=== PATIENT | female | born 1955 | race African-American/Black ===

== ENCOUNTER 2016-08-28 06:04 | Inpatient (IN) | payer MEDICARE, OTHER ==
[2016-08-28] VITALS (9 sets, daily range): BP systolic 115–129; BP diastolic 57–71
[~2016-08-28] VITALS: Ht 165.1 cm; Wt 78.5 kg
[~2016-08-28 06:04] MED LIST: AMLODIPINE BESY10 MG ORAL; ASPIRIN-LOW81 MG ORAL; CYCLOBENZAPRINE10 MG ORAL; GABAPENTIN300 MG ORAL; GLIMEPIRIDE4 MG ORAL; HYDROCODON-ACE1 EA15 ORAL; TRAMADOL HCL50 MG ORAL; VASERETIC1 EA ORAL
--- NOTE | 2016-08-28 06:22 | Emergency Room Report ---
History of Present Illness General Chief Complaint: Altered Level of Consciousness Source: Patient, Medical Record, EMS Present Illness HPI This is a 61-year-old female with history of diabetes in the past. No lumbar medication. Also history renal failure on hemodialysis Friday, Friday, and Friday. Per family patient is 5 dialysis session. He checked up on her and found her unresponsive not speaking. EMS was called. Per EMS, she was just revealing and making sounds. EMS said her glucose was critically low. They gave her a dose of glucagon. She became more responsive. She said she said that she's been weak. Ms. dialysis because of it. Denies any nausea vomiting. Denies any chest pain. Nothing made it better. Nothing made it worse. Allergies: Coded Allergies: No Known Allergies (Unverified , 11/13/12) Patient History Past Medical History: see triage record, old chart reviewed, HTN, renal disease Past Surgical History: other Pertinent Family History: none Social History: Denies: smoking Last Menstrual Period: none Now: No Immunizations: other Reviewed Nursing Documentation: PMH: Agreed, PSxH: Agreed Nursing Documentation-PMH Hx Cardiac Problems: Yes Hx Hypertension: Yes - stroke Hx Diabetes: Yes Hx Cancer: Yes Hx Dialysis: Yes - MWF Hx Neurological Problems: Yes Hx Cerebrovascular Accident: Yes Hx Seizures: Yes Review of Systems Constitutional: Reports: weakness Eye: Denies: blurred vision, eye pain ENT: Denies: ear pain, nose congestion, throat swelling Respiratory: Denies: cough, shortness of breath Cardiovascular: Denies: chest pain, palpitations Gastrointestinal: Denies: abdominal pain, diarrhea, nausea, vomiting Musculoskeletal: Denies: back pain, joint pain Skin: Denies: rash Neurological: Denies: headache, numbness Endocrine: Denies: increased thirst, increased urine Hematologic/Lymphatic: Denies: easy bruising All Other Systems: negative except mentioned in HPI Physical Exam Vital Signs Date Time Temp Pulse Resp B/P Pulse Ox O2 Delivery O2 Flow Rate FiO2 08/28/16 06:04 78 18 92/42 99 Room Air vital showed hypotension Sp02 EP Interpretation: reviewed, normal General Appearance: Chronically Ill Head: normocephalic, atraumatic Eyes: bilateral eye EOMI, bilateral eye PERRL ENT: hearing grossly normal, normal pharynx Neck: full range of motion, supple, no meningismus Respiratory: chest non-tender, lungs clear, normal breath sounds Cardiovascular #1: regular rate, rhythm, no murmur Gastrointestinal: normal bowel sounds, non tender, no mass, no organomegaly, no bruit, non-distended Musculoskeletal: back normal, normal range of motion Neurologic: alert, oriented x3 Psychiatric: mood/affect normal Skin: warm/dry Procedures Critical Care Time Critical Care Time Critical care is mandated in this patient who presented with critically low blood glucose. Patient require my urgent intervention to attenuate the risks of metabolic collapse which may lead to cardiovascular collapse and . Critical care time is 35 minutes excluding any reportable procedure. Critical care time included evaluation, multiple reevaluation, looking at old charts, interpreting laboratory and diagnostic data, discussing case with patient and family and consultants, and charting. Medical Decision Making Diagnostic Impression: Primary Impression: Altered level of consciousness Additional Impressions: Hypoglycemia Uremia syndrome ER Course Patient present with generalize weakness and altered mental status. Her blood sugar was critically low. D50 given here. Patient was fed. Labs and x-ray pending. No evidence of peaked T waves on EKG. Patient has poor IV access so I place 18-gauge EJ. I will sign this patient out to Dr. Solis for final disposition. Pt will be admitted. EKG Diagnostic Results Rate: normal Rhythm: NSR ST Segments: no acute changes Rhythm Strip Diag. Results EP Interpretation: yes Rate: 81 Rhythm: NSR, no PVC's, no ectopy Chest X-Ray Diagnostic Results EP Interpretation: Yes Findings: no consolidation, no effusion, no pneumothorax, no acute cardiopulmonary disease Number of Views: 1 Last Vital Signs Date Time Temp Pulse Resp B/P Pulse Ox O2 Delivery O2 Flow Rate FiO2 08/28/16 06:04 78 18 92/42 99 Room Air Status: improved Disposition: ADMITTED INPATIENT Condition: Serious FIDENCIO MORSE M.D. Aug 28, 2016 06:22
--- NOTE | 2016-08-28 06:54 | Emergency Room Report ---
History of Present Illness General Chief Complaint: Altered Level of Consciousness Source: Patient, Medical Record, EMS Present Illness HPI Patient transferred by EMS with altered mental status, history of end-stage renal disease as well as diabetes, to include episodes of hyperglycemia as well as hypoglycemia. Post gastric bypass in the past. Transferred by EMS with an altered mental status complaint and history per the family that states she has missed dialysis 3 times. No other available review of systems or history available by the family at this time. Allergies: Coded Allergies: No Known Allergies (Unverified , 11/13/12) Patient History Limited by: medical condition - unable Past Medical History: see triage record Social History: Denies: alcohol use, drug use, smoking Last Menstrual Period: none Now: No Immunizations: UTD Reviewed Nursing Documentation: PMH: Agreed Nursing Documentation-PMH Hx Cardiac Problems: Yes Hx Hypertension: Yes - stroke Hx Diabetes: Yes Hx Cancer: Yes Hx Dialysis: Yes - MWF Hx Neurological Problems: Yes Hx Cerebrovascular Accident: Yes Hx Seizures: Yes Review of Systems All Other Systems: limited Physical Exam Vital Signs Date Time Temp Pulse Resp B/P Pulse Ox O2 Delivery O2 Flow Rate FiO2 08/28/16 06:04 97.9 78 18 92/42 99 Room Air Sp02 EP Interpretation: reviewed, abnormal - low blood sugar low, blood pressure General Appearance: moderate distress, lethargic ENT: dry mucus membranes Neck: supple, other - eJ in place Respiratory: lungs clear Cardiovascular #1: regular rate, rhythm, no edema Cardiovascular #2: 2+ carotid (R), 2+ carotid (L) Gastrointestinal: non tender, soft, no mass Genitourinary: no CVA tenderness Neurologic: responsive - after blood sugar Skin: no rash, warm/dry Procedures Critical Care Time Critical Care Time Today 75 minutes critical care, to include resuscitation efforts initially, discussions with primary admitting as well as family, as well as E. and physician and review of labs, and continued observation and care of the patient in the ER. Time excluding all procedures Medical Decision Making Diagnostic Impression: Primary Impression: Altered level of consciousness Additional Impressions: Hypoglycemia Hypoglycemia associated with type 2 diabetes mellitus Hypoglycemia following gastrointestinal surgery ER Course Patient signed out to Dr. Willoughby, who initially is this and resuscitation, who place and EJ,. Patient's blood sugars be critically low and she received dextrose and emerged department with significant permit mental status. She has been eating in the ER and is not in distress at this moment. Labs are still pending, x-ray pending, patient will likely need admission to the hospital for dialysis. Will contact primary as well as renal. Labs reviewed, as well as x-ray. Patient remains improved after glucose. Believe the patient should be admitted for dialysis treatment and further observation. We'll speak with Dr. Walker for admission Contacted , he agrees with admission, the patient has had some increased dip in her blood sugar at this time I agree bolus with sugar, and as well as started a D5 drip as the patient is likely suffering from severe hypoglycemia secondary to poor intake in renal disease. Patient will need dialysis as well as close monitoring with glucose riding until her condition improves. Critical care time noted Laboratory Tests Test 08/28/16 06:30 White Blood Count 2.7 K/UL (4.8-10.8) L Red Blood Count 3.67 M/UL (4.20-5.40) L Hemoglobin 11.2 G/DL (12.0-16.0) L Hematocrit 33.8 % (37.0-47.0) L Mean Corpuscular Volume 92 FL (80-99) Mean Corpuscular Hemoglobin 30.6 PG (27.0-31.0) Mean Corpuscular Hemoglobin Concent 33.2 G/DL (32.0-36.0) Red Cell Distribution Width 13.0 % (11.6-14.8) Platelet Count 268 K/UL (150-450) Mean Platelet Volume 6.2 FL (6.5-10.1) L Neutrophils (%) (Auto) % (45.0-75.0) Lymphocytes (%) (Auto) % (20.0-45.0) Monocytes (%) (Auto) % (1.0-10.0) Eosinophils (%) (Auto) % (0.0-3.0) Basophils (%) (Auto) % (0.0-2.0) Neutrophils % (Manual) Pending Lymphocytes % (Manual) Pending Platelet Estimate Pending Platelet Morphology Pending Prothrombin Time 10.8 SEC (9.30-11.50) Prothromb Time International Ratio 1.1 (0.9-1.1) Activated Partial Thromboplast Time 23 SEC (23-33) Sodium Level 141 mEQ/L (135-145) Potassium Level 4.2 mEQ/L (3.4-4.9) Chloride Level 96 mEQ/L (98-107) L Carbon Dioxide Level 22 mEQ/L (20-30) Anion Gap 23 (5-15) H Blood Urea Nitrogen 61 mg/dL (7-23) H Creatinine 10.6 mg/dL (0.5-0.9) H Estimat Glomerular Filtration Rate 4.5 mL/min (>60) Glucose Level 91 mg/dL (74-106) Calcium Level 8.7 mg/dL (8.6-10.2) Total Bilirubin 0.4 mg/dL (0.0-1.2) Aspartate Amino Transf (AST/SGOT) 18 U/L (5-40) Alanine Aminotransferase (ALT/SGPT) 5 U/L (3-33) Alkaline Phosphatase 95 U/L (35-104) Total Creatine Kinase 137 U/L (26-140) Creatine Kinase MB 3.0 ng/mL (< 3.8) Creatine Kinase MB Relative Index 2.1 Troponin I < 0.30 ng/mL (<=0.30) Pro-B-Type Natriuretic Peptide 5186 pg/mL (0-125) H Total Protein 6.0 g/dL (6.6-8.7) L Albumin 2.7 g/dL (3.5-5.2) L Globulin 3.3 g/dL Albumin/Globulin Ratio 0.8 (1.0-2.7) L EKG Diagnostic Results EKG Time: 06:53 Rate: normal, tachycardiac Rhythm: NSR ST Segments: other - artifactual, no ST changes Rhythm Strip Diag. Results Rhythm Strip Time: 06:53 EP Interpretation: yes Rate: 88 Rhythm: NSR, no PVC's, no ectopy Chest X-Ray Diagnostic Results Time: 08:11 EP Interpretation: No Findings: no effusion, no pneumothorax, no acute cardiopulmonary disease Number of Views: 1 Reevaluation Time: 06:54 Last Vital Signs Date Time Temp Pulse Resp B/P Pulse Ox O2 Delivery O2 Flow Rate FiO2 08/28/16 06:04 97.9 78 18 92/42 99 Room Air Status: improved Disposition: ADMITTED INPATIENT Admit Decision Time: 06:54 Condition: Serious Referrals: [facility],REFERRING (PCP) Isaak Solis MD Aug 28, 2016 06:54
[2016-08-28 07:06] LABS: MEAN CORPUSCULAR HEMOGLOBIN 30.6 PG (27.0-31.0); MEAN CORPUSCULAR HGB CONC 33.2 G/DL (32.0-36.0); MEAN CORPUSCULAR VOLUME 92 FL (80-99); MEAN PLATELET VOLUME 6.2 FL (6.5-10.1); PLATELET COUNT 268 K/UL (150-450); RED BLOOD COUNT 3.67 M/UL (4.20-5.40); WHITE BLOOD COUNT 2.7 K/UL (4.8-10.8)
[2016-08-28 07:16] LABS: ALBUMIN/GLOBULIN RATIO 0.8 (1.0-2.7); CALCIUM 8.7 mg/dL (8.6-10.2); CREATININE 10.6 mg/dL (0.5-0.9); GLOMERULAR FILTRATION RATE 4.5 mL/min (>60); POTASSIUM 4.2 mEQ/L (3.4-4.9)
[2016-08-28 07:25] LABS: TROPONIN I < 0.30 ng/mL (<=0.30)
[2016-08-28 07:26] LABS: INR 1.1 (0.9-1.1); PROTHROMBIN TIME 10.8 SEC (9.30-11.50)
[2016-08-28] MEDS ORDERED: LOMOTIL TABLET1 EACH ORAL (07:45)
[2016-08-28] MEDS ORDERED: VELPHORO500 MG PO (07:45)
[2016-08-28] MEDS ORDERED: FLUDROCORTISON0.1 MG PO (07:45)
[2016-08-28] MEDS ORDERED: CLOPIDOGREL75 MG ORAL (07:45)
[2016-08-28] MEDS ORDERED: RENVELA0.8 GM ORAL (07:45)
[2016-08-28] MEDS ORDERED: CREON DR 36,001 EACH PO (07:45)
[2016-08-28] MEDS ORDERED: PANTOPRAZOLE SO40 MG ORAL (07:45)
[2016-08-28] MEDS ORDERED: BACTRIM DS TAB1 EAC1 ORAL (07:45)
--- NOTE | 2016-08-28 08:34 | Diagnostic Imaging Report ---
Indications: Shortness of breath Technique: Portable AP chest Findings: Comparison: 01/15/2012 Cardiac silhouette remains normal in size. Pulmonary vasculature remains within normal limits. Lungs and pleura remain clear. 2 vascular stents in the mid and the medial aspect of the upper right arm, region of right subclavian and brachiocephalic veins.. IMPRESSION: No evidence of acute disease, unchanged Interval intravascular stent placement, likely relates to dialysis access
[2016-08-28 09:00] LABS: BAND NEUTROPHILS % (MANUAL) 0 % (0-8); BASOPHILS % (MANUAL) 0 % (0-2); EOSINOPHILS % (MANUAL) 1 % (0-3); LYMPHOCYTES % (MANUAL) 16 % (20-45); NEUTROPHILS % (MANUAL) 77 % (45-75); PLATELET ESTIMATE ADEQUATE; PLATELET MORPHOLOGY NORMAL; TOTAL CELLS COUNTED 100
[2016-08-28] MEDS ORDERED: D5 1/2NS 1,000 ML IV SCH ×2 (09:00)
[2016-08-28 09:01] LABS: HYPOCHROMASIA 1+
[2016-08-28] MEDS ORDERED: Renvela 800mg Pkt ORAL SCH (18:00)
[2016-08-28] MEDS: Aspirin EC 81mg tab ORAL SCH (18:22)
[2016-08-28] MEDS: Pancrease Cap ORAL SCH (21:25)
[2016-08-28] MEDS: NovoLOG Insulin Flexpen SUBQ SCH (21:33)
[2016-08-28] MEDS: Heparin 5000 units/ml inj SUBQ SCH (21:39)
--- NOTE | 2016-08-28 23:23 | Consultation ---
Consult Note Assessment/Plan Brief nephrology consult: Impression: 1) ESRD 2) Probable viral illness 3) DM 4) NO Fluid overload Plan: Will arrange for HD tomorrow EMILI HERNANDEZ Aug 28, 2016 23:23
[2016-08-29 00:36] VITALS: BP 102/65
--- NOTE | 2016-08-29 02:57 | Consultation ---
DATE OF CONSULTATION: 08/28/2016 CARDIOLOGY CONSULTATION REQUESTING PHYSICIAN: Silvano Hatfield M.D. REASON FOR CONSULTATION: Hypotension. HISTORY OF PRESENT ILLNESS: This is an female with end-stage renal disease. She was seen in my office about a week ago for routine cardiac followup. Subsequently, she apparently had developed nausea, vomiting and general malaise. She was weak and unable to eat or get out of bed and missed several sessions of her dialysis. She denied chest pain or shortness of breath. She was seen in the emergency room where her blood pressure was low and she was quite lethargic with persistent hypoglycemia. PAST MEDICAL HISTORY: End-stage renal disease, diabetes mellitus type 2, history of gastric bypass surgery, hypertension with hypertensive heart disease, cerebrovascular disease with prior cerebrovascular accident, atherosclerotic cardiovascular disease and seizure disorder. MEDICATIONS: Reviewed and reconciled. ALLERGIES: None. FAMILY HISTORY: Noncontributory. SOCIAL HISTORY: No active smoking, alcohol, or substance abuse. REVIEW OF SYSTEMS: No fevers. She has had nausea and vomiting. No history of thyroid disorder. No history of chest pain. No swelling. She had dialysis Friday, Friday, and Friday usually. She has had prior strokes. PHYSICAL EXAMINATION: VITAL SIGNS: Temperature afebrile. Blood pressure 92/42, pulse 78, and respirations 18. HEENT: Temporal wasting. Pale conjunctivae. Oropharynx is clear. Mucous membranes dry. NECK: Supple. Jugular venous pressure normal. LUNGS: Clear. CARDIAC: Regular rhythm and rate. Normal S1 and S2. A 1/6 systolic apical murmur. ABDOMEN: Soft and nontender. No guarding or rebound. No CVA tenderness. EXTREMITIES: No clubbing or cyanosis. No edema. NEUROLOGIC: Lethargic until glucose given and then alert and slow response. Nonfocal. There is an injury line in the right neck region placed in the emergency room and the entry site is clean and dry. LABORATORY DATA: White count 3.7 and hemoglobin 11.2. Sodium 141, potassium 4.2, bicarbonate 22, BUN 61 and creatinine 10.6. Albumin is 2.7. IMPRESSION: 1. Hypovolemia. 2. Dehydration. 3. Probable gastroenteritis due to viral pathogens. 4. End-stage renal disease. 5. Chronic diastolic congestive heart failure. No signs of volume overload. 6. Cerebrovascular disease. 7. Type 2 diabetes mellitus with hypoglycemia. PLAN: 1. Cautious hydration. 2. Cardiac monitoring. 3. Hemodialysis without ultrafiltration. 4. No antibiotics or antimicrobials at this time. 5. Surveillance of blood cultures. 6. D5 drip. 7. Hold all oral hypoglycemic agents. 8. Glucose monitoring. Martín Walker M.D. DR: FRANKLIN JOB#: [id number] CC:
[2016-08-29 04:00] VITALS: BP 107/62
[2016-08-29 04:33] LABS: BASOPHILS % (AUTO) 2.3 % (0.0-2.0); EOSINOPHILS % (AUTO) 5.6 % (0.0-3.0); MEAN CORPUSCULAR HEMOGLOBIN 29.9 PG (27.0-31.0); MEAN CORPUSCULAR HGB CONC 32.3 G/DL (32.0-36.0); MEAN CORPUSCULAR VOLUME 92 FL (80-99); MEAN PLATELET VOLUME 5.7 FL (6.5-10.1); MONOCYTES % (AUTO) 14.4 % (1.0-10.0); NEUTROPHILS % (AUTO) 56.6 % (45.0-75.0); PLATELET COUNT 260 K/UL (150-450); RED BLOOD COUNT 3.63 M/UL (4.20-5.40); RED CELL DISTRIBUTION WIDTH 13.1 % (11.6-14.8); WHITE BLOOD COUNT 5.4 K/UL (4.8-10.8)
[2016-08-29 04:47] LABS: ALBUMIN/GLOBULIN RATIO 0.7 (1.0-2.7); CALCIUM 8.4 mg/dL (8.6-10.2); CREATININE 11.3 mg/dL (0.5-0.9); GLOMERULAR FILTRATION RATE 4.2 mL/min (>60); POTASSIUM 4.2 mEQ/L (3.4-4.9); TOTAL PROTEIN 5.5 g/dL (6.6-8.7)
[2016-08-29 05:26] LABS: TROPONIN I < 0.30 ng/mL (<=0.30)
[2016-08-29] MEDS: NovoLOG Insulin Flexpen SUBQ SCH ×4 (06:29→21:00)
[2016-08-29] MEDS ORDERED: Glimepiride 4mg tab ORAL SCH (06:30)
[2016-08-29 08:00] VITALS: BP 121/67
[2016-08-29] MEDS: Aspirin EC 81mg tab ORAL SCH ×2 (08:13→08:50)
[2016-08-29] MEDS: Pancrease Cap ORAL SCH ×4 (08:14→17:59)
[2016-08-29] MEDS: Heparin 5000 units/ml inj SUBQ SCH ×3 (08:16→20:52)
--- NOTE | 2016-08-29 08:57 | General Progress Note ---
Assessment/Plan Problem List: (1) Hypoglycemia following gastrointestinal surgery ICD Codes: K91.2 - Postsurgical malabsorption, not elsewhere classified SNOMED: 900951794, 46400728 (2) Hypoglycemia ICD Codes: E16.2 - Hypoglycemia, unspecified SNOMED: 019014377 (3) Altered level of consciousness ICD Codes: R40.4 - Transient alteration of awareness SNOMED: 0489026 (4) End stage renal disease on dialysis ICD Codes: N18.6 - End stage renal disease; Z99.2 - Dependence on renal dialysis SNOMED: 008221339 Status: stable, progressing Assessment/Plan monitor bs check cdiff BP rx sz rx monitor for sxs HD Subjective ROS Limited/Unobtainable: No Constitutional: Reports: malaise, weakness HEENT: Reports: no symptoms Cardiovascular: Reports: no symptoms Respiratory: Reports: no symptoms Gastrointestinal/Abdominal: Reports: abdominal pain, diarrhea, vomiting Genitourinary: Reports: no symptoms Neurologic/Psychiatric: Reports: pre-existing deficit, seizure Endocrine: Reports: no symptoms Hematologic/Lymphatic: Reports: anemia Allergies: Coded Allergies: No Known Allergies (Unverified , 11/13/12) All Systems: reviewed and negative except above Subjective a little better today. no hypoglycemia. oral hypoglycemics on hold. no cp/sob. waiting for HD Objective Last 24 Hour Vital Signs Date Time Temp Pulse Resp B/P Pulse Ox O2 Delivery O2 Flow Rate FiO2 08/29/16 04:00 97.4 71 20 107/62 97 Room Air 08/29/16 03:47 76 08/29/16 00:36 97.0 94 18 102/65 97 Room Air 08/28/16 23:54 85 08/28/16 21:25 81 118/67 08/28/16 21:24 97.4 81 20 118/67 95 Room Air 08/28/16 19:12 76 08/28/16 16:25 97.4 82 20 123/71 98 Room Air 08/28/16 16:00 97.9 89 20 116/62 100 Room Air 08/28/16 14:00 97.9 89 20 116/62 100 Room Air 08/28/16 13:00 97.9 92 16 129/63 100 Room Air 08/28/16 10:30 97.9 75 16 120/70 100 Room Air 08/28/16 09:30 97.9 78 17 127/60 100 Room Air Intake and Output 08/28/16 08/29/16 19:00 07:00 Intake Total 360 ml Balance 360 ml Intake Oral 360 ml # Voids 1 1 # Bowel Movements 2 Laboratory Tests 08/29/16 03:40: White Blood Count 5.4#, Red Blood Count 3.63L, Hemoglobin 10.9L, Hematocrit 33.6L, Mean Corpuscular Volume 92, Mean Corpuscular Hemoglobin 29.9, Mean Corpuscular Hemoglobin Concent 32.3, Red Cell Distribution Width 13.1, Platelet Count 260, Mean Platelet Volume 5.7L, Neutrophils (%) (Auto) 56.6, Lymphocytes ( %) (Auto) 21.0, Monocytes (%) (Auto) 14.4H, Eosinophils (%) (Auto) 5.6H, Basophils (%) (Auto) 2.3H, Sodium Level 138, Potassium Level 4.2, Chloride Level 95L, Carbon Dioxide Level 20, Anion Gap 23H, Blood Urea Nitrogen 65H, Creatinine 11.3H, Estimat Glomerular Filtration Rate 4.2, Glucose Level 71L, Calcium Level 8.4L, Total Bilirubin 0.3, Aspartate Amino Transf (AST/SGOT) 17, Alanine Aminotransferase (ALT/SGPT) 5, Alkaline Phosphatase 91, Troponin I < 0.30, Total Protein 5.5L, Albumin 2.3L, Globulin 3.2, Albumin/Globulin Ratio 0.7L Height (Feet): 5 Height (Inches): 4.00 Weight (Pounds): 173 General Appearance: WD/WN, alert Neck: supple Cardiovascular: regular rhythm Respiratory/Chest: lungs clear, normal breath sounds, no respiratory distress, no accessory muscle use Abdomen: normal bowel sounds, non tender, soft, no organomegaly, no mass Edema: no edema noted Arm (L), no edema noted Arm (R), no edema noted Leg (L), no edema noted Leg (R), no edema noted Pedal (L), no edema noted Pedal (R), no edema noted 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
--- NOTE | 2016-08-29 08:58 | History and Physical Report ---
DATE OF ADMISSION: 08/28/2016 DATE OF EVALUATION: The patient was seen in the emergency room on 08/28/2016. HISTORY OF PRESENT ILLNESS: The patient is a very pleasant 61-year-old female, well known to me. She has a history of end-stage renal disease, hypertension, diabetes and hypertensive heart disease, history of stroke and seizure disorder. She has a prior history of a gastric bypass. She was admitted after family members found her confused and altered. She was noted to be hypoglycemic at that time. According the patient, she has been ill for the last two weeks with some type of gastrointestinal illness. She has noted diarrhea, nausea and vomiting. She has been unable to the eat because of continued nausea and diarrhea. On evaluation by paramedics, the patient apparently hypoglycemic. On evaluation in the emergency room, the patient the patient blood sugar was improved and her mental status is stable, but this concerned about recurrent hypoglycemia. She is now admitted for further evaluation and care. PAST MEDICAL HISTORY: As above. PAST SURGICAL HISTORY: As above. MEDICATIONS: Current Medications reconciled and reviewed. ALLERGIES: None. SOCIAL HISTORY: There is no known history of tobacco, ethanol, or drugs. FAMILY HISTORY: None. REVIEW OF SYSTEMS: General: No fever or chills. Positive malaise or weakness. Positive anorexia. HEENT: No headaches or visual changes. Cardiopulmonary: No chest pain or shortness of breath. Gastrointestinal: Positive nausea, vomiting, and diarrhea. Genitourinary: No urgency or frequency. Musculoskeletal: No joint pain or swelling Neurologic: No evidence of seizures. PHYSICAL EXAMINATION: VITAL SIGNS: Temperature 97.0 degrees, blood pressure 117/57, pulse 78, and respirations 18. GENERAL: The patient is well-developed female in no apparent distress. She is awake, alert, and oriented x4. HEENT: Her pupils are equal, round, and reactive to light. Sclerae are anicteric. Oropharynx is clear NECK: Supple. HEART: Regular rate and rhythm. LUNGS: Clear. ABDOMEN: Soft, nontender, and nondistended. EXTREMITIES: Without clubbing, cyanosis, or edema. NEUROLOGIC: Nonfocal. LABORATORY AND DIAGNOSTIC DATA: Labs shows sodium 141, glucose of 91, potassium 4, and creatinine of 10. White count was 3, hemoglobin 11, hematocrit 33, and platelets of 100,000. Coags are normal. Chest x-ray was clear. ASSESSMENT: This is a pleasant female admitted with complaints of hypoglycemia, encephalopathy, diabetes, hypertension, end-stage renal disease, mild volume overload secondary to missed dialysis, and rash. PLAN: Antiemetics. We will hold glipizide. Monitor Accu-Cheks. Renal and Cardiology consultations. Continue seizure medications. PT/OT evaluation. Silvano Hatfield M.D. DR: Kristine JOB#: [id number] CC:
[2016-08-29 12:00] VITALS: BP 125/69
[2016-08-29] MEDS: Norco 5mg/325mg tab ORAL PRN (12:23)
--- NOTE | 2016-08-29 13:16 | Wound Care Consultation ---
Wound Assessment Wound Assessment #1: Wound Present on Admission: Yes New Wound: No Status Change of Wound: No Wound Location Body Site Modif: left, anterior Wound Location Body Site: toe - 3rd and 4th Wound Type: scab Paula Test: Does not Paula Vascular Issues: diabetic foot ulcers Wound Thickness: Full Thickness Wound Drainage Amount: None Wound Drainage Odor: None/Absent Tissue Surrounding Wound: Intact Wound General Appearance: Asymptomatic Wound Assessment #2: Wound Number: #2 Wound Present on Admission: Yes New Wound: No Status Change of Wound: No Wound Location Body Site Modif: right Wound Location Body Site: toe - 3rd and 5th Wound Type: scab Paula Test: Does not Paula Vascular Issues: diabetic foot ulcers Wound Thickness: Full Thickness Wound Drainage Amount: None Wound Drainage Odor: None/Absent Tissue Surrounding Wound: Intact Wound General Appearance: Asymptomatic Wound Assessment #3: Wound Number: #3 Wound Present on Admission: Yes New Wound: No Status Change of Wound: No Wound Location Body Site Modif: right Wound Location Body Site: chest Wound Type: scar Paula Test: Does not Paula - and small partial thickness open wound Wound Thickness: Partial Thickness Wound Drainage Description: Serosanguineous Wound Drainage Amount: Scant Wound Drainage Odor: None/Absent Tissue Surrounding Wound: Intact Wound General Appearance: Reddened Wound Comment #1 Left 3rd and 4th anterior toes diabetic foot ulcer with dry scabs #2 Right 3rd and 5th anterior toes diabetic foot ulcer with a dry scabs #3 Right upper chest with scar and small open wound #4 Right dorsal foot with small dry scab Recommendation -Keep clean and dry -Turn and reposition -Local wound care as ordered -Offload both heels -Heel protector on both heels -Optimize nutrition -Assess and f/u accordingly for any changes VU MURO RN Aug 29, 2016 13:16
[2016-08-29] MEDS: Lomotil 2.5mg tab ORAL PRN (14:38)
--- NOTE | 2016-08-29 14:56 | Nephrology Progress Note ---
Assessment/Plan Assessment 1) ESRD 2) Diarrhea might be due to SB bacterial overgrowth 3) DM Plan: Check C. diff Will HD tomorrow again Start Rifaximin empirically Subjective Subjective She is having alot of diarrhea, could not tolerate HD well today, stopped due to hypotension, no n/v Objective Objective Last 24 Hour Vital Signs Date Time Temp Pulse Resp B/P Pulse Ox O2 Delivery O2 Flow Rate FiO2 08/29/16 13:20 97.7 08/29/16 12:00 92 08/29/16 12:00 97.3 93 19 125/69 97 Room Air 08/29/16 11:30 Room Air 08/29/16 09:45 Room Air 08/29/16 08:00 108 08/29/16 08:00 97.7 93 19 121/67 98 Room Air 08/29/16 04:00 97.4 71 20 107/62 97 Room Air 08/29/16 03:47 76 08/29/16 00:36 97.0 94 18 102/65 97 Room Air 08/28/16 23:54 85 08/28/16 21:25 81 118/67 08/28/16 21:24 97.4 81 20 118/67 95 Room Air 08/28/16 19:12 76 08/28/16 16:25 97.4 82 20 123/71 98 Room Air 08/28/16 16:00 97.9 89 20 116/62 100 Room Air Intake and Output 08/28/16 08/29/16 19:00 07:00 Intake Total 360 ml Balance 360 ml Intake Oral 360 ml # Voids 1 1 # Bowel Movements 2 Laboratory Tests 08/29/16 03:40: White Blood Count 5.4#, Red Blood Count 3.63L, Hemoglobin 10.9L, Hematocrit 33.6L, Mean Corpuscular Volume 92, Mean Corpuscular Hemoglobin 29.9, Mean Corpuscular Hemoglobin Concent 32.3, Red Cell Distribution Width 13.1, Platelet Count 260, Mean Platelet Volume 5.7L, Neutrophils (%) (Auto) 56.6, Lymphocytes ( %) (Auto) 21.0, Monocytes (%) (Auto) 14.4H, Eosinophils (%) (Auto) 5.6H, Basophils (%) (Auto) 2.3H, Sodium Level 138, Potassium Level 4.2, Chloride Level 95L, Carbon Dioxide Level 20, Anion Gap 23H, Blood Urea Nitrogen 65H, Creatinine 11.3H, Estimat Glomerular Filtration Rate 4.2, Glucose Level 71L, Calcium Level 8.4L, Total Bilirubin 0.3, Aspartate Amino Transf (AST/SGOT) 17, Alanine Aminotransferase (ALT/SGPT) 5, Alkaline Phosphatase 91, Troponin I < 0.30, Total Protein 5.5L, Albumin 2.3L, Globulin 3.2, Albumin/Globulin Ratio 0.7L Height (Feet): 5 Height (Inches): 4.00 Weight (Pounds): 173 General Appearance: WD/WN, no apparent distress EENT: PERRL/EOMI Neck: non-tender, normal alignment, supple Cardiovascular: normal rate, regular rhythm Respiratory/Chest: lungs clear Abdomen: normal bowel sounds, non tender 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
[2016-08-29 16:00] VITALS: BP 100/70
[2016-08-29] MEDS: RIFAXIMIN 200 MG ORAL SCH ×2 (17:59→22:47)
[2016-08-29 20:00] VITALS: BP 98/56
[2016-08-29] MEDS ORDERED: Heparin Sod 1000 units/ml 10ml IV ONE (23:30)
[2016-08-30] VITALS (9 sets, daily range): BP systolic 100–156; BP diastolic 49–73
--- NOTE | 2016-08-30 00:28 | Consultation ---
DATE OF CONSULTATION: 08/28/2016 NEPHROLOGY CONSULTATION CONSULTING PHYSICIAN: Marco Antonio Scruggs M.D. REFERRING PHYSICIAN: Silvano Hatfield M.D. REASON FOR CONSULTATION: The patient with end-stage renal disease, has missed a couple of dialysis treatments and has had some nausea, vomiting, and diarrhea. HISTORY OF PRESENT ILLNESS: This is a very pleasant 61-year-old female, patient of Dr. Carlos Enrique Gonzalez, who has end-stage renal disease, also history of diabetes mellitus, and hypertension, possibly autonomic neuropathy, has had previous history of stroke and seizure disorder, has been brought to the emergency room of [facility] because she was apparently altered and confused, turned out to be very hypoglycemic with a blood sugar in the range of 20s and after her blood sugar was corrected, her mental status returned to normal, nevertheless, she has missed dialysis on Friday. She is usually getting dialyzed on Friday, Friday, and Fridays. She has been sick for about two weeks having a lot of loose stools, also has had some nausea and vomiting recently. She is denying any chest pain or shortness of breath. I have been asked to see her and assess for her hemodialysis needs. PAST MEDICAL HISTORY: Significant for morbid obesity. She weighed more than 400 pounds, status post gastric bypass she is weighing 173 now. She has had end-stage renal disease, hypertension, type 2 diabetes mellitus, seizure disorder, and stroke. PAST SURGICAL HISTORY: Status post gastric bypass, status post AV access placement. MEDICATIONS: 1. Amlodipine 10 mg p.o. daily. 2. Aspirin 81 mg p.o. daily. 3. Plavix 75 mg p.o. daily. 4. Flexeril 10 mg p.o. t.i.d. p.r.n. 5. Lomotil on an as-needed basis. 6. Gabapentin 300 mg p.o. t.i.d. 7. Amaryl 4 mg p.o. before breakfast. 8. Enalapril one tablet p.o. daily. 9. Vowinckel on an as-needed basis. 10. Creon 1 p.o. daily. 11. Protonix 40 mg p.o. daily. 12. Renvela 800 mg p.o. t.i.d. with each meal. 13. Velphoro 500 mg p.o. t.i.d. with each meal. 14. Tramadol 50 mg p.o. every 6 hours as needed. SOCIAL HISTORY: Does not smoke. Does not drink alcohol. No drugs at this point. REVIEW OF SYSTEMS: General: She has not had any significant weight change. Denies any chills or fever. Cardiovascular: Denies any chest pain, dyspnea with exertion, or orthopnea. Skin: Denies any rash or photosensitivity. Musculoskeletal: Denies any arthralgia or myalgia. Urinary: She is anuric, on hemodialysis. Gastrointestinal: She has had some nausea, vomiting, and diarrhea, as I mentioned in history of present illness. Endocrine: Blood sugars in the range of 100 usually. The remainder of the review of the systems have been essentially negative. PHYSICAL EXAMINATION: GENERAL: The patient does not seem to be in much acute distress. VITAL SIGNS: Blood pressure is 117/57, pulse of 80, respirations 16, and temperature 97.9. HEENT: Head is atraumatic. Eyes, pupils reactive to light. No evidence of papilledema. Ears, canals are clear. Tympanic membranes are intact. Nose, nares are patent without any nasal discharge. Throat without inflammation or exudate. NECK: Supple. Jugular venous distention is within normal limits. No cervical adenopathy. No thyromegaly. HEART: Regular rate and rhythm. No gallop. LUNGS: Clear to auscultation. ABDOMEN: Supple. Bowel sounds are positive. No hepatosplenomegaly. EXTREMITIES: Lower extremities show no cyanosis or clubbing. No pedal edema. NEUROLOGICAL: Cranial nerves seems to be grossly intact. Deep tendon reflexes are symmetrically decreased in both lower extremities. LABORATORY DATA: Showing a sodium of 141, potassium 4.2, chloride 96, carbon dioxide 22, BUN 61, and creatinine 10.6. Albumin is 2.7. LFTs within normal range. WBC is 2.7, hemoglobin is 11.2, hematocrit 33.8, and platelets 268,000. IMPRESSION: 1. End-stage renal disease. 2. Gastroenteritis, possibly viral, however, it has lasted more than 2 weeks, also consider other etiologies. 3. Type 2 diabetes mellitus. 4. No fluid overload at this point. PLAN: We are going to arrange for hemodialysis tomorrow and we go from there. Marco Antonio Scruggs M.D. DR: Rajni JOB#: [id number] CC:
--- NOTE | 2016-08-30 00:58 | Progress Note ---
DATE: 08/29/2016 SUBJECTIVE: The patient is more alert. Appetite is better. Diarrhea has resolved. Glucose is stable, but she is off all medications and just recently came off IV fluids. OBJECTIVE: VITAL SIGNS: Blood pressure 100/70, pulse 98, respiration 18, and afebrile. HEENT: Temporal wasting. Pale conjunctivae. Mucous membranes are moist. NECK: Supple. LUNGS: Clear. CARDIAC: Regular. Normal S1 and S2 with a fourth heart sound. ABDOMEN: Soft. EXTREMITIES: No edema. NEUROLOGIC: No new neurologic deficits noted. IMPRESSION: 1. Hypoglycemia. 2. Nausea and vomiting likely due to acute gastroenteritis. 3. Hypovolemia and dehydration with hypotension. 4. Chronic elevation of natriuretic peptide assay due to renal disease and hypertensive cardiomyopathy. 5. Severe protein-calorie malnutrition. 6. Cerebrovascular disease with multi-infarct dementia. 7. End-stage renal disease, on hemodialysis. PLAN: 1. Hold oral hypoglycemics. 2. Monitor glucose levels, may need additional D5 hydration if further drop in glucose is noted. 3. Encourage oral intake with protein supplements. 4. Remain off cardiovascular medications in view of low range blood pressure. 5. Hemodialysis without ultrafiltration anticipated for now. Martín Walker M.D. : RONA JOB#: [id number] CC:
[2016-08-30] MEDS ORDERED: Heparin Sod 1000 units/ml 10ml IV PRN (06:00)
[2016-08-30] MEDS: NovoLOG Insulin Flexpen SUBQ SCH ×4 (06:15→21:00)
[2016-08-30] MEDS: RIFAXIMIN 200 MG ORAL SCH ×2 (06:15→14:00)
[2016-08-30] MEDS: Aspirin EC 81mg tab ORAL SCH (08:01)
[2016-08-30] MEDS: Pancrease Cap ORAL SCH ×3 (08:02→18:27)
[2016-08-30] MEDS: Heparin 5000 units/ml inj SUBQ SCH ×2 (08:03→21:25)
--- NOTE | 2016-08-30 09:31 | General Progress Note ---
Assessment/Plan Problem List: (1) Hypoglycemia following gastrointestinal surgery ICD Codes: K91.2 - Postsurgical malabsorption, not elsewhere classified SNOMED: 430023399, 75917782 (2) Hypoglycemia ICD Codes: E16.2 - Hypoglycemia, unspecified SNOMED: 903089280 (3) Altered level of consciousness ICD Codes: R40.4 - Transient alteration of awareness SNOMED: 7058391 (4) End stage renal disease on dialysis ICD Codes: N18.6 - End stage renal disease; Z99.2 - Dependence on renal dialysis SNOMED: 487040884 Status: stable, progressing Assessment/Plan monitor bs check cdiff BP rx sz rx monitor for sxs dc planning when bs better HD Subjective ROS Limited/Unobtainable: No Constitutional: Reports: malaise, weakness HEENT: Reports: no symptoms Cardiovascular: Reports: no symptoms Respiratory: Reports: no symptoms Gastrointestinal/Abdominal: Reports: diarrhea, vomiting Genitourinary: Reports: no symptoms Neurologic/Psychiatric: Reports: pre-existing deficit, seizure Endocrine: Reports: no symptoms Hematologic/Lymphatic: Reports: anemia Allergies: Coded Allergies: No Known Allergies (Unverified , 11/13/12) All Systems: reviewed and negative except above Subjective a little better today. had 1 episode of hypoglycemia yesterday. oral hypoglycemics on hold. no cp/sob. currently on hd Objective Last 24 Hour Vital Signs Date Time Temp Pulse Resp B/P Pulse Ox O2 Delivery O2 Flow Rate FiO2 08/30/16 09:08 97.7 94 20 130/68 97 Room Air 08/30/16 08:00 103 08/30/16 05:45 Room Air 08/30/16 05:30 97.6 85 20 156/69 96 Room Air 08/30/16 04:00 112 08/30/16 04:00 97.7 85 20 156/69 95 Room Air 08/30/16 00:00 97.4 95 20 106/54 95 Room Air 08/29/16 23:33 88 08/29/16 20:00 97.5 95 20 98/56 96 Room Air 08/29/16 19:24 92 08/29/16 16:22 90 08/29/16 16:00 98.1 98 18 100/70 97 Room Air 08/29/16 13:20 97.7 08/29/16 12:00 92 08/29/16 12:00 97.3 93 19 125/69 97 Room Air 08/29/16 11:30 Room Air 08/29/16 09:45 Room Air Intake and Output 08/29/16 08/30/16 19:00 07:00 Intake Total 340 ml 460 ml Output Total 0 ml Balance 340 ml 460 ml Intake Oral 240 ml 460 ml Hemodialysis 100 ml Output Hemodialysis UF 0 ml # Bowel Movements 3 Height (Feet): 5 Height (Inches): 4.00 Weight (Pounds): 173 Objective General Appearance: WD/WN, alert Neck: supple Cardiovascular: regular rhythm Respiratory/Chest: lungs clear, normal breath sounds, no respiratory distress, no accessory muscle use Abdomen: normal bowel sounds, non tender, soft, no organomegaly, no mass Edema: no edema noted Arm (L), no edema noted Arm (R), no edema noted Leg (L), no edema noted Leg (R), no edema noted Pedal (L), no edema noted Pedal (R), no edema noted Generalized Neurologic: health assessment and treatment teacher II-XII grossly normal, no motor/sensory deficits REYNALDO MURDOCK Aug 30, 2016 09:31
[2016-08-30] MEDS: Lomotil 2.5mg tab ORAL PRN (12:21)
[2016-08-30] MEDS: Norco 5mg/325mg tab ORAL PRN (12:25)
[2016-08-30] MEDS ORDERED: metroNIDAZOLE 500mg tab ORAL SCH (14:00)
--- NOTE | 2016-08-30 17:41 | Nephrology Progress Note ---
Assessment/Plan Assessment 1) ESRD 2) Diarrhea might be due to SB bacterial overgrowth 3) DM 4) C. Diff colitis Plan: Will d/c flagyl and rifaximin Start Vanco 250 mg po QID HD done today Subjective Subjective She continues to have diarrhea, stool + for C. Diff, started on flagyl po, not working well, had HD today Objective Objective Last 24 Hour Vital Signs Date Time Temp Pulse Resp B/P Pulse Ox O2 Delivery O2 Flow Rate FiO2 08/30/16 16:53 78 08/30/16 16:10 97.3 85 19 141/63 97 Room Air 08/30/16 13:30 97.7 08/30/16 12:00 97.5 93 20 103/63 97 Room Air 08/30/16 12:00 92 08/30/16 09:39 Room Air 08/30/16 09:38 97.7 92 18 117/63 97 Room Air 08/30/16 09:08 97.7 94 20 130/68 97 Room Air 08/30/16 08:00 103 08/30/16 05:45 Room Air 08/30/16 05:30 97.6 85 20 156/69 96 Room Air 08/30/16 04:00 112 08/30/16 04:00 97.7 85 20 156/69 95 Room Air 08/30/16 00:00 97.4 95 20 106/54 95 Room Air 08/29/16 23:33 88 08/29/16 20:00 97.5 95 20 98/56 96 Room Air 08/29/16 19:24 92 Intake and Output 08/29/16 08/30/16 19:00 07:00 Intake Total 340 ml 460 ml Output Total 0 ml Balance 340 ml 460 ml Intake Oral 240 ml 460 ml Hemodialysis 100 ml Output Hemodialysis UF 0 ml # Bowel Movements 3 Height (Feet): 5 Height (Inches): 4.00 Weight (Pounds): 173 General Appearance: WD/WN, no apparent distress EENT: PERRL/EOMI Neck: non-tender, normal alignment Cardiovascular: normal rate, regular rhythm Respiratory/Chest: lungs clear Abdomen: non tender, soft Neurologic: food preservation scientist II-XII grossly normal, no motor/sensory deficits EMILI HERNANDEZ Aug 30, 2016 17:41
[2016-08-30] MEDS: Vancomycin oral 125mg/2.5ml ORAL SCH (20:14)
[2016-08-31] VITALS: BP 102/62
--- NOTE | 2016-08-31 00:39 | Progress Note ---
DATE: 08/30/2016 CARDIOLOGY PROGRESS NOTE: SUBJECTIVE: The patient continues to have low range blood glucose levels. She is not having any diarrhea or vomiting. She is off all of her diabetic medications. OBJECTIVE: VITAL SIGNS: Blood pressure is 130/68, pulse rate 94, and respiratory rate 20. Monitored sinus rhythm with sinus arrhythmias. NECK: Jugular venous pressure is normal. LUNGS: Clear. CARDIAC: Regular rhythm and rate. Normal S1 and S2 with 1/6 systolic apical murmur. ABDOMEN: Soft and nontender. EXTREMITIES: No edema. Mild right greater than left weakness. ASSESSMENT: 1. Hypoglycemia. 2. History of gastric bypass surgery. 3. Type 2 diabetes mellitus. 4. Cerebrovascular disease with multi-infarct dementia. 5. End-stage renal disease. 6. Hypertensive heart disease. PLAN: 1. Continue to hold all oral hypoglycemics. 2. Monitor oral intake. 3. Glucose monitoring. 4. Titration of antihypertensive. 5. Hemodialysis with ultrafiltration. 6. Maintain anti-platelet and antiseizure drugs. Martín Walker M.D. DR: Nehal JOB#: [id number] CC:
[2016-08-31 04:00] VITALS: BP 100/54
[2016-08-31] MEDS: Vancomycin oral 125mg/2.5ml ORAL SCH ×4 (05:39→18:56)
[2016-08-31] MEDS: NovoLOG Insulin Flexpen SUBQ SCH ×4 (05:39→21:00)
[2016-08-31 08:00] VITALS: BP 92/63
--- NOTE | 2016-08-31 08:31 | General Progress Note ---
Assessment/Plan Problem List: (1) Hypoglycemia following gastrointestinal surgery ICD Codes: K91.2 - Postsurgical malabsorption, not elsewhere classified SNOMED: 879844873, 15057322 (2) Hypoglycemia ICD Codes: E16.2 - Hypoglycemia, unspecified SNOMED: 858718773 (3) Altered level of consciousness ICD Codes: R40.4 - Transient alteration of awareness SNOMED: 3921188 (4) End stage renal disease on dialysis ICD Codes: N18.6 - End stage renal disease; Z99.2 - Dependence on renal dialysis SNOMED: 573522785 Status: stable, progressing Assessment/Plan monitor bs cdiff rx add questran BP rx sz rx monitor for sxs HD Subjective ROS Limited/Unobtainable: No Constitutional: Reports: malaise, weakness HEENT: Reports: no symptoms Cardiovascular: Reports: no symptoms Respiratory: Reports: no symptoms Gastrointestinal/Abdominal: Reports: diarrhea Genitourinary: Reports: no symptoms Neurologic/Psychiatric: Reports: no symptoms Endocrine: Reports: no symptoms Hematologic/Lymphatic: Reports: anemia Allergies: Coded Allergies: No Known Allergies (Unverified , 11/13/12) All Systems: reviewed and negative except above Subjective diarrhea. cdiff positive. on po flagyl. no more hypoglycemia Objective Last 24 Hour Vital Signs Date Time Temp Pulse Resp B/P Pulse Ox O2 Delivery O2 Flow Rate FiO2 08/31/16 04:00 98.2 99 18 100/54 97 Room Air 08/31/16 03:36 85 08/31/16 00:00 83 08/31/16 00:00 97.5 83 20 102/62 96 Room Air 08/30/16 20:21 98.1 95 18 100/49 95 Room Air 08/30/16 19:19 105 08/30/16 16:53 78 08/30/16 16:10 97.3 85 19 141/63 97 Room Air 08/30/16 13:30 97.7 08/30/16 12:00 97.5 93 20 103/63 97 Room Air 08/30/16 12:00 92 08/30/16 09:39 Room Air 08/30/16 09:38 97.7 92 18 117/63 97 Room Air 08/30/16 09:08 97.7 94 20 130/68 97 Room Air Intake and Output 08/30/16 08/31/16 19:00 07:00 Intake Total 680 ml 430 ml Balance 680 ml 430 ml Intake Oral 680 ml 430 ml # Voids 1 # Bowel Movements 3 2 Height (Feet): 5 Height (Inches): 4.00 Weight (Pounds): 173 Objective General Appearance: WD/WN, alert Neck: supple Cardiovascular: regular rhythm Respiratory/Chest: lungs clear, normal breath sounds, no respiratory distress, no accessory muscle use Abdomen: normal bowel sounds, non tender, soft, no organomegaly, no mass Edema: no edema noted Arm (L), no edema noted Arm (R), no edema noted Leg (L), no edema noted Leg (R), no edema noted Pedal (L), no edema noted Pedal (R), no edema noted Generalized 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
[2016-08-31] MEDS: Pancrease Cap ORAL SCH ×3 (08:41→18:55)
[2016-08-31] MEDS: Aspirin EC 81mg tab ORAL SCH (08:42)
[2016-08-31] MEDS: Norco 5mg/325mg tab ORAL PRN ×2 (08:42→14:42)
[2016-08-31] MEDS: Heparin 5000 units/ml inj SUBQ SCH ×2 (08:43→22:01)
[2016-08-31] MEDS ORDERED: Cholestyramine 4gm Pkt ORAL PRN (08:45)
[2016-08-31 12:00] VITALS: BP 136/74
--- NOTE | 2016-08-31 14:16 | Nephrology Progress Note ---
Assessment/Plan Assessment 1) ESRD 2) Diarrhea better 3) DM 4) C. Diff colitis Plan: Next HD on Friday Subjective Subjective She continues to have diarrhea, but better , no c/p or sob Objective Objective Last 24 Hour Vital Signs Date Time Temp Pulse Resp B/P Pulse Ox O2 Delivery O2 Flow Rate FiO2 08/31/16 12:00 97.7 106 20 136/74 95 Room Air 08/31/16 12:00 106 08/31/16 09:40 97.7 08/31/16 08:43 92/63 08/31/16 08:43 98 92/63 08/31/16 08:00 97.7 98 21 92/63 97 Room Air 08/31/16 08:00 100 08/31/16 04:00 98.2 99 18 100/54 97 Room Air 08/31/16 03:36 85 08/31/16 00:00 83 08/31/16 00:00 97.5 83 20 102/62 96 Room Air 08/30/16 20:21 98.1 95 18 100/49 95 Room Air 08/30/16 19:19 105 08/30/16 16:53 78 08/30/16 16:10 97.3 85 19 141/63 97 Room Air Intake and Output 08/30/16 08/31/16 19:00 07:00 Intake Total 680 ml 430 ml Balance 680 ml 430 ml Intake Oral 680 ml 430 ml # Voids 1 # Bowel Movements 3 2 Height (Feet): 5 Height (Inches): 4.00 Weight (Pounds): 173 General Appearance: WD/WN, no apparent distress EENT: PERRL/EOMI Neck: non-tender Cardiovascular: normal rate, regular rhythm Respiratory/Chest: chest wall non-tender, lungs clear Abdomen: non tender, soft Extremities: normal range of motion 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
[2016-08-31 16:00] VITALS: BP_SYST 108; BP_SYST 134; BP_DIAS 58; BP_DIAS 70
[2016-08-31 20:00] VITALS: BP 114/60
[2016-09-01] VITALS: BP 124/65
[2016-09-01] MEDS: Vancomycin oral 125mg/2.5ml ORAL SCH ×5 (00:44→23:31)
[2016-09-01 04:00] VITALS: BP 115/65
[2016-09-01] MEDS: NovoLOG Insulin Flexpen SUBQ SCH ×4 (06:30→21:09)
[2016-09-01 08:00] VITALS: BP 140/75
--- NOTE | 2016-09-01 08:00 | General Progress Note ---
Assessment/Plan Problem List: (1) Hypoglycemia following gastrointestinal surgery ICD Codes: K91.2 - Postsurgical malabsorption, not elsewhere classified SNOMED: 269482860, 45591812 (2) Hypoglycemia ICD Codes: E16.2 - Hypoglycemia, unspecified SNOMED: 412303909 (3) Altered level of consciousness ICD Codes: R40.4 - Transient alteration of awareness SNOMED: 2682167 (4) End stage renal disease on dialysis ICD Codes: N18.6 - End stage renal disease; Z99.2 - Dependence on renal dialysis SNOMED: 480219695 Status: stable, progressing Assessment/Plan monitor bs cdiff rx on questran BP rx sz rx monitor for sxs HD topical benadryl Subjective ROS Limited/Unobtainable: No Constitutional: Reports: malaise, weakness HEENT: Reports: no symptoms Cardiovascular: Reports: no symptoms Respiratory: Reports: no symptoms Gastrointestinal/Abdominal: Reports: diarrhea Genitourinary: Reports: no symptoms Neurologic/Psychiatric: Reports: pre-existing deficit, seizure Endocrine: Reports: no symptoms Hematologic/Lymphatic: Reports: no symptoms Allergies: Coded Allergies: No Known Allergies (Unverified , 11/13/12) All Systems: reviewed and negative except above Subjective still with diarrhea. cdiff positive. on po flagyl. no more hypoglycemia. c/o itching and face rash Objective Last 24 Hour Vital Signs Date Time Temp Pulse Resp B/P Pulse Ox O2 Delivery O2 Flow Rate FiO2 09/01/16 04:00 97.9 82 16 115/65 94 Room Air 09/01/16 00:00 98.2 89 18 124/65 97 Room Air 08/31/16 20:00 97.9 87 19 114/60 97 Room Air 08/31/16 16:00 97.5 120 23 108/70 92 Room Air 08/31/16 15:49 97.7 08/31/16 12:00 97.7 106 20 136/74 95 Room Air 08/31/16 12:00 106 08/31/16 09:40 97.7 08/31/16 08:43 92/63 08/31/16 08:43 98 92/63 08/31/16 08:00 97.7 98 21 92/63 97 Room Air 08/31/16 08:00 100 Intake and Output 2/11/17 2/12/17 19:00 07:00 Intake Total 890 ml 920 ml Balance 890 ml 920 ml Intake Oral 890 ml 920 ml # Voids 2 2 # Bowel Movements 2 2 Height (Feet): 5 Height (Inches): 4.00 Weight (Pounds): 173 Objective General Appearance: WD/WN, alert Neck: supple Cardiovascular: regular rhythm Respiratory/Chest: lungs clear, normal breath sounds, no respiratory distress, no accessory muscle use Abdomen: normal bowel sounds, non tender, soft, no organomegaly, no mass Edema: no edema noted Arm (L), no edema noted Arm (R), no edema noted Leg (L), no edema noted Leg (R), no edema noted Pedal (L), no edema noted Pedal (R), no edema noted Generalized Neurologic: leasing consultant II-XII grossly normal, no motor/sensory deficits REYNALDO MURDOCK Sep 01, 2016 08:00
[2016-09-01] MEDS: Aspirin EC 81mg tab ORAL SCH (09:00)
[2016-09-01] MEDS: Pancrease Cap ORAL SCH ×3 (09:02→19:17)
[2016-09-01] MEDS: Heparin 5000 units/ml inj SUBQ SCH ×2 (09:51→21:09)
[2016-09-01] MEDS: DiphenhydrAMINE & Zinc 28g Cream TOPIC SCH ×3 (09:52→19:18)
[2016-09-01] MEDS: Norco 5mg/325mg tab ORAL PRN ×2 (09:54→13:57)
--- NOTE | 2016-09-01 12:38 | Nephrology Progress Note ---
Assessment/Plan Problem List: (1) Orthostatic hypotension (2) C. difficile colitis (3) End stage renal disease on dialysis Plan still diarrhea. history of low bp and amlodipine stopped as prior syncope. Gabapentin dose reduced in eskd. Dialysis 09/02 no uf as gi losses Subjective Constitutional: Reports: weakness HEENT: Reports: no symptoms Genitourinary: Reports: no symptoms Neurologic/Psychiatric: Reports: no symptoms Subjective still diarrhea Objective Objective Last 24 Hour Vital Signs Date Time Temp Pulse Resp B/P Pulse Ox O2 Delivery O2 Flow Rate FiO2 09/01/16 09:53 140/75 09/01/16 09:01 109 140/75 09/01/16 08:00 98.2 109 20 140/75 98 Room Air 09/01/16 04:00 97.9 82 16 115/65 94 Room Air 09/01/16 00:00 98.2 89 18 124/65 97 Room Air 08/31/16 20:00 97.9 87 19 114/60 97 Room Air 08/31/16 16:00 97.5 120 23 108/70 92 Room Air 08/31/16 15:49 97.7 Intake and Output 08/31/16 09/01/16 19:00 07:00 Intake Total 890 ml 920 ml Balance 890 ml 920 ml Intake Oral 890 ml 920 ml # Voids 2 2 # Bowel Movements 2 2 Height (Feet): 5 Height (Inches): 4.00 Weight (Pounds): 173 General Appearance: no apparent distress, alert EENT: PERRL/EOMI Neck: non-tender Cardiovascular: normal rate, regular rhythm Respiratory/Chest: lungs clear Abdomen: soft Extremities: other - no edema Neurologic: home health clinical supervisor II-XII grossly normal VERN ABBASI Sep 01, 2016 12:38
[2016-09-01 20:38] VITALS: BP 101/65
--- NOTE | 2016-09-01 23:29 | Progress Note ---
DATE: 08/31/2016 CARDIOLOGY PROGRESS NOTE SUBJECTIVE: The patient was seen and examined. She is more alert. She has diarrhea. Her C. difficile toxin was positive. OBJECTIVE: VITAL SIGNS: Blood pressure 100/54, pulse rate 99, and respiratory rate 18. NECK: Supple. LUNGS: Clear. CARDIAC: Regular rhythm rate. Normal S1 and S2 with a fourth heart sound. ABDOMEN: Soft. No focal tenderness. EXTREMITIES: No edema. NEUROLOGIC: Mild right greater than left weakness. IMPRESSION: 1. Hypoglycemia, resolved. 2. Dehydration hypovolemia, improved. 3. C. difficile diarrhea. 4. Toxic and metabolic encephalopathies, recovering. 5. End-stage renal disease, on hemodialysis. 6. Hypertensive heart disease with low range blood pressure due to metabolic process. PLAN: 1. Maintain adequate hydration. 2. Hemodialysis without ultrafiltration. 3. Hold parameters for antihypertensive. 4. Antidiarrheals added. 5. Antiseizure therapy with seizure precautions. 6. Glucose monitoring holding all oral hypoglycemic therapy at this time. Martín Walker M.D. DR: MARU JOB#: [id number] CC:
--- NOTE | 2016-09-01 23:39 | Progress Note ---
DATE: 09/01/2016 CARDIOLOGY PROGRESS NOTE SUBJECTIVE: The patient continues to have diarrhea although somewhat decreasing in quantity. She remains on therapy for C difficile colitis. She has had itching. Her blood glucose levels have stabilized although she is off all oral hypoglycemics. OBJECTIVE: VITAL SIGNS: Blood pressure slightly improved 115/65, pulse rate 82, and respiratory rate 16. She is afebrile although yesterday she had blood pressure readings as low as 92/63. HEENT: Conjunctivae pink. Oropharynx clear. No thrush. NECK: Supple. LUNGS: Clear. CARDIAC: Regular rhythm rate. Normal S1 and S2 with a fourth heart sound. ABDOMEN: Soft and nontender. EXTREMITIES: Without edema. NEUROLOGIC: No new neurologic deficits seen. IMPRESSION: 1. History of gastric bypass. 2. Hypoglycemia. 3. Type 2 diabetes mellitus. 4. Hypertensive heart disease. 5. End-stage renal disease. 6. C. difficile colitis. 7. Metabolic and toxic encephalopathy is recovering. PLAN: 1. Holding all diabetic medications. 2. Holding oral antihypertensive. 3. Maintaining adequate hydration. 4. Continue therapy for C. difficile with antidiarrheal agents. 5. Antiseizure therapy. 6. Neuro check and seizure precautions. Martín Walker M.D. DR: MARU JOB#: [id number] CC:
[2016-09-02] VITALS (7 sets, daily range): BP systolic 99–143; BP diastolic 54–79
[2016-09-02] MEDS ORDERED: Heparin Sod 1000 units/ml 10ml IV ONE (06:00)
[2016-09-02] MEDS: Vancomycin oral 125mg/2.5ml ORAL SCH ×3 (06:24→18:13)
[2016-09-02] MEDS: NovoLOG Insulin Flexpen SUBQ SCH ×4 (06:30→20:47)
--- NOTE | 2016-09-02 07:16 | General Progress Note ---
Assessment/Plan Problem List: (1) Hypoglycemia following gastrointestinal surgery ICD Codes: K91.2 - Postsurgical malabsorption, not elsewhere classified SNOMED: 489560367, 05250914 (2) Hypoglycemia ICD Codes: E16.2 - Hypoglycemia, unspecified SNOMED: 629940923 (3) Altered level of consciousness ICD Codes: R40.4 - Transient alteration of awareness SNOMED: 4667165 (4) End stage renal disease on dialysis ICD Codes: N18.6 - End stage renal disease; Z99.2 - Dependence on renal dialysis SNOMED: 874339385 Status: stable, not improved Assessment/Plan monitor bs cdiff rx on questran BP rx sz rx monitor for sxs HD topical benadryl still with too much diarrhea to dc Subjective ROS Limited/Unobtainable: No Constitutional: Reports: malaise, weakness HEENT: Reports: no symptoms Cardiovascular: Reports: no symptoms Respiratory: Reports: no symptoms Gastrointestinal/Abdominal: Reports: no symptoms Genitourinary: Reports: no symptoms Neurologic/Psychiatric: Reports: no symptoms Endocrine: Reports: no symptoms Hematologic/Lymphatic: Reports: no symptoms Allergies: Coded Allergies: No Known Allergies (Unverified , 11/13/12) All Systems: reviewed and negative except above Subjective still with watery diarrhea. cdiff positive. on po vanco. no more hypoglycemia. c /o itching and face rash. on questran. Objective Last 24 Hour Vital Signs Date Time Temp Pulse Resp B/P Pulse Ox O2 Delivery O2 Flow Rate FiO2 09/02/16 04:00 96.6 77 18 99/63 100 Room Air 09/02/16 00:00 97.7 94 18 101/57 95 Room Air 09/01/16 20:38 97.7 81 19 101/65 93 Room Air 09/01/16 13:57 98.2 09/01/16 09:53 140/75 09/01/16 09:01 109 140/75 09/01/16 08:00 98.2 109 20 140/75 98 Room Air Intake and Output 09/01/16 09/02/16 19:00 07:00 Intake Total 620 ml Balance 620 ml Intake Oral 620 ml # Voids 5 # Bowel Movements 7 Height (Feet): 5 Height (Inches): 4.00 Weight (Pounds): 173 Objective General Appearance: WD/WN, alert Neck: supple Cardiovascular: regular rhythm Respiratory/Chest: lungs clear, normal breath sounds, no respiratory distress, no accessory muscle use Abdomen: normal bowel sounds, non tender, soft, no organomegaly, no mass Edema: no edema noted Arm (L), no edema noted Arm (R), no edema noted Leg (L), no edema noted Leg (R), no edema noted Pedal (L), no edema noted Pedal (R), no edema noted 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
[2016-09-02 07:45] LABS: BASOPHILS % (AUTO) 1.6 % (0.0-2.0); CALCIUM 8.7 mg/dL (8.6-10.2); CREATININE 9.4 mg/dL (0.5-0.9); GLOMERULAR FILTRATION RATE 5.2 mL/min (>60); LYMPHOCYTES % (AUTO) 35.9 % (20.0-45.0); MEAN CORPUSCULAR HEMOGLOBIN 29.4 PG (27.0-31.0); MEAN CORPUSCULAR HGB CONC 31.2 G/DL (32.0-36.0); MEAN CORPUSCULAR VOLUME 94 FL (80-99); MEAN PLATELET VOLUME 6.1 FL (6.5-10.1); MONOCYTES % (AUTO) 11.2 % (1.0-10.0); NEUTROPHILS % (AUTO) 45.3 % (45.0-75.0); PHOSPHORUS 4.1 mg/dL (2.5-4.8); PLATELET COUNT 258 K/UL (150-450); POTASSIUM 4.1 mEQ/L (3.4-4.9); RED BLOOD COUNT 3.83 M/UL (4.20-5.40); RED CELL DISTRIBUTION WIDTH 13.6 % (11.6-14.8); WHITE BLOOD COUNT 6.6 K/UL (4.8-10.8)
[2016-09-02] MEDS: Aspirin EC 81mg tab ORAL SCH (08:23)
[2016-09-02] MEDS: Pancrease Cap ORAL SCH ×3 (08:24→18:13)
[2016-09-02] MEDS: DiphenhydrAMINE & Zinc 28g Cream TOPIC SCH ×3 (09:04→18:13)
[2016-09-02] MEDS: Heparin 5000 units/ml inj SUBQ SCH ×2 (09:09→20:07)
[2016-09-02] MEDS: Cholestyramine 4gm Pkt ORAL PRN (09:14)
--- NOTE | 2016-09-02 12:40 | Cardiology Report ---
APPROVED REPORT EKG Measurement Heart [id number] Sinus rhythm with fusion complexes Low voltage QRS Left anterior fascicular block Septal infarct, age undetermined Abnormal ECG
[2016-09-02] MEDS: Norco 5mg/325mg tab ORAL PRN (16:43)
--- NOTE | 2016-09-02 18:09 | Nephrology Progress Note ---
Assessment/Plan Problem List: (1) Orthostatic hypotension (2) C. difficile colitis (3) End stage renal disease on dialysis (4) Epilepsy Plan still diarrhea. history of low bp and amlodipine stopped as prior syncope. Stop lisinopril and florinef 09/02. Gabapentin dose reduced in eskd. Dialysis no uf as gi losses, stable on hd Subjective Constitutional: Reports: weakness HEENT: Reports: no symptoms Genitourinary: Reports: no symptoms Neurologic/Psychiatric: Reports: no symptoms Subjective still diarrhea mod-severe Objective Objective Last 24 Hour Vital Signs Date Time Temp Pulse Resp B/P Pulse Ox O2 Delivery O2 Flow Rate FiO2 09/02/16 16:09 99.1 93 22 122/54 99 Room Air 09/02/16 14:32 Room Air 09/02/16 12:00 97.7 79 16 124/66 99 Room Air 09/02/16 10:45 97.9 96 17 143/79 99 Room Air 09/02/16 10:45 Room Air 09/02/16 08:24 114/54 09/02/16 08:12 97.9 96 17 114/54 99 Room Air 09/02/16 04:00 96.6 77 18 99/63 100 Room Air 09/02/16 00:00 97.7 94 18 101/57 95 Room Air 09/01/16 20:38 97.7 81 19 101/65 93 Room Air Intake and Output 09/01/16 09/02/16 19:00 07:00 Intake Total 620 ml Balance 620 ml Intake Oral 620 ml # Voids 5 # Bowel Movements 7 Laboratory Tests 09/02/16 05:55: White Blood Count 6.6, Red Blood Count 3.83L, Hemoglobin 11.3L, Hematocrit 36.1L , Mean Corpuscular Volume 94, Mean Corpuscular Hemoglobin 29.4, Mean Corpuscular Hemoglobin Concent 31.2L, Red Cell Distribution Width 13.6, Platelet Count 258, Mean Platelet Volume 6.1L, Neutrophils (%) (Auto) 45.3, Lymphocytes (%) (Auto) 35.9, Monocytes (%) (Auto) 11.2H, Eosinophils (%) (Auto) 6.0H, Basophils (%) (Auto) 1.6, Sodium Level 149H, Potassium Level 4.1, Chloride Level 104, Carbon Dioxide Level 23, Anion Gap 22H, Blood Urea Nitrogen 62H, Creatinine 9.4H, Estimat Glomerular Filtration Rate 5.2, Glucose Level 68L , Calcium Level 8.7, Phosphorus Level 4.1 Height (Feet): 5 Height (Inches): 4.00 Weight (Pounds): 173 General Appearance: WD/WN, alert EENT: normal ENT inspection Neck: normal alignment Cardiovascular: normal rate, regular rhythm Respiratory/Chest: lungs clear, normal breath sounds Abdomen: non tender, soft, no organomegaly Extremities: other - no edema VERN ABBASI Sep 02, 2016 18:09
[2016-09-03] VITALS: BP 126/66
[2016-09-03] MEDS: Vancomycin oral 125mg/2.5ml ORAL SCH ×5 (00:19→23:56)
[2016-09-03 04:00] VITALS: BP 121/68
--- NOTE | 2016-09-03 05:36 | General Progress Note ---
Assessment/Plan Problem List: (1) Hypoglycemia following gastrointestinal surgery ICD Codes: K91.2 - Postsurgical malabsorption, not elsewhere classified SNOMED: 585929035, 42973320 (2) Hypoglycemia ICD Codes: E16.2 - Hypoglycemia, unspecified SNOMED: 315857937 (3) Altered level of consciousness ICD Codes: R40.4 - Transient alteration of awareness SNOMED: 4547963 (4) End stage renal disease on dialysis ICD Codes: N18.6 - End stage renal disease; Z99.2 - Dependence on renal dialysis SNOMED: 204007286 Assessment/Plan monitor bs cdiff rx on questran BP rx sz rx monitor for sxs HD topical benadryl still with too much diarrhea to dc will call id Subjective ROS Limited/Unobtainable: No Constitutional: Reports: malaise, weakness HEENT: Reports: no symptoms Cardiovascular: Reports: no symptoms Respiratory: Reports: no symptoms Gastrointestinal/Abdominal: Reports: diarrhea Genitourinary: Reports: no symptoms Neurologic/Psychiatric: Reports: no symptoms Endocrine: Reports: no symptoms Hematologic/Lymphatic: Reports: no symptoms Allergies: Coded Allergies: No Known Allergies (Unverified , 11/13/12) All Systems: reviewed and negative except above Subjective still with frequent watery diarrhea. cdiff positive. on po vanco. compliant with meds. no more hypoglycemia. c/o itching and face rash. on questran. Objective Last 24 Hour Vital Signs Date Time Temp Pulse Resp B/P Pulse Ox O2 Delivery O2 Flow Rate FiO2 09/03/16 04:00 97.8 77 18 121/68 97 Room Air 09/03/16 00:00 97.9 79 18 126/66 96 Room Air 09/02/16 20:10 99.1 94 22 121/61 96 Room Air 09/02/16 17:42 99.1 09/02/16 16:09 99.1 93 22 122/54 99 Room Air 09/02/16 14:32 Room Air 09/02/16 12:00 97.7 79 16 124/66 99 Room Air 09/02/16 10:45 97.9 96 17 143/79 99 Room Air 09/02/16 10:45 Room Air 09/02/16 08:24 114/54 09/02/16 08:12 97.9 96 17 114/54 99 Room Air Intake and Output 09/02/16 09/03/16 19:00 07:00 Intake Total 480 ml 240 ml Output Total 0 ml Balance 480 ml 240 ml Intake Oral 480 ml 240 ml Output Hemodialysis UF 0 ml # Voids 2 2 # Bowel Movements 3 Laboratory Tests 09/02/16 05:55: White Blood Count 6.6, Red Blood Count 3.83L, Hemoglobin 11.3L, Hematocrit 36.1L , Mean Corpuscular Volume 94, Mean Corpuscular Hemoglobin 29.4, Mean Corpuscular Hemoglobin Concent 31.2L, Red Cell Distribution Width 13.6, Platelet Count 258, Mean Platelet Volume 6.1L, Neutrophils (%) (Auto) 45.3, Lymphocytes (%) (Auto) 35.9, Monocytes (%) (Auto) 11.2H, Eosinophils (%) (Auto) 6.0H, Basophils (%) (Auto) 1.6, Sodium Level 149H, Potassium Level 4.1, Chloride Level 104, Carbon Dioxide Level 23, Anion Gap 22H, Blood Urea Nitrogen 62H, Creatinine 9.4H, Estimat Glomerular Filtration Rate 5.2, Glucose Level 68L , Calcium Level 8.7, Phosphorus Level 4.1 Height (Feet): 5 Height (Inches): 4.00 Weight (Pounds): 173 Objective General Appearance: WD/WN, alert Neck: supple Cardiovascular: regular rhythm Respiratory/Chest: lungs clear, normal breath sounds, no respiratory distress, no accessory muscle use Abdomen: normal bowel sounds, non tender, soft, no organomegaly, no mass Edema: no edema noted Arm (L), no edema noted Arm (R), no edema noted Leg (L), no edema noted Leg (R), no edema noted Pedal (L), no edema noted Pedal (R), no edema noted 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
[2016-09-03] MEDS: NovoLOG Insulin Flexpen SUBQ SCH ×4 (06:30→21:00)
[2016-09-03] MEDS: Norco 5mg/325mg tab ORAL PRN (07:01)
[2016-09-03] MEDS: Heparin 5000 units/ml inj SUBQ SCH ×2 (08:46→22:12)
[2016-09-03] MEDS: Aspirin EC 81mg tab ORAL SCH (08:47)
[2016-09-03] MEDS: Pancrease Cap ORAL SCH ×3 (08:48→18:18)
[2016-09-03] MEDS: DiphenhydrAMINE & Zinc 28g Cream TOPIC SCH ×3 (08:55→18:18)
[2016-09-03] MEDS: Cholestyramine 4gm Pkt ORAL PRN (11:46)
[2016-09-03 12:00] VITALS: BP 127/72
--- NOTE | 2016-09-03 12:04 | Infectious Diseases Prog Note ---
Assessment/Plan Assessment/Plan Full consult dictated: A) 1) c.diff. colitis 2) esrd, hd, anemia 3) sz, dm, htn, hhd, cva, ca, obesity 4) allergies - negative, fh-nc, sh-negative 5) mar noted, notes and records reviewed 6) d/w RN P) 1) vancomycin po, iv flagyl 2) check labs 3) continue treatment per primary and consultants 4) orders entered and noted 5) d/w Dr. Hatfield 6) thank you Subjective Allergies: Coded Allergies: No Known Allergies (Unverified , 11/13/12) Objective Vital Signs Last 24 Hour Vital Signs Date Time Temp Pulse Resp B/P Pulse Ox O2 Delivery O2 Flow Rate FiO2 09/03/16 04:00 97.8 77 18 121/68 97 Room Air 09/03/16 00:00 97.9 79 18 126/66 96 Room Air 09/02/16 20:10 99.1 94 22 121/61 96 Room Air 09/02/16 17:42 99.1 09/02/16 16:09 99.1 93 22 122/54 99 Room Air 09/02/16 14:32 Room Air 09/02/16 12:00 97.7 79 16 124/66 99 Room Air Height (Feet): 5 Height (Inches): 4.00 Weight (Pounds): 173 Current Medications Medications (Trade) Dose Ordered Sig/Nakul Route PRN Reason Start Time Stop Time Status Last Admin Dose Admin Acetaminophen (Tylenol) 650 mg Q4H PRN ORAL Mild Pain/Temp > 100.5 08/31/16 13:00 09/30/16 12:59 Acetaminophen/ Hydrocodone Bitart ([place] 5/325) 1 tab Q4H PRN ORAL Moderate Pain (Pain Scale 4-6) 08/31/16 13:00 09/07/16 12:59 09/03/16 07:01 Amylase/Lipase/ Protease (Pancrease) 2 ea THREE TIMES A DAY ORAL 08/31/16 13:30 09/30/16 13:29 09/03/16 08:48 Aspirin (Ecotrin) 81 mg DAILY ORAL 09/01/16 09:00 10/01/16 08:59 09/03/16 08:47 Cholestyramine Resin (Questran) 4 gm THREE TIMES A DAY PRN ORAL Diarrhea 08/31/16 13:00 09/30/16 12:59 09/03/16 11:46 Clopidogrel Bisulfate (Plavix) 75 mg DAILY ORAL 09/01/16 09:00 10/01/16 08:59 09/03/16 08:48 Dextrose (Dextrose 50%) STAT PRN IV Hypoglycemia 08/31/16 17:00 09/30/16 16:59 Diphenhydramine HCl (Benadryl Cream) 1 applic THREE TIMES A DAY TOPIC 09/01/16 09:00 10/01/16 08:59 09/03/16 08:55 Diphenhydramine HCl (Benadryl) 75 mg HSPRN PRN ORAL Insomnia 08/31/16 19:15 09/30/16 19:14 09/02/16 20:56 Gabapentin 300 mg 300 mg QHS ORAL 09/01/16 21:00 10/01/16 20:59 09/02/16 20:05 Heparin Sodium (Porcine) (Heparin 5000 units/ml) 5,000 units EVERY 12 HOURS SUBQ 08/31/16 21:00 09/30/16 20:59 09/03/16 08:46 Insulin Aspart (NovoLOG) BEFORE MEALS AND HS SUBQ 08/31/16 16:30 09/30/16 16:29 09/02/16 20:47 Ondansetron HCl (Zofran) 4 mg Q6H PRN IVP Nausea & Vomiting 08/31/16 18:00 09/30/16 17:59 Pantoprazole (Protonix) 40 mg DAILY ORAL 09/01/16 09:00 10/01/16 08:59 09/03/16 08:48 Sevelamer Carbonate (Renvela) 800 mg THREE TIMES A DAY ORAL 08/31/16 13:30 09/30/16 13:29 09/03/16 08:48 Sodium Chloride (Sodium Chloride 1000ml bag) 1,000 ml @ 500 mls/hr Q2H PRN IVLG sbp<90 during hd 09/02/16 12:31 10/02/16 12:30 Vancomycin HCl (Vancomycin) 125 mg Q6HR ORAL 08/31/16 18:00 09/07/16 17:59 09/03/16 06:56 MAGDALENO JIMÉNEZ Sep 03, 2016 12:04
[2016-09-03] MEDS: metroNIDAZOLE 500mg 100 ML IVPB SCH ×2 (14:30→22:12)
[2016-09-03] MEDS: Lactobacillus-GG tablet ORAL SCH ×2 (15:24→18:18)
[2016-09-03 16:00] VITALS: BP 127/61
--- NOTE | 2016-09-03 18:59 | Consultation ---
DATE OF CONSULTATION: 09/03/2016 ADDENDUM The patient has colonized with vancomycin-resistant enterococcus. Continue isolation for colonization of vancomycin-resistant enterococcus. Stewart Nolen M.D. DR: ADINA JOB#: [id number] CC:
--- NOTE | 2016-09-03 19:47 | Nephrology Progress Note ---
Assessment/Plan Problem List: (1) Orthostatic hypotension (2) C. difficile colitis (3) End stage renal disease on dialysis (4) Epilepsy Plan still diarrhea. history of low bp and amlodipine stopped as prior syncope. Stop lisinopril and florinef 09/02. Gabapentin dose reduced in eskd. Dialysis no uf as gi losses, stable on hd Subjective Constitutional: Reports: weakness HEENT: Reports: no symptoms Genitourinary: Reports: no symptoms Neurologic/Psychiatric: Reports: no symptoms Subjective still diarrhea mod-severe Objective Objective Last 24 Hour Vital Signs Date Time Temp Pulse Resp B/P Pulse Ox O2 Delivery O2 Flow Rate FiO2 09/03/16 16:00 98.2 88 22 127/61 98 Room Air 09/03/16 12:00 97.9 93 18 127/72 97 Room Air 09/03/16 04:00 97.8 77 18 121/68 97 Room Air 09/03/16 00:00 97.9 79 18 126/66 96 Room Air 09/02/16 20:10 99.1 94 22 121/61 96 Room Air Intake and Output 09/02/16 09/03/16 19:00 07:00 Intake Total 480 ml 240 ml Output Total 0 ml Balance 480 ml 240 ml Intake Oral 480 ml 240 ml Output Hemodialysis UF 0 ml # Voids 2 4 # Bowel Movements 3 1 Height (Feet): 5 Height (Inches): 4.00 Weight (Pounds): 173 General Appearance: no apparent distress, alert EENT: normal ENT inspection Neck: normal alignment Cardiovascular: regular rhythm Respiratory/Chest: lungs clear, normal breath sounds Abdomen: non tender Extremities: other - no edema 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
[2016-09-03 20:00] VITALS: BP 100/54
--- NOTE | 2016-09-03 22:29 | Consultation ---
DATE OF CONSULTATION: 09/03/2016 INFECTIOUS DISEASES CONSULTATION CONSULTING PHYSICIAN: Stewart Nolen M.D. ATTENDING PHYSICIAN: Silvano Hatfield M.D. REASON FOR CONSULTATION: Refractory C. difficile. CHIEF COMPLAINT FROM THE HOSPITAL: End-stage renal disease, hypoglycemia. HISTORY OF PRESENT ILLNESS: The patient is a very pleasant 61-year-old female with history of end-stage renal disease on hemodialysis. The patient presented to [facility] and was noted to be hypoglycemic. The patient has a history of end-stage renal disease on hemodialysis. The patient does have diarrhea, nausea, and vomiting. She does have a history of gastrointestinal illness what looks like. It looks like she has had diarrhea for quite sometime, she states up to a year but I am not sure how long she has had it documented in the medical records. The patient was on IV Flagyl and now is on p.o. vancomycin. Her C. difficile PCR test was positive. She states she has not been treated before. As per history by Dr. Hatfield, it looks like she has been on Flagyl and was switched to p.o. vancomycin. Infectious diseases consultation was requested for antibiotic management. This patient with refractory C. difficile. MAR was noted. Orders were noted. Notes were reviewed. Case was discussed with RN. PAST MEDICAL HISTORY: Includes the history of following, the patient has a past medical history of end-stage renal disease on hemodialysis. She has a history of anemia. She has what sounds like diarrhea. She has a history of diabetes and hypertension. She has history of CVA. History of cancer I am not sure what type. History of obesity. Hypertensive heart disease, seizures. Please put past medical history in medical order. MEDICATIONS: Upon reviewing the MAR, the patient is on the following medications: The patient is on sodium chloride, Neurontin, Ecotrin, Plavix, Protonix, Enalapril, Florinef, , Benadryl, heparin, Zofran, p.o. vancomycin, put on IV Flagyl, NovoLog insulin, . She is on Ranvela, Tylenol, Questran, Shiner. Please put medications in medical order. ALLERGIES: No known drug allergies. SOCIAL HISTORY: Negative for smoking, alcohol, or drug abuse. FAMILY HISTORY: Noncontributory. Negative for exposure to tuberculosis or cancer. REVIEW OF SYSTEMS: General: No fever, chills, night sweats, or weight loss. Head And Neck: No thrush, dysphagia, sinus tenderness. Pulmonary: No shortness of breath. Cardiac: No chest pain or palpitation. Gastrointestinal: She has history of nausea, vomiting, and diarrhea. No significant abdominal pain. Genitourinary: She is on hemodialysis. No Robbins. Skin: No rash or itching. Extremities: No extremity pain. Neurologic: No seizures. PHYSICAL EXAMINATION: GENERAL: The patient is alert, responsive, oriented x3 in no acute distress. VITAL SIGNS: Temperature 97.8 degrees, pulse rate 77, respiratory rate 18, blood pressure 121/68, and saturation 97%. T-max is 99.1. No significant temperature spike. HEAD AND NECK: Oral exam, no thrush. Eye exam, no icterus. Neck is supple. No JVD. No sinus tenderness. Normocephalic. No facial droop. No neck stiffness. HEART: Regular. No gallop. No murmur or friction rub. ABDOMEN: Soft. Positive bowel sounds. Nontender. No organomegaly. LUNGS: Clear bilaterally. No rhonchi or rales. SKIN: No rash or dermatitis. PERIPHERAL VASCULAR: No cyanosis or gangrene. MUSCULOSKELETAL: No evidence of septic arthritis. Legs are without cellulitis. GENITOURINARY: She has no Robbins. RECTAL: Deferred. LINES: Line sites without phlebitis. NEUROLOGIC: Generalized weakness. Intact. Nonfocal. Alert and oriented x3. LABORATORY DATA: Laboratory data is as follows. The patient's white count 6.6, hemoglobin 11.3, and platelet count is 258,000. Creatinine is 9.4. BNP was as high as 5186. Chest x-ray was negative for pneumonia noted and reviewed. Cultures, blood cultures are negative to date. VRE screen was positive. C. diff toxin by DNA amplification, PCR was positive for toxigenic C. difficile. MRSA screen is negative. Chest x-ray negative. ASSESSMENT AND PLAN: 1. The patient has clostridium difficile colitis. The patient was on Flagyl, now is on p.o. vancomycin. She still has diarrhea that is significant and severe diarrhea. Continue p.o. vancomycin. I will add IV Flagyl. She is on Questran and I added probiotic. Continue vancomycin p.o. and IV Flagyl and watch the patient clinically. The patient may need eventually if she does not improve to consider such things as , Flagyl, or fidaxomicin as possibilities, but however we will first try the p.o. vancomycin and IV Flagyl and may be also vancomycin taper. Continue Questran and probiotics. Case discussed with Dr. Hatfield. 2. End-stage renal disease on hemodialysis, treatment per Renal. 3. Anemia. 4. Seizures. 5. Diabetes. 6. Hypertension. 7. Hypertensive heart disease. 8. Cerebrovascular accident. 9. Cancer history question what type. 10. Obesity. 11. Continue treatment per Dr. Hatfield and consultants including blood pressure and blood sugar control. 12. Allergies are negative. 13. Family history is noncontributory. 14. Social history is negative. 15. MAR was noted. 16. Notes were reviewed 17. Case was discussed with Dr. Hatfield. 18. Case was discussed with RN. 19. Case was discussed with the patient. 20. Continue treatment per primary consultants. Thank you. I will follow. Stewart Nolen M.D. DR: Fox JOB#: [id number] CC:
--- NOTE | 2016-09-04 00:19 | Progress Note ---
DATE: 09/03/2016 CARDIOLOGY PROGRESS NOTE SUBJECTIVE: Blood pressure is improved. Glucose control is better. The patient is off antihypertensives and oral hypoglycemics. She continues to have diarrhea. PHYSICAL EXAMINATION: VITAL SIGNS: Blood pressure 100/54 to 127/61, heart rate 88 to 98, respiratory rate 22, and the patient's temperature is 99.0 degrees. HEENT: Temporal wasting. Oropharynx clear. NECK: Supple. LUNGS: Clear. CARDIAC: Regular rhythm and rate. Normal S1 and S2 with a fourth heart sound. ABDOMEN: Soft and nontender. No edema. IMPRESSION: 1. Clostridium difficile colitis. 2. Diarrhea. 3. Fluid losses. 4. Hypernatremia. 5. Hypovolemia. 6. Dehydration. 7. Hypotension. 8. Hypoglycemia. 9. Orthostatic hypotension. 10. Cerebrovascular disease with dementia. 11. Severe protein-calorie malnutrition. PLAN: 1. Protein supplement. 2. Hold oral hypoglycemics and antihypertensives. 3. Intravenous fluids as needed. 4. Hemodialysis with limited ultrafiltration. 5. Antimicrobials and antidiarrheals. Martín Walker M.D. DR: Tressa JOB#: [id number] CC:
--- NOTE | 2016-09-04 00:19 | Progress Note ---
DATE: 09/02/2016 CARDIOLOGY PROGRESS NOTE SUBJECTIVE: The patient continues to have diarrhea, episodes of hypotension were noted. Glucose control is stable, however, she is off all oral hypoglycemic agents. She remains on antibiotics for C. difficile. PHYSICAL EXAMINATION: VITAL SIGNS: Temperature 99.1 degrees, blood pressure 122/54, heart rate 93, and respiratory 22. LUNGS: Clear. CARDIAC: Regular. Normal S1 and S2. ABDOMEN: Soft. No focal tenderness. No edema. IMPRESSION: 1. Hypovolemia dehydration due to gastrointestinal fluid losses, Clostridium difficile colitis, and diarrhea. 2. Type 2 diabetes mellitus with hypoglycemia. 3. End-stage renal disease. 4. Cerebrovascular disease with multi-infarct dementia. PLAN: 1. Continue antibiotics. 2. Maintain intravenous hydration as needed. 3. Hemodialysis. 4. Decreased sedation. 5. Holding lisinopril. Martín Walker M.D. DR: Tressa JOB#: [id number] CC:
[2016-09-04 04:00] VITALS: BP 125/60
[2016-09-04] MEDS: metroNIDAZOLE 500mg 100 ML IVPB SCH ×3 (05:52→21:21)
[2016-09-04] MEDS: Vancomycin oral 125mg/2.5ml ORAL SCH ×4 (05:52→23:31)
[2016-09-04] MEDS: NovoLOG Insulin Flexpen SUBQ SCH ×4 (05:52→21:22)
[2016-09-04 08:00] VITALS: BP 129/76
[2016-09-04] MEDS: Lactobacillus-GG tablet ORAL SCH ×3 (08:38→17:36)
[2016-09-04] MEDS: Pancrease Cap ORAL SCH ×3 (08:38→17:36)
[2016-09-04] MEDS: Aspirin EC 81mg tab ORAL SCH (08:38)
[2016-09-04] MEDS: Norco 5mg/325mg tab ORAL PRN (08:38)
[2016-09-04] MEDS: Heparin 5000 units/ml inj SUBQ SCH ×2 (08:39→21:22)
[2016-09-04] MEDS: DiphenhydrAMINE & Zinc 28g Cream TOPIC SCH ×3 (08:43→17:37)
--- NOTE | 2016-09-04 08:48 | General Progress Note ---
Assessment/Plan Problem List: (1) Hypoglycemia following gastrointestinal surgery ICD Codes: K91.2 - Postsurgical malabsorption, not elsewhere classified SNOMED: 749637528, 50907919 (2) Hypoglycemia ICD Codes: E16.2 - Hypoglycemia, unspecified SNOMED: 089236059 (3) Altered level of consciousness ICD Codes: R40.4 - Transient alteration of awareness SNOMED: 8880610 (4) End stage renal disease on dialysis ICD Codes: N18.6 - End stage renal disease; Z99.2 - Dependence on renal dialysis SNOMED: 501945353 Status: stable, not improved Assessment/Plan monitor bs cdiff rx per ID on questran BP rx sz rx monitor for sxs HD topical benadryl/steroids still with too much diarrhea to dc Subjective ROS Limited/Unobtainable: No Constitutional: Reports: no symptoms HEENT: Reports: no symptoms Cardiovascular: Reports: no symptoms Respiratory: Reports: no symptoms Gastrointestinal/Abdominal: Reports: diarrhea Genitourinary: Reports: no symptoms Neurologic/Psychiatric: Reports: seizure Endocrine: Reports: no symptoms Hematologic/Lymphatic: Reports: no symptoms Allergies: Coded Allergies: No Known Allergies (Unverified , 11/13/12) All Systems: reviewed and negative except above Subjective still with frequent watery diarrhea. cdiff positive. on po vanco and flagyl now. c/o "hernandez" on her face Objective Last 24 Hour Vital Signs Date Time Temp Pulse Resp B/P Pulse Ox O2 Delivery O2 Flow Rate FiO2 09/04/16 08:00 99.0 84 18 129/76 98 Room Air 09/04/16 04:00 97.7 72 18 125/60 98 Room Air 09/03/16 20:00 99.0 98 22 100/54 97 Room Air 09/03/16 16:00 98.2 88 22 127/61 98 Room Air 09/03/16 12:00 97.9 93 18 127/72 97 Room Air Intake and Output 09/03/16 09/04/16 19:00 07:00 Intake Total 300 ml 760 ml Balance 300 ml 760 ml Intake Oral 300 ml 560 ml IV Total 200 ml # Bowel Movements 1 4 Height (Feet): 5 Height (Inches): 4.00 Weight (Pounds): 173 Objective General Appearance: WD/WN, alert Neck: supple Cardiovascular: regular rhythm Respiratory/Chest: lungs clear, normal breath sounds, no respiratory distress, no accessory muscle use Abdomen: normal bowel sounds, non tender, soft, no organomegaly, no mass Edema: no edema noted Arm (L), no edema noted Arm (R), no edema noted Leg (L), no edema noted Leg (R), no edema noted Pedal (L), no edema noted Pedal (R), no edema noted 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
[2016-09-04] MEDS: Triamcinolone 0.1% 15gm Cr TOPIC SCH ×3 (10:15→17:37)
[2016-09-04 12:00] VITALS: BP 108/51
[2016-09-04 15:58] VITALS: BP 91/50
--- NOTE | 2016-09-04 16:25 | Nephrology Progress Note ---
Assessment/Plan Problem List: (1) Orthostatic hypotension (2) C. difficile colitis (3) End stage renal disease on dialysis (4) Epilepsy Plan still diarrhea. history of low bp and amlodipine stopped as prior syncope. Stop lisinopril and florinef 09/02. Gabapentin dose reduced in eskd. Dialysis no uf as gi losses, stable on hd Subjective Constitutional: Reports: weakness HEENT: Reports: no symptoms Genitourinary: Reports: no symptoms Neurologic/Psychiatric: Reports: no symptoms Subjective still diarrhea mod-severe Objective Objective Last 24 Hour Vital Signs Date Time Temp Pulse Resp B/P Pulse Ox O2 Delivery O2 Flow Rate FiO2 09/04/16 15:58 97.7 108 20 91/50 97 Room Air 09/04/16 13:15 Room Air 09/04/16 12:00 98.6 84 18 108/51 98 Room Air 09/04/16 09:40 Room Air 09/04/16 09:37 99.0 09/04/16 08:00 99.0 84 18 129/76 98 Room Air 09/04/16 04:00 97.7 72 18 125/60 98 Room Air 09/03/16 20:00 99.0 98 22 100/54 97 Room Air Intake and Output 09/03/16 09/04/16 19:00 07:00 Intake Total 300 ml 760 ml Balance 300 ml 760 ml Intake Oral 300 ml 560 ml IV Total 200 ml # Bowel Movements 1 4 Height (Feet): 5 Height (Inches): 4.00 Weight (Pounds): 173 General Appearance: no apparent distress, alert EENT: normal ENT inspection Neck: normal alignment Cardiovascular: normal rate Respiratory/Chest: lungs clear, no respiratory distress Abdomen: soft, no organomegaly Extremities: other - no edema 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
[2016-09-04 20:00] VITALS: BP 107/57
[2016-09-04] MEDS ORDERED: Heparin Sod 1000 units/ml 10ml IV ONE (20:00)
--- NOTE | 2016-09-04 20:15 | Infectious Diseases Prog Note ---
Assessment/Plan Assessment/Plan A) 1) c.diff. colitis - still with diarrhea/loose stools but stool more formed per RN 2) esrd, hd, anemia 3) sz, dm, htn, hhd, cva, ca, obesity 4) allergies - negative, fh-nc, sh-negative 5) mar noted, notes and records reviewed 6) d/w RN 7) vre colonization P) 1) vancomycin po, iv flagyl for now 2) check labs 3) continue treatment per primary and consultants 4) orders entered and noted 5) d/w patient 6) vre isolation Subjective Constitutional: Denies: fever Respiratory: Denies: shortness of breath Cardiovascular: Denies: chest pain Gastrointestinal/Abdominal: Reports: diarrhea, other - d/w RN and says stool more formed, Denies: nausea, vomiting Genitourinary: Reports: other - no blood Psychiatric: Denies: depression Skin: Denies: rash Hematologic: Denies: bleeding Musculoskeletal: Denies: pain Allergies: Coded Allergies: No Known Allergies (Unverified , 11/13/12) Objective Vital Signs Last 24 Hour Vital Signs Date Time Temp Pulse Resp B/P Pulse Ox O2 Delivery O2 Flow Rate FiO2 09/04/16 15:58 97.7 108 20 91/50 97 Room Air 09/04/16 13:15 Room Air 09/04/16 12:00 98.6 84 18 108/51 98 Room Air 09/04/16 09:40 Room Air 09/04/16 09:37 99.0 09/04/16 08:00 99.0 84 18 129/76 98 Room Air 09/04/16 04:00 97.7 72 18 125/60 98 Room Air Height (Feet): 5 Height (Inches): 4.00 Weight (Pounds): 173 General Appearance: no acute distress HEENT: normocephalic, atraumatic, anicteric, mucous membranes moist, PERRL, EOMI, pharynx normal, supple, no JVD Respiratory/Chest: lungs clear, normal breath sounds, no respiratory distress, no accessory muscle use Cardiovascular: normal rate, regular rhythm, no gallop/murmur, no JVD Abdomen: normal bowel sounds, soft, non tender, no organomegaly, non distended Genitourinary: other - no blood Extremities: no cyanosis Skin: no rash 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 Complete 08/29/16 12:30 Stool Clostridium difficile Toxin Assay - Final Complete 08/28/16 08:06 Rectum VRE Culture - Final Enterococcus Faecium - Vre Complete c.diff. - + Labs Test 09/02/16 05:55 White Blood Count 6.6 K/UL (4.8-10.8) Red Blood Count 3.83 M/UL (4.20-5.40) Hemoglobin 11.3 G/DL (12.0-16.0) Hematocrit 36.1 % (37.0-47.0) Mean Corpuscular Volume 94 FL (80-99) Mean Corpuscular Hemoglobin 29.4 PG (27.0-31.0) Mean Corpuscular Hemoglobin Concent 31.2 G/DL (32.0-36.0) Red Cell Distribution Width 13.6 % (11.6-14.8) Platelet Count 258 K/UL (150-450) Mean Platelet Volume 6.1 FL (6.5-10.1) Neutrophils (%) (Auto) 45.3 % (45.0-75.0) Lymphocytes (%) (Auto) 35.9 % (20.0-45.0) Monocytes (%) (Auto) 11.2 % (1.0-10.0) Eosinophils (%) (Auto) 6.0 % (0.0-3.0) Basophils (%) (Auto) 1.6 % (0.0-2.0) Sodium Level 149 mEQ/L (135-145) Potassium Level 4.1 mEQ/L (3.4-4.9) Chloride Level 104 mEQ/L (98-107) Carbon Dioxide Level 23 mEQ/L (20-30) Anion Gap 22 (5-15) Blood Urea Nitrogen 62 mg/dL (7-23) Creatinine 9.4 mg/dL (0.5-0.9) Estimat Glomerular Filtration Rate 5.2 mL/min (>60) Glucose Level 68 mg/dL (74-106) Calcium Level 8.7 mg/dL (8.6-10.2) Phosphorus Level 4.1 mg/dL (2.5-4.8) Current Medications Medications (Trade) Dose Ordered Sig/Nakul Route PRN Reason Start Time Stop Time Status Last Admin Dose Admin Acetaminophen (Tylenol) 650 mg Q4H PRN ORAL Mild Pain/Temp > 100.5 08/31/16 13:00 09/30/16 12:59 Acetaminophen/ Hydrocodone Bitart (Seward 5/325) 1 tab Q4H PRN ORAL Moderate Pain (Pain Scale 4-6) 08/31/16 13:00 09/07/16 12:59 09/04/16 08:38 Amylase/Lipase/ Protease (Pancrease) 2 ea THREE TIMES A DAY ORAL 08/31/16 13:30 09/30/16 13:29 09/04/16 17:36 Aspirin (Ecotrin) 81 mg DAILY ORAL 09/01/16 09:00 10/01/16 08:59 09/04/16 08:38 Cholestyramine Resin (Questran) 4 gm THREE TIMES A DAY PRN ORAL Diarrhea 08/31/16 13:00 09/30/16 12:59 09/03/16 11:46 Clopidogrel Bisulfate (Plavix) 75 mg DAILY ORAL 09/01/16 09:00 10/01/16 08:59 09/04/16 08:38 Dextrose (Dextrose 50%) STAT PRN IV Hypoglycemia 08/31/16 17:00 09/30/16 16:59 Diphenhydramine HCl (Benadryl Cream) 1 applic THREE TIMES A DAY TOPIC 09/01/16 09:00 10/01/16 08:59 09/04/16 17:37 Diphenhydramine HCl (Benadryl) 75 mg HSPRN PRN ORAL Insomnia 08/31/16 19:15 09/30/16 19:14 09/03/16 22:27 Gabapentin (Neurontin) 300 mg QHS ORAL 09/01/16 21:00 10/01/16 20:59 09/03/16 22:12 Heparin Sodium (Porcine) (Heparin 5000 units/ml) 5,000 units EVERY 12 HOURS SUBQ 08/31/16 21:00 09/30/16 20:59 09/04/16 08:39 Insulin Aspart (NovoLOG) BEFORE MEALS AND HS SUBQ 08/31/16 16:30 09/30/16 16:29 09/02/16 20:47 Lactobacillus Acidophilus 1 tab 1 tab THREE TIMES A DAY ORAL 09/03/16 14:00 10/03/16 13:59 09/04/16 17:36 Metronidazole 100 ml @ 100 mls/hr Q8HR IVPB 09/03/16 14:30 09/10/16 14:29 09/04/16 13:13 Ondansetron HCl (Zofran) 4 mg Q6H PRN IVP Nausea & Vomiting 08/31/16 18:00 09/30/16 17:59 Pantoprazole (Protonix) 40 mg DAILY ORAL 09/01/16 09:00 10/01/16 08:59 09/04/16 08:38 Sevelamer Carbonate (Renvela) 800 mg THREE TIMES A DAY ORAL 08/31/16 13:30 09/30/16 13:29 09/04/16 17:36 Sodium Chloride (Sodium Chloride 1000ml bag) 1,000 ml @ 500 mls/hr Q2H PRN IVLG sbp<90 during hd 09/04/16 09:00 09/04/16 23:59 Triamcinolone Acetonide (Kenalog) 1 applic THREE TIMES A DAY TOPIC 09/04/16 10:30 10/04/16 10:29 09/04/16 17:37 Vancomycin HCl (Vancomycin) 125 mg Q6HR ORAL 08/31/16 18:00 09/07/16 17:59 09/04/16 18:26 MAGDALENO JIMÉNEZ Sep 04, 2016 20:15
--- NOTE | 2016-09-04 23:50 | Progress Note ---
DATE: 09/04/2016 CARDIOLOGY PROGRESS NOTE: SUBJECTIVE: The patient continues to have diarrhea, somewhat better. Itching is improved. Glucose control is improving with no hypoglycemic episodes. OBJECTIVE: VITAL SIGNS: Blood pressure parameters are more stable with hypotensive episode. T-max is 99.0 degrees, blood pressure 100/54 to 129/76, heart rate 84, and respiratory rate 18. LUNGS: Bilateral breath sounds. HEART: Regular rhythm and rate. Normal S1 and S2. ABDOMEN: Soft. No edema. IMPRESSION: 1. Dehydration. 2. Hypernatremia. 3. Clostridium difficile colitis. 4. Hypoglycemia. 5. Type 2 diabetes mellitus. 6. End-stage renal disease. 7. Hypertensive heart disease. 8. Severe protein-calorie malnutrition. PLAN: 1. Holding oral hypoglycemics, antihypertensive, oral antimicrobials. 2. Hydration based on clinical parameters with free water. 3. Recheck laboratory studies. Martín Walker M.D. DR: Nehal JOB#: [id number] CC:
[2016-09-05] VITALS: BP 136/75
[2016-09-05 04:00] VITALS: BP 112/61
[2016-09-05] MEDS: metroNIDAZOLE 500mg 100 ML IVPB SCH ×3 (05:23→21:57)
[2016-09-05] MEDS: Norco 5mg/325mg tab ORAL PRN ×3 (05:23→21:58)
[2016-09-05] MEDS: Vancomycin oral 125mg/2.5ml ORAL SCH ×4 (05:24→23:45)
[2016-09-05] MEDS: NovoLOG Insulin Flexpen SUBQ SCH ×4 (05:24→21:00)
[2016-09-05 06:27] LABS: BASOPHILS % (AUTO) 1.9 % (0.0-2.0); EOSINOPHILS % (AUTO) 3.4 % (0.0-3.0); LYMPHOCYTES % (AUTO) 31.6 % (20.0-45.0); MEAN CORPUSCULAR HEMOGLOBIN 30.5 PG (27.0-31.0); MEAN CORPUSCULAR HGB CONC 32.1 G/DL (32.0-36.0); MEAN CORPUSCULAR VOLUME 95 FL (80-99); MEAN PLATELET VOLUME 6.2 FL (6.5-10.1); MONOCYTES % (AUTO) 11.8 % (1.0-10.0); NEUTROPHILS % (AUTO) 51.3 % (45.0-75.0); PLATELET COUNT 233 K/UL (150-450); RED BLOOD COUNT 2.89 M/UL (4.20-5.40); RED CELL DISTRIBUTION WIDTH 13.4 % (11.6-14.8); WHITE BLOOD COUNT 6.2 K/UL (4.8-10.8)
[2016-09-05 07:12] LABS: CALCIUM 7.7 mg/dL (8.6-10.2); CREATININE 5.6 mg/dL (0.5-0.9); GLOMERULAR FILTRATION RATE 9.5 mL/min (>60); POTASSIUM 3.7 mEQ/L (3.4-4.9)
[2016-09-05 07:17] LABS: MAGNESIUM 2.2 mg/dL (1.7-2.5)
--- NOTE | 2016-09-05 07:54 | General Progress Note ---
Assessment/Plan Problem List: (1) Hypoglycemia following gastrointestinal surgery ICD Codes: K91.2 - Postsurgical malabsorption, not elsewhere classified SNOMED: 901528298, 82940194 (2) Hypoglycemia ICD Codes: E16.2 - Hypoglycemia, unspecified SNOMED: 815990967 (3) Altered level of consciousness ICD Codes: R40.4 - Transient alteration of awareness SNOMED: 2921575 (4) End stage renal disease on dialysis ICD Codes: N18.6 - End stage renal disease; Z99.2 - Dependence on renal dialysis SNOMED: 908012381 Status: not improved Assessment/Plan monitor bs cdiff rx per ID on questran BP rx sz rx monitor for sxs HD topical benadryl/steroids still with too much diarrhea to dc. consider snf Subjective ROS Limited/Unobtainable: No Constitutional: Reports: malaise, weakness HEENT: Reports: no symptoms Cardiovascular: Reports: no symptoms Respiratory: Reports: no symptoms Gastrointestinal/Abdominal: Reports: diarrhea Genitourinary: Reports: no symptoms Neurologic/Psychiatric: Reports: pre-existing deficit, seizure Endocrine: Reports: no symptoms Hematologic/Lymphatic: Reports: no symptoms Allergies: Coded Allergies: No Known Allergies (Unverified , 11/13/12) All Systems: reviewed and negative except above Subjective still with frequent watery diarrhea. cdiff positive. on po vanco and flagyl now. feels "weak" Objective Last 24 Hour Vital Signs Date Time Temp Pulse Resp B/P Pulse Ox O2 Delivery O2 Flow Rate FiO2 09/05/16 06:22 97.7 09/05/16 04:00 97.7 80 18 112/61 97 Room Air 09/05/16 00:00 97.9 83 18 136/75 94 Room Air 09/04/16 20:00 97.5 101 18 107/57 94 Room Air 09/04/16 15:58 97.7 108 20 91/50 97 Room Air 09/04/16 13:15 Room Air 09/04/16 12:00 98.6 84 18 108/51 98 Room Air 09/04/16 09:40 Room Air 09/04/16 08:00 99.0 84 18 129/76 98 Room Air Intake and Output 09/04/16 09/05/16 19:00 07:00 Intake Total 720 ml 725 ml Balance 720 ml 725 ml Intake Oral 720 ml 625 ml IV Total 100 ml # Voids 4 # Bowel Movements 2 1 Laboratory Tests 09/05/16 04:50: White Blood Count 6.2, Red Blood Count 2.89L, Hemoglobin 8.8L, Hematocrit 27.4L , Mean Corpuscular Volume 95, Mean Corpuscular Hemoglobin 30.5, Mean Corpuscular Hemoglobin Concent 32.1, Red Cell Distribution Width 13.4, Platelet Count 233, Mean Platelet Volume 6.2L, Neutrophils (%) (Auto) 51.3, Lymphocytes ( %) (Auto) 31.6, Monocytes (%) (Auto) 11.8H, Eosinophils (%) (Auto) 3.4H, Basophils (%) (Auto) 1.9, Sodium Level 145, Potassium Level 3.7, Chloride Level 103, Carbon Dioxide Level 22, Anion Gap 20H, Blood Urea Nitrogen 38H, Creatinine 5.6H, Estimat Glomerular Filtration Rate 9.5, Glucose Level 69L, Calcium Level 7.7L, Magnesium Level 2.2, Pro-B-Type Natriuretic Peptide 3117H Height (Feet): 5 Height (Inches): 4.00 Weight (Pounds): 173 Objective General Appearance: WD/WN, alert Neck: supple Cardiovascular: regular rhythm Respiratory/Chest: lungs clear, normal breath sounds, no respiratory distress, no accessory muscle use Abdomen: normal bowel sounds, non tender, soft, no organomegaly, no mass Edema: no edema noted Arm (L), no edema noted Arm (R), no edema noted Leg (L), no edema noted Leg (R), no edema noted Pedal (L), no edema noted Pedal (R), no edema noted 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
[2016-09-05] MEDS: Aspirin EC 81mg tab ORAL SCH (08:05)
[2016-09-05] MEDS: Cholestyramine 4gm Pkt ORAL PRN (08:05)
[2016-09-05] MEDS: Lactobacillus-GG tablet ORAL SCH ×3 (08:06→17:10)
[2016-09-05] MEDS: Pancrease Cap ORAL SCH ×3 (08:06→17:09)
[2016-09-05] MEDS: Heparin 5000 units/ml inj SUBQ SCH ×2 (08:07→22:00)
[2016-09-05] MEDS: DiphenhydrAMINE & Zinc 28g Cream TOPIC SCH ×3 (08:08→17:10)
[2016-09-05 08:09] VITALS: BP 99/54
[2016-09-05] MEDS: Triamcinolone 0.1% 15gm Cr TOPIC SCH ×3 (08:26→17:10)
[2016-09-05 11:39] VITALS: BP 105/57
--- NOTE | 2016-09-05 15:31 | Wound Care Consultation ---
Wound Assessment Wound Assessment #1: Wound Number: #1 Wound Present on Admission: Yes New Wound: No Status Change of Wound: No Wound Location Body Site Modif: right Wound Location Body Site: chest Wound Type: scab - RESOLVING DRY SCABS Paula Test: Does not Paula - and small partial thickness open wound Wound Thickness: Partial Thickness Wound Length: 0.5 Wound Width: 0.5 Wound Drainage Amount: None Wound Drainage Odor: None/Absent Tissue Surrounding Wound: Intact Wound General Appearance: Clean/Dry - SCABS ADHERED, NO S/S OF INFECTION TO SITE. Wound Assessment #2: Wound Number: #2 Wound Present on Admission: Yes New Wound: No Status Change of Wound: No Wound Location Body Site Modif: left Wound Location Body Site: toe - 3RD AND 4TH Wound Type: scab - RESOLVING SCABS DRY, DM ULCERS Paula Test: Does not Paula Wound Thickness: Full Thickness Wound Drainage Amount: None Wound Drainage Odor: None/Absent Tissue Surrounding Wound: Intact Wound General Appearance: Open to air, Clean/Dry Wound Assessment #3: Wound Number: #3 Wound Present on Admission: Yes New Wound: No Status Change of Wound: No Wound Location Body Site Modif: right Wound Location Body Site: toe - 3RD AND 5TH Wound Type: scab - RESOLVING SCABS DRY, DM ULCERS Paula Test: Does not Paula Wound Thickness: Full Thickness Wound Drainage Amount: None Wound Drainage Odor: None/Absent Tissue Surrounding Wound: Intact Wound General Appearance: Open to air, Clean/Dry Wound Assessment #4: Wound Number: #4 Wound Present on Admission: Yes New Wound: No Wound Location Body Site Modif: right, dorsal - ASPECT OF FOOT Wound Type: scab - RESOLVING DRY, DM ULCER Paula Test: Does not Paula Wound Thickness: Full Thickness Wound Length: 0.3 Wound Width: 0.3 Wound Depth: UTD Wound Drainage Amount: None Wound Drainage Odor: None/Absent Tissue Surrounding Wound: Intact Wound General Appearance: Open to air, Clean/Dry Wound Comment #1 LEFT 3RD AND 4TH ANTERIOR TOES DIABETIC ULCERS WITH RESOLVING DRY SCABS. #2 RIGHT ANTERIOR TOES 3RD AND 5TH TOES DIABETIC ULCER WITH RESOLVING DRY SCABS. #3 RIGHT UPPER CHEST RESOLVING DRY SCABS. #4 RIGHT DORSAL ASPECT OF FOOT RESOLVING DRY SCAB. Recommendation -Local wound care as ordered. -Turn and reposition. -Keep clean and dry. -Optimize nutrition. -Offload affected sites. -Assess and follow up with MD for any change of condition. Upon reassessment to admitted wound sites noted good progress,No deterioration noted, resolving adhered scabs to site. no s/s of infection, no drainage , remains dry . continue to follow wound care orders. appropriate at this time. JOHN TRUJILLO Sep 05, 2016 15:31
[2016-09-05 16:02] VITALS: BP 106/59
--- NOTE | 2016-09-05 17:46 | Nephrology Progress Note ---
Assessment/Plan Problem List: (1) Orthostatic hypotension (2) C. difficile colitis (3) End stage renal disease on dialysis (4) Epilepsy Plan still diarrhea. history of low bp and amlodipine stopped as prior syncope. Stop lisinopril and florinef 09/02. Gabapentin dose reduced in eskd. Dialysis no uf as gi losses, stable on hd Subjective Constitutional: Reports: weakness HEENT: Reports: no symptoms Genitourinary: Reports: no symptoms Neurologic/Psychiatric: Reports: no symptoms Subjective still diarrhea a bit less, eating no emesis Objective Objective Last 24 Hour Vital Signs Date Time Temp Pulse Resp B/P Pulse Ox O2 Delivery O2 Flow Rate FiO2 09/05/16 16:02 98.3 89 20 106/59 100 Room Air 09/05/16 14:36 98.0 09/05/16 11:39 98.0 77 20 105/57 98 Room Air 09/05/16 08:09 98.2 100 20 99/54 97 Room Air 09/05/16 04:00 97.7 80 18 112/61 97 Room Air 09/05/16 00:00 97.9 83 18 136/75 94 Room Air 09/04/16 20:00 97.5 101 18 107/57 94 Room Air Intake and Output 09/04/16 09/05/16 19:00 07:00 Intake Total 720 ml 725 ml Balance 720 ml 725 ml Intake Oral 720 ml 625 ml IV Total 100 ml # Voids 4 # Bowel Movements 2 1 Laboratory Tests 09/05/16 04:50: White Blood Count 6.2, Red Blood Count 2.89L, Hemoglobin 8.8L, Hematocrit 27.4L , Mean Corpuscular Volume 95, Mean Corpuscular Hemoglobin 30.5, Mean Corpuscular Hemoglobin Concent 32.1, Red Cell Distribution Width 13.4, Platelet Count 233, Mean Platelet Volume 6.2L, Neutrophils (%) (Auto) 51.3, Lymphocytes ( %) (Auto) 31.6, Monocytes (%) (Auto) 11.8H, Eosinophils (%) (Auto) 3.4H, Basophils (%) (Auto) 1.9, Sodium Level 145, Potassium Level 3.7, Chloride Level 103, Carbon Dioxide Level 22, Anion Gap 20H, Blood Urea Nitrogen 38H, Creatinine 5.6H, Estimat Glomerular Filtration Rate 9.5, Glucose Level 69L, Calcium Level 7.7L, Magnesium Level 2.2, Pro-B-Type Natriuretic Peptide 3117H Height (Feet): 5 Height (Inches): 4.00 Weight (Pounds): 173 General Appearance: no apparent distress, alert EENT: normal ENT inspection Neck: normal alignment Cardiovascular: normal rate, regular rhythm Respiratory/Chest: lungs clear, normal breath sounds Abdomen: soft, no organomegaly Extremities: other - no edema 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
[2016-09-05 20:00] VITALS: BP 115/60
[2016-09-06] VITALS (7 sets, daily range): BP systolic 95–139; BP diastolic 54–79
--- NOTE | 2016-09-06 02:39 | Progress Note ---
DATE: 09/05/2016 CARDIOLOGY PROGRESS NOTE: SUBJECTIVE: The patient is still with diarrhea. Intake does not match GI losses. She continues with hemodialysis, but limited ultrafiltration. OBJECTIVE: VITAL SIGNS: Blood pressure is 112/61, pulse 80, and respiratory rate 18. NECK: Supple. LUNGS: Clear. CARDIAC: Regular rhythm and rate. Normal S1 and S2 with fourth heart sound. ABDOMEN: Soft and nontender. No edema. IMPRESSION: 1. Clostridium difficile colitis. 2. Dehydration. 3. Hypovolemia, resolved. 4. Hypoglycemia. 5. Cerebrovascular disease with multi-infarct dementia. 6. Hypertensive heart disease with low-range blood pressure due to fluid losses. PLAN: 1. Replace fluid losses. 2. Antimicrobials. 3. Hemodialysis. 4. Follow antihypertensive and oral hypoglycemics at this time. Martín Walker M.D. DR: Nehal JOB#: [id number] CC:
[2016-09-06] MEDS: metroNIDAZOLE 500mg 100 ML IVPB SCH ×3 (05:40→21:37)
[2016-09-06] MEDS: Vancomycin oral 125mg/2.5ml ORAL SCH ×4 (05:41→21:38)
[2016-09-06] MEDS: NovoLOG Insulin Flexpen SUBQ SCH ×4 (05:42→21:00)
[2016-09-06] MEDS: Aspirin EC 81mg tab ORAL SCH (08:16)
[2016-09-06] MEDS: DiphenhydrAMINE & Zinc 28g Cream TOPIC SCH ×3 (08:17→19:47)
[2016-09-06] MEDS: Pancrease Cap ORAL SCH ×3 (08:17→19:45)
[2016-09-06] MEDS: Lactobacillus-GG tablet ORAL SCH ×3 (08:17→19:45)
[2016-09-06] MEDS: Triamcinolone 0.1% 15gm Cr TOPIC SCH ×3 (08:18→19:47)
[2016-09-06] MEDS: Heparin 5000 units/ml inj SUBQ SCH ×2 (08:20→21:40)
--- NOTE | 2016-09-06 09:58 | General Progress Note ---
Assessment/Plan Problem List: (1) Hypoglycemia following gastrointestinal surgery ICD Codes: K91.2 - Postsurgical malabsorption, not elsewhere classified SNOMED: 548587886, 04662837 (2) Hypoglycemia ICD Codes: E16.2 - Hypoglycemia, unspecified SNOMED: 646443138 (3) Altered level of consciousness ICD Codes: R40.4 - Transient alteration of awareness SNOMED: 9576444 (4) End stage renal disease on dialysis ICD Codes: N18.6 - End stage renal disease; Z99.2 - Dependence on renal dialysis SNOMED: 287213853 Status: stable, progressing Assessment/Plan monitor bs cdiff rx per ID on questran BP rx sz rx monitor for sxs HD topical benadryl/steroids dc protonix- ?contributing to diarrhea still with too much diarrhea to dc. consider snf Subjective ROS Limited/Unobtainable: No Constitutional: Reports: malaise, weakness HEENT: Reports: no symptoms Cardiovascular: Reports: no symptoms Respiratory: Reports: no symptoms Gastrointestinal/Abdominal: Reports: diarrhea Genitourinary: Reports: no symptoms Neurologic/Psychiatric: Reports: pre-existing deficit, seizure Endocrine: Reports: no symptoms Hematologic/Lymphatic: Reports: no symptoms Allergies: Coded Allergies: No Known Allergies (Unverified , 11/13/12) All Systems: reviewed and negative except above Subjective still with frequent watery foul smelling diarrhea. cdiff positive. on po vanco and flagyl now. feels "weak". itching better. on HD Objective Last 24 Hour Vital Signs Date Time Temp Pulse Resp B/P Pulse Ox O2 Delivery O2 Flow Rate FiO2 09/06/16 08:33 97.5 97 20 139/79 98 Room Air 09/06/16 03:56 98.6 86 18 118/72 97 Room Air 09/06/16 00:00 98.1 108 18 95/54 98 Room Air 09/05/16 22:57 98.9 09/05/16 20:00 98.9 91 21 115/60 100 Room Air 09/05/16 16:02 98.3 89 20 106/59 100 Room Air 09/05/16 11:39 98.0 77 20 105/57 98 Room Air Intake and Output 09/05/16 09/06/16 19:00 07:00 Intake Total 480 ml 1220 ml Balance 480 ml 1220 ml Intake Oral 480 ml 1020 ml IV Total 200 ml # Voids 3 # Bowel Movements 2 2 Height (Feet): 5 Height (Inches): 4.00 Weight (Pounds): 173 Objective General Appearance: WD/WN, alert Neck: supple Cardiovascular: regular rhythm Respiratory/Chest: lungs clear, normal breath sounds, no respiratory distress, no accessory muscle use Abdomen: normal bowel sounds, non tender, soft, no organomegaly, no mass Edema: no edema noted Arm (L), no edema noted Arm (R), no edema noted Leg (L), no edema noted Leg (R), no edema noted Pedal (L), no edema noted Pedal (R), no edema noted 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
--- NOTE | 2016-09-06 14:31 | Nephrology Progress Note ---
Assessment/Plan Problem List: (1) Orthostatic hypotension (2) C. difficile colitis (3) End stage renal disease on dialysis (4) Epilepsy Plan still diarrhea. history of low bp and amlodipine stopped as prior syncope. Stop lisinopril and florinef 09/02. Gabapentin dose reduced in eskd. Dialysis no uf as gi losses, stable on hd--seen on hd 09/06 Subjective Constitutional: Reports: weakness HEENT: Reports: no symptoms Genitourinary: Reports: no symptoms Neurologic/Psychiatric: Reports: no symptoms Subjective still diarrhea a bit less, eating no emesis Objective Objective Last 24 Hour Vital Signs Date Time Temp Pulse Resp B/P Pulse Ox O2 Delivery O2 Flow Rate FiO2 09/06/16 11:54 98.4 76 20 120/68 96 Room Air 09/06/16 10:20 Room Air 09/06/16 08:33 97.5 97 20 139/79 98 Room Air 09/06/16 03:56 98.6 86 18 118/72 97 Room Air 09/06/16 00:00 98.1 108 18 95/54 98 Room Air 09/05/16 22:57 98.9 09/05/16 20:00 98.9 91 21 115/60 100 Room Air 09/05/16 16:02 98.3 89 20 106/59 100 Room Air Intake and Output 09/05/16 09/06/16 19:00 07:00 Intake Total 480 ml 1220 ml Balance 480 ml 1220 ml Intake Oral 480 ml 1020 ml IV Total 200 ml # Voids 3 # Bowel Movements 2 2 Height (Feet): 5 Height (Inches): 4.00 Weight (Pounds): 173 General Appearance: no apparent distress EENT: normal ENT inspection Neck: normal alignment Cardiovascular: regular rhythm Respiratory/Chest: lungs clear Abdomen: non tender Extremities: other - no edema 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
[2016-09-06] MEDS: Cholestyramine 4gm Pkt ORAL PRN ×2 (14:35→21:38)
--- NOTE | 2016-09-06 14:41 | Infectious Diseases Prog Note ---
Assessment/Plan Assessment/Plan A) 1) c.diff. colitis - still with diarrhea 2) esrd, hd, anemia 3) sz, dm, htn, hhd, cva, ca, obesity 4) allergies - negative, fh-nc, sh-negative 5) mar noted, notes and records reviewed 6) d/w RN 7) vre colonization P) 1) vancomycin po, iv flagyl for now, increase vancomycin dose 2) check labs 3) continue treatment per primary and consultants 4) orders entered and noted 5) d/w patient 6) vre isolation 7) d/w pharmacy Subjective Constitutional: Reports: fatigue, Denies: fever HEENT: Denies: congestion Respiratory: Denies: shortness of breath Cardiovascular: Denies: chest pain Gastrointestinal/Abdominal: Reports: diarrhea, other - + diarrhea per RN, Denies: nausea, vomiting Neurologic: Denies: headache Psychiatric: Denies: depression Skin: Denies: rash Hematologic: Denies: bleeding Musculoskeletal: Denies: pain Allergies: Coded Allergies: No Known Allergies (Unverified , 11/13/12) Objective Vital Signs Last 24 Hour Vital Signs Date Time Temp Pulse Resp B/P Pulse Ox O2 Delivery O2 Flow Rate FiO2 09/06/16 11:54 98.4 76 20 120/68 96 Room Air 09/06/16 10:20 Room Air 09/06/16 08:33 97.5 97 20 139/79 98 Room Air 09/06/16 03:56 98.6 86 18 118/72 97 Room Air 09/06/16 00:00 98.1 108 18 95/54 98 Room Air 09/05/16 22:57 98.9 09/05/16 20:00 98.9 91 21 115/60 100 Room Air 09/05/16 16:02 98.3 89 20 106/59 100 Room Air Height (Feet): 5 Height (Inches): 4.00 Weight (Pounds): 173 General Appearance: no acute distress HEENT: normocephalic, atraumatic, anicteric, mucous membranes moist, PERRL, EOMI, pharynx normal, supple, no JVD Respiratory/Chest: lungs clear, normal breath sounds, no respiratory distress Cardiovascular: normal rate, regular rhythm, no gallop/murmur, no JVD Abdomen: normal bowel sounds, soft, non tender, no organomegaly, non distended Genitourinary: other - no blood Extremities: no cyanosis Skin: no rash 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 Complete 08/29/16 12:30 Stool Clostridium difficile Toxin Assay - Final Complete 08/28/16 08:06 Rectum VRE Culture - Final Enterococcus Faecium - Vre Complete Labs Test 09/05/16 04:50 White Blood Count 6.2 K/UL (4.8-10.8) Red Blood Count 2.89 M/UL (4.20-5.40) Hemoglobin 8.8 G/DL (12.0-16.0) Hematocrit 27.4 % (37.0-47.0) Mean Corpuscular Volume 95 FL (80-99) Mean Corpuscular Hemoglobin 30.5 PG (27.0-31.0) Mean Corpuscular Hemoglobin Concent 32.1 G/DL (32.0-36.0) Red Cell Distribution Width 13.4 % (11.6-14.8) Platelet Count 233 K/UL (150-450) Mean Platelet Volume 6.2 FL (6.5-10.1) Neutrophils (%) (Auto) 51.3 % (45.0-75.0) Lymphocytes (%) (Auto) 31.6 % (20.0-45.0) Monocytes (%) (Auto) 11.8 % (1.0-10.0) Eosinophils (%) (Auto) 3.4 % (0.0-3.0) Basophils (%) (Auto) 1.9 % (0.0-2.0) Sodium Level 145 mEQ/L (135-145) Potassium Level 3.7 mEQ/L (3.4-4.9) Chloride Level 103 mEQ/L (98-107) Carbon Dioxide Level 22 mEQ/L (20-30) Anion Gap 20 (5-15) Blood Urea Nitrogen 38 mg/dL (7-23) Creatinine 5.6 mg/dL (0.5-0.9) Estimat Glomerular Filtration Rate 9.5 mL/min (>60) Glucose Level 69 mg/dL (74-106) Calcium Level 7.7 mg/dL (8.6-10.2) Magnesium Level 2.2 mg/dL (1.7-2.5) Pro-B-Type Natriuretic Peptide 3117 pg/mL (0-125) Current Medications Medications (Trade) Dose Ordered Sig/Nakul Route PRN Reason Start Time Stop Time Status Last Admin Dose Admin Acetaminophen (Tylenol) 650 mg Q4H PRN ORAL Mild Pain/Temp > 100.5 08/31/16 13:00 09/30/16 12:59 Acetaminophen/ Hydrocodone Bitart (Ida 5/325) 1 tab Q4H PRN ORAL Moderate Pain (Pain Scale 4-6) 08/31/16 13:00 09/07/16 12:59 09/05/16 21:58 Amylase/Lipase/ Protease (Pancrease) 2 ea THREE TIMES A DAY ORAL 08/31/16 13:30 09/30/16 13:29 09/06/16 14:04 Aspirin (Ecotrin) 81 mg DAILY ORAL 09/01/16 09:00 10/01/16 08:59 09/06/16 08:16 Cholestyramine Resin (Questran) 4 gm THREE TIMES A DAY PRN ORAL Diarrhea 08/31/16 13:00 09/30/16 12:59 09/06/16 14:35 Clopidogrel Bisulfate (Plavix) 75 mg DAILY ORAL 09/01/16 09:00 10/01/16 08:59 09/06/16 08:16 Dextrose (Dextrose 50%) STAT PRN IV Hypoglycemia 08/31/16 17:00 09/30/16 16:59 Diphenhydramine HCl (Benadryl Cream) 1 applic THREE TIMES A DAY TOPIC 09/01/16 09:00 10/01/16 08:59 09/06/16 14:05 Diphenhydramine HCl (Benadryl) 75 mg HSPRN PRN ORAL Insomnia 08/31/16 19:15 09/30/16 19:14 09/05/16 22:04 Diphenhydramine HCl 50 mg 50 mg Q6H PRN ORAL Itching 09/05/16 08:00 10/05/16 07:59 09/05/16 08:26 Epoetin Alfonso (Procrit (for ESRD on dialysis)) 7,000 units FRI-FRI-FRI SUBQ 09/06/16 21:00 10/06/16 20:59 Gabapentin (Neurontin) 300 mg QHS ORAL 09/01/16 21:00 10/01/16 20:59 09/05/16 21:57 Heparin Sodium (Porcine) (Heparin 5000 units/ml) 5,000 units EVERY 12 HOURS SUBQ 08/31/16 21:00 09/30/16 20:59 09/06/16 08:20 Heparin Sodium (Porcine) (Heparin Sod 1000 units/ml 10ml) 2,000 unit ONCE PRN IV FOR HD USE ONLY 09/06/16 18:00 09/06/16 23:59 Insulin Aspart (NovoLOG) BEFORE MEALS AND HS SUBQ 08/31/16 16:30 09/30/16 16:29 09/06/16 05:42 Lactobacillus Acidophilus 1 tab 1 tab THREE TIMES A DAY ORAL 09/03/16 14:00 10/03/16 13:59 09/06/16 14:05 Metronidazole (Flagyl) 100 ml @ 100 mls/hr Q8HR IVPB 09/03/16 14:30 09/10/16 14:29 09/06/16 05:40 Ondansetron HCl (Zofran) 4 mg Q6H PRN IVP Nausea & Vomiting 08/31/16 18:00 09/30/16 17:59 Pantoprazole (Protonix) 40 mg DAILY ORAL 09/01/16 09:00 10/01/16 08:59 09/06/16 08:17 Sevelamer Carbonate (Renvela) 800 mg THREE TIMES A DAY ORAL 08/31/16 13:30 09/30/16 13:29 09/06/16 14:04 Sodium Chloride (Sodium Chloride 1000ml bag) 1,000 ml @ 500 mls/hr Q2H PRN IVLG sbp<90 during hd 09/06/16 17:46 09/06/16 23:59 Triamcinolone Acetonide (Kenalog) 1 applic THREE TIMES A DAY TOPIC 09/04/16 10:30 10/04/16 10:29 2/17/17 14:05 Vancomycin HCl (Vancomycin) 125 mg Q6HR ORAL 08/31/16 18:00 09/07/16 17:59 09/06/16 14:05 MAGDALENO JIMÉNEZ Sep 06, 2016 14:41
[2016-09-06] MEDS ORDERED: NS 275ml ONE (15:16)
[2016-09-06] MEDS ORDERED: Tubing IV Secondary IV ONE (15:16)
[2016-09-06] MEDS ORDERED: Heparin Sod 1000 units/ml 10ml IV PRN (18:00)
[2016-09-06] MEDS ORDERED: Epogen (for ESRD on dialysis) SUBQ SCH (21:00)
--- NOTE | 2016-09-06 23:09 | Progress Note ---
DATE: 09/06/2016 CARDIOLOGY PROGRESS NOTE SUBJECTIVE: The patient is still on diarrhea. Intake is fair, but appetite has improved. OBJECTIVE: VITAL SIGNS: Blood pressure 120/68, pulse 76, respirations 20, and afebrile. NECK: supple. LUNGS: Clear. CARDIAC: Regular. Normal S1 and S2. ABDOMEN: Soft. No focal tenderness. EXTREMITIES: No edema. IMPRESSION: 1. Hypovolemia. 2. Dehydration. 3. Acute on chronic diastolic congestive heart failure. 4. Clostridium difficile colitis with diarrhea. 5. End-stage renal disease. 6. Cerebrovascular disease with dementia. PLAN: 1. Hold hemodialysis with limited ultrafiltration. 2. IV fluids for significant GI fluid losses. 3. Hold oral hypoglycemics and additional antihypertensive therapy at this time. Martín Walker M.D. DR: CRISTIAN JOB#: [id number] CC:
[2016-09-07] VITALS (7 sets, daily range): BP systolic 88–118; BP diastolic 53–72
[2016-09-07] MEDS: Norco 5mg/325mg tab ORAL PRN (02:29)
[2016-09-07] MEDS: metroNIDAZOLE 500mg 100 ML IVPB SCH ×3 (05:47→22:22)
[2016-09-07 06:17] LABS: BASOPHILS % (AUTO) 1.4 % (0.0-2.0); EOSINOPHILS % (AUTO) 4.1 % (0.0-3.0); LYMPHOCYTES % (AUTO) 27.5 % (20.0-45.0); MEAN CORPUSCULAR HEMOGLOBIN 29.4 PG (27.0-31.0); MEAN CORPUSCULAR HGB CONC 31.5 G/DL (32.0-36.0); MEAN CORPUSCULAR VOLUME 93 FL (80-99); MEAN PLATELET VOLUME 6.4 FL (6.5-10.1); MONOCYTES % (AUTO) 9.5 % (1.0-10.0); NEUTROPHILS % (AUTO) 57.5 % (45.0-75.0); PLATELET COUNT 264 K/UL (150-450); RED BLOOD COUNT 2.87 M/UL (4.20-5.40); RED CELL DISTRIBUTION WIDTH 14.9 % (11.6-14.8); WHITE BLOOD COUNT 6.8 K/UL (4.8-10.8)
[2016-09-07] MEDS: NovoLOG Insulin Flexpen SUBQ SCH ×4 (06:27→20:44)
[2016-09-07 06:44] LABS: CALCIUM 8.5 mg/dL (8.6-10.2); CREATININE 5.6 mg/dL (0.5-0.9); GLOMERULAR FILTRATION RATE 9.5 mL/min (>60); POTASSIUM 3.4 mEQ/L (3.4-4.9)
[2016-09-07] MEDS: Aspirin EC 81mg tab ORAL SCH (08:35)
[2016-09-07] MEDS: Lactobacillus-GG tablet ORAL SCH ×3 (08:35→18:24)
[2016-09-07] MEDS: Cholestyramine 4gm Pkt ORAL PRN ×3 (08:35→16:55)
[2016-09-07] MEDS: Vancomycin oral 125mg/2.5ml ORAL SCH ×4 (08:35→20:47)
--- NOTE | 2016-09-07 08:35 | General Progress Note ---
Assessment/Plan Problem List: (1) Hypoglycemia following gastrointestinal surgery ICD Codes: K91.2 - Postsurgical malabsorption, not elsewhere classified SNOMED: 719802591, 74293535 (2) Hypoglycemia ICD Codes: E16.2 - Hypoglycemia, unspecified SNOMED: 276757998 (3) Altered level of consciousness ICD Codes: R40.4 - Transient alteration of awareness SNOMED: 8099175 (4) End stage renal disease on dialysis ICD Codes: N18.6 - End stage renal disease; Z99.2 - Dependence on renal dialysis SNOMED: 104312928 Status: stable, progressing Assessment/Plan monitor bs cdiff rx per ID on questran BP rx sz rx monitor for sxs HD topical benadryl/steroids dc protonix- ?contributing to diarrhea still with too much diarrhea to dc but appears to be improving. consider snf Subjective ROS Limited/Unobtainable: No Constitutional: Reports: malaise, weakness HEENT: Reports: no symptoms Cardiovascular: Reports: no symptoms Respiratory: Reports: no symptoms Gastrointestinal/Abdominal: Reports: diarrhea Genitourinary: Reports: no symptoms Neurologic/Psychiatric: Reports: pre-existing deficit, seizure Endocrine: Reports: no symptoms Hematologic/Lymphatic: Reports: no symptoms Allergies: Coded Allergies: No Known Allergies (Unverified , 11/13/12) All Systems: reviewed and negative except above Subjective still with frequent watery foul smelling diarrhea. cdiff positive. on po vanco and flagyl now. feels "weak". itching better. diarrhea less frequent. Objective Last 24 Hour Vital Signs Date Time Temp Pulse Resp B/P Pulse Ox O2 Delivery O2 Flow Rate FiO2 09/07/16 04:00 97.1 85 20 116/66 96 Room Air 09/07/16 03:29 98.1 09/07/16 00:20 108/72 09/07/16 00:00 98.1 93 22 88/53 99 Room Air 09/06/16 20:00 97.3 85 22 101/60 96 Room Air 09/06/16 16:00 97.7 103 22 119/63 90 Room Air 09/06/16 14:00 Room Air 09/06/16 11:54 98.4 76 20 120/68 96 Room Air 09/06/16 10:20 Room Air Intake and Output 09/06/16 09/07/16 19:00 07:00 Intake Total 360 ml 740 ml Output Total 730 ml Balance -370 ml 740 ml Intake Oral 360 ml 640 ml IV Total 100 ml Output Hemodialysis UF 730 ml # Voids 4 # Bowel Movements 1 2 Laboratory Tests 09/07/16 04:45: White Blood Count 6.8, Red Blood Count 2.87L, Hemoglobin 8.4L, Hematocrit 26.8L , Mean Corpuscular Volume 93, Mean Corpuscular Hemoglobin 29.4, Mean Corpuscular Hemoglobin Concent 31.5L, Red Cell Distribution Width 14.9H, Platelet Count 264, Mean Platelet Volume 6.4L, Neutrophils (%) (Auto) 57.5, Lymphocytes (%) (Auto) 27.5, Monocytes (%) (Auto) 9.5, Eosinophils (%) (Auto) 4.1H, Basophils (%) (Auto) 1.4, Sodium Level 147H, Potassium Level 3.4, Chloride Level 108H, Carbon Dioxide Level 22, Anion Gap 17H, Blood Urea Nitrogen 37H, Creatinine 5.6H, Estimat Glomerular Filtration Rate 9.5, Glucose Level 75, Calcium Level 8.5L Height (Feet): 5 Height (Inches): 4.00 Weight (Pounds): 173 Objective General Appearance: WD/WN, alert Neck: supple Cardiovascular: regular rhythm Respiratory/Chest: lungs clear, normal breath sounds, no respiratory distress, no accessory muscle use Abdomen: normal bowel sounds, non tender, soft, no organomegaly, no mass Edema: no edema noted Arm (L), no edema noted Arm (R), no edema noted Leg (L), no edema noted Leg (R), no edema noted Pedal (L), no edema noted Pedal (R), no edema noted 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
[2016-09-07] MEDS: Pancrease Cap ORAL SCH ×3 (08:36→18:23)
[2016-09-07] MEDS: Heparin 5000 units/ml inj SUBQ SCH ×2 (08:37→20:44)
[2016-09-07] MEDS: Triamcinolone 0.1% 15gm Cr TOPIC SCH ×3 (08:41→18:23)
[2016-09-07] MEDS: DiphenhydrAMINE & Zinc 28g Cream TOPIC SCH ×3 (08:41→18:23)
[2016-09-07] MEDS ORDERED: NS 275ml ONE (14:10)
[2016-09-07] MEDS ORDERED: Tubing IV Secondary IV ONE (14:10)
--- NOTE | 2016-09-07 16:16 | Nephrology Progress Note ---
Assessment/Plan Assessment 1) ESRD 2) Diarrhea which is persistent 3) DM 4) C. Diff colitis Plan: Next HD on Friday Subjective Subjective She continues to have diarrhea, she had Hd yesterday, no c/p or sob Objective Objective Last 24 Hour Vital Signs Date Time Temp Pulse Resp B/P Pulse Ox O2 Delivery O2 Flow Rate FiO2 09/07/16 12:01 97.5 80 20 108/65 96 Room Air 09/07/16 08:10 98.0 89 20 114/70 96 Room Air 09/07/16 04:00 97.1 85 20 116/66 96 Room Air 09/07/16 03:29 98.1 09/07/16 00:20 108/72 09/07/16 00:00 98.1 93 22 88/53 99 Room Air 09/06/16 20:00 97.3 85 22 101/60 96 Room Air Intake and Output 09/06/16 09/07/16 19:00 07:00 Intake Total 360 ml 740 ml Output Total 730 ml Balance -370 ml 740 ml Intake Oral 360 ml 640 ml IV Total 100 ml Output Hemodialysis UF 730 ml # Voids 4 # Bowel Movements 1 2 Laboratory Tests 09/07/16 04:45: White Blood Count 6.8, Red Blood Count 2.87L, Hemoglobin 8.4L, Hematocrit 26.8L , Mean Corpuscular Volume 93, Mean Corpuscular Hemoglobin 29.4, Mean Corpuscular Hemoglobin Concent 31.5L, Red Cell Distribution Width 14.9H, Platelet Count 264, Mean Platelet Volume 6.4L, Neutrophils (%) (Auto) 57.5, Lymphocytes (%) (Auto) 27.5, Monocytes (%) (Auto) 9.5, Eosinophils (%) (Auto) 4.1H, Basophils (%) (Auto) 1.4, Sodium Level 147H, Potassium Level 3.4, Chloride Level 108H, Carbon Dioxide Level 22, Anion Gap 17H, Blood Urea Nitrogen 37H, Creatinine 5.6H, Estimat Glomerular Filtration Rate 9.5, Glucose Level 75, Calcium Level 8.5L Height (Feet): 5 Height (Inches): 4.00 Weight (Pounds): 173 General Appearance: WD/WN, no apparent distress EENT: PERRL/EOMI Neck: non-tender Cardiovascular: normal peripheral pulses, normal rate Respiratory/Chest: chest wall non-tender, lungs clear Abdomen: non tender, soft Extremities: normal range of motion 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
[2016-09-08] VITALS: BP 104/55
[2016-09-08 04:00] VITALS: BP 126/67
[2016-09-08] MEDS: metroNIDAZOLE 500mg 100 ML IVPB SCH ×3 (05:18→21:57)
[2016-09-08] MEDS: NovoLOG Insulin Flexpen SUBQ SCH ×4 (06:13→21:00)
[2016-09-08 08:00] VITALS: BP 109/60
[2016-09-08] MEDS: Pancrease Cap ORAL SCH ×3 (09:14→18:59)
[2016-09-08] MEDS: Aspirin EC 81mg tab ORAL SCH (09:14)
[2016-09-08] MEDS: Lactobacillus-GG tablet ORAL SCH ×3 (09:14→18:59)
[2016-09-08] MEDS: Vancomycin oral 125mg/2.5ml ORAL SCH ×4 (09:15→21:57)
[2016-09-08] MEDS: Heparin 5000 units/ml inj SUBQ SCH ×2 (09:19→21:59)
[2016-09-08] MEDS: Triamcinolone 0.1% 15gm Cr TOPIC SCH ×3 (09:23→19:00)
[2016-09-08] MEDS: DiphenhydrAMINE & Zinc 28g Cream TOPIC SCH ×3 (09:23→19:00)
--- NOTE | 2016-09-08 10:44 | General Progress Note ---
Assessment/Plan Problem List: (1) Hypoglycemia following gastrointestinal surgery ICD Codes: K91.2 - Postsurgical malabsorption, not elsewhere classified SNOMED: 601085507, 59982200 (2) Hypoglycemia ICD Codes: E16.2 - Hypoglycemia, unspecified SNOMED: 688777737 (3) Altered level of consciousness ICD Codes: R40.4 - Transient alteration of awareness SNOMED: 4465340 (4) End stage renal disease on dialysis ICD Codes: N18.6 - End stage renal disease; Z99.2 - Dependence on renal dialysis SNOMED: 443868336 Status: stable, progressing Assessment/Plan monitor bs cdiff rx per ID on questran BP rx sz rx monitor for sxs HD topical benadryl/steroids repeat cbc check stool ob may need transfusion epo/iron still with too much diarrhea to dc but appears to be improving. consider snf Subjective ROS Limited/Unobtainable: No Constitutional: Reports: malaise, weakness HEENT: Reports: no symptoms Cardiovascular: Reports: no symptoms Respiratory: Reports: no symptoms Gastrointestinal/Abdominal: Reports: diarrhea Genitourinary: Reports: no symptoms Neurologic/Psychiatric: Reports: pre-existing deficit, seizure Endocrine: Reports: no symptoms Hematologic/Lymphatic: Reports: anemia Allergies: Coded Allergies: No Known Allergies (Unverified , 11/13/12) All Systems: reviewed and negative except above Subjective still with frequent watery foul smelling diarrhea. cdiff positive. on po vanco and flagyl now. feels like diarrhea is slowly improving. no chest pain decreased h/h noted. no bleeding. Objective Last 24 Hour Vital Signs Date Time Temp Pulse Resp B/P Pulse Ox O2 Delivery O2 Flow Rate FiO2 09/08/16 08:00 97.7 92 20 109/60 93 Room Air 09/08/16 04:00 97.3 76 20 126/67 95 Room Air 09/08/16 00:00 97.7 78 20 104/55 94 Room Air 09/07/16 19:00 96.8 86 20 114/61 95 Room Air 09/07/16 16:00 98.6 100 20 118/64 94 Room Air 09/07/16 12:01 97.5 80 20 108/65 96 Room Air Intake and Output 09/07/16 09/08/16 19:00 07:00 Intake Total 450 ml 340 ml Balance 450 ml 340 ml Intake Oral 350 ml 240 ml IV Total 100 ml 100 ml # Voids 2 3 # Bowel Movements 1 Height (Feet): 5 Height (Inches): 4.00 Weight (Pounds): 173 Objective General Appearance: WD/WN, alert Neck: supple Cardiovascular: regular rhythm Respiratory/Chest: lungs clear, normal breath sounds, no respiratory distress, no accessory muscle use Abdomen: normal bowel sounds, non tender, soft, no organomegaly, no mass Edema: no edema noted Arm (L), no edema noted Arm (R), no edema noted Leg (L), no edema noted Leg (R), no edema noted Pedal (L), no edema noted Pedal (R), no edema noted 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
--- NOTE | 2016-09-08 11:27 | Diagnostic Imaging Report ---
History: Pain status post fall. Technique: Frontal, lateral, and oblique views of the right knee are provided. Comparison: No prior study is available for comparison. Findings: Overall bony mineralization is within normal limits. There is no evidence of acute fracture or dislocation. Severe narrowing of the lateral tibiofemoral and patellofemoral compartments and moderate medial tibiofemoral joint space narrowing with small marginal osteophytes are compatible with moderate to severe right knee osteoarthritis. The soft tissues appear grossly normal. Small joint effusion is noted. Extensive circumferential atherosclerotic calcification of the visualized arteries is noted. Impression: No evidence of acute fracture or dislocation. Moderate to severe right knee joint osteoarthritis with a small effusion. Extensive atherosclerotic vascular disease.
[2016-09-08 12:00] VITALS: BP 117/66
--- NOTE | 2016-09-08 12:13 | Infectious Diseases Prog Note ---
Assessment/Plan Assessment/Plan A) 1) c.diff. colitis - still without improvement in diarrhea despite aggressive treatment for c.diff. 2) esrd, hd, anemia 3) sz, dm, htn, hhd, cva, ca, obesity 4) allergies - negative, fh-nc, sh-negative 5) mar noted, notes and records reviewed 6) d/w RN 7) vre colonization P) 1) vancomycin po, iv flagyl for now 2) recommend GI evaluation for possible colonoscopy to rule out other cause for diarrhea 3) patient may need eventual stool transplantation or fidaxomicin if has refractory c.diff. 4) continue treatment per primary and consultants 5) orders entered and noted 6) d/w patient 7) vre isolation 8) watch labs 9) d/w Dr. Hatfield about GI consult Subjective Constitutional: Denies: fever HEENT: Denies: congestion Respiratory: Denies: shortness of breath Cardiovascular: Denies: chest pain Gastrointestinal/Abdominal: Reports: diarrhea, other - diarrhea persists without improvement, Denies: nausea, vomiting Neurologic: Denies: headache Psychiatric: Denies: depression Skin: Denies: rash Hematologic: Denies: bleeding Musculoskeletal: Denies: pain Allergies: Coded Allergies: No Known Allergies (Unverified , 11/13/12) Objective Vital Signs Last 24 Hour Vital Signs Date Time Temp Pulse Resp B/P Pulse Ox O2 Delivery O2 Flow Rate FiO2 09/08/16 08:00 97.7 92 20 109/60 93 Room Air 09/08/16 04:00 97.3 76 20 126/67 95 Room Air 09/08/16 00:00 97.7 78 20 104/55 94 Room Air 09/07/16 19:00 96.8 86 20 114/61 95 Room Air 09/07/16 16:00 98.6 100 20 118/64 94 Room Air Height (Feet): 5 Height (Inches): 4.00 Weight (Pounds): 173 General Appearance: no acute distress HEENT: normocephalic, atraumatic, anicteric, mucous membranes moist, PERRL, EOMI, pharynx normal, supple, no JVD Respiratory/Chest: lungs clear, normal breath sounds, no respiratory distress, no accessory muscle use Cardiovascular: normal rate, regular rhythm, no gallop/murmur, no JVD Abdomen: normal bowel sounds, soft, non tender, no organomegaly, non distended Genitourinary: other - no blood Extremities: no cyanosis Skin: no rash 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 Complete 08/29/16 12:30 Stool Clostridium difficile Toxin Assay - Final Complete 08/28/16 08:06 Rectum VRE Culture - Final Enterococcus Faecium - Vre Complete Labs Test 09/07/16 04:45 White Blood Count 6.8 K/UL (4.8-10.8) Red Blood Count 2.87 M/UL (4.20-5.40) Hemoglobin 8.4 G/DL (12.0-16.0) Hematocrit 26.8 % (37.0-47.0) Mean Corpuscular Volume 93 FL (80-99) Mean Corpuscular Hemoglobin 29.4 PG (27.0-31.0) Mean Corpuscular Hemoglobin Concent 31.5 G/DL (32.0-36.0) Red Cell Distribution Width 14.9 % (11.6-14.8) Platelet Count 264 K/UL (150-450) Mean Platelet Volume 6.4 FL (6.5-10.1) Neutrophils (%) (Auto) 57.5 % (45.0-75.0) Lymphocytes (%) (Auto) 27.5 % (20.0-45.0) Monocytes (%) (Auto) 9.5 % (1.0-10.0) Eosinophils (%) (Auto) 4.1 % (0.0-3.0) Basophils (%) (Auto) 1.4 % (0.0-2.0) Sodium Level 147 mEQ/L (135-145) Potassium Level 3.4 mEQ/L (3.4-4.9) Chloride Level 108 mEQ/L (98-107) Carbon Dioxide Level 22 mEQ/L (20-30) Anion Gap 17 (5-15) Blood Urea Nitrogen 37 mg/dL (7-23) Creatinine 5.6 mg/dL (0.5-0.9) Estimat Glomerular Filtration Rate 9.5 mL/min (>60) Glucose Level 75 mg/dL (74-106) Calcium Level 8.5 mg/dL (8.6-10.2) Current Medications Medications (Trade) Dose Ordered Sig/Nakul Route PRN Reason Start Time Stop Time Status Last Admin Dose Admin Acetaminophen (Tylenol) 650 mg Q4H PRN ORAL Mild Pain/Temp > 100.5 08/31/16 13:00 09/30/16 12:59 Amylase/Lipase/ Protease (Pancrease) 2 ea THREE TIMES A DAY ORAL 08/31/16 13:30 09/30/16 13:29 09/08/16 09:14 Aspirin (Ecotrin) 81 mg DAILY ORAL 09/01/16 09:00 10/01/16 08:59 09/08/16 09:14 Cholestyramine Resin (Questran) 4 gm THREE TIMES A DAY PRN ORAL Diarrhea 08/31/16 13:00 09/30/16 12:59 09/07/16 16:55 Clopidogrel Bisulfate (Plavix) 75 mg DAILY ORAL 09/01/16 09:00 10/01/16 08:59 09/08/16 09:14 Dextrose (Dextrose 50%) STAT PRN IV Hypoglycemia 08/31/16 17:00 09/30/16 16:59 Diphenhydramine HCl (Benadryl Cream) 1 applic THREE TIMES A DAY TOPIC 09/01/16 09:00 10/01/16 08:59 09/08/16 09:23 Diphenhydramine HCl (Benadryl) 50 mg Q6H PRN ORAL Itching 09/05/16 08:00 10/05/16 07:59 09/08/16 09:21 Diphenhydramine HCl (Benadryl) 75 mg HSPRN PRN ORAL Insomnia 08/31/16 19:15 09/30/16 19:14 09/07/16 20:38 Epoetin Alfonso (Procrit (for ESRD on dialysis)) 7,000 units MON-WED-FRI SUBQ 09/06/16 21:00 10/06/16 20:59 09/06/16 21:37 Gabapentin (Neurontin) 300 mg QHS ORAL 09/01/16 21:00 10/01/16 20:59 09/07/16 20:37 Heparin Sodium (Porcine) (Heparin 5000 units/ml) 5,000 units EVERY 12 HOURS SUBQ 08/31/16 21:00 09/30/16 20:59 09/08/16 09:19 Insulin Aspart (NovoLOG) BEFORE MEALS AND HS SUBQ 08/31/16 16:30 09/30/16 16:29 09/07/16 17:00 Lactobacillus Acidophilus 1 tab 1 tab THREE TIMES A DAY ORAL 09/03/16 14:00 10/03/16 13:59 09/08/16 09:14 Metronidazole (Flagyl) 100 ml @ 100 mls/hr Q8HR IVPB 09/03/16 14:30 09/10/16 14:29 09/08/16 05:18 Ondansetron HCl (Zofran) 4 mg Q6H PRN IVP Nausea & Vomiting 08/31/16 18:00 09/30/16 17:59 09/08/16 09:14 Pantoprazole (Protonix) 40 mg DAILY ORAL 09/01/16 09:00 10/01/16 08:59 09/08/16 09:14 Sevelamer Carbonate (Renvela) 800 mg THREE TIMES A DAY ORAL 08/31/16 13:30 09/30/16 13:29 09/08/16 09:14 Triamcinolone Acetonide (Kenalog) 1 applic THREE TIMES A DAY TOPIC 09/04/16 10:30 10/04/16 10:29 09/08/16 09:23 Vancomycin HCl (Vancomycin) 250 mg QID ORAL 09/06/16 18:00 09/13/16 17:59 09/08/16 09:15 MAGDALENO JIMÉNEZ Sep 08, 2016 12:13
--- NOTE | 2016-09-08 14:41 | Nephrology Progress Note ---
Assessment/Plan Assessment 1) ESRD 2) Diarrhea which is persistent 3) DM 4) C. Diff colitis Plan: HD tomorrow Subjective Subjective She continues to have diarrhea, , no c/p or sob Objective Objective Last 24 Hour Vital Signs Date Time Temp Pulse Resp B/P Pulse Ox O2 Delivery O2 Flow Rate FiO2 09/08/16 12:00 97.7 80 19 117/66 96 Room Air 09/08/16 08:00 97.7 92 20 109/60 93 Room Air 09/08/16 04:00 97.3 76 20 126/67 95 Room Air 09/08/16 00:00 97.7 78 20 104/55 94 Room Air 09/07/16 19:00 96.8 86 20 114/61 95 Room Air 09/07/16 16:00 98.6 100 20 118/64 94 Room Air Intake and Output 09/07/16 09/08/16 19:00 07:00 Intake Total 450 ml 340 ml Balance 450 ml 340 ml Intake Oral 350 ml 240 ml IV Total 100 ml 100 ml # Voids 2 3 # Bowel Movements 1 Height (Feet): 5 Height (Inches): 4.00 Weight (Pounds): 173 General Appearance: WD/WN, no apparent distress EENT: PERRL/EOMI Neck: non-tender, normal alignment Cardiovascular: normal rate, no JVD Respiratory/Chest: lungs clear, normal breath sounds Abdomen: normal bowel sounds, non tender Extremities: normal range of motion, non-tender 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
[2016-09-08] MEDS: Metoclopramide 10mg/2ml Inj IVP PRN (14:57)
[2016-09-08 16:00] VITALS: BP 102/53
[2016-09-08] MEDS: Cholestyramine 4gm Pkt ORAL PRN (16:56)
[2016-09-08 20:00] VITALS: BP 103/54
[2016-09-09] VITALS (9 sets, daily range): BP systolic 84–139; BP diastolic 39–75
[2016-09-09] MEDS: metroNIDAZOLE 500mg 100 ML IVPB SCH ×3 (05:22→21:51)
[2016-09-09] MEDS: NovoLOG Insulin Flexpen SUBQ SCH ×4 (06:17→21:48)
[2016-09-09 07:13] LABS: MEAN CORPUSCULAR HGB CONC 31.6 G/DL (32.0-36.0); MEAN CORPUSCULAR VOLUME 95 FL (80-99); MEAN PLATELET VOLUME 6.4 FL (6.5-10.1); PLATELET COUNT 276 K/UL (150-450); RED BLOOD COUNT 2.49 M/UL (4.20-5.40); RED CELL DISTRIBUTION WIDTH 15.2 % (11.6-14.8); WHITE BLOOD COUNT 8.4 K/UL (4.8-10.8)
[2016-09-09 08:02] LABS: BAND NEUTROPHILS % (MANUAL) 2 % (0-8); BASOPHILS % (MANUAL) 0 % (0-2); EOSINOPHILS % (MANUAL) 3 % (0-3); LYMPHOCYTES % (MANUAL) 18 % (20-45); NEUTROPHILS % (MANUAL) 75 % (45-75); PLATELET ESTIMATE ADEQUATE; PLATELET MORPHOLOGY NORMAL; TOTAL CELLS COUNTED 100
--- NOTE | 2016-09-09 08:24 | Nephrology Progress Note ---
Assessment/Plan Problem List: (1) Orthostatic hypotension (2) C. difficile colitis (3) End stage renal disease on dialysis (4) Epilepsy (5) Anemia in chronic kidney disease Plan still diarrhea. history of low bp and amlodipine stopped as prior syncope. Stop lisinopril and florinef 09/02. Gabapentin dose reduced in eskd. Dialysis stable on hd--seen on hd 09/09, increase epogen Subjective Constitutional: Reports: weakness HEENT: Reports: no symptoms Genitourinary: Reports: no symptoms Neurologic/Psychiatric: Reports: no symptoms Subjective still diarrhea a bit less, eating no emesis Objective Objective Last 24 Hour Vital Signs Date Time Temp Pulse Resp B/P Pulse Ox O2 Delivery O2 Flow Rate FiO2 09/09/16 08:17 97.6 105 20 134/74 100 Room Air 09/09/16 04:00 97.2 79 20 107/62 97 Room Air 09/09/16 00:00 97.9 79 19 100/57 96 Room Air 09/08/16 20:00 97.0 86 19 103/54 96 Room Air 09/08/16 16:00 97.6 91 18 102/53 95 Room Air 09/08/16 12:00 97.7 80 19 117/66 96 Room Air Intake and Output 09/08/16 09/09/16 19:00 07:00 Intake Total 800 ml 200 ml Balance 800 ml 200 ml Intake Oral 700 ml IV Total 100 ml 200 ml # Voids 2 # Bowel Movements 3 2 Laboratory Tests 09/08/16 19:15: Stool Occult Blood [Pending] 09/09/16 05:45: White Blood Count 8.4, Red Blood Count 2.49L, Hemoglobin 7.5L, Hematocrit 23.6L , Mean Corpuscular Volume 95, Mean Corpuscular Hemoglobin 30.0, Mean Corpuscular Hemoglobin Concent 31.6L, Red Cell Distribution Width 15.2H, Platelet Count 276, Mean Platelet Volume 6.4L, Neutrophils (%) (Auto) , Lymphocytes (%) (Auto) , Monocytes (%) (Auto) , Eosinophils (%) (Auto) , Basophils (%) (Auto) , Differential Total Cells Counted 100, Neutrophils % ( Manual) 75, Lymphocytes % (Manual) 18L, Monocytes % (Manual) 2, Eosinophils % ( Manual) 3, Basophils % (Manual) 0, Band Neutrophils 2, Platelet Estimate Adequate, Platelet Morphology Normal, Red Blood Cell Morphology Normal Height (Feet): 5 Height (Inches): 4.00 Weight (Pounds): 173 General Appearance: no apparent distress, alert EENT: normal ENT inspection Neck: normal alignment Cardiovascular: normal rate, regular rhythm Respiratory/Chest: lungs clear, normal breath sounds Abdomen: no organomegaly Extremities: other - no edema Neurologic: manager safe II-XII grossly normal VERN ABABSI Sep 09, 2016 08:24
--- NOTE | 2016-09-09 09:13 | General Progress Note ---
Assessment/Plan Assessment/Plan Assessment - Chronic diarrhea - C Diff (+) - Anemia - Renal failure - Epilepsy - s/p gastric bypass surgery Recommendation - continue vanco and flagy - hold Questran - follow symptoms - colonoscopy later this week Subjective Allergies: Coded Allergies: No Known Allergies (Unverified , 11/13/12) Objective Last 24 Hour Vital Signs Date Time Temp Pulse Resp B/P Pulse Ox O2 Delivery O2 Flow Rate FiO2 09/09/16 08:17 97.6 105 20 134/74 100 Room Air 09/09/16 07:50 97.2 82 20 139/73 Room Air 09/09/16 07:50 Room Air 09/09/16 04:00 97.2 79 20 107/62 97 Room Air 09/09/16 00:00 97.9 79 19 100/57 96 Room Air 09/08/16 20:00 97.0 86 19 103/54 96 Room Air 09/08/16 16:00 97.6 91 18 102/53 95 Room Air 09/08/16 12:00 97.7 80 19 117/66 96 Room Air Intake and Output 09/08/16 09/09/16 19:00 07:00 Intake Total 800 ml 200 ml Balance 800 ml 200 ml Intake Oral 700 ml IV Total 100 ml 200 ml # Voids 2 # Bowel Movements 3 2 Laboratory Tests 09/08/16 19:15: Stool Occult Blood [Pending] 09/09/16 05:45: White Blood Count 8.4, Red Blood Count 2.49L, Hemoglobin 7.5L, Hematocrit 23.6L , Mean Corpuscular Volume 95, Mean Corpuscular Hemoglobin 30.0, Mean Corpuscular Hemoglobin Concent 31.6L, Red Cell Distribution Width 15.2H, Platelet Count 276, Mean Platelet Volume 6.4L, Neutrophils (%) (Auto) , Lymphocytes (%) (Auto) , Monocytes (%) (Auto) , Eosinophils (%) (Auto) , Basophils (%) (Auto) , Differential Total Cells Counted 100, Neutrophils % ( Manual) 75, Lymphocytes % (Manual) 18L, Monocytes % (Manual) 2, Eosinophils % ( Manual) 3, Basophils % (Manual) 0, Band Neutrophils 2, Platelet Estimate Adequate, Platelet Morphology Normal, Red Blood Cell Morphology Normal Height (Feet): 5 Height (Inches): 4.00 Weight (Pounds): 173 NILTON MERINO Sep 09, 2016 09:13
[2016-09-09] MEDS: Heparin 5000 units/ml inj SUBQ SCH ×2 (09:47→21:46)
[2016-09-09] MEDS: Metoclopramide 10mg/2ml Inj IVP PRN (09:47)
[2016-09-09] MEDS: Pancrease Cap ORAL SCH ×3 (09:47→18:58)
[2016-09-09] MEDS: Aspirin EC 81mg tab ORAL SCH (09:48)
[2016-09-09] MEDS: Lactobacillus-GG tablet ORAL SCH ×3 (09:48→18:58)
[2016-09-09] MEDS: Vancomycin oral 125mg/2.5ml ORAL SCH ×4 (09:50→21:45)
[2016-09-09] MEDS: Triamcinolone 0.1% 15gm Cr TOPIC SCH ×3 (09:51→18:59)
[2016-09-09] MEDS: DiphenhydrAMINE & Zinc 28g Cream TOPIC SCH ×3 (09:51→18:59)
--- NOTE | 2016-09-09 10:53 | Diagnostic Imaging Report ---
History: Pain status post fall. Technique: Frontal, lateral, and oblique views of the left knee are provided. Comparison: No prior study is available for comparison. Findings: Overall bony mineralization is within normal limits. There is no evidence of acute fracture or dislocation. Mild degenerative changes noted. The soft tissues appear grossly normal. No significant joint effusion is noted. Extensive circumferential atherosclerotic calcification of the visualized arteries is noted. Impression: No evidence of acute fracture or dislocation. Extensive atherosclerotic vascular disease.
--- NOTE | 2016-09-09 11:39 | Infectious Diseases Prog Note ---
Assessment/Plan Assessment/Plan A) 1) c.diff. colitis + with hx of chronic diarrhea, ? other cause - still with no improvement in diarrhea 2) esrd, hd, anemia 3) sz, dm, htn, hhd, cva, ca, obesity 4) allergies - negative, fh-nc, sh-negative 5) mar noted, notes and records reviewed 6) d/w RN 7) vre colonization P) 1) vancomycin po, iv flagyl 2) gi evaluation noted - plan on colonoscopy 3) patient may need eventual stool transplantation or fidaxomicin if has refractory c.diff. 4) continue treatment per primary and consultants 5) orders entered and noted 6) d/w patient 7) vre isolation 8) watch labs Subjective Constitutional: Reports: fatigue, Denies: fever HEENT: Denies: congestion Respiratory: Denies: shortness of breath Gastrointestinal/Abdominal: Reports: diarrhea, other - no change in diarrhea, Denies: nausea, vomiting Neurologic: Denies: headache Psychiatric: Denies: depression Skin: Denies: rash Hematologic: Denies: bleeding Musculoskeletal: Denies: pain Allergies: Coded Allergies: No Known Allergies (Unverified , 11/13/12) Objective Vital Signs Last 24 Hour Vital Signs Date Time Temp Pulse Resp B/P Pulse Ox O2 Delivery O2 Flow Rate FiO2 09/09/16 11:29 Room Air 09/09/16 11:28 97.0 85 18 112/67 96 Room Air 09/09/16 08:17 97.6 105 20 134/74 100 Room Air 09/09/16 07:50 97.2 82 20 139/73 Room Air 09/09/16 07:50 Room Air 09/09/16 04:00 97.2 79 20 107/62 97 Room Air 09/09/16 00:00 97.9 79 19 100/57 96 Room Air 09/08/16 20:00 97.0 86 19 103/54 96 Room Air 09/08/16 16:00 97.6 91 18 102/53 95 Room Air 09/08/16 12:00 97.7 80 19 117/66 96 Room Air Height (Feet): 5 Height (Inches): 4.00 Weight (Pounds): 173 General Appearance: no acute distress HEENT: normocephalic, atraumatic, anicteric, mucous membranes moist, PERRL, EOMI, pharynx normal, supple, no JVD Respiratory/Chest: lungs clear, normal breath sounds, no respiratory distress, no accessory muscle use Cardiovascular: normal rate, regular rhythm, no gallop/murmur, no JVD Abdomen: normal bowel sounds, soft, non tender, no organomegaly, non distended Genitourinary: other - no blood Extremities: no cyanosis Skin: no rash Neurologic/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 Complete 08/29/16 12:30 Stool Clostridium difficile Toxin Assay - Final Complete 08/28/16 08:06 Rectum VRE Culture - Final Enterococcus Faecium - Vre Complete Laboratory Tests Test 09/08/16 19:15 09/09/16 05:45 Stool Occult Blood Pending White Blood Count 8.4 K/UL (4.8-10.8) Red Blood Count 2.49 M/UL (4.20-5.40) L Hemoglobin 7.5 G/DL (12.0-16.0) L Hematocrit 23.6 % (37.0-47.0) L Mean Corpuscular Volume 95 FL (80-99) Mean Corpuscular Hemoglobin 30.0 PG (27.0-31.0) Mean Corpuscular Hemoglobin Concent 31.6 G/DL (32.0-36.0) L Red Cell Distribution Width 15.2 % (11.6-14.8) H Platelet Count 276 K/UL (150-450) Mean Platelet Volume 6.4 FL (6.5-10.1) L Neutrophils (%) (Auto) % (45.0-75.0) Lymphocytes (%) (Auto) % (20.0-45.0) Monocytes (%) (Auto) % (1.0-10.0) Eosinophils (%) (Auto) % (0.0-3.0) Basophils (%) (Auto) % (0.0-2.0) Differential Total Cells Counted 100 Neutrophils % (Manual) 75 % (45-75) Lymphocytes % (Manual) 18 % (20-45) L Monocytes % (Manual) 2 % (1-10) Eosinophils % (Manual) 3 % (0-3) Basophils % (Manual) 0 % (0-2) Band Neutrophils 2 % (0-8) Platelet Estimate Adequate Platelet Morphology Normal Red Blood Cell Morphology Normal Current Medications Medications (Trade) Dose Ordered Sig/Nakul Route PRN Reason Start Time Stop Time Status Last Admin Dose Admin Acetaminophen (Tylenol) 650 mg Q4H PRN ORAL Mild Pain/Temp > 100.5 08/31/16 13:00 09/30/16 12:59 09/09/16 00:29 Amylase/Lipase/ Protease (Pancrease) 2 ea THREE TIMES A DAY ORAL 08/31/16 13:30 09/30/16 13:29 09/09/16 09:47 Aspirin (Ecotrin) 81 mg DAILY ORAL 09/01/16 09:00 10/01/16 08:59 09/09/16 09:48 Cholestyramine Resin (Questran) 4 gm THREE TIMES A DAY PRN ORAL Diarrhea 08/31/16 13:00 09/30/16 12:59 09/08/16 16:56 Clopidogrel Bisulfate (Plavix) 75 mg DAILY ORAL 09/01/16 09:00 10/01/16 08:59 09/09/16 09:48 Dextrose (Dextrose 50%) STAT PRN IV Hypoglycemia 08/31/16 17:00 09/30/16 16:59 Diphenhydramine HCl (Benadryl Cream) 1 applic THREE TIMES A DAY TOPIC 09/01/16 09:00 10/01/16 08:59 09/09/16 09:51 Diphenhydramine HCl (Benadryl) 75 mg HSPRN PRN ORAL Insomnia 08/31/16 19:15 09/30/16 19:14 09/08/16 21:58 Diphenhydramine HCl 50 mg 50 mg Q6H PRN ORAL Itching 09/05/16 08:00 10/05/16 07:59 09/09/16 09:47 Epoetin Alfonso (Procrit (for ESRD on dialysis)) 10,000 units FRI-WED-FRI SUBQ 09/09/16 21:00 10/09/16 20:59 Gabapentin (Neurontin) 300 mg QHS ORAL 09/01/16 21:00 10/01/16 20:59 09/08/16 21:57 Heparin Sodium (Porcine) (Heparin 5000 units/ml) 5,000 units EVERY 12 HOURS SUBQ 08/31/16 21:00 09/30/16 20:59 09/09/16 09:47 Insulin Aspart (NovoLOG) BEFORE MEALS AND HS SUBQ 08/31/16 16:30 09/30/16 16:29 09/08/16 17:00 Lactobacillus Acidophilus (Culturelle) 1 tab THREE TIMES A DAY ORAL 09/03/16 14:00 10/03/16 13:59 09/09/16 09:48 Metoclopramide HCl (Reglan) 10 mg Q8H PRN IVP Nausea & Vomiting 09/08/16 14:45 10/08/16 14:44 09/09/16 09:47 Metronidazole (Flagyl) 100 ml @ 100 mls/hr Q8HR IVPB 09/08/16 14:00 09/15/16 23:59 09/09/16 05:22 Ondansetron HCl (Zofran) 4 mg Q6H PRN IVP Nausea & Vomiting 08/31/16 18:00 09/30/16 17:59 09/08/16 09:14 Pantoprazole (Protonix) 40 mg DAILY ORAL 09/01/16 09:00 10/01/16 08:59 09/09/16 09:48 Sevelamer Carbonate (Renvela) 800 mg THREE TIMES A DAY ORAL 08/31/16 13:30 09/30/16 13:29 09/09/16 09:48 Triamcinolone Acetonide (Kenalog) 1 applic THREE TIMES A DAY TOPIC 09/04/16 10:30 10/04/16 10:29 09/09/16 09:51 Vancomycin HCl (Vancomycin) 250 mg QID ORAL 09/08/16 13:00 09/15/16 23:59 09/09/16 09:50 MAGDALENO JIMÉNEZ Sep 09, 2016 11:39
--- NOTE | 2016-09-09 19:48 | Consultation ---
DATE OF CONSULTATION: 09/09/2016 GASTROENTEROLOGY CONSULTATION CONSULTING PHYSICIAN: Stefanie Eckert M.D. REFERRING PHYSICIAN: Silvano Hatfield M.D. CHIEF COMPLAINT: I was asked to this patient by Dr. Silvano Hatfield for refractory diarrhea. HISTORY OF PRESENT ILLNESS: The patient is a pleasant 61-year-old -[place] woman, who is a chronic renal failure patient, on dialysis, who comes in with diarrhea. She states that her diarrhea has actually been happening for about a year, and she has not been evaluated for it. The patient reports periods of stool urgency and incontinence. She denies any hematochezia or vomiting. The patient also has been anemic, although this is possibly due to her renal failure. However, during the course of this admission, her hematocrit has been dropping. Stool occult blood has been sent and pending. Her stools for Clostridium difficile, however, have become positive. She has been placed both Flagyl as well as vancomycin as well as Questran and acidophilus, and she is still having diarrhea without definitive recovery here. The patient had colonoscopy about years ago, but has not had an endoscopy. PAST MEDICAL HISTORY: History of renal failure, seizure disorder, stroke, hypertension, diabetes, hypertensive heart disease, and chronic diarrhea. FAMILY HISTORY: Noncontributory. SOCIAL HISTORY: The patient lives in [facility] and does not smoke or drink. ALLERGIES: None. REVIEW OF SYSTEMS: Otherwise negative. MEDICATIONS: See chart list for details. PHYSICAL EXAMINATION: GENERAL: A pleasant woman, seen in her room HEENT: Normocephalic and atraumatic. Sclerae anicteric. Oropharynx is clear. NECK: Supple. CHEST: Clear to auscultation. CARDIOVASCULAR: Regular rate. ABDOMEN: Soft and obese with good bowel sounds. There is minimal tenderness to palpation on the right-sided stomach without guarding or rebound. EXTREMITIES: No edema. LABORATORY DATA: Noted. ASSESSMENT: This patient presents with chronic diarrhea for about a year's duration, which is somewhat unusual for Clostridium difficile. She also has periods of incontinence suggesting of colonic inflammation or colitis. Given the patient has also not responded to appropriate treatment for Clostridium difficile colitis, it would be reasonable to proceed with a colonoscopy to evaluate the colonic lining. In addition, the patient is anemic and should also have an endoscopy to evaluate the upper gastrointestinal tract. The indications, risks, alternatives, and possible complications of endoscopy and colonoscopy were explained to the patient, and informed consent was obtained. RECOMMENDATIONS: 1. Continue current management and medications. 2. Hold Questran since medications. 3. Endoscopy and colonoscopy later this week. Thank you for asking me to participate in the care of this patient. Stefanie Eckert M.D. DR: NIKKO JOB#: [id number] CC:
[2016-09-09] MEDS: Epogen (for ESRD on dialysis) SUBQ SCH (22:14)
[2016-09-10] VITALS: BP 99/54
[2016-09-10 03:50] VITALS: BP 96/53
[2016-09-10] MEDS: metroNIDAZOLE 500mg 100 ML IVPB SCH ×3 (05:17→21:37)
[2016-09-10] MEDS: NovoLOG Insulin Flexpen SUBQ SCH ×4 (06:30→21:38)
--- NOTE | 2016-09-10 07:10 | General Progress Note ---
Assessment/Plan Problem List: (1) Hypoglycemia following gastrointestinal surgery ICD Codes: K91.2 - Postsurgical malabsorption, not elsewhere classified SNOMED: 830912378, 25591691 (2) Hypoglycemia ICD Codes: E16.2 - Hypoglycemia, unspecified SNOMED: 181878106 (3) Altered level of consciousness ICD Codes: R40.4 - Transient alteration of awareness SNOMED: 7155335 (4) End stage renal disease on dialysis ICD Codes: N18.6 - End stage renal disease; Z99.2 - Dependence on renal dialysis SNOMED: 529476511 Status: stable, not improved Assessment/Plan abx per id questran for diarrhea colonscopy monitor h/h transfuse as needed HD per renal monitor bs Subjective ROS Limited/Unobtainable: No Constitutional: Reports: weakness HEENT: Reports: no symptoms Cardiovascular: Reports: no symptoms Respiratory: Reports: no symptoms Gastrointestinal/Abdominal: Reports: diarrhea Genitourinary: Reports: no symptoms Neurologic/Psychiatric: Reports: pre-existing deficit, seizure Endocrine: Reports: no symptoms Hematologic/Lymphatic: Reports: no symptoms Allergies: Coded Allergies: No Known Allergies (Unverified , 11/13/12) All Systems: reviewed and negative except above Subjective still with frequent watery foul smelling diarrhea. cdiff positive. on po vanco and flagyl now. still having diarrhea. scheduled for colonscoopy per gi. had fall onto to knee last night.no pain. s/p 1 unit prbcs. denies bleeding.also having hypoglycemia Objective Last 24 Hour Vital Signs Date Time Temp Pulse Resp B/P Pulse Ox O2 Delivery O2 Flow Rate FiO2 09/10/16 03:50 97.7 81 18 96/53 97 Room Air 09/10/16 00:00 97.9 88 18 99/54 100 Room Air 09/09/16 20:30 97.8 86 20 88/39 96 Room Air 09/09/16 17:30 97.5 95 18 115/75 97 Room Air 09/09/16 17:15 98.2 84 20 84/51 98 Room Air 09/09/16 16:00 97.3 91 20 92/57 99 Room Air 09/09/16 11:29 Room Air 09/09/16 11:28 97.0 85 18 112/67 96 Room Air 09/09/16 08:17 97.6 105 20 134/74 100 Room Air 09/09/16 07:50 97.2 82 20 139/73 Room Air 09/09/16 07:50 Room Air Intake and Output 09/09/16 09/10/16 19:00 07:00 Intake Total 460 ml 490 ml Output Total 1500 ml Balance -1040 ml 490 ml Intake Oral 360 ml 240 ml IV Total 100 ml Blood Product 250 ml Output Hemodialysis UF 1500 ml # Bowel Movements 1 3 Height (Feet): 5 Height (Inches): 4.00 Weight (Pounds): 173 Objective General Appearance: WD/WN, alert Neck: supple Cardiovascular: regular rhythm Respiratory/Chest: lungs clear, normal breath sounds, no respiratory distress, no accessory muscle use Abdomen: normal bowel sounds, non tender, soft, no organomegaly, no mass Edema: no edema noted Arm (L), no edema noted Arm (R), no edema noted Leg (L), no edema noted Leg (R), no edema noted Pedal (L), no edema noted Pedal (R), no edema noted Generalized Neurologic: technology applications 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
[2016-09-10 08:00] VITALS: BP 87/52
[2016-09-10] MEDS: Heparin 5000 units/ml inj SUBQ SCH ×2 (09:00→21:39)
[2016-09-10] MEDS: Aspirin EC 81mg tab ORAL SCH (09:15)
[2016-09-10] MEDS: Pancrease Cap ORAL SCH ×3 (09:15→17:57)
[2016-09-10] MEDS: DiphenhydrAMINE & Zinc 28g Cream TOPIC SCH ×3 (09:16→17:57)
[2016-09-10] MEDS: Triamcinolone 0.1% 15gm Cr TOPIC SCH ×3 (09:16→17:57)
[2016-09-10] MEDS: Vancomycin oral 125mg/2.5ml ORAL SCH ×4 (09:16→21:38)
[2016-09-10] MEDS: Lactobacillus-GG tablet ORAL SCH ×3 (09:17→17:57)
[2016-09-10] MEDS: DiphenhydrAMINE 50mg/ml Inj IVP PRN (11:50)
[2016-09-10 12:00] VITALS: BP 99/57
--- NOTE | 2016-09-10 12:43 | Nephrology Progress Note ---
Assessment/Plan Problem List: (1) Orthostatic hypotension (2) C. difficile colitis (3) End stage renal disease on dialysis (4) Epilepsy (5) Anemia in chronic kidney disease Plan still diarrhea. history of low bp and amlodipine stopped as prior syncope. Stop lisinopril and florinef 09/02. Gabapentin dose reduced in eskd. Dialysis stable on hd--seen on hd 09/09, increase epogen, next HD 09/11 Subjective HEENT: Reports: no symptoms Genitourinary: Reports: no symptoms Neurologic/Psychiatric: Reports: no symptoms Subjective still diarrhea much less, eating no emesis Objective Objective Last 24 Hour Vital Signs Date Time Temp Pulse Resp B/P Pulse Ox O2 Delivery O2 Flow Rate FiO2 09/10/16 12:00 98.1 84 18 99/57 95 Room Air 09/10/16 08:00 97.7 97 18 87/52 98 Room Air 09/10/16 03:50 97.7 81 18 96/53 97 Room Air 09/10/16 00:00 97.9 88 18 99/54 100 Room Air 09/09/16 20:30 97.8 86 20 88/39 96 Room Air 09/09/16 17:30 97.5 95 18 115/75 97 Room Air 09/09/16 17:15 98.2 84 20 84/51 98 Room Air 09/09/16 16:00 97.3 91 20 92/57 99 Room Air Intake and Output 09/09/16 09/10/16 19:00 07:00 Intake Total 460 ml 490 ml Output Total 1500 ml Balance -1040 ml 490 ml Intake Oral 360 ml 240 ml IV Total 100 ml Blood Product 250 ml Output Hemodialysis UF 1500 ml # Bowel Movements 1 3 Height (Feet): 5 Height (Inches): 4.00 Weight (Pounds): 173 General Appearance: no apparent distress, alert EENT: normal ENT inspection Neck: normal alignment Cardiovascular: normal rate, regular rhythm Respiratory/Chest: lungs clear, normal breath sounds Abdomen: non tender, soft Extremities: other - no edema Neurologic: other - tremor of lips VERN ABBASI Sep 10, 2016 12:43
[2016-09-10] MEDS ORDERED: Epogen (for ESRD on dialysis) SUBQ ONE (14:00)
--- NOTE | 2016-09-10 14:48 | General Progress Note ---
Assessment/Plan Assessment/Plan Assessment - Chronic diarrhea - C Diff (+) - Anemia - Renal failure - Epilepsy - s/p gastric bypass surgery Recommendation - continue vanco and flagy - hold Questran - follow symptoms - EGD/colonoscopy Th Subjective Allergies: Coded Allergies: No Known Allergies (Unverified , 11/13/12) Subjective No abdominal pain tolerating PO no abd pain Objective Last 24 Hour Vital Signs Date Time Temp Pulse Resp B/P Pulse Ox O2 Delivery O2 Flow Rate FiO2 09/10/16 12:00 98.1 84 18 99/57 95 Room Air 09/10/16 08:00 97.7 97 18 87/52 98 Room Air 09/10/16 03:50 97.7 81 18 96/53 97 Room Air 09/10/16 00:00 97.9 88 18 99/54 100 Room Air 09/09/16 20:30 97.8 86 20 88/39 96 Room Air 09/09/16 17:30 97.5 95 18 115/75 97 Room Air 09/09/16 17:15 98.2 84 20 84/51 98 Room Air 09/09/16 16:00 97.3 91 20 92/57 99 Room Air Intake and Output 09/09/16 09/10/16 19:00 07:00 Intake Total 460 ml 490 ml Output Total 1500 ml Balance -1040 ml 490 ml Intake Oral 360 ml 240 ml IV Total 100 ml Blood Product 250 ml Output Hemodialysis UF 1500 ml # Bowel Movements 1 3 Height (Feet): 5 Height (Inches): 4.00 Weight (Pounds): 173 Objective WDWN NCAT supple CTA RRR soft NT ND No edema NILTON MERINO Sep 10, 2016 14:48
--- NOTE | 2016-09-10 15:43 | Infectious Diseases Prog Note ---
Assessment/Plan Assessment/Plan A) 1) c.diff. colitis + with hx of chronic diarrhea, ? other cause - still with no improvement in diarrhea 2) esrd, hd, anemia 3) sz, dm, htn, hhd, cva, ca, obesity 4) allergies - negative, fh-nc, sh-negative 5) mar noted, notes and records reviewed 6) d/w RN about colonoscopy 7) vre colonization P) 1) vancomycin po, iv flagyl 2) gi evaluation noted - plan on colonoscopy 3) patient may need eventual stool transplantation or fidaxomicin if has refractory c.diff. 4) continue treatment per primary and consultants 5) orders entered and noted 6) d/w patient 7) vre isolation 8) watch labs Subjective Constitutional: Reports: fatigue, Denies: fever HEENT: Denies: congestion Respiratory: Denies: shortness of breath Cardiovascular: Denies: chest pain Gastrointestinal/Abdominal: Denies: nausea Genitourinary: Reports: other - no blood Neurologic: Denies: headache Psychiatric: Denies: depression Skin: Denies: rash Hematologic: Denies: bleeding Musculoskeletal: Denies: pain Allergies: Coded Allergies: No Known Allergies (Unverified , 11/13/12) Objective Vital Signs Last 24 Hour Vital Signs Date Time Temp Pulse Resp B/P Pulse Ox O2 Delivery O2 Flow Rate FiO2 09/10/16 12:00 98.1 84 18 99/57 95 Room Air 09/10/16 08:00 97.7 97 18 87/52 98 Room Air 09/10/16 03:50 97.7 81 18 96/53 97 Room Air 09/10/16 00:00 97.9 88 18 99/54 100 Room Air 09/09/16 20:30 97.8 86 20 88/39 96 Room Air 09/09/16 17:30 97.5 95 18 115/75 97 Room Air 09/09/16 17:15 98.2 84 20 84/51 98 Room Air 09/09/16 16:00 97.3 91 20 92/57 99 Room Air Height (Feet): 5 Height (Inches): 4.00 Weight (Pounds): 173 General Appearance: no acute distress HEENT: normocephalic, atraumatic, anicteric, mucous membranes moist, PERRL, EOMI, pharynx normal, supple, no JVD Respiratory/Chest: lungs clear, normal breath sounds, no respiratory distress, no accessory muscle use Cardiovascular: normal rate, regular rhythm, no gallop/murmur, no JVD Abdomen: normal bowel sounds, soft, non tender, no organomegaly, non distended Genitourinary: other - no Extremities: no cyanosis Skin: no rash 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 Complete 08/29/16 12:30 Stool Clostridium difficile Toxin Assay - Final Complete 08/28/16 08:06 Rectum VRE Culture - Final Enterococcus Faecium - Vre Complete Labs Test 09/08/16 19:15 09/09/16 05:45 Stool Occult Blood Positive (NEGATIVE) White Blood Count 8.4 K/UL (4.8-10.8) Red Blood Count 2.49 M/UL (4.20-5.40) Hemoglobin 7.5 G/DL (12.0-16.0) Hematocrit 23.6 % (37.0-47.0) Mean Corpuscular Volume 95 FL (80-99) Mean Corpuscular Hemoglobin 30.0 PG (27.0-31.0) Mean Corpuscular Hemoglobin Concent 31.6 G/DL (32.0-36.0) Red Cell Distribution Width 15.2 % (11.6-14.8) Platelet Count 276 K/UL (150-450) Mean Platelet Volume 6.4 FL (6.5-10.1) Neutrophils (%) (Auto) % (45.0-75.0) Lymphocytes (%) (Auto) % (20.0-45.0) Monocytes (%) (Auto) % (1.0-10.0) Eosinophils (%) (Auto) % (0.0-3.0) Basophils (%) (Auto) % (0.0-2.0) Differential Total Cells Counted 100 Neutrophils % (Manual) 75 % (45-75) Lymphocytes % (Manual) 18 % (20-45) Monocytes % (Manual) 2 % (1-10) Eosinophils % (Manual) 3 % (0-3) Basophils % (Manual) 0 % (0-2) Band Neutrophils 2 % (0-8) Platelet Estimate Adequate Platelet Morphology Normal Red Blood Cell Morphology Normal Current Medications Medications (Trade) Dose Ordered Sig/Nakul Route PRN Reason Start Time Stop Time Status Last Admin Dose Admin Acetaminophen (Tylenol) 650 mg Q4H PRN ORAL Mild Pain/Temp > 100.5 08/31/16 13:00 09/30/16 12:59 09/09/16 00:29 Amylase/Lipase/ Protease (Pancrease) 2 ea THREE TIMES A DAY ORAL 08/31/16 13:30 09/30/16 13:29 09/10/16 12:27 Aspirin (Ecotrin) 81 mg DAILY ORAL 09/01/16 09:00 10/01/16 08:59 09/10/16 09:15 Cholestyramine Resin (Questran) 4 gm THREE TIMES A DAY PRN ORAL Diarrhea 08/31/16 13:00 09/30/16 12:59 09/08/16 16:56 Clopidogrel Bisulfate (Plavix) 75 mg DAILY ORAL 09/01/16 09:00 10/01/16 08:59 09/10/16 09:15 Dextrose (Dextrose 50%) STAT PRN IV Hypoglycemia 08/31/16 17:00 09/30/16 16:59 Diphenhydramine HCl (Benadryl Cream) 1 applic THREE TIMES A DAY TOPIC 09/01/16 09:00 10/01/16 08:59 09/10/16 09:16 Diphenhydramine HCl (Benadryl) 50 mg Q4H PRN IVP Itching 09/10/16 11:45 10/10/16 11:44 09/10/16 11:50 Diphenhydramine HCl (Benadryl) 75 mg HSPRN PRN ORAL Insomnia 08/31/16 19:15 09/30/16 19:14 09/09/16 21:45 Diphenhydramine HCl 50 mg 50 mg Q6H PRN ORAL Itching 09/05/16 08:00 10/05/16 07:59 09/09/16 09:47 Epoetin Alfonso (Procrit (for ESRD on dialysis)) 10,000 units FRI-FRI-FRI SUBQ 09/09/16 21:00 10/09/16 20:59 Gabapentin 300 mg 300 mg FRI-FRI-FRI ORAL 09/11/16 21:00 10/11/16 20:59 Heparin Sodium (Porcine) (Heparin 5000 units/ml) 5,000 units EVERY 12 HOURS SUBQ 08/31/16 21:00 09/30/16 20:59 09/09/16 21:46 Heparin Sodium (Porcine) (Heparin Sod 1000 units/ml 10ml) 2,000 unit ONCE PRN IV FOR HD 09/11/16 06:00 09/11/16 23:59 Insulin Aspart (NovoLOG) BEFORE MEALS AND HS SUBQ 08/31/16 16:30 09/30/16 16:29 09/08/16 17:00 Lactobacillus Acidophilus (Culturelle) 1 tab THREE TIMES A DAY ORAL 09/03/16 14:00 10/03/16 13:59 09/10/16 12:27 Metoclopramide HCl (Reglan) 10 mg Q8H PRN IVP Nausea & Vomiting 09/08/16 14:45 10/08/16 14:44 09/09/16 09:47 Metronidazole (Flagyl) 100 ml @ 100 mls/hr Q8HR IVPB 09/08/16 14:00 09/15/16 23:59 09/10/16 13:33 Ondansetron HCl (Zofran) 4 mg Q6H PRN IVP Nausea & Vomiting 08/31/16 18:00 09/30/16 17:59 09/08/16 09:14 Pantoprazole (Protonix) 40 mg DAILY ORAL 09/01/16 09:00 10/01/16 08:59 09/10/16 09:15 Polyethylene Glycol/ Electrolytes (Nulytely) 4,000 ml ONCE ONCE ORAL 09/11/16 08:00 09/11/16 08:01 Sevelamer Carbonate (Renvela) 800 mg THREE TIMES A DAY ORAL 08/31/16 13:30 09/30/16 13:29 09/10/16 12:27 Sodium Chloride (Sodium Chloride 1000ml bag) 1,000 ml @ 500 mls/hr Q2H PRN IVLG sbp<90 during hd 09/11/16 06:00 09/11/16 23:59 Sorbitol (Sorbitol) 45 ml ONCE ONCE ORAL 09/10/16 16:00 09/10/16 16:01 Triamcinolone Acetonide (Kenalog) 1 applic THREE TIMES A DAY TOPIC 09/04/16 10:30 10/04/16 10:29 09/10/16 09:16 Vancomycin HCl (Vancomycin) 250 mg QID ORAL 09/08/16 13:00 09/15/16 23:59 09/10/16 12:27 MAGDALENO JIMÉNEZ Sep 10, 2016 15:43
[2016-09-10] MEDS ORDERED: Tubing Blood Filter IV ONE (15:51)
[2016-09-10] MEDS ORDERED: NS 275ml ONE (15:51)
[2016-09-10 16:00] VITALS: BP 95/55
[2016-09-10] MEDS ORDERED: Sorbitol Solution UD 30ml ORAL ONE (16:00)
[2016-09-10 20:00] VITALS: BP 97/53
[2016-09-11] VITALS: BP 93/49
[2016-09-11 04:00] VITALS: BP 95/55
[2016-09-11] MEDS: metroNIDAZOLE 500mg 100 ML IVPB SCH ×4 (05:29→21:14)
[2016-09-11] MEDS ORDERED: Heparin Sod 1000 units/ml 10ml IV PRN (06:00)
[2016-09-11] MEDS: NovoLOG Insulin Flexpen SUBQ SCH ×4 (06:33→21:00)
[2016-09-11 06:52] LABS: MEAN CORPUSCULAR HEMOGLOBIN 29.9 PG (27.0-31.0); MEAN CORPUSCULAR HGB CONC 32.5 G/DL (32.0-36.0); MEAN CORPUSCULAR VOLUME 92 FL (80-99); MEAN PLATELET VOLUME 6.2 FL (6.5-10.1); PLATELET COUNT 311 K/UL (150-450); RED BLOOD COUNT 2.64 M/UL (4.20-5.40); RED CELL DISTRIBUTION WIDTH 15.9 % (11.6-14.8)
[2016-09-11 07:28] LABS: CALCIUM 8.1 mg/dL (8.6-10.2); CREATININE 7.1 mg/dL (0.5-0.9); GLOMERULAR FILTRATION RATE 7.2 mL/min (>60); POTASSIUM 3.8 mEQ/L (3.4-4.9)
[2016-09-11 08:00] VITALS: BP 99/49
[2016-09-11] MEDS ORDERED: Nulytely 4L ORAL ONE (08:00)
[2016-09-11] MEDS: Heparin 5000 units/ml inj SUBQ SCH (09:00)
[2016-09-11] MEDS: Lactobacillus-GG tablet ORAL SCH ×3 (09:21→18:31)
[2016-09-11] MEDS: Aspirin EC 81mg tab ORAL SCH (09:21)
[2016-09-11] MEDS: Pancrease Cap ORAL SCH ×3 (09:21→18:32)
[2016-09-11] MEDS: Triamcinolone 0.1% 15gm Cr TOPIC SCH ×3 (09:22→18:31)
[2016-09-11] MEDS: DiphenhydrAMINE & Zinc 28g Cream TOPIC SCH ×3 (09:22→18:31)
[2016-09-11] MEDS: Vancomycin oral 125mg/2.5ml ORAL SCH ×4 (09:25→21:14)
[2016-09-11] MEDS: DiphenhydrAMINE 50mg/ml Inj IVP PRN (09:56)
[2016-09-11 11:25] LABS: ANISOCYTOSIS 1+; BAND NEUTROPHILS % (MANUAL) 0 % (0-8); BASOPHILS % (MANUAL) 0 % (0-2); EOSINOPHILS % (MANUAL) 3 % (0-3); HYPOCHROMASIA 1+; LYMPHOCYTES % (MANUAL) 20 % (20-45); NEUTROPHILS % (MANUAL) 72 % (45-75); NUCLEATED RED BLOOD CELLS 1 /100 WBC; PLATELET ESTIMATE ADEQUATE; PLATELET MORPHOLOGY NORMAL; TOTAL CELLS COUNTED 100
[2016-09-11 12:00] VITALS: BP 105/64
--- NOTE | 2016-09-11 14:54 | Nephrology Progress Note ---
Assessment/Plan Problem List: (1) Orthostatic hypotension (2) C. difficile colitis (3) End stage renal disease on dialysis (4) Epilepsy (5) Anemia in chronic kidney disease Plan still diarrhea. history of low bp and amlodipine stopped as prior syncope. Stop lisinopril and florinef 09/02. Gabapentin dose reduced in eskd. Dialysis stable on hd--, increase epogen, next HD 09/13 Subjective ROS Limited/Unobtainable: Yes Constitutional: Reports: weakness HEENT: Reports: no symptoms Genitourinary: Reports: no symptoms Neurologic/Psychiatric: Reports: no symptoms Subjective still diarrhea much less, eating no emesis Objective Objective Last 24 Hour Vital Signs Date Time Temp Pulse Resp B/P Pulse Ox O2 Delivery O2 Flow Rate FiO2 09/11/16 12:00 96.8 80 18 105/64 98 Room Air 09/11/16 08:52 Room Air 09/11/16 08:00 97.9 92 18 99/49 97 Room Air 09/11/16 05:00 Room Air 09/11/16 05:00 Room Air 09/11/16 04:00 98.6 83 20 95/55 97 Room Air 09/11/16 00:00 98.1 84 18 93/49 95 Room Air 09/10/16 20:00 98.1 99 18 97/53 97 Room Air 09/10/16 16:00 97.8 91 22 95/55 99 Room Air Intake and Output 09/10/16 09/11/16 19:00 07:00 Intake Total 820 ml 740 ml Balance 820 ml 740 ml Intake Oral 720 ml 640 ml IV Total 100 ml 100 ml # Voids 2 # Bowel Movements 1 1 Laboratory Tests 09/11/16 04:30: White Blood Count 10.0, Red Blood Count 2.64L, Hemoglobin 7.9L, Hematocrit 24.4L , Mean Corpuscular Volume 92, Mean Corpuscular Hemoglobin 29.9, Mean Corpuscular Hemoglobin Concent 32.5, Red Cell Distribution Width 15.9H, Platelet Count 311, Mean Platelet Volume 6.2L, Neutrophils (%) (Auto) , Lymphocytes (%) (Auto) , Monocytes (%) (Auto) , Eosinophils (%) (Auto) , Basophils (%) (Auto) , Differential Total Cells Counted 100, Neutrophils % ( Manual) 72, Lymphocytes % (Manual) 20, Monocytes % (Manual) 5, Eosinophils % ( Manual) 3, Basophils % (Manual) 0, Band Neutrophils 0, Nucleated Red Blood Cells 1, Platelet Estimate Adequate, Platelet Morphology Normal, Hypochromasia 1 +, Anisocytosis 1+, Sodium Level 147H, Potassium Level 3.8, Chloride Level 108H , Carbon Dioxide Level 21, Anion Gap 18H, Blood Urea Nitrogen 54H, Creatinine 7.1H, Estimat Glomerular Filtration Rate 7.2, Glucose Level 75, Calcium Level 8.1L Height (Feet): 5 Height (Inches): 4.00 Weight (Pounds): 173 General Appearance: no apparent distress, alert EENT: normal ENT inspection Neck: normal alignment Cardiovascular: normal rate, regular rhythm Abdomen: soft 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
[2016-09-11 16:00] VITALS: BP 126/57
[2016-09-11 20:00] VITALS: BP 129/74
[2016-09-11] MEDS: Epogen (for ESRD on dialysis) SUBQ SCH (21:15)
--- NOTE | 2016-09-11 21:58 | Progress Note ---
DATE: 09/11/2016 CARDIOLOGY PROGRESS NOTE SUBJECTIVE: The patient continues to have diarrhea. Colonoscopy is planned tomorrow. She is afebrile. OBJECTIVE: VITAL SIGNS: Blood pressure low at times ranging from 95/55 to 126/57. NECK: Supple. LUNGS: Clear. CARDIAC: Regular. Normal S1 and S2. ABDOMEN: Nontender. EXTREMITIES: There is no edema. Baseline weakness present. IMPRESSION: 1. Clostridium difficile colitis. 2. Hypovolemia and secondary hypotension related to fluid losses. 3. End-stage renal disease. 4. Cerebrovascular disease with multi-infarct dementia. 5. Persistent diarrhea. 6. Anemia of chronic kidney disease with hemoglobin today of 7.9. PLAN: 1. Hold transfusion, Epogen, and iron. 2. Discontinue heparin. 3. SCDs ordered. 4. Discontinue Protonix, as this may also aggravate diarrhea. 5. IV fluid challenges for persistent and asymptomatic hypotension only. Martín Walker M.D. DR: DANELLE JOB#: [id number] CC:
--- NOTE | 2016-09-11 22:03 | Infectious Diseases Prog Note ---
Assessment/Plan Assessment/Plan A) 1) c.diff. colitis + with hx of chronic diarrhea, ? other cause - still with diarrhea, no improvement 2) esrd, hd, anemia 3) sz, dm, htn, hhd, cva, ca, obesity 4) allergies - negative, fh-nc, sh-negative 5) mar noted, notes and records reviewed 6) d/w RN about colonoscopy 7) vre colonization P) 1) vancomycin po, iv flagyl 2) gi evaluation noted - plan on colonoscopy tomorrow 3) patient may need eventual stool transplantation or fidaxomicin if has refractory c.diff. 4) continue treatment per primary and consultants 5) orders entered and noted 6) d/w patient 7) vre isolation 8) watch labs Subjective Constitutional: Denies: chills, fatigue, fever HEENT: Denies: congestion Respiratory: Denies: shortness of breath Cardiovascular: Denies: chest pain Gastrointestinal/Abdominal: Reports: diarrhea, Denies: nausea, vomiting Neurologic: Denies: headache Psychiatric: Denies: depression Skin: Denies: rash Hematologic: Denies: bleeding Musculoskeletal: Denies: pain Allergies: Coded Allergies: No Known Allergies (Unverified , 11/13/12) Objective Vital Signs Last 24 Hour Vital Signs Date Time Temp Pulse Resp B/P Pulse Ox O2 Delivery O2 Flow Rate FiO2 09/11/16 20:00 97.7 81 20 129/74 90 Room Air 09/11/16 16:00 98.1 76 20 126/57 97 Room Air 09/11/16 12:00 96.8 80 18 105/64 98 Room Air 09/11/16 08:52 Room Air 09/11/16 08:00 97.9 92 18 99/49 97 Room Air 09/11/16 05:00 Room Air 09/11/16 05:00 Room Air 09/11/16 04:00 98.6 83 20 95/55 97 Room Air 09/11/16 00:00 98.1 84 18 93/49 95 Room Air Height (Feet): 5 Height (Inches): 4.00 Weight (Pounds): 173 General Appearance: no acute distress HEENT: normocephalic, atraumatic, anicteric, mucous membranes moist, PERRL, EOMI, pharynx normal, supple, no JVD Respiratory/Chest: lungs clear, normal breath sounds, no respiratory distress, no accessory muscle use Cardiovascular: normal rate, regular rhythm, no gallop/murmur, no JVD Abdomen: normal bowel sounds, soft, non tender, no organomegaly, non distended Genitourinary: other - no blood Extremities: no cyanosis Skin: no rash 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, alert, oriented x 3, responsive Lymphatic: no neck adenopathy Musculoskeletal: no effusion Objective chest x-ray - nad (reviewed) Laboratory Tests Test 09/11/16 04:30 White Blood Count 10.0 K/UL (4.8-10.8) Red Blood Count 2.64 M/UL (4.20-5.40) L Hemoglobin 7.9 G/DL (12.0-16.0) L Hematocrit 24.4 % (37.0-47.0) L Mean Corpuscular Volume 92 FL (80-99) Mean Corpuscular Hemoglobin 29.9 PG (27.0-31.0) Mean Corpuscular Hemoglobin Concent 32.5 G/DL (32.0-36.0) Red Cell Distribution Width 15.9 % (11.6-14.8) H Platelet Count 311 K/UL (150-450) Mean Platelet Volume 6.2 FL (6.5-10.1) L Neutrophils (%) (Auto) % (45.0-75.0) Lymphocytes (%) (Auto) % (20.0-45.0) Monocytes (%) (Auto) % (1.0-10.0) Eosinophils (%) (Auto) % (0.0-3.0) Basophils (%) (Auto) % (0.0-2.0) Differential Total Cells Counted 100 Neutrophils % (Manual) 72 % (45-75) Lymphocytes % (Manual) 20 % (20-45) Monocytes % (Manual) 5 % (1-10) Eosinophils % (Manual) 3 % (0-3) Basophils % (Manual) 0 % (0-2) Band Neutrophils 0 % (0-8) Nucleated Red Blood Cells 1 /100 WBC Platelet Estimate Adequate Platelet Morphology Normal Hypochromasia 1+ Anisocytosis 1+ Sodium Level 147 mEQ/L (135-145) H Potassium Level 3.8 mEQ/L (3.4-4.9) Chloride Level 108 mEQ/L (98-107) H Carbon Dioxide Level 21 mEQ/L (20-30) Anion Gap 18 (5-15) H Blood Urea Nitrogen 54 mg/dL (7-23) H Creatinine 7.1 mg/dL (0.5-0.9) H Estimat Glomerular Filtration Rate 7.2 mL/min (>60) Glucose Level 75 mg/dL (74-106) Calcium Level 8.1 mg/dL (8.6-10.2) L Current Medications Medications (Trade) Dose Ordered Sig/Nakul Route PRN Reason Start Time Stop Time Status Last Admin Dose Admin Acetaminophen (Tylenol) 650 mg Q4H PRN ORAL Mild Pain/Temp > 100.5 08/31/16 13:00 09/30/16 12:59 09/09/16 00:29 Amylase/Lipase/ Protease (Pancrease) 2 ea THREE TIMES A DAY ORAL 08/31/16 13:30 09/30/16 13:29 09/11/16 18:32 Aspirin (Ecotrin) 81 mg DAILY ORAL 09/01/16 09:00 10/01/16 08:59 09/11/16 09:21 Cholestyramine Resin (Questran) 4 gm THREE TIMES A DAY PRN ORAL Diarrhea 08/31/16 13:00 09/30/16 12:59 09/08/16 16:56 Clopidogrel Bisulfate (Plavix) 75 mg DAILY ORAL 09/01/16 09:00 10/01/16 08:59 09/11/16 09:21 Dextrose (Dextrose 50%) STAT PRN IV Hypoglycemia 08/31/16 17:00 09/30/16 16:59 Diphenhydramine HCl (Benadryl Cream) 1 applic THREE TIMES A DAY TOPIC 09/01/16 09:00 10/01/16 08:59 09/11/16 18:31 Diphenhydramine HCl (Benadryl) 50 mg Q4H PRN IVP Itching 09/10/16 11:45 10/10/16 11:44 09/11/16 09:56 Diphenhydramine HCl (Benadryl) 75 mg HSPRN PRN ORAL Insomnia 08/31/16 19:15 09/30/16 19:14 09/11/16 21:14 Diphenhydramine HCl 50 mg 50 mg Q6H PRN ORAL Itching 09/05/16 08:00 10/05/16 07:59 09/09/16 09:47 Epoetin Alfonso (Procrit (for ESRD on dialysis)) 10,000 units MON-FRI-FRI SUBQ 09/09/16 21:00 10/09/16 20:59 09/11/16 21:15 Gabapentin 300 mg 300 mg FRI-FRI-FRI ORAL 09/11/16 21:00 10/11/16 20:59 09/11/16 21:14 Heparin Sodium (Porcine) (Heparin Sod 1000 units/ml 10ml) 2,000 unit ONCE PRN IV FOR HD 09/11/16 06:00 09/11/16 23:59 Insulin Aspart (NovoLOG) BEFORE MEALS AND HS SUBQ 08/31/16 16:30 09/30/16 16:29 09/11/16 06:33 Lactobacillus Acidophilus (Culturelle) 1 tab THREE TIMES A DAY ORAL 09/03/16 14:00 10/03/16 13:59 09/11/16 18:31 Metoclopramide HCl (Reglan) 10 mg Q8H PRN IVP Nausea & Vomiting 09/08/16 14:45 10/08/16 14:44 09/09/16 09:47 Metronidazole (Flagyl) 100 ml @ 100 mls/hr Q8HR IVPB 09/08/16 14:00 09/15/16 23:59 09/11/16 21:14 Ondansetron HCl (Zofran) 4 mg Q6H PRN IVP Nausea & Vomiting 08/31/16 18:00 09/30/16 17:59 09/08/16 09:14 Sevelamer Carbonate (Renvela) 800 mg THREE TIMES A DAY ORAL 08/31/16 13:30 09/30/16 13:29 09/11/16 18:32 Sodium Chloride (Sodium Chloride 1000ml bag) 1,000 ml @ 500 mls/hr Q2H PRN IVLG sbp<90 during hd 09/11/16 06:00 09/11/16 23:59 Triamcinolone Acetonide (Kenalog) 1 applic THREE TIMES A DAY TOPIC 09/04/16 10:30 10/04/16 10:29 09/11/16 18:31 Vancomycin HCl (Vancomycin) 250 mg QID ORAL 09/08/16 13:00 09/15/16 23:59 09/11/16 21:14 MAGDALENO JIMÉNEZ Sep 11, 2016 22:02
--- NOTE | 2016-09-11 22:28 | Progress Note ---
DATE: 09/10/2016 CARDIOLOGY PROGRESS NOTE SUBJECTIVE: The patient continues to have diarrhea. She is unable to control fluid losses. Gastrointestinal evaluation noted. OBJECTIVE: VITAL SIGNS: Blood pressure 96/53, pulse 81, and respirations 18. NECK: Supple. LUNGS: Clear. CARDIAC: Regular. Normal S1 and S2. ABDOMEN: Soft with no focal tenderness. EXTREMITIES: Without edema. LABORATORY DATA: She is status post one unit of packed red blood cells yesterday for hemoglobin of 7.5. ASSESSMENT: 1. Low range blood pressure. 2. Refractory Clostridium difficile colitis with diarrhea. 3. Hypertensive heart disease. 4. End-stage renal disease. 5. Cerebrovascular disease with multi-infarct dementia. 6. Anemia of chronic kidney disease. PLAN: 1. Epogen. 2. Iron. 3. Await gastrointestinal diagnostic colonoscopy. 4. Cautious use of antiplatelet therapy. 5. Discontinue heparin in favor of SCDs. Martín Walker M.D. DR: FRANKLIN JOB#: [id number] CC:
--- NOTE | 2016-09-11 23:15 | General Progress Note ---
Assessment/Plan Assessment/Plan Assessment - Chronic diarrhea - C Diff (+) - Anemia - Renal failure - Epilepsy - s/p gastric bypass surgery Recommendation - continue vanco and flagy - hold Questran - follow symptoms - EGD/colonoscopy Subjective Allergies: Coded Allergies: No Known Allergies (Unverified , 11/13/12) Subjective No abdominal pain tolerating PO no abd pain for colonoscopy in am Objective Last 24 Hour Vital Signs Date Time Temp Pulse Resp B/P Pulse Ox O2 Delivery O2 Flow Rate FiO2 09/11/16 20:00 97.7 81 20 129/74 90 Room Air 09/11/16 16:00 98.1 76 20 126/57 97 Room Air 09/11/16 12:00 96.8 80 18 105/64 98 Room Air 09/11/16 08:52 Room Air 09/11/16 08:00 97.9 92 18 99/49 97 Room Air 09/11/16 05:00 Room Air 09/11/16 05:00 Room Air 09/11/16 04:00 98.6 83 20 95/55 97 Room Air 09/11/16 00:00 98.1 84 18 93/49 95 Room Air Intake and Output 09/10/16 09/11/16 19:00 07:00 Intake Total 820 ml 740 ml Balance 820 ml 740 ml Intake Oral 720 ml 640 ml IV Total 100 ml 100 ml # Voids 2 # Bowel Movements 1 1 Laboratory Tests 09/11/16 04:30: White Blood Count 10.0, Red Blood Count 2.64L, Hemoglobin 7.9L, Hematocrit 24.4L , Mean Corpuscular Volume 92, Mean Corpuscular Hemoglobin 29.9, Mean Corpuscular Hemoglobin Concent 32.5, Red Cell Distribution Width 15.9H, Platelet Count 311, Mean Platelet Volume 6.2L, Neutrophils (%) (Auto) , Lymphocytes (%) (Auto) , Monocytes (%) (Auto) , Eosinophils (%) (Auto) , Basophils (%) (Auto) , Differential Total Cells Counted 100, Neutrophils % ( Manual) 72, Lymphocytes % (Manual) 20, Monocytes % (Manual) 5, Eosinophils % ( Manual) 3, Basophils % (Manual) 0, Band Neutrophils 0, Nucleated Red Blood Cells 1, Platelet Estimate Adequate, Platelet Morphology Normal, Hypochromasia 1 +, Anisocytosis 1+, Sodium Level 147H, Potassium Level 3.8, Chloride Level 108H , Carbon Dioxide Level 21, Anion Gap 18H, Blood Urea Nitrogen 54H, Creatinine 7.1H, Estimat Glomerular Filtration Rate 7.2, Glucose Level 75, Calcium Level 8.1L Height (Feet): 5 Height (Inches): 4.00 Weight (Pounds): 173 Objective WDWN NCAT supple CTA RRR soft NT ND No edema NILTON MERINO Sep 11, 2016 23:15
[2016-09-12] VITALS (9 sets, daily range): BP systolic 83–134; BP diastolic 36–74
[2016-09-12] MEDS: metroNIDAZOLE 500mg 100 ML IVPB SCH ×3 (04:51→21:17)
[2016-09-12] MEDS: NovoLOG Insulin Flexpen SUBQ SCH ×4 (06:30→21:00)
[2016-09-12 07:11] LABS: MEAN CORPUSCULAR HEMOGLOBIN 29.8 PG (27.0-31.0); MEAN CORPUSCULAR VOLUME 93 FL (80-99); MEAN PLATELET VOLUME 6.7 FL (6.5-10.1); PLATELET COUNT 291 K/UL (150-450); RED BLOOD COUNT 2.41 M/UL (4.20-5.40); RED CELL DISTRIBUTION WIDTH 17.4 % (11.6-14.8); WHITE BLOOD COUNT 7.7 K/UL (4.8-10.8)
[2016-09-12] MEDS ORDERED: Propofol 10mg/ml 20ml IV ONE (07:45)
[2016-09-12] MEDS ORDERED: NS 550ML IV ONE (07:50)
--- NOTE | 2016-09-12 07:51 | Pre-Procedure Note/Attestation ---
Pre-Procedure Note/Attestation Complete Prior to Procedure Planned Procedure: not applicable Procedure Narrative: EGD/Colon Indications for Procedure Pre-Operative Diagnosis: anemia, diarrhea Attestation I attest that I discussed the nature of the procedure; its benefits; risks and complications; and alternatives (and the risks and benefits of such alternatives ), prior to the procedure, with the patient (or the patient's legal hvac sales representative). I attest that, if there was a reasonable possibility of needing a blood transfusion, the patient (or the patient's legal hvac sales representative) was given the [facility] standardized written summary, pursuant to the Steve Jules Blood Safety Act ([place] Health and Safety Code # 1645, as amended). I attest that I re-evaluated the patient just prior to the surgery and that there has been no change in the patient's H&P, except as documented below: NILTON MERINO Sep 12, 2016 07:51
--- NOTE | 2016-09-12 08:07 | Anethesia Preoperative Eval ---
Anesthesia Pre-op PMH/ROS General Date of Evaluation: Sep 12, 2016 Time of Evaluation: 08:00 Anesthesiologist: isabelle ASA Score: ASA 4 Mallampati Score Class I : Soft palate, uvula, fauces, pillars visible Class II: Soft palate, uvula, fauces visible Class III: Soft palate, base of uvula visible Class IV: Only hard plate visible Mallampati Classification: Class I Surgeon: jennifer Surgical Procedure: egd colonoscpy Anesthesia History: none Family History: no anesthesia problems Allergies: Coded Allergies: No Known Allergies (Unverified , 11/13/12) Medications: see eMAR Anesthesia Pre-op Phys. Exam Physician Exam Last Vital Signs Date Time Temp Pulse Resp B/P Pulse Ox O2 Delivery O2 Flow Rate FiO2 09/12/16 04:00 97.9 88 20 83/46 95 Room Air Anesthesia Pre-op A/P Labs Hematology Test 09/12/16 05:45 White Blood Count 7.7 K/UL (4.8-10.8) Red Blood Count 2.41 M/UL (4.20-5.40) L Hemoglobin 7.2 G/DL (12.0-16.0) L Hematocrit 22.4 % (37.0-47.0) L Mean Corpuscular Volume 93 FL (80-99) Mean Corpuscular Hemoglobin 29.8 PG (27.0-31.0) Mean Corpuscular Hemoglobin Concent 32.0 G/DL (32.0-36.0) Red Cell Distribution Width 17.4 % (11.6-14.8) H Platelet Count 291 K/UL (150-450) Mean Platelet Volume 6.7 FL (6.5-10.1) Neutrophils (%) (Auto) % (45.0-75.0) Lymphocytes (%) (Auto) % (20.0-45.0) Monocytes (%) (Auto) % (1.0-10.0) Eosinophils (%) (Auto) % (0.0-3.0) Basophils (%) (Auto) % (0.0-2.0) Neutrophils % (Manual) Pending Lymphocytes % (Manual) Pending Platelet Estimate Pending Platelet Morphology Pending Sara Yoo MD Sep 12, 2016 08:07
--- NOTE | 2016-09-12 08:08 | Immediate Post-Op Evaluation ---
Immediate Post-Op Evalulation Immediate Post-Op Evalulation Procedure: egd colonocopy Date of Evaluation: Sep 12, 2016 Time of Evaluation: 09:00 Nausea: No Vomiting: No Hydration Status: adequate Given Within 1 Hr of Incision: Yes Sara Yoo MD Sep 12, 2016 08:08
[2016-09-12 08:15] LABS: ANISOCYTOSIS 1+; BAND NEUTROPHILS % (MANUAL) 0 % (0-8); BASOPHILS % (MANUAL) 0 % (0-2); EOSINOPHILS % (MANUAL) 7 % (0-3); HYPOCHROMASIA 3+; LYMPHOCYTES % (MANUAL) 28 % (20-45); NEUTROPHILS % (MANUAL) 59 % (45-75); PLATELET ESTIMATE ADEQUATE; PLATELET MORPHOLOGY NORMAL; TOTAL CELLS COUNTED 100
[2016-09-12] MEDS: DiphenhydrAMINE & Zinc 28g Cream TOPIC SCH ×3 (09:00→18:29)
[2016-09-12] MEDS: Triamcinolone 0.1% 15gm Cr TOPIC SCH ×3 (09:00→18:28)
[2016-09-12] MEDS: Pancrease Cap ORAL SCH ×3 (09:27→18:30)
[2016-09-12] MEDS: Aspirin EC 81mg tab ORAL SCH (09:27)
[2016-09-12] MEDS: Lactobacillus-GG tablet ORAL SCH ×3 (09:27→18:30)
[2016-09-12] MEDS: Vancomycin oral 125mg/2.5ml ORAL SCH ×4 (09:28→21:17)
[2016-09-12] MEDS: DiphenhydrAMINE 50mg/ml Inj IVP PRN (09:36)
--- NOTE | 2016-09-12 09:45 | General Progress Note ---
Assessment/Plan Assessment/Plan Assessment - Chronic diarrhea - C Diff (+) - Anemia - Renal failure - Epilepsy - s/p gastric bypass surgery Recommendation - continue vanco and flagyl - follow symptoms - EGD/colonoscopy Today Subjective Allergies: Coded Allergies: No Known Allergies (Unverified , 11/13/12) Subjective NPO for EGD/Colon feels OK no new complaints Objective Last 24 Hour Vital Signs Date Time Temp Pulse Resp B/P Pulse Ox O2 Delivery O2 Flow Rate FiO2 09/12/16 08:40 83 17 98/66 100 Nasal Cannula 2.0 09/12/16 08:35 97.3 87 20 95/65 100 Nasal Cannula 2.0 09/12/16 04:00 97.9 88 20 83/46 95 Room Air 09/12/16 00:00 98.1 88 20 119/59 99 Room Air 09/11/16 20:00 97.7 81 20 129/74 90 Room Air 09/11/16 16:00 98.1 76 20 126/57 97 Room Air 09/11/16 12:00 96.8 80 18 105/64 98 Room Air Intake and Output 09/11/16 09/12/16 19:00 07:00 Intake Total 950 ml 1320 ml Output Total 0 ml Balance 950 ml 1320 ml Intake Oral 600 ml 1120 ml IV Total 200 ml Blood Product 250 ml Hemodialysis 100 ml Output Hemodialysis UF 0 ml # Voids 2 # Bowel Movements 3 3 Laboratory Tests 09/12/16 05:45: White Blood Count 7.7, Red Blood Count 2.41L, Hemoglobin 7.2L, Hematocrit 22.4L , Mean Corpuscular Volume 93, Mean Corpuscular Hemoglobin 29.8, Mean Corpuscular Hemoglobin Concent 32.0, Red Cell Distribution Width 17.4H, Platelet Count 291, Mean Platelet Volume 6.7, Neutrophils (%) (Auto) , Lymphocytes (%) (Auto) , Monocytes (%) (Auto) , Eosinophils (%) (Auto) , Basophils (%) (Auto) , Differential Total Cells Counted 100, Neutrophils % ( Manual) 59, Lymphocytes % (Manual) 28, Monocytes % (Manual) 6, Eosinophils % ( Manual) 7H, Basophils % (Manual) 0, Band Neutrophils 0, Platelet Estimate Adequate, Platelet Morphology Normal, Hypochromasia 3+, Anisocytosis 1+ Height (Feet): 5 Height (Inches): 5.00 Weight (Pounds): 173 Objective WDWN NCAT supple CTA RRR soft NT ND No edema NILTON MERINO Sep 12, 2016 09:45
--- NOTE | 2016-09-12 09:48 | Endoscopy Procedure Note ---
Endoscopy Procedure Note Indication for Procedure: Anemia Procedures Performed: EGD, colonoscopy Operative Findings/Diagnosis: s/p CLINT, no C Diff visually, biopsies of SB and COlon sent Specimen: yes Pt Tolerated Procedure Well: Yes Estimated Blood Loss: none Anesthesiologist: see list Anesthesia: MAC, moderate sedation 50 yrs or older w/o bx or poly: Not Applicable 10yrs. F/U not recommended: Not Applicable If not recommended, why?: NILTON MERINO Sep 12, 2016 09:48
--- NOTE | 2016-09-12 09:50 | Brief Operative Note ---
Immediate Post Operative Note Operative Note Chief Complaint: anemia Pre-op Diagnosis: anemia, diarrhea Procedure: EGD/Colon Post-op Diagnosis: s/p CLINT Surgeon: xander Anesthesiologist: see report Anesthesia: MAC Specimen: yes Complications: none Condition: stable Estimated Blood Loss: none Drains: none Implant(s) used?: No NILTON MERINO Sep 12, 2016 09:50
--- NOTE | 2016-09-12 13:43 | Nephrology Progress Note ---
Assessment/Plan Problem List: (1) Orthostatic hypotension (2) C. difficile colitis (3) End stage renal disease on dialysis (4) Epilepsy (5) Anemia in chronic kidney disease Plan less diarrhea. history of low bp and amlodipine stopped as prior syncope. Stop lisinopril and florinef 09/02. Gabapentin dose reduced in eskd. Dialysis 09/11 stable on hd--, increase epogen, next HD 09/13, tolerates anemia which should improve with epogen, blood tubing not compatible with dialysis and no peripheral vein access for transfusion Subjective Constitutional: Reports: weakness HEENT: Reports: no symptoms Genitourinary: Reports: no symptoms Neurologic/Psychiatric: Reports: no symptoms Subjective no diarrhea, sob or angina , eating no emesis Objective Objective Last 24 Hour Vital Signs Date Time Temp Pulse Resp B/P Pulse Ox O2 Delivery O2 Flow Rate FiO2 09/12/16 12:07 98.0 106 20 134/74 95 Room Air 09/12/16 08:50 97.5 83 18 106/63 18 Nasal Cannula 2.0 09/12/16 08:45 84 17 98/60 18 Nasal Cannula 2.0 09/12/16 08:40 83 17 98/66 100 Nasal Cannula 2.0 09/12/16 08:35 97.3 87 20 95/65 100 Nasal Cannula 2.0 09/12/16 04:00 97.9 88 20 83/46 95 Room Air 09/12/16 00:00 98.1 88 20 119/59 99 Room Air 09/11/16 20:00 97.7 81 20 129/74 90 Room Air 09/11/16 16:00 98.1 76 20 126/57 97 Room Air Intake and Output 09/11/16 09/12/16 19:00 07:00 Intake Total 950 ml 1320 ml Output Total 0 ml Balance 950 ml 1320 ml Intake Oral 600 ml 1120 ml IV Total 200 ml Blood Product 250 ml Hemodialysis 100 ml Output Hemodialysis UF 0 ml # Voids 2 # Bowel Movements 3 3 Laboratory Tests 09/12/16 05:45: White Blood Count 7.7, Red Blood Count 2.41L, Hemoglobin 7.2L, Hematocrit 22.4L , Mean Corpuscular Volume 93, Mean Corpuscular Hemoglobin 29.8, Mean Corpuscular Hemoglobin Concent 32.0, Red Cell Distribution Width 17.4H, Platelet Count 291, Mean Platelet Volume 6.7, Neutrophils (%) (Auto) , Lymphocytes (%) (Auto) , Monocytes (%) (Auto) , Eosinophils (%) (Auto) , Basophils (%) (Auto) , Differential Total Cells Counted 100, Neutrophils % ( Manual) 59, Lymphocytes % (Manual) 28, Monocytes % (Manual) 6, Eosinophils % ( Manual) 7H, Basophils % (Manual) 0, Band Neutrophils 0, Platelet Estimate Adequate, Platelet Morphology Normal, Hypochromasia 3+, Anisocytosis 1+ Height (Feet): 5 Height (Inches): 5.00 Weight (Pounds): 173 General Appearance: no apparent distress EENT: PERRL/EOMI Neck: non-tender, normal alignment Cardiovascular: regular rhythm Respiratory/Chest: lungs clear Abdomen: non tender, soft Extremities: trace edema 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
--- NOTE | 2016-09-12 15:35 | Wound Care Consultation ---
Wound Assessment Wound Assessment #1: Wound Present on Admission: No New Wound: No Status Change of Wound: No Wound Location Body Site Modif: right, dorsal - ASPECT OF FOOT Wound Location Body Site: foot Wound Type: blister - RESOLVING DRY, DM ULCER Paula Test: Does not Paula Wound Thickness: Partial Thickness Wound Length: 7.0 Wound Width: 4.0 Wound Drainage Amount: None Wound Drainage Odor: None/Absent Tissue Surrounding Wound: Intact Wound Assessment #2: Wound Number: #2 Wound Present on Admission: No New Wound: No Status Change of Wound: No Wound Location Body Site Modif: right Wound Location Body Site: toe - big Wound Type: blister Paula Test: Does not Paula Wound Thickness: Partial Thickness Wound Length: 1.0 Wound Width: 1.0 Wound Drainage Amount: None Wound Drainage Odor: None/Absent Tissue Surrounding Wound: Intact Wound Comment New fluid filled blisters noted on Left dorsal foot and Right big toe. wound care initiated per protocol. will cont to monitor. VU MURO RN Sep 12, 2016 15:35
--- NOTE | 2016-09-12 17:50 | Infectious Diseases Prog Note ---
Assessment/Plan Assessment/Plan A) 1) c.diff. colitis + with hx of chronic diarrhea, ? other cause - still with diarrhea, no improvement, s/p colonoscopy 2) esrd, hd, anemia 3) sz, dm, htn, hhd, cva, ca, obesity 4) allergies - negative, fh-nc, sh-negative 5) mar noted, notes and records reviewed 6) d/w RN about colonoscopy 7) vre colonization P) 1) vancomycin po, iv flagyl 2) check colonoscopy results 3) patient may need eventual stool transplantation or fidaxomicin if has refractory c.diff. 4) continue treatment per primary and consultants 5) orders entered and noted 6) d/w patient 7) vre isolation 8) watch labs Subjective Constitutional: Denies: fever HEENT: Denies: congestion Respiratory: Denies: shortness of breath Cardiovascular: Denies: chest pain Gastrointestinal/Abdominal: Reports: diarrhea, Denies: nausea, vomiting Genitourinary: Reports: other - no blood Neurologic: Denies: headache Psychiatric: Denies: depression Skin: Denies: rash Hematologic: Denies: bleeding Musculoskeletal: Denies: pain Allergies: Coded Allergies: No Known Allergies (Unverified , 11/13/12) Objective Vital Signs Last 24 Hour Vital Signs Date Time Temp Pulse Resp B/P Pulse Ox O2 Delivery O2 Flow Rate FiO2 09/12/16 16:00 96.5 99 17 104/36 99 Room Air 09/12/16 12:07 98.0 106 20 134/74 95 Room Air 09/12/16 08:50 97.5 83 18 106/63 18 Nasal Cannula 2.0 09/12/16 08:45 84 17 98/60 18 Nasal Cannula 2.0 09/12/16 08:40 83 17 98/66 100 Nasal Cannula 2.0 09/12/16 08:35 97.3 87 20 95/65 100 Nasal Cannula 2.0 09/12/16 04:00 97.9 88 20 83/46 95 Room Air 09/12/16 00:00 98.1 88 20 119/59 99 Room Air 09/11/16 20:00 97.7 81 20 129/74 90 Room Air Height (Feet): 5 Height (Inches): 5.00 Weight (Pounds): 173 General Appearance: no acute distress HEENT: normocephalic, atraumatic, anicteric, mucous membranes moist, PERRL, EOMI, pharynx normal, supple, no JVD Respiratory/Chest: lungs clear, normal breath sounds, no respiratory distress, no accessory muscle use Cardiovascular: normal rate, regular rhythm, no gallop/murmur, no JVD Abdomen: normal bowel sounds, soft, non tender, no organomegaly, non distended Genitourinary: other - no blood Extremities: no cyanosis Skin: no rash 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 Complete 08/29/16 12:30 Stool Clostridium difficile Toxin Assay - Final Complete 08/28/16 08:06 Rectum VRE Culture - Final Enterococcus Faecium - Vre Complete c.diff. - + Laboratory Tests Test 09/12/16 05:45 White Blood Count 7.7 K/UL (4.8-10.8) Red Blood Count 2.41 M/UL (4.20-5.40) L Hemoglobin 7.2 G/DL (12.0-16.0) L Hematocrit 22.4 % (37.0-47.0) L Mean Corpuscular Volume 93 FL (80-99) Mean Corpuscular Hemoglobin 29.8 PG (27.0-31.0) Mean Corpuscular Hemoglobin Concent 32.0 G/DL (32.0-36.0) Red Cell Distribution Width 17.4 % (11.6-14.8) H Platelet Count 291 K/UL (150-450) Mean Platelet Volume 6.7 FL (6.5-10.1) Neutrophils (%) (Auto) % (45.0-75.0) Lymphocytes (%) (Auto) % (20.0-45.0) Monocytes (%) (Auto) % (1.0-10.0) Eosinophils (%) (Auto) % (0.0-3.0) Basophils (%) (Auto) % (0.0-2.0) Differential Total Cells Counted 100 Neutrophils % (Manual) 59 % (45-75) Lymphocytes % (Manual) 28 % (20-45) Monocytes % (Manual) 6 % (1-10) Eosinophils % (Manual) 7 % (0-3) H Basophils % (Manual) 0 % (0-2) Band Neutrophils 0 % (0-8) Platelet Estimate Adequate Platelet Morphology Normal Hypochromasia 3+ Anisocytosis 1+ Current Medications Medications (Trade) Dose Ordered Sig/Nakul Route PRN Reason Start Time Stop Time Status Last Admin Dose Admin Acetaminophen (Tylenol) 650 mg Q4H PRN ORAL Mild Pain/Temp > 100.5 08/31/16 13:00 09/30/16 12:59 09/09/16 00:29 Amylase/Lipase/ Protease (Pancrease) 2 ea THREE TIMES A DAY ORAL 08/31/16 13:30 09/30/16 13:29 09/12/16 13:05 Aspirin (Ecotrin) 81 mg DAILY ORAL 09/01/16 09:00 10/01/16 08:59 09/12/16 09:27 Cholestyramine Resin (Questran) 4 gm THREE TIMES A DAY PRN ORAL Diarrhea 08/31/16 13:00 09/30/16 12:59 09/08/16 16:56 Clopidogrel Bisulfate (Plavix) 75 mg DAILY ORAL 09/01/16 09:00 10/01/16 08:59 09/12/16 09:27 Dextrose (Dextrose 50%) STAT PRN IV Hypoglycemia 08/31/16 17:00 09/30/16 16:59 Diphenhydramine HCl (Benadryl Cream) 1 applic THREE TIMES A DAY TOPIC 09/01/16 09:00 10/01/16 08:59 09/11/16 18:31 Diphenhydramine HCl (Benadryl) 50 mg Q4H PRN IVP Itching 09/10/16 11:45 10/10/16 11:44 09/12/16 09:36 Diphenhydramine HCl (Benadryl) 75 mg HSPRN PRN ORAL Insomnia 08/31/16 19:15 09/30/16 19:14 09/11/16 21:14 Diphenhydramine HCl 50 mg 50 mg Q6H PRN ORAL Itching 09/05/16 08:00 10/05/16 07:59 09/09/16 09:47 Epoetin Alfonso (Procrit (for ESRD on dialysis)) 10,000 units FRI-FRI-FRI SUBQ 09/09/16 21:00 10/09/16 20:59 09/11/16 21:15 Gabapentin 300 mg 300 mg FRI-FRI-FRI ORAL 09/11/16 21:00 10/11/16 20:59 09/11/16 21:14 Heparin Sodium (Porcine) (Heparin Sod 1000 units/ml 10ml) 2,000 unit ONCE ONCE IV 09/13/16 06:00 09/13/16 06:01 Insulin Aspart (NovoLOG) BEFORE MEALS AND HS SUBQ 08/31/16 16:30 09/30/16 16:29 09/12/16 17:02 Lactobacillus Acidophilus (Culturelle) 1 tab THREE TIMES A DAY ORAL 09/03/16 14:00 10/03/16 13:59 09/12/16 13:05 Metoclopramide HCl (Reglan) 10 mg Q8H PRN IVP Nausea & Vomiting 09/08/16 14:45 10/08/16 14:44 09/09/16 09:47 Metronidazole (Flagyl) 100 ml @ 100 mls/hr Q8HR IVPB 09/08/16 14:00 09/15/16 23:59 09/12/16 14:20 Ondansetron HCl (Zofran) 4 mg Q6H PRN IVP Nausea & Vomiting 08/31/16 18:00 09/30/16 17:59 09/08/16 09:14 Sevelamer Carbonate (Renvela) 800 mg THREE TIMES A DAY ORAL 08/31/16 13:30 09/30/16 13:29 09/12/16 13:05 Sodium Chloride (Sodium Chloride 1000ml bag) 1,000 ml @ 500 mls/hr Q2H PRN IVLG sbp<90 during hd 09/13/16 13:43 10/13/16 13:42 Triamcinolone Acetonide (Kenalog) 1 applic THREE TIMES A DAY TOPIC 09/04/16 10:30 10/04/16 10:29 09/11/16 18:31 Vancomycin HCl (Vancomycin) 250 mg QID ORAL 09/08/16 13:00 09/15/16 23:59 09/12/16 13:05 MAGDALENO JIMÉNEZ Sep 12, 2016 17:50
--- NOTE | 2016-09-12 21:48 | Operative Note - Dictated ---
DATE OF OPERATION: 09/12/2016 PROCEDURE: Upper gastrointestinal endoscopy with enteroscopy and biopsy as well as colonoscopy with biopsy. SURGEON: Stefanie Eckert M.D. ANESTHESIA: Please see the separate anesthesiologist notes for details. PRE-ENDOSCOPIC DIAGNOSES: Chronic diarrhea and anemia. POST-ENDOSCOPIC DIAGNOSES: 1. Status post Edgar-en-Y gastric bypass anatomy as expected with 7 cm gastric pouch and 2 cm gastrojejunal anastomosis with long 2. Normal colonoscopy, status post random biopsy of the right colon and left colon, and rectosigmoid colon. DESCRIPTION OF PROCEDURE: The procedure, its risks, indications, alternatives, and possible complications were explained. Informed consent was obtained. Diagnostic upper endoscope was introduced through the oropharynx and advanced to the duodenum. The endoscope was then gradually withdrawn and the mucosa examined carefully. Examination of the upper gastrointestinal mucosa revealed findings as described above. Biopsies of the small bowel was sent to pathology for review. The endoscope was removed. The colonoscope was introduced through the rectum and advanced to cecum. Findings were as described above. Random biopsies were sent to pathology for review. The endoscope was removed. The patient was sent to recovery in good condition. COMPLICATIONS: None. RECOMMENDATIONS: 1. Followup biopsy results. 2. Resume normal diet. Stefanie Eckert M.D. DR: Brandon JOB#: [id number] CC:
[2016-09-13] VITALS: BP 99/59
--- NOTE | 2016-09-13 02:58 | Progress Note ---
DATE: 09/12/2016 CARDIOLOGY AND INTERNAL MEDICINE PROGRESS NOTE SUBJECTIVE: The patient underwent panendoscopy today. Findings other than prior bariatric surgery changes are otherwise unremarkable. The patient has been having diarrhea. She continues to receive treatment for C. difficile. OBJECTIVE: VITAL SIGNS: Blood pressure 106/63, pulse 83, respirations 18, and afebrile. Earlier blood pressure was 98/60. HEENT: Conjunctiva pink. Oropharynx clear. NECK: Supple. LUNGS: Clear. CARDIAC: Regular. Normal S1 and S2. ABDOMEN: Soft. EXTREMITIES: No edema. LABORATORY DATA: White count 7.7 and hemoglobin 7.2. Sodium 147, potassium 3.8, BUN 64, and creatinine 7.1. IMPRESSION: 1. Clostridium difficile colitis. 2. Hypovolemia. 3. Dehydration. 4. Orthostatic hypotension. 5. Sinus tachycardia secondary to above. 6. Anemia, multifactorial. 7. End-stage renal disease. 8. Seizure disorder. 9. Cerebrovascular disease with dementia. 10. History of bariatric surgery. 11. Hypotensive trend secondary to above. PLAN: 1. Off all antihypertensives. 2. Volume support as needed based on GI losses. 3. Medication doses decreased. 4. Await biopsy results of the colon. 5. Antidiarrheal therapy. 6. Hemodialysis without ultrafiltration. 7. Transfusion of packed red blood cells for hemoglobin less than 8 g. Martín Walker M.D. DR: Markus JOB#: [id number] CC:
[2016-09-13 04:00] VITALS: BP 110/62
[2016-09-13 05:36] LABS: LYMPHOCYTES % (AUTO) 21.1 % (20.0-45.0); MEAN CORPUSCULAR HEMOGLOBIN 30.4 PG (27.0-31.0); MEAN CORPUSCULAR HGB CONC 32.7 G/DL (32.0-36.0); MEAN CORPUSCULAR VOLUME 93 FL (80-99); MEAN PLATELET VOLUME 6.8 FL (6.5-10.1); MONOCYTES % (AUTO) 8.6 % (1.0-10.0); NEUTROPHILS % (AUTO) 67.2 % (45.0-75.0); PLATELET COUNT 310 K/UL (150-450); RED CELL DISTRIBUTION WIDTH 16.7 % (11.6-14.8); WHITE BLOOD COUNT 11.8 K/UL (4.8-10.8)
[2016-09-13 05:51] LABS: CALCIUM 8.2 mg/dL (8.6-10.2); CREATININE 6.3 mg/dL (0.5-0.9); GLOMERULAR FILTRATION RATE 8.2 mL/min (>60)
[2016-09-13] MEDS ORDERED: Heparin Sod 1000 units/ml 10ml IV ONE (06:00)
[2016-09-13] MEDS: metroNIDAZOLE 500mg 100 ML IVPB SCH ×3 (06:07→21:34)
[2016-09-13] MEDS: NovoLOG Insulin Flexpen SUBQ SCH ×4 (06:13→21:51)
[2016-09-13 08:00] VITALS: BP 114/63
[2016-09-13] MEDS: Pancrease Cap ORAL SCH ×3 (09:13→17:28)
[2016-09-13] MEDS: Aspirin EC 81mg tab ORAL SCH (09:13)
[2016-09-13] MEDS: Lactobacillus-GG tablet ORAL SCH ×3 (09:14→17:28)
[2016-09-13] MEDS: DiphenhydrAMINE 50mg/ml Inj IVP PRN ×2 (09:15→21:52)
[2016-09-13] MEDS: Vancomycin oral 125mg/2.5ml ORAL SCH ×4 (09:15→21:35)
[2016-09-13] MEDS: Triamcinolone 0.1% 15gm Cr TOPIC SCH ×3 (09:17→17:36)
[2016-09-13] MEDS: DiphenhydrAMINE & Zinc 28g Cream TOPIC SCH ×3 (09:17→17:36)
[2016-09-13 12:00] VITALS: BP 105/60
--- NOTE | 2016-09-13 13:00 | Nephrology Progress Note ---
Assessment/Plan Problem List: (1) Orthostatic hypotension (2) C. difficile colitis (3) End stage renal disease on dialysis (4) Epilepsy (5) Anemia in chronic kidney disease (6) Hypopotassemia Plan less diarrhea. history of low bp and amlodipine stopped as prior syncope. Stop lisinopril and florinef 09/02. Gabapentin dose reduced in eskd. Dialysis 09/13 stable on hd--, 4 K bath as K low increase epogen, next HD 09/13, tolerates anemia which should improve with epogen, blood tubing not compatible with dialysis and no peripheral vein access for transfusion Subjective Constitutional: Reports: weakness HEENT: Reports: no symptoms Genitourinary: Reports: no symptoms Neurologic/Psychiatric: Reports: no symptoms Subjective mild diarrhea, no sob or angina , eating no emesis Objective Objective Last 24 Hour Vital Signs Date Time Temp Pulse Resp B/P Pulse Ox O2 Delivery O2 Flow Rate FiO2 09/13/16 08:00 97.5 92 19 114/63 98 Room Air 09/13/16 04:00 97.9 84 18 110/62 97 Room Air 09/13/16 00:00 97.7 75 18 99/59 98 Room Air 09/12/16 20:00 98.6 85 17 98/63 96 Room Air 09/12/16 16:00 96.5 99 17 104/36 99 Room Air Intake and Output 09/12/16 09/13/16 19:00 07:00 Intake Total 460 ml 790 ml Balance 460 ml 790 ml Intake Oral 360 ml 690 ml IV Total 100 ml 100 ml # Voids 2 3 # Bowel Movements 1 4 Laboratory Tests 09/13/16 04:00: White Blood Count 11.8#H, Red Blood Count 2.70L, Hemoglobin 8.2L, Hematocrit 25.2L, Mean Corpuscular Volume 93, Mean Corpuscular Hemoglobin 30.4, Mean Corpuscular Hemoglobin Concent 32.7, Red Cell Distribution Width 16.7H, Platelet Count 310, Mean Platelet Volume 6.8, Neutrophils (%) (Auto) 67.2, Lymphocytes (%) (Auto) 21.1, Monocytes (%) (Auto) 8.6, Eosinophils (%) (Auto) 2.0, Basophils (%) (Auto) 1.0, Sodium Level 143, Potassium Level 3.0L, Chloride Level 98, Carbon Dioxide Level 24, Anion Gap 21H, Blood Urea Nitrogen 37H, Creatinine 6.3H, Estimat Glomerular Filtration Rate 8.2, Glucose Level 102, Calcium Level 8.2L Height (Feet): 5 Height (Inches): 5.00 Weight (Pounds): 173 General Appearance: no apparent distress, alert EENT: PERRL/EOMI Neck: normal alignment Respiratory/Chest: lungs clear Abdomen: non tender, soft 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
--- NOTE | 2016-09-13 14:23 | General Progress Note ---
Assessment/Plan Assessment/Plan Assessment - Chronic diarrhea - C Diff (+) - Anemia - Renal failure - Epilepsy - s/p gastric bypass surgery Recommendation - continue vanco and flagyl - follow symptoms - check path Subjective Allergies: Coded Allergies: No Known Allergies (Unverified , 11/13/12) Subjective Feels OK tolerating PO d/w pt re EGD/Colon Path pending Objective Last 24 Hour Vital Signs Date Time Temp Pulse Resp B/P Pulse Ox O2 Delivery O2 Flow Rate FiO2 09/13/16 12:00 98.1 86 20 105/60 98 Room Air 09/13/16 10:20 Room Air 2.0 09/13/16 08:00 97.5 92 19 114/63 98 Room Air 09/13/16 04:00 97.9 84 18 110/62 97 Room Air 09/13/16 00:00 97.7 75 18 99/59 98 Room Air 09/12/16 20:00 98.6 85 17 98/63 96 Room Air 09/12/16 16:00 96.5 99 17 104/36 99 Room Air Intake and Output 09/12/16 09/13/16 19:00 07:00 Intake Total 460 ml 790 ml Balance 460 ml 790 ml Intake Oral 360 ml 690 ml IV Total 100 ml 100 ml # Voids 2 3 # Bowel Movements 1 4 Laboratory Tests 09/13/16 04:00: White Blood Count 11.8#H, Red Blood Count 2.70L, Hemoglobin 8.2L, Hematocrit 25.2L, Mean Corpuscular Volume 93, Mean Corpuscular Hemoglobin 30.4, Mean Corpuscular Hemoglobin Concent 32.7, Red Cell Distribution Width 16.7H, Platelet Count 310, Mean Platelet Volume 6.8, Neutrophils (%) (Auto) 67.2, Lymphocytes (%) (Auto) 21.1, Monocytes (%) (Auto) 8.6, Eosinophils (%) (Auto) 2.0, Basophils (%) (Auto) 1.0, Sodium Level 143, Potassium Level 3.0L, Chloride Level 98, Carbon Dioxide Level 24, Anion Gap 21H, Blood Urea Nitrogen 37H, Creatinine 6.3H, Estimat Glomerular Filtration Rate 8.2, Glucose Level 102, Calcium Level 8.2L Height (Feet): 5 Height (Inches): 5.00 Weight (Pounds): 173 Objective WDWN NCAT supple CTA RRR soft NT ND No edema NILTON MERINO Sep 13, 2016 14:23
[2016-09-13 16:00] VITALS: BP 108/57
[2016-09-13] MEDS: Cholestyramine 4gm Pkt ORAL PRN (16:19)
[2016-09-13 20:00] VITALS: BP_SYST 111; BP_SYST 85; BP_DIAS 42; BP_DIAS 62
[2016-09-13] MEDS: Epogen (for ESRD on dialysis) SUBQ SCH (21:38)
--- NOTE | 2016-09-13 23:28 | Progress Note ---
DATE: 09/13/2016 CARDIOLOGY PROGRESS NOTE: SUBJECTIVE: The patient's diarrhea has decreased. She is in respiratory distress. She continues to have low-range blood pressure readings, off all antihypertensive. The patient is scheduled for dialysis today. OBJECTIVE: VITAL SIGNS: Blood pressure is 114/63, pulse rate 92, respiratory rate 19, and afebrile. LUNGS: Clear. CARDIAC: Regular. Normal S1 and S2. ABDOMEN: Soft. No edema. LABORATORY DATA: Potassium is 3.0. White count is 11.8. IMPRESSION: 1. Clostridium difficile colitis. 2. Diarrhea. 3. Hypovolemia. 4. Dehydration. 5. Hypokalemia. 6. End-stage renal disease. 7. Cerebrovascular disease. 8. Hypertensive heart disease now with low-range blood pressure. 9. Diabetes mellitus with controlled blood glucose, off medications. PLAN: 1. Continue antimicrobials. 2. Follow up biopsy results and panendoscopy today. 3. Hemodialysis without ultrafiltration. 4. Encourage protein intake. 5. Adjust potassium bath. 6. We will need to consider discharge to either a rehabilitation facility or home if she continues to improve over the next 24 hours. Martín Walker M.D. DR: Nehal JOB#: [id number] CC:
[2016-09-14] VITALS (7 sets, daily range): BP systolic 93–145; BP diastolic 51–83
[2016-09-14] MEDS: metroNIDAZOLE 500mg 100 ML IVPB SCH ×3 (05:10→21:33)
[2016-09-14] MEDS: NovoLOG Insulin Flexpen SUBQ SCH ×4 (05:52→21:00)
--- NOTE | 2016-09-14 07:18 | Progress Note ---
DATE: 09/14/2016 CARDIOLOGY PROGRESS NOTE: SUBJECTIVE: Diarrhea has decreased. Panendoscopy and colonoscopy were completed. Findings were unremarkable. Biopsies are pending. The patient is status post hemodialysis yesterday. OBJECTIVE: VITAL SIGNS: Blood pressure 110/60, heart rate 94, respiratory rate 18, and afebrile. NECK: Supple. LUNGS: Clear. CARDIAC: Regular. Normal S1, S2. ABDOMEN: Soft. No edema. LABORATORY DATA: Lab are pending. IMPRESSION: 1. Clostridium difficile colitis. 2. Anemia . 3. Hypotension. 4. Hypovolemia. 5. Cerebrovascular disease with dementia. 6. End-stage renal disease. 7. Type 2 diabetes mellitus with hypoglycemic trend. 8. Anemia of chronic kidney disease. PLAN: Maintain adequate hydration. fluid losses. Anti diarrheal. Await biopsy results. Transfuse for hemoglobin less than 8 g. Holding antihypertensives. Holding oral hypoglycemics. Martín Walker M.D. DR: Maricel JOB#: [id number] CC:
[2016-09-14] MEDS: Aspirin EC 81mg tab ORAL SCH (08:58)
[2016-09-14] MEDS: Lactobacillus-GG tablet ORAL SCH ×3 (08:58→17:55)
[2016-09-14] MEDS: Pancrease Cap ORAL SCH ×3 (08:58→17:54)
[2016-09-14] MEDS: Vancomycin oral 125mg/2.5ml ORAL SCH ×4 (08:59→21:31)
[2016-09-14] MEDS: DiphenhydrAMINE & Zinc 28g Cream TOPIC SCH ×3 (08:59→17:54)
[2016-09-14] MEDS: Triamcinolone 0.1% 15gm Cr TOPIC SCH ×3 (08:59→17:54)
[2016-09-14] MEDS: DiphenhydrAMINE 50mg/ml Inj IVP PRN (09:16)
--- NOTE | 2016-09-14 10:37 | Nephrology Progress Note ---
Assessment/Plan Problem List: (1) Orthostatic hypotension (2) C. difficile colitis (3) End stage renal disease on dialysis (4) Epilepsy (5) Anemia in chronic kidney disease (6) Hypopotassemia Plan less diarrhea. history of low bp and amlodipine stopped as prior syncope. Stop lisinopril and florinef 09/02. Gabapentin dose reduced in eskd. Dialysis 09/13 stable on hd--, 4 K bath as K low increase epogen, next HD 09/16, tolerates anemia which should improve with epogen, blood tubing not compatible with dialysis and no peripheral vein access for transfusion Subjective Constitutional: Reports: weakness HEENT: Reports: no symptoms Genitourinary: Reports: no symptoms Neurologic/Psychiatric: Reports: no symptoms Subjective mild diarrhea, no sob or angina , eating no emesis Objective Objective Last 24 Hour Vital Signs Date Time Temp Pulse Resp B/P Pulse Ox O2 Delivery O2 Flow Rate FiO2 09/14/16 08:19 98.4 95 20 102/62 98 Room Air 09/14/16 04:00 97.8 96 18 109/51 98 Room Air 09/14/16 00:00 97.6 94 18 110/60 94 Room Air 09/13/16 20:00 97.5 94 16 85/42 96 Room Air 09/13/16 20:00 98.4 99 20 111/62 93 Room Air 09/13/16 16:00 97.5 103 18 108/57 98 Room Air 09/13/16 14:30 Room Air 09/13/16 12:00 98.1 86 20 105/60 98 Room Air Intake and Output 09/13/16 09/14/16 19:00 07:00 Intake Total 360 ml 580 ml Output Total 1600 ml Balance -1240 ml 580 ml Intake Oral 360 ml 580 ml Output Hemodialysis UF 1600 ml # Voids 1 # Bowel Movements 2 4 Height (Feet): 5 Height (Inches): 5.00 Weight (Pounds): 173 General Appearance: no apparent distress, alert EENT: normal ENT inspection Neck: non-tender Cardiovascular: normal rate, regular rhythm Respiratory/Chest: lungs clear Abdomen: non tender, soft Extremities: other - no edema 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
--- NOTE | 2016-09-14 14:36 | General Progress Note ---
Assessment/Plan Assessment/Plan Assessment - Chronic diarrhea - C Diff (+) - Anemia - Renal failure - Epilepsy - s/p gastric bypass surgery Recommendation - continue vanco and flagyl - follow symptoms - check path Subjective Allergies: Coded Allergies: No Known Allergies (Unverified , 11/13/12) Subjective Feels OK tolerating PO d/w pt re EGD/Colon Path pending Objective Last 24 Hour Vital Signs Date Time Temp Pulse Resp B/P Pulse Ox O2 Delivery O2 Flow Rate FiO2 09/14/16 12:00 97.7 97 18 110/58 100 Room Air 09/14/16 08:19 98.4 95 20 102/62 98 Room Air 09/14/16 04:00 97.8 96 18 109/51 98 Room Air 09/14/16 00:00 97.6 94 18 110/60 94 Room Air 09/13/16 20:00 97.5 94 16 85/42 96 Room Air 09/13/16 20:00 98.4 99 20 111/62 93 Room Air 09/13/16 16:00 97.5 103 18 108/57 98 Room Air Intake and Output 09/13/16 09/14/16 19:00 07:00 Intake Total 360 ml 580 ml Output Total 1600 ml Balance -1240 ml 580 ml Intake Oral 360 ml 580 ml Output Hemodialysis UF 1600 ml # Voids 1 # Bowel Movements 2 4 Height (Feet): 5 Height (Inches): 5.00 Weight (Pounds): 173 Objective WDWN NCAT supple CTA RRR soft NT ND No edema NILTON MERINO Sep 14, 2016 14:36
--- NOTE | 2016-09-14 15:13 | Infectious Diseases Prog Note ---
Assessment/Plan Assessment/Plan A) 1) c.diff. colitis + with hx of chronic diarrhea, ? other cause - still with diarrhea but improved per RN - ? other cause besides c.diff. - ? dumping syndrome related to gastric bypass surgery - s/p colonoscopy, await biopsies 2) esrd, hd, anemia 3) sz, dm, htn, hhd, cva, ca, obesity 4) allergies - negative, fh-nc, sh-negative 5) mar noted, notes and records reviewed 6) d/w RN about colonoscopy 7) vre colonization P) 1) vancomycin po and flagyl - day # 10 abx 2) check colonoscopy results/biopsies, gi f/u 3) patient may need eventual stool transplantation or fidaxomicin if has refractory c.diff. 4) continue treatment per primary and consultants 5) orders entered and noted 6) d/w patient 7) vre isolation 8) watch labs Subjective Constitutional: Denies: fever HEENT: Denies: congestion Respiratory: Denies: shortness of breath Cardiovascular: Denies: chest pain Gastrointestinal/Abdominal: Reports: diarrhea, Denies: nausea, vomiting Neurologic: Denies: headache Psychiatric: Denies: depression Skin: Denies: rash Hematologic: Denies: bleeding Musculoskeletal: Denies: pain Allergies: Coded Allergies: No Known Allergies (Unverified , 11/13/12) Objective Vital Signs Last 24 Hour Vital Signs Date Time Temp Pulse Resp B/P Pulse Ox O2 Delivery O2 Flow Rate FiO2 09/14/16 12:00 97.7 97 18 110/58 100 Room Air 09/14/16 08:19 98.4 95 20 102/62 98 Room Air 09/14/16 04:00 97.8 96 18 109/51 98 Room Air 09/14/16 00:00 97.6 94 18 110/60 94 Room Air 09/13/16 20:00 97.5 94 16 85/42 96 Room Air 09/13/16 20:00 98.4 99 20 111/62 93 Room Air 09/13/16 16:00 97.5 103 18 108/57 98 Room Air Height (Feet): 5 Height (Inches): 5.00 Weight (Pounds): 173 General Appearance: no acute distress HEENT: normocephalic, atraumatic, anicteric, mucous membranes moist, PERRL, EOMI, pharynx normal, supple, no JVD Respiratory/Chest: lungs clear, normal breath sounds, no accessory muscle use, respiratory distress Cardiovascular: normal peripheral pulses, normal rate, regular rhythm, regularly irregular, no gallop/murmur, no JVD Abdomen: normal bowel sounds, soft, non tender, no organomegaly, non distended Genitourinary: other - no blood Extremities: no cyanosis Skin: no rash 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 Complete 08/29/16 12:30 Stool Clostridium difficile Toxin Assay - Final Complete 08/28/16 08:06 Rectum VRE Culture - Final Enterococcus Faecium - Vre Complete Labs Test 09/12/16 05:45 09/13/16 04:00 White Blood Count 7.7 K/UL (4.8-10.8) 11.8 K/UL (4.8-10.8) Red Blood Count 2.41 M/UL (4.20-5.40) 2.70 M/UL (4.20-5.40) Hemoglobin 7.2 G/DL (12.0-16.0) 8.2 G/DL (12.0-16.0) Hematocrit 22.4 % (37.0-47.0) 25.2 % (37.0-47.0) Mean Corpuscular Volume 93 FL (80-99) 93 FL (80-99) Mean Corpuscular Hemoglobin 29.8 PG (27.0-31.0) 30.4 PG (27.0-31.0) Mean Corpuscular Hemoglobin Concent 32.0 G/DL (32.0-36.0) 32.7 G/DL (32.0-36.0) Red Cell Distribution Width 17.4 % (11.6-14.8) 16.7 % (11.6-14.8) Platelet Count 291 K/UL (150-450) 310 K/UL (150-450) Mean Platelet Volume 6.7 FL (6.5-10.1) 6.8 FL (6.5-10.1) Neutrophils (%) (Auto) % (45.0-75.0) 67.2 % (45.0-75.0) Lymphocytes (%) (Auto) % (20.0-45.0) 21.1 % (20.0-45.0) Monocytes (%) (Auto) % (1.0-10.0) 8.6 % (1.0-10.0) Eosinophils (%) (Auto) % (0.0-3.0) 2.0 % (0.0-3.0) Basophils (%) (Auto) % (0.0-2.0) 1.0 % (0.0-2.0) Differential Total Cells Counted 100 Neutrophils % (Manual) 59 % (45-75) Lymphocytes % (Manual) 28 % (20-45) Monocytes % (Manual) 6 % (1-10) Eosinophils % (Manual) 7 % (0-3) Basophils % (Manual) 0 % (0-2) Band Neutrophils 0 % (0-8) Platelet Estimate Adequate Platelet Morphology Normal Hypochromasia 3+ Anisocytosis 1+ Sodium Level 143 mEQ/L (135-145) Potassium Level 3.0 mEQ/L (3.4-4.9) Chloride Level 98 mEQ/L (98-107) Carbon Dioxide Level 24 mEQ/L (20-30) Anion Gap 21 (5-15) Blood Urea Nitrogen 37 mg/dL (7-23) Creatinine 6.3 mg/dL (0.5-0.9) Estimat Glomerular Filtration Rate 8.2 mL/min (>60) Glucose Level 102 mg/dL (74-106) Calcium Level 8.2 mg/dL (8.6-10.2) Current Medications Medications (Trade) Dose Ordered Sig/Nakul Route PRN Reason Start Time Stop Time Status Last Admin Dose Admin Acetaminophen (Tylenol) 650 mg Q4H PRN ORAL Mild Pain/Temp > 100.5 08/31/16 13:00 09/30/16 12:59 09/12/16 21:17 Amylase/Lipase/ Protease (Pancrease) 2 ea THREE TIMES A DAY ORAL 08/31/16 13:30 09/30/16 13:29 09/14/16 13:54 Aspirin (Ecotrin) 81 mg DAILY ORAL 09/01/16 09:00 10/01/16 08:59 09/14/16 08:58 Cholestyramine Resin (Questran) 4 gm THREE TIMES A DAY PRN ORAL Diarrhea 08/31/16 13:00 09/30/16 12:59 09/13/16 16:19 Clopidogrel Bisulfate (Plavix) 75 mg DAILY ORAL 09/01/16 09:00 10/01/16 08:59 09/14/16 08:58 Dextrose (Dextrose 50%) STAT PRN IV Hypoglycemia 08/31/16 17:00 09/30/16 16:59 Diphenhydramine HCl (Benadryl Cream) 1 applic THREE TIMES A DAY TOPIC 09/01/16 09:00 10/01/16 08:59 09/14/16 13:54 Diphenhydramine HCl (Benadryl) 50 mg Q4H PRN IVP Itching 09/10/16 11:45 10/10/16 11:44 09/14/16 09:16 Diphenhydramine HCl (Benadryl) 50 mg Q6H PRN ORAL Itching 09/05/16 08:00 10/05/16 07:59 09/09/16 09:47 Diphenhydramine HCl (Benadryl) 75 mg HSPRN PRN ORAL Insomnia 08/31/16 19:15 09/30/16 19:14 09/12/16 21:29 Epoetin Alfonso (Procrit (for ESRD on dialysis)) 10,000 units FRI-FRI-FRI SUBQ 09/09/16 21:00 10/09/16 20:59 09/13/16 21:38 Gabapentin 300 mg 300 mg FRI-FRI-FRI ORAL 09/11/16 21:00 10/11/16 20:59 09/13/16 21:34 Insulin Aspart (NovoLOG) BEFORE MEALS AND HS SUBQ 08/31/16 16:30 09/30/16 16:29 09/14/16 12:32 Lactobacillus Acidophilus (Culturelle) 1 tab THREE TIMES A DAY ORAL 09/03/16 14:00 10/03/16 13:59 09/14/16 13:53 Metoclopramide HCl (Reglan) 10 mg Q8H PRN IVP Nausea & Vomiting 09/08/16 14:45 10/08/16 14:44 09/09/16 09:47 Metronidazole (Flagyl) 100 ml @ 100 mls/hr Q8HR IVPB 09/14/16 22:00 09/21/16 23:59 Ondansetron HCl (Zofran) 4 mg Q6H PRN IVP Nausea & Vomiting 08/31/16 18:00 09/30/16 17:59 09/08/16 09:14 Sevelamer Carbonate (Renvela) 800 mg THREE TIMES A DAY ORAL 08/31/16 13:30 09/30/16 13:29 09/14/16 13:53 Sodium Chloride 1,000 ml @ 500 mls/hr Q2H PRN IVLG sbp<90 during hd 09/13/16 13:43 10/13/16 13:42 Triamcinolone Acetonide (Kenalog) 1 applic THREE TIMES A DAY TOPIC 09/04/16 10:30 10/04/16 10:29 09/14/16 13:54 Vancomycin HCl (Vancomycin) 250 mg QID ORAL 09/14/16 18:00 09/21/16 23:59 MAGDALENO JIMÉNEZ Sep 14, 2016 15:13
[2016-09-14] MEDS ORDERED: Norco 5mg/325mg tab ORAL PRN (16:00)
[2016-09-14] MEDS: Morphine Sulfate 2mg/ml Inj IVP PRN (17:56)
[2016-09-14] MEDS ORDERED: Morphine Sulfate 2mg/ml Inj IVP PRN (18:00)
--- NOTE | 2016-09-14 19:50 | General Progress Note ---
Assessment/Plan Problem List: (1) Hypoglycemia following gastrointestinal surgery ICD Codes: K91.2 - Postsurgical malabsorption, not elsewhere classified SNOMED: 457227572, 08768307 (2) Hypoglycemia ICD Codes: E16.2 - Hypoglycemia, unspecified SNOMED: 499709530 (3) Altered level of consciousness ICD Codes: R40.4 - Transient alteration of awareness SNOMED: 6654012 (4) End stage renal disease on dialysis ICD Codes: N18.6 - End stage renal disease; Z99.2 - Dependence on renal dialysis SNOMED: 128618289 Status: stable Assessment/Plan abx per id follow up colonscopy results monitor h/h transfuse as needed HD per renal monitor bs morphine for abd pain Subjective ROS Limited/Unobtainable: No Constitutional: Reports: malaise, weakness HEENT: Reports: no symptoms Cardiovascular: Reports: no symptoms Respiratory: Reports: no symptoms Gastrointestinal/Abdominal: Reports: abdominal pain, diarrhea Genitourinary: Reports: no symptoms Neurologic/Psychiatric: Reports: pre-existing deficit, seizure Endocrine: Reports: no symptoms Hematologic/Lymphatic: Reports: anemia Allergies: Coded Allergies: No Known Allergies (Unverified , 11/13/12) All Systems: reviewed and negative except above Subjective events noted. s/p colonoscopy. c/o abd pain. still with diarrhea- 3 episodes today. await results from colonoscopy. Objective Last 24 Hour Vital Signs Date Time Temp Pulse Resp B/P Pulse Ox O2 Delivery O2 Flow Rate FiO2 09/14/16 16:00 98.4 88 22 93/59 Room Air 09/14/16 12:00 97.7 97 18 110/58 100 Room Air 09/14/16 08:19 98.4 95 20 102/62 98 Room Air 09/14/16 04:00 97.8 96 18 109/51 98 Room Air 09/14/16 00:00 97.6 94 18 110/60 94 Room Air 09/13/16 20:00 97.5 94 16 85/42 96 Room Air 09/13/16 20:00 98.4 99 20 111/62 93 Room Air Intake and Output 09/13/16 09/14/16 19:00 07:00 Intake Total 360 ml 580 ml Output Total 1600 ml Balance -1240 ml 580 ml Intake Oral 360 ml 580 ml Output Hemodialysis UF 1600 ml # Voids 1 # Bowel Movements 2 4 Height (Feet): 5 Height (Inches): 5.00 Weight (Pounds): 173 Objective General Appearance: WD/WN, alert Neck: supple Cardiovascular: regular rhythm Respiratory/Chest: lungs clear, normal breath sounds, no respiratory distress, no accessory muscle use Abdomen: normal bowel sounds, non tender, soft, no organomegaly, no mass Edema: no edema noted Arm (L), no edema noted Arm (R), no edema noted Leg (L), no edema noted Leg (R), no edema noted Pedal (L), no edema noted Pedal (R), no edema noted 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
[2016-09-15] VITALS (9 sets, daily range): BP systolic 97–133; BP diastolic 50–78
[2016-09-15] MEDS: Cholestyramine 4gm Pkt ORAL PRN ×2 (00:51→16:23)
[2016-09-15] MEDS: Morphine Sulfate 2mg/ml Inj IVP PRN ×4 (01:28→22:26)
[2016-09-15] MEDS: metroNIDAZOLE 500mg 100 ML IVPB SCH ×3 (05:56→21:09)
[2016-09-15] MEDS: NovoLOG Insulin Flexpen SUBQ SCH ×4 (05:56→21:00)
[2016-09-15 06:52] LABS: MEAN CORPUSCULAR HEMOGLOBIN 31.7 PG (27.0-31.0); MEAN CORPUSCULAR HGB CONC 32.5 G/DL (32.0-36.0); MEAN CORPUSCULAR VOLUME 98 FL (80-99); MEAN PLATELET VOLUME 6.4 FL (6.5-10.1); PLATELET COUNT 323 K/UL (150-450); RED BLOOD COUNT 2.24 M/UL (4.20-5.40); RED CELL DISTRIBUTION WIDTH 20.3 % (11.6-14.8); WHITE BLOOD COUNT 9.6 K/UL (4.8-10.8)
[2016-09-15 07:04] LABS: CALCIUM 7.6 mg/dL (8.6-10.2); CREATININE 6.2 mg/dL (0.5-0.9); GLOMERULAR FILTRATION RATE 8.4 mL/min (>60)
--- NOTE | 2016-09-15 07:33 | General Progress Note ---
Assessment/Plan Problem List: (1) Hypoglycemia following gastrointestinal surgery ICD Codes: K91.2 - Postsurgical malabsorption, not elsewhere classified SNOMED: 347686808, 72126504 (2) Hypoglycemia ICD Codes: E16.2 - Hypoglycemia, unspecified SNOMED: 633529698 (3) Altered level of consciousness ICD Codes: R40.4 - Transient alteration of awareness SNOMED: 4612353 (4) End stage renal disease on dialysis ICD Codes: N18.6 - End stage renal disease; Z99.2 - Dependence on renal dialysis SNOMED: 055585513 Status: stable, progressing Assessment/Plan abx per id follow up colonscopy results monitor h/h transfuse as needed HD per renal monitor bs morphine for abd pain GI follow up. ?ok to give anti-diarrheals Subjective ROS Limited/Unobtainable: No Constitutional: Reports: malaise, weakness HEENT: Reports: no symptoms Cardiovascular: Reports: no symptoms Respiratory: Reports: no symptoms Gastrointestinal/Abdominal: Reports: diarrhea Genitourinary: Reports: no symptoms Neurologic/Psychiatric: Reports: pre-existing deficit, seizure Endocrine: Reports: no symptoms Hematologic/Lymphatic: Reports: anemia Allergies: Coded Allergies: No Known Allergies (Unverified , 11/13/12) All Systems: reviewed and negative except above Subjective events noted. s/p colonoscopy. c/o abd pain. diarrhea less frequent but had large watery bowel movement last night. c/o fecal incontinence. abd pain better after morphine Objective Last 24 Hour Vital Signs Date Time Temp Pulse Resp B/P Pulse Ox O2 Delivery O2 Flow Rate FiO2 09/15/16 04:00 97.8 98 18 101/54 98 Room Air 09/15/16 02:34 97.9 09/15/16 00:00 97.9 100 18 97/50 98 Room Air 09/14/16 22:00 98.6 91 22 145/83 98 Room Air 09/14/16 20:00 98.6 91 22 145/83 98 Room Air 09/14/16 16:00 98.4 88 22 93/59 Room Air 09/14/16 12:00 97.7 97 18 110/58 100 Room Air 09/14/16 08:19 98.4 95 20 102/62 98 Room Air Intake and Output 09/14/16 09/15/16 19:00 07:00 Intake Total 360 ml 475 ml Balance 360 ml 475 ml Intake Oral 360 ml 475 ml # Bowel Movements 1 3 Laboratory Tests 09/15/16 05:30: White Blood Count [Pending], Red Blood Count [Pending], Hemoglobin [Pending], Hematocrit [Pending], Mean Corpuscular Volume [Pending], Mean Corpuscular Hemoglobin [Pending], Mean Corpuscular Hemoglobin Concent [Pending], Red Cell Distribution Width [Pending], Platelet Count [Pending], Mean Platelet Volume [ Pending], Neutrophils (%) (Auto) [Pending], Lymphocytes (%) (Auto) [Pending], Monocytes (%) (Auto) [Pending], Eosinophils (%) (Auto) [Pending], Basophils (%) (Auto) [Pending], Sodium Level [Pending], Potassium Level [Pending], Chloride Level [Pending], Carbon Dioxide Level [Pending], Blood Urea Nitrogen [Pending], Creatinine [Pending], Estimat Glomerular Filtration Rate [Pending], Glucose Level [Pending], Calcium Level [Pending] Height (Feet): 5 Height (Inches): 5.00 Weight (Pounds): 173 Objective General Appearance: WD/WN, alert Neck: supple Cardiovascular: regular rhythm Respiratory/Chest: lungs clear, normal breath sounds, no respiratory distress, no accessory muscle use Abdomen: normal bowel sounds, non tender, soft, no organomegaly, no mass Edema: no edema noted Arm (L), no edema noted Arm (R), no edema noted Leg (L), no edema noted Leg (R), no edema noted Pedal (L), no edema noted Pedal (R), no edema noted 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
[2016-09-15] MEDS: Lactobacillus-GG tablet ORAL SCH ×3 (08:36→17:08)
[2016-09-15] MEDS: Aspirin EC 81mg tab ORAL SCH (08:36)
[2016-09-15] MEDS: Pancrease Cap ORAL SCH ×3 (08:37→17:08)
[2016-09-15] MEDS: Vancomycin oral 125mg/2.5ml ORAL SCH ×4 (08:37→21:09)
[2016-09-15] MEDS: Triamcinolone 0.1% 15gm Cr TOPIC SCH ×3 (08:42→17:16)
[2016-09-15] MEDS: DiphenhydrAMINE & Zinc 28g Cream TOPIC SCH ×3 (08:42→17:15)
--- NOTE | 2016-09-15 10:26 | Nephrology Progress Note ---
Assessment/Plan Problem List: (1) Orthostatic hypotension (2) C. difficile colitis (3) End stage renal disease on dialysis (4) Epilepsy (5) Anemia in chronic kidney disease (6) Hypopotassemia Plan less diarrhea. history of low bp and amlodipine stopped as prior syncope. Stop lisinopril and florinef 09/02. Gabapentin dose reduced in eskd. Dialysis 09/13 stable on hd--, 4 K bath as K low increase epogen, next HD 09/16, tolerates anemia which should improve with epogen, blood tubing not compatible with dialysis and no peripheral vein access for transfusion Subjective Constitutional: Reports: weakness HEENT: Reports: no symptoms Genitourinary: Reports: no symptoms Neurologic/Psychiatric: Reports: no symptoms Subjective mild diarrhea, no sob or angina , eating no emesis Objective Objective Last 24 Hour Vital Signs Date Time Temp Pulse Resp B/P Pulse Ox O2 Delivery O2 Flow Rate FiO2 09/15/16 09:24 83 114/70 09/15/16 08:00 98.1 94 18 98/59 99 Room Air 09/15/16 04:00 97.8 98 18 101/54 98 Room Air 09/15/16 02:34 97.9 09/15/16 00:00 97.9 100 18 97/50 98 Room Air 09/14/16 22:00 98.6 91 22 145/83 98 Room Air 09/14/16 20:00 98.6 91 22 145/83 98 Room Air 09/14/16 16:00 98.4 88 22 93/59 Room Air 09/14/16 12:00 97.7 97 18 110/58 100 Room Air Intake and Output 09/14/16 09/15/16 18:59 06:59 Intake Total 360 ml 475 ml Balance 360 ml 475 ml Intake Oral 360 ml 475 ml # Bowel Movements 1 3 Laboratory Tests 09/15/16 05:30: White Blood Count 9.6, Red Blood Count 2.24L, Hemoglobin 7.1L, Hematocrit 21.9L , Mean Corpuscular Volume 98, Mean Corpuscular Hemoglobin 31.7H, Mean Corpuscular Hemoglobin Concent 32.5, Red Cell Distribution Width 20.3H, Platelet Count 323, Mean Platelet Volume 6.4L, Neutrophils (%) (Auto) , Lymphocytes (%) (Auto) , Monocytes (%) (Auto) , Eosinophils (%) (Auto) , Basophils (%) (Auto) , Neutrophils % (Manual) [Pending], Lymphocytes % (Manual) [Pending], Platelet Estimate [Pending], Platelet Morphology [Pending], Sodium Level 146H, Potassium Level 3.0L, Chloride Level 103, Carbon Dioxide Level 25, Anion Gap 18H, Blood Urea Nitrogen 38H, Creatinine 6.2H, Estimat Glomerular Filtration Rate 8.4, Glucose Level 90, Calcium Level 7.6L Height (Feet): 5 Height (Inches): 5.00 Weight (Pounds): 173 General Appearance: no apparent distress, alert Neck: normal alignment Cardiovascular: normal rate, regular rhythm Respiratory/Chest: lungs clear, normal breath sounds Abdomen: non tender, soft Extremities: other - no edema 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
--- NOTE | 2016-09-15 10:52 | General Progress Note ---
Assessment/Plan Assessment/Plan Assessment - Chronic diarrhea - C Diff (+) - Anemia - Renal failure - Epilepsy - s/p gastric bypass surgery Recommendation - Finish course of vanco and flagyl - follow symptoms - check path Subjective Allergies: Coded Allergies: No Known Allergies (Unverified , 11/13/12) Subjective Feels OK tolerating PO Path pending Objective Last 24 Hour Vital Signs Date Time Temp Pulse Resp B/P Pulse Ox O2 Delivery O2 Flow Rate FiO2 09/15/16 09:24 83 114/70 09/15/16 08:00 98.1 94 18 98/59 99 Room Air 09/15/16 04:00 97.8 98 18 101/54 98 Room Air 09/15/16 02:34 97.9 09/15/16 00:00 97.9 100 18 97/50 98 Room Air 09/14/16 22:00 98.6 91 22 145/83 98 Room Air 09/14/16 20:00 98.6 91 22 145/83 98 Room Air 09/14/16 16:00 98.4 88 22 93/59 Room Air 09/14/16 12:00 97.7 97 18 110/58 100 Room Air Intake and Output 09/14/16 09/15/16 18:59 06:59 Intake Total 360 ml 475 ml Balance 360 ml 475 ml Intake Oral 360 ml 475 ml # Bowel Movements 1 3 Laboratory Tests 09/15/16 05:30: White Blood Count 9.6, Red Blood Count 2.24L, Hemoglobin 7.1L, Hematocrit 21.9L , Mean Corpuscular Volume 98, Mean Corpuscular Hemoglobin 31.7H, Mean Corpuscular Hemoglobin Concent 32.5, Red Cell Distribution Width 20.3H, Platelet Count 323, Mean Platelet Volume 6.4L, Neutrophils (%) (Auto) , Lymphocytes (%) (Auto) , Monocytes (%) (Auto) , Eosinophils (%) (Auto) , Basophils (%) (Auto) , Neutrophils % (Manual) [Pending], Lymphocytes % (Manual) [Pending], Platelet Estimate [Pending], Platelet Morphology [Pending], Sodium Level 146H, Potassium Level 3.0L, Chloride Level 103, Carbon Dioxide Level 25, Anion Gap 18H, Blood Urea Nitrogen 38H, Creatinine 6.2H, Estimat Glomerular Filtration Rate 8.4, Glucose Level 90, Calcium Level 7.6L Height (Feet): 5 Height (Inches): 5.00 Weight (Pounds): 173 Objective WDWN NCAT supple CTA RRR soft NT ND No edema NILTON MERINO Sep 15, 2016 10:52
[2016-09-15 11:46] LABS: BAND NEUTROPHILS % (MANUAL) 0 % (0-8); BASOPHILS % (MANUAL) 0 % (0-2); EOSINOPHILS % (MANUAL) 3 % (0-3); LYMPHOCYTES % (MANUAL) 31 % (20-45); NEUTROPHILS % (MANUAL) 56 % (45-75); PLATELET ESTIMATE ADEQUATE; PLATELET MORPHOLOGY NORMAL; TOTAL CELLS COUNTED 100
[2016-09-15 11:47] LABS: ANISOCYTOSIS 2+; MACROCYTES 1+
[2016-09-15 11:48] LABS: HYPOCHROMASIA 1+; POLYCHROMASIA 2+
[2016-09-16] VITALS (9 sets, daily range): BP systolic 95–127; BP diastolic 47–92
[2016-09-16] MEDS ORDERED: Heparin Sod 1000 units/ml 10ml IV PRN (06:00)
[2016-09-16] MEDS: metroNIDAZOLE 500mg 100 ML IVPB SCH ×3 (06:08→21:29)
[2016-09-16] MEDS: NovoLOG Insulin Flexpen SUBQ SCH ×4 (06:30→20:58)
[2016-09-16] MEDS: Lactobacillus-GG tablet ORAL SCH ×3 (09:57→17:47)
[2016-09-16] MEDS: Vancomycin oral 125mg/2.5ml ORAL SCH ×4 (09:58→21:00)
[2016-09-16] MEDS: Pancrease Cap ORAL SCH ×3 (09:58→17:47)
[2016-09-16] MEDS: Aspirin EC 81mg tab ORAL SCH (09:58)
[2016-09-16] MEDS: Triamcinolone 0.1% 15gm Cr TOPIC SCH ×3 (10:15→17:48)
[2016-09-16] MEDS: DiphenhydrAMINE & Zinc 28g Cream TOPIC SCH ×3 (10:15→17:48)
[2016-09-16] MEDS: Morphine Sulfate 2mg/ml Inj IVP PRN ×2 (10:19→17:47)
[2016-09-16] MEDS: Cholestyramine 4gm Pkt ORAL PRN (10:19)
[2016-09-16] MEDS: DiphenhydrAMINE 50mg/ml Inj IVP PRN ×2 (11:39→21:29)
--- NOTE | 2016-09-16 12:12 | Infectious Diseases Prog Note ---
Assessment/Plan Assessment/Plan A) 1) c.diff. colitis + with hx of chronic diarrhea, ? other cause - still with diarrhea but improved, less diarrhea per pt - ? other cause besides c.diff. - ? dumping syndrome related to gastric bypass surgery - s/p colonoscopy, await biopsies/path 2) esrd, hd, anemia 3) sz, dm, htn, hhd, cva, ca, obesity 4) allergies - negative, fh-nc, sh-negative 5) mar noted, notes and records reviewed 6) d/w RN about colonoscopy 7) vre colonization P) 1) vancomycin po and flagyl - day # 12 abx 2) check colonoscopy results/biopsies/path, gi f/u 3) patient may need eventual stool transplantation or fidaxomicin if has refractory c.diff. 4) continue treatment per primary and consultants 5) orders entered and noted 6) d/w patient 7) vre isolation 8) watch labs Subjective Constitutional: Denies: fever HEENT: Denies: congestion Respiratory: Denies: shortness of breath Gastrointestinal/Abdominal: Reports: diarrhea - less, Denies: nausea, vomiting Genitourinary: Reports: other - no blood Skin: Denies: rash Hematologic: Denies: bleeding Allergies: Coded Allergies: No Known Allergies (Unverified , 11/13/12) Objective Vital Signs Last 24 Hour Vital Signs Date Time Temp Pulse Resp B/P Pulse Ox O2 Delivery O2 Flow Rate FiO2 09/16/16 10:25 91 115/53 09/16/16 09:23 Room Air 09/16/16 09:21 97.0 82 18 112/50 98 Room Air 09/16/16 08:08 97.9 94 18 100/92 98 Room Air 09/16/16 05:30 97.4 93 20 127/74 Room Air 09/16/16 05:30 Room Air 09/16/16 04:00 97.6 96 18 99/56 95 Room Air 09/16/16 00:00 97.8 94 18 95/54 95 Room Air 09/15/16 19:00 97.7 86 20 109/65 100 Room Air 09/15/16 18:30 98.2 88 20 131/72 96 Room Air 09/15/16 16:00 97.7 90 20 133/78 98 Room Air 09/15/16 15:10 98.1 86 111/64 Height (Feet): 5 Height (Inches): 5.00 Weight (Pounds): 173 General Appearance: no acute distress HEENT: normocephalic, atraumatic, anicteric, mucous membranes moist, PERRL, EOMI, pharynx normal, supple, no JVD Respiratory/Chest: lungs clear, normal breath sounds, no respiratory distress, no accessory muscle use Cardiovascular: normal rate, regular rhythm, no gallop/murmur, no JVD Abdomen: normal bowel sounds, soft, non tender, no organomegaly, non distended Genitourinary: other - no blood Extremities: no cyanosis Skin: no rash 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 Complete 08/29/16 12:30 Stool Clostridium difficile Toxin Assay - Final Complete 08/28/16 08:06 Rectum VRE Culture - Final Enterococcus Faecium - Vre Complete Labs Test 09/15/16 05:30 White Blood Count 9.6 K/UL (4.8-10.8) Red Blood Count 2.24 M/UL (4.20-5.40) Hemoglobin 7.1 G/DL (12.0-16.0) Hematocrit 21.9 % (37.0-47.0) Mean Corpuscular Volume 98 FL (80-99) Mean Corpuscular Hemoglobin 31.7 PG (27.0-31.0) Mean Corpuscular Hemoglobin Concent 32.5 G/DL (32.0-36.0) Red Cell Distribution Width 20.3 % (11.6-14.8) Platelet Count 323 K/UL (150-450) Mean Platelet Volume 6.4 FL (6.5-10.1) Neutrophils (%) (Auto) % (45.0-75.0) Lymphocytes (%) (Auto) % (20.0-45.0) Monocytes (%) (Auto) % (1.0-10.0) Eosinophils (%) (Auto) % (0.0-3.0) Basophils (%) (Auto) % (0.0-2.0) Differential Total Cells Counted 100 Neutrophils % (Manual) 56 % (45-75) Lymphocytes % (Manual) 31 % (20-45) Monocytes % (Manual) 10 % (1-10) Eosinophils % (Manual) 3 % (0-3) Basophils % (Manual) 0 % (0-2) Band Neutrophils 0 % (0-8) Platelet Estimate Adequate Platelet Morphology Normal Polychromasia 2+ Hypochromasia 1+ Anisocytosis 2+ Macrocytosis 1+ Sodium Level 146 mEQ/L (135-145) Potassium Level 3.0 mEQ/L (3.4-4.9) Chloride Level 103 mEQ/L (98-107) Carbon Dioxide Level 25 mEQ/L (20-30) Anion Gap 18 (5-15) Blood Urea Nitrogen 38 mg/dL (7-23) Creatinine 6.2 mg/dL (0.5-0.9) Estimat Glomerular Filtration Rate 8.4 mL/min (>60) Glucose Level 90 mg/dL (74-106) Calcium Level 7.6 mg/dL (8.6-10.2) Current Medications Medications (Trade) Dose Ordered Sig/Nakul Route PRN Reason Start Time Stop Time Status Last Admin Dose Admin Acetaminophen (Tylenol) 650 mg Q4H PRN ORAL Mild Pain/Temp > 100.5 08/31/16 13:00 09/30/16 12:59 09/12/16 21:17 Acetaminophen/ Hydrocodone Bitart ([place] 5/325) 1 tab Q12H PRN ORAL Moderate Pain (Pain Scale 4-6) 09/14/16 17:38 09/21/16 15:59 Amylase/Lipase/ Protease (Pancrease) 2 ea THREE TIMES A DAY ORAL 08/31/16 13:30 09/30/16 13:29 09/16/16 09:58 Aspirin (Ecotrin) 81 mg DAILY ORAL 09/01/16 09:00 10/01/16 08:59 09/16/16 09:58 Cholestyramine Resin (Questran) 4 gm THREE TIMES A DAY PRN ORAL Diarrhea 08/31/16 13:00 09/30/16 12:59 09/16/16 10:19 Clopidogrel Bisulfate (Plavix) 75 mg DAILY ORAL 09/01/16 09:00 10/01/16 08:59 09/16/16 09:58 Dextrose (Dextrose 50%) STAT PRN IV Hypoglycemia 08/31/16 17:00 09/30/16 16:59 Diphenhydramine HCl (Benadryl Cream) 1 applic THREE TIMES A DAY TOPIC 09/01/16 09:00 10/01/16 08:59 09/16/16 10:15 Diphenhydramine HCl (Benadryl) 50 mg Q4H PRN IVP Itching 09/10/16 11:45 10/10/16 11:44 09/16/16 11:39 Diphenhydramine HCl (Benadryl) 50 mg Q6H PRN ORAL Itching 09/05/16 08:00 10/05/16 07:59 09/09/16 09:47 Diphenhydramine HCl (Benadryl) 75 mg HSPRN PRN ORAL Insomnia 08/31/16 19:15 09/30/16 19:14 09/14/16 21:32 Epoetin Alfonso (Procrit (for ESRD on dialysis)) 10,000 units MON-FRI-FRI SUBQ 09/09/16 21:00 10/09/16 20:59 09/13/16 21:38 Gabapentin 300 mg 300 mg FRI-FRI-FRI ORAL 09/11/16 21:00 10/11/16 20:59 09/13/16 21:34 Heparin Sodium (Porcine) (Heparin Sod 1000 units/ml 10ml) 2,000 unit ONCE PRN IV FOR HD 09/16/16 06:00 09/16/16 23:59 Insulin Aspart (NovoLOG) BEFORE MEALS AND HS SUBQ 08/31/16 16:30 09/30/16 16:29 09/15/16 17:09 Iron Sucrose 100 mg/Sodium Chloride 60 ml @ 240 mls/hr ONCE ONCE IVPB 09/16/16 21:00 09/16/16 21:14 Lactobacillus Acidophilus (Culturelle) 1 tab THREE TIMES A DAY ORAL 09/03/16 14:00 10/03/16 13:59 09/16/16 09:57 Metoclopramide HCl (Reglan) 10 mg Q8H PRN IVP Nausea & Vomiting 09/08/16 14:45 10/08/16 14:44 09/09/16 09:47 Metronidazole (Flagyl) 100 ml @ 100 mls/hr Q8HR IVPB 09/14/16 22:00 09/21/16 23:59 09/16/16 06:08 Morphine Sulfate 1 mg 1 mg Q6H PRN IVP Severe Pain (Pain Scale 7-10) 09/14/16 18:00 09/21/16 17:59 09/16/16 10:19 Ondansetron HCl (Zofran) 4 mg Q6H PRN IVP Nausea & Vomiting 08/31/16 18:00 09/30/16 17:59 09/08/16 09:14 Sevelamer Carbonate (Renvela) 800 mg THREE TIMES A DAY ORAL 08/31/16 13:30 09/30/16 13:29 09/16/16 09:58 Sodium Chloride 1,000 ml @ 500 mls/hr Q2H PRN IVLG sbp<90 during hd 09/13/16 13:43 10/13/16 13:42 Sodium Chloride (Sodium Chloride 1000ml bag) 1,000 ml @ 500 mls/hr Q2H PRN IVLG sbp<90 during hd 09/16/16 06:00 09/16/16 23:59 Triamcinolone Acetonide (Kenalog) 1 applic THREE TIMES A DAY TOPIC 09/04/16 10:30 10/04/16 10:29 09/16/16 10:15 Vancomycin HCl (Vancomycin) 250 mg QID ORAL 09/14/16 18:00 09/21/16 23:59 09/16/16 09:58 MAGDALENO JIMÉNEZ Sep 16, 2016 12:12
--- NOTE | 2016-09-16 15:24 | Nephrology Progress Note ---
Assessment/Plan Problem List: (1) Orthostatic hypotension (2) C. difficile colitis (3) End stage renal disease on dialysis (4) Epilepsy (5) Anemia in chronic kidney disease (6) Hypopotassemia Plan less diarrhea. history of low bp and amlodipine stopped as prior syncope. Stop lisinopril and florinef 09/02. Gabapentin dose reduced in eskd. Dialysis 09/16 stable on hd--, 4 K bath as K low increase epogen, next HD 09/16, tolerates anemia which should improve with epogen, blood tubing not compatible with dialysis and no peripheral vein access for transfusion Subjective Constitutional: Reports: weakness HEENT: Reports: no symptoms Genitourinary: Reports: no symptoms Neurologic/Psychiatric: Reports: no symptoms Subjective mild diarrhea, no sob or angina , eating no emesis Objective Objective Last 24 Hour Vital Signs Date Time Temp Pulse Resp B/P Pulse Ox O2 Delivery O2 Flow Rate FiO2 09/16/16 12:00 98.2 96 18 116/68 97 Room Air 09/16/16 10:25 91 115/53 09/16/16 09:23 Room Air 09/16/16 09:21 97.0 82 18 112/50 98 Room Air 09/16/16 08:08 97.9 94 18 100/92 98 Room Air 09/16/16 05:30 97.4 93 20 127/74 Room Air 09/16/16 05:30 Room Air 09/16/16 04:00 97.6 96 18 99/56 95 Room Air 09/16/16 00:00 97.8 94 18 95/54 95 Room Air 09/15/16 19:00 97.7 86 20 109/65 100 Room Air 09/15/16 18:30 98.2 88 20 131/72 96 Room Air 09/15/16 16:00 97.7 90 20 133/78 98 Room Air Intake and Output 09/15/16 09/16/16 19:00 07:00 Intake Total 970 ml 615 ml Balance 970 ml 615 ml Intake Oral 720 ml 615 ml Blood Product 250 ml # Voids 4 Height (Feet): 5 Height (Inches): 5.00 Weight (Pounds): 173 General Appearance: WD/WN, obese EENT: normal ENT inspection Neck: normal alignment Cardiovascular: normal rate, regular rhythm Respiratory/Chest: lungs clear, normal breath sounds Abdomen: non tender, soft 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
--- NOTE | 2016-09-16 17:17 | General Progress Note ---
Assessment/Plan Problem List: (1) Hypoglycemia following gastrointestinal surgery ICD Codes: K91.2 - Postsurgical malabsorption, not elsewhere classified SNOMED: 126730622, 56640546 (2) Hypoglycemia ICD Codes: E16.2 - Hypoglycemia, unspecified SNOMED: 950863429 (3) Altered level of consciousness ICD Codes: R40.4 - Transient alteration of awareness SNOMED: 3514330 (4) End stage renal disease on dialysis ICD Codes: N18.6 - End stage renal disease; Z99.2 - Dependence on renal dialysis SNOMED: 734935303 Status: stable, progressing Assessment/Plan abx per id follow up colonscopy results monitor h/h transfuse as needed HD per renal monitor bs morphine for abd pain GI follow up. dc planning tomorrow if ok with all. will d/w ID abd duration Subjective ROS Limited/Unobtainable: No Constitutional: Reports: malaise, weakness HEENT: Reports: no symptoms Cardiovascular: Reports: no symptoms Respiratory: Reports: no symptoms Gastrointestinal/Abdominal: Reports: abdominal pain, diarrhea Genitourinary: Reports: no symptoms Neurologic/Psychiatric: Reports: pre-existing deficit, seizure Endocrine: Reports: no symptoms Hematologic/Lymphatic: Reports: no symptoms Allergies: Coded Allergies: No Known Allergies (Unverified , 11/13/12) All Systems: reviewed and negative except above Subjective events noted. s/p colonoscopy. c/o abd pain. diarrhea less frequent- 3 large episodes yesterday. overall feels diarrhea is gradually getting better Objective Last 24 Hour Vital Signs Date Time Temp Pulse Resp B/P Pulse Ox O2 Delivery O2 Flow Rate FiO2 09/16/16 12:00 98.2 96 18 116/68 97 Room Air 09/16/16 10:25 91 115/53 09/16/16 09:23 Room Air 09/16/16 09:21 97.0 82 18 112/50 98 Room Air 09/16/16 08:08 97.9 94 18 100/92 98 Room Air 09/16/16 05:30 97.4 93 20 127/74 Room Air 09/16/16 05:30 Room Air 09/16/16 04:00 97.6 96 18 99/56 95 Room Air 09/16/16 00:00 97.8 94 18 95/54 95 Room Air 09/15/16 19:00 97.7 86 20 109/65 100 Room Air 09/15/16 18:30 98.2 88 20 131/72 96 Room Air Intake and Output 09/15/16 09/16/16 19:00 07:00 Intake Total 970 ml 615 ml Balance 970 ml 615 ml Intake Oral 720 ml 615 ml Blood Product 250 ml # Voids 4 Height (Feet): 5 Height (Inches): 5.00 Weight (Pounds): 173 Objective General Appearance: WD/WN, alert Neck: supple Cardiovascular: regular rhythm Respiratory/Chest: lungs clear, normal breath sounds, no respiratory distress, no accessory muscle use Abdomen: normal bowel sounds, non tender, soft, no organomegaly, no mass Edema: no edema noted Arm (L), no edema noted Arm (R), no edema noted Leg (L), no edema noted Leg (R), no edema noted Pedal (L), no edema noted Pedal (R), no edema noted 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
[2016-09-16] MEDS: Epogen (for ESRD on dialysis) SUBQ SCH (21:00)
[2016-09-16] MEDS ORDERED: Iron Sucrose 100 MG in NS 55 ML IVPB ONE (21:00)
--- NOTE | 2016-09-16 21:28 | General Progress Note ---
Assessment/Plan Assessment/Plan Assessment - Chronic diarrhea - C Diff (+) - Anemia - Renal failure - Epilepsy - s/p gastric bypass surgery Recommendation - Finish course of vanco and flagyl - follow symptoms - check path Subjective Allergies: Coded Allergies: No Known Allergies (Unverified , 11/13/12) Subjective Feels OK tolerating PO Path pending BM 2 x /d - loose and at baseline Objective Last 24 Hour Vital Signs Date Time Temp Pulse Resp B/P Pulse Ox O2 Delivery O2 Flow Rate FiO2 09/16/16 16:00 98.6 90 20 98/47 98 Room Air 09/16/16 12:00 98.2 96 18 116/68 97 Room Air 09/16/16 10:25 91 115/53 09/16/16 09:23 Room Air 09/16/16 09:21 97.0 82 18 112/50 98 Room Air 09/16/16 08:08 97.9 94 18 100/92 98 Room Air 09/16/16 05:30 97.4 93 20 127/74 Room Air 09/16/16 05:30 Room Air 09/16/16 04:00 97.6 96 18 99/56 95 Room Air 09/16/16 00:00 97.8 94 18 95/54 95 Room Air Intake and Output 09/15/16 09/16/16 19:00 07:00 Intake Total 970 ml 615 ml Balance 970 ml 615 ml Intake Oral 720 ml 615 ml Blood Product 250 ml # Voids 4 Height (Feet): 5 Height (Inches): 5.00 Weight (Pounds): 173 Objective WDWN NCAT supple CTA RRR soft NT ND No edema NILTON MERINO Sep 16, 2016 21:28
[2016-09-17] VITALS: BP 107/56
[2016-09-17] MEDS: DiphenhydrAMINE 50mg/ml Inj IVP PRN ×2 (01:31→08:27)
[2016-09-17 04:00] VITALS: BP 109/58
[2016-09-17] MEDS: metroNIDAZOLE 500mg 100 ML IVPB SCH ×2 (06:25→14:00)
[2016-09-17] MEDS: NovoLOG Insulin Flexpen SUBQ SCH ×4 (06:25→21:00)
[2016-09-17 06:34] LABS: BASOPHILS % (AUTO) 1.2 % (0.0-2.0); EOSINOPHILS % (AUTO) 3.7 % (0.0-3.0); LYMPHOCYTES % (AUTO) 27.4 % (20.0-45.0); MEAN CORPUSCULAR HEMOGLOBIN 31.7 PG (27.0-31.0); MEAN CORPUSCULAR HGB CONC 31.8 G/DL (32.0-36.0); MEAN CORPUSCULAR VOLUME 100 FL (80-99); MONOCYTES % (AUTO) 8.8 % (1.0-10.0); NEUTROPHILS % (AUTO) 58.9 % (45.0-75.0); PLATELET COUNT 350 K/UL (150-450); RED BLOOD COUNT 2.73 M/UL (4.20-5.40); RED CELL DISTRIBUTION WIDTH 20.6 % (11.6-14.8); WHITE BLOOD COUNT 8.6 K/UL (4.8-10.8)
[2016-09-17 07:58] VITALS: BP 101/64
[2016-09-17] MEDS: Aspirin EC 81mg tab ORAL SCH (09:24)
[2016-09-17] MEDS: Lactobacillus-GG tablet ORAL SCH ×3 (09:24→18:29)
[2016-09-17] MEDS: Pancrease Cap ORAL SCH ×3 (09:24→18:29)
[2016-09-17] MEDS: Vancomycin oral 125mg/2.5ml ORAL SCH ×4 (09:26→21:48)
[2016-09-17] MEDS: Triamcinolone 0.1% 15gm Cr TOPIC SCH ×3 (09:26→18:28)
[2016-09-17] MEDS: DiphenhydrAMINE & Zinc 28g Cream TOPIC SCH ×3 (09:26→18:29)
[2016-09-17 10:59] LABS: CALCIUM 7.9 mg/dL (8.6-10.2); CREATININE 5.6 mg/dL (0.5-0.9); GLOMERULAR FILTRATION RATE 9.5 mL/min (>60); POTASSIUM 4.5 mEQ/L (3.4-4.9)
[2016-09-17 12:00] VITALS: BP 113/67
[2016-09-17] MEDS: Morphine Sulfate 2mg/ml Inj IVP PRN (12:03)
[2016-09-17] MEDS: Cholestyramine 4gm Pkt ORAL PRN (12:10)
--- NOTE | 2016-09-17 12:22 | General Progress Note ---
Assessment/Plan Problem List: (1) Hypoglycemia following gastrointestinal surgery ICD Codes: K91.2 - Postsurgical malabsorption, not elsewhere classified SNOMED: 794279902, 79486227 (2) Hypoglycemia ICD Codes: E16.2 - Hypoglycemia, unspecified SNOMED: 487811900 (3) Altered level of consciousness ICD Codes: R40.4 - Transient alteration of awareness SNOMED: 3087513 (4) End stage renal disease on dialysis ICD Codes: N18.6 - End stage renal disease; Z99.2 - Dependence on renal dialysis SNOMED: 944370404 Status: stable, tolerating diet Assessment/Plan abx per id follow up colonscopy results monitor h/h transfuse as needed HD per renal monitor bs morphine for abd pain GI follow up. recommended snf- pt declines pt requesting short term aru at [facility]. Subjective ROS Limited/Unobtainable: No Constitutional: Reports: malaise, weakness HEENT: Reports: no symptoms Cardiovascular: Reports: no symptoms Respiratory: Reports: cough Gastrointestinal/Abdominal: Reports: diarrhea Genitourinary: Reports: no symptoms Neurologic/Psychiatric: Reports: pre-existing deficit, seizure Endocrine: Reports: no symptoms Hematologic/Lymphatic: Reports: anemia Allergies: Coded Allergies: No Known Allergies (Unverified , 11/13/12) All Systems: reviewed and negative except above Subjective less diarrhea. complaints of large blister on left foot. thinks diarrhea is improving gradually. Objective Last 24 Hour Vital Signs Date Time Temp Pulse Resp B/P Pulse Ox O2 Delivery O2 Flow Rate FiO2 09/17/16 07:58 98.1 89 20 101/64 99 Room Air 09/17/16 04:00 97.9 76 18 109/58 98 Room Air 09/17/16 00:00 98.1 78 18 107/56 98 Room Air 09/16/16 20:00 97.7 89 18 126/89 97 Room Air 09/16/16 16:00 98.6 90 20 98/47 98 Room Air Intake and Output 09/16/16 09/17/16 19:00 07:00 Intake Total 600 ml 1270 ml Output Total 700 ml Balance -100 ml 1270 ml Intake Oral 600 ml 930 ml IV Total 340 ml Output Hemodialysis UF 700 ml Laboratory Tests 09/17/16 05:20: White Blood Count 8.6, Red Blood Count 2.73L, Hemoglobin 8.6L, Hematocrit 27.2L , Mean Corpuscular Volume 100H, Mean Corpuscular Hemoglobin 31.7H, Mean Corpuscular Hemoglobin Concent 31.8L, Red Cell Distribution Width 20.6H, Platelet Count 350, Mean Platelet Volume 6.0L, Neutrophils (%) (Auto) 58.9, Lymphocytes (%) (Auto) 27.4, Monocytes (%) (Auto) 8.8, Eosinophils (%) (Auto) 3.7H, Basophils (%) (Auto) 1.2, Sodium Level 140, Potassium Level 4.5, Chloride Level 98, Carbon Dioxide Level 25, Anion Gap 17H, Blood Urea Nitrogen 40H, Creatinine 5.6H, Estimat Glomerular Filtration Rate 9.5, Glucose Level 73L, Calcium Level 7.9L Height (Feet): 5 Height (Inches): 5.00 Weight (Pounds): 173 Objective General Appearance: WD/WN, alert Neck: supple Cardiovascular: regular rhythm Respiratory/Chest: lungs clear, normal breath sounds, no respiratory distress, no accessory muscle use Abdomen: normal bowel sounds, non tender, soft, no organomegaly, no mass Edema: no edema noted Arm (L), no edema noted Arm (R), no edema noted Leg (L), no edema noted Leg (R), no edema noted Pedal (L), no edema noted Pedal (R), no edema noted 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
--- NOTE | 2016-09-17 14:22 | General Progress Note ---
Assessment/Plan Assessment/Plan Assessment - Chronic diarrhea - C Diff (+) - Rx'd - Anemia - Renal failure - Epilepsy - s/p gastric bypass surgery Recommendation - Finish course of vanco and flagyl - follow symptoms - Outpatient GI f/u for IBS - D treatment Subjective Allergies: Coded Allergies: No Known Allergies (Unverified , 11/13/12) Subjective Feels OK tolerating PO Path reviewed - normal BM 2 x /d - loose and at baseline d/w DTR Objective Last 24 Hour Vital Signs Date Time Temp Pulse Resp B/P Pulse Ox O2 Delivery O2 Flow Rate FiO2 09/17/16 12:00 97.5 83 19 113/67 100 Room Air 09/17/16 07:58 98.1 89 20 101/64 99 Room Air 09/17/16 04:00 97.9 76 18 109/58 98 Room Air 09/17/16 00:00 98.1 78 18 107/56 98 Room Air 09/16/16 20:00 97.7 89 18 126/89 97 Room Air 09/16/16 16:00 98.6 90 20 98/47 98 Room Air Intake and Output 09/16/16 09/17/16 19:00 07:00 Intake Total 600 ml 1270 ml Output Total 700 ml Balance -100 ml 1270 ml Intake Oral 600 ml 930 ml IV Total 340 ml Output Hemodialysis UF 700 ml Laboratory Tests 09/17/16 05:20: White Blood Count 8.6, Red Blood Count 2.73L, Hemoglobin 8.6L, Hematocrit 27.2L , Mean Corpuscular Volume 100H, Mean Corpuscular Hemoglobin 31.7H, Mean Corpuscular Hemoglobin Concent 31.8L, Red Cell Distribution Width 20.6H, Platelet Count 350, Mean Platelet Volume 6.0L, Neutrophils (%) (Auto) 58.9, Lymphocytes (%) (Auto) 27.4, Monocytes (%) (Auto) 8.8, Eosinophils (%) (Auto) 3.7H, Basophils (%) (Auto) 1.2, Sodium Level 140, Potassium Level 4.5, Chloride Level 98, Carbon Dioxide Level 25, Anion Gap 17H, Blood Urea Nitrogen 40H, Creatinine 5.6H, Estimat Glomerular Filtration Rate 9.5, Glucose Level 73L, Calcium Level 7.9L Height (Feet): 5 Height (Inches): 5.00 Weight (Pounds): 173 Objective WDWN NCAT supple CTA RRR soft NT ND No edema NILTON MERINO Sep 17, 2016 14:22
[2016-09-17] MEDS: Norco 5mg/325mg tab ORAL PRN ×2 (15:08→21:49)
[2016-09-17 16:28] VITALS: BP 113/64
[2016-09-17 20:20] VITALS: BP 90/50
--- NOTE | 2016-09-17 20:28 | Infectious Diseases Prog Note ---
Assessment/Plan Assessment/Plan A) 1) c.diff. colitis - + pcr - clinically improving - s/p colonoscopy, await biopsies/path 2) esrd, hd, anemia 3) sz, dm, htn, hhd, cva, ca, obesity 4) allergies - negative, fh-nc, sh-negative 5) mar noted, notes and records reviewed 6) d/w RN about colonoscopy 7) vre colonization P) 1) vancomycin po for one week more for 3 week total course c.diff. tx 2) check colonoscopy results/biopsies/path, gi f/u 3) patient may need eventual stool transplantation or fidaxomicin if has refractory c.diff. 4) continue treatment per primary and consultants 5) orders entered and noted 6) d/w patient 7) vre isolation 8) watch labs Subjective Constitutional: Reports: fatigue, Denies: fever HEENT: Denies: congestion Respiratory: Denies: shortness of breath Cardiovascular: Denies: chest pain Gastrointestinal/Abdominal: Reports: diarrhea, other - diarrhea resoved per patient , Denies: nausea, vomiting Neurologic: Denies: headache Psychiatric: Denies: depression Skin: Denies: rash Hematologic: Denies: bleeding Musculoskeletal: Denies: pain Allergies: Coded Allergies: No Known Allergies (Unverified , 11/13/12) Objective Vital Signs Last 24 Hour Vital Signs Date Time Temp Pulse Resp B/P Pulse Ox O2 Delivery O2 Flow Rate FiO2 09/17/16 20:20 97.7 83 19 90/50 95 Room Air 09/17/16 16:28 98.1 82 18 113/64 95 Room Air 09/17/16 16:07 97.5 09/17/16 12:00 97.5 83 19 113/67 100 Room Air 09/17/16 07:58 98.1 89 20 101/64 99 Room Air 09/17/16 04:00 97.9 76 18 109/58 98 Room Air 09/17/16 00:00 98.1 78 18 107/56 98 Room Air Height (Feet): 5 Height (Inches): 5.00 Weight (Pounds): 173 General Appearance: no acute distress HEENT: normocephalic, atraumatic, anicteric, mucous membranes moist, PERRL, EOMI, pharynx normal, supple, no JVD Respiratory/Chest: lungs clear, normal breath sounds, no respiratory distress, no accessory muscle use Cardiovascular: normal rate, regular rhythm, no gallop/murmur, no JVD Abdomen: normal bowel sounds, soft, non tender, no organomegaly, non distended Genitourinary: other - no blood Extremities: no cyanosis Skin: no rash 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 Complete 08/29/16 12:30 Stool Clostridium difficile Toxin Assay - Final Complete 08/28/16 08:06 Rectum VRE Culture - Final Enterococcus Faecium - Vre Complete Laboratory Tests Test 09/17/16 05:20 White Blood Count 8.6 K/UL (4.8-10.8) Red Blood Count 2.73 M/UL (4.20-5.40) L Hemoglobin 8.6 G/DL (12.0-16.0) L Hematocrit 27.2 % (37.0-47.0) L Mean Corpuscular Volume 100 FL (80-99) H Mean Corpuscular Hemoglobin 31.7 PG (27.0-31.0) H Mean Corpuscular Hemoglobin Concent 31.8 G/DL (32.0-36.0) L Red Cell Distribution Width 20.6 % (11.6-14.8) H Platelet Count 350 K/UL (150-450) Mean Platelet Volume 6.0 FL (6.5-10.1) L Neutrophils (%) (Auto) 58.9 % (45.0-75.0) Lymphocytes (%) (Auto) 27.4 % (20.0-45.0) Monocytes (%) (Auto) 8.8 % (1.0-10.0) Eosinophils (%) (Auto) 3.7 % (0.0-3.0) H Basophils (%) (Auto) 1.2 % (0.0-2.0) Sodium Level 140 mEQ/L (135-145) Potassium Level 4.5 mEQ/L (3.4-4.9) Chloride Level 98 mEQ/L (98-107) Carbon Dioxide Level 25 mEQ/L (20-30) Anion Gap 17 (5-15) H Blood Urea Nitrogen 40 mg/dL (7-23) H Creatinine 5.6 mg/dL (0.5-0.9) H Estimat Glomerular Filtration Rate 9.5 mL/min (>60) Glucose Level 73 mg/dL (74-106) L Calcium Level 7.9 mg/dL (8.6-10.2) L Current Medications Medications (Trade) Dose Ordered Sig/Nakul Route PRN Reason Start Time Stop Time Status Last Admin Dose Admin Acetaminophen (Tylenol) 650 mg Q4H PRN ORAL Mild Pain/Temp > 100.5 08/31/16 13:00 09/30/16 12:59 09/12/16 21:17 Acetaminophen/ Hydrocodone Bitart ([place] 5/325) 1 tab Q12H PRN ORAL Moderate Pain (Pain Scale 4-6) 09/14/16 17:38 09/21/16 15:59 09/17/16 15:08 Amylase/Lipase/ Protease (Pancrease) 2 ea THREE TIMES A DAY ORAL 08/31/16 13:30 09/30/16 13:29 09/17/16 18:29 Aspirin (Ecotrin) 81 mg DAILY ORAL 09/01/16 09:00 10/01/16 08:59 09/17/16 09:24 Cholestyramine Resin (Questran) 4 gm THREE TIMES A DAY PRN ORAL Diarrhea 08/31/16 13:00 09/30/16 12:59 09/17/16 12:10 Clopidogrel Bisulfate (Plavix) 75 mg DAILY ORAL 09/01/16 09:00 10/01/16 08:59 09/17/16 09:25 Dextrose (Dextrose 50%) STAT PRN IV Hypoglycemia 08/31/16 17:00 09/30/16 16:59 Diphenhydramine HCl (Benadryl Cream) 1 applic THREE TIMES A DAY TOPIC 09/01/16 09:00 10/01/16 08:59 09/17/16 18:29 Diphenhydramine HCl (Benadryl) 50 mg Q4H PRN IVP Itching 09/10/16 11:45 10/10/16 11:44 2/28/17 08:27 Diphenhydramine HCl (Benadryl) 50 mg Q6H PRN ORAL Itching 09/05/16 08:00 10/05/16 07:59 09/09/16 09:47 Diphenhydramine HCl (Benadryl) 75 mg HSPRN PRN ORAL Insomnia 08/31/16 19:15 09/30/16 19:14 09/14/16 21:32 Epoetin Alfonso (Procrit (for ESRD on dialysis)) 10,000 units FRI-FRI-FRI SUBQ 09/09/16 21:00 10/09/16 20:59 09/16/16 21:00 Gabapentin (Neurontin) 300 mg FRI-FRI-FRI ORAL 09/11/16 21:00 10/11/16 20:59 09/13/16 21:34 Insulin Aspart (NovoLOG) BEFORE MEALS AND HS SUBQ 08/31/16 16:30 09/30/16 16:29 09/16/16 12:21 Lactobacillus Acidophilus (Culturelle) 1 tab THREE TIMES A DAY ORAL 09/03/16 14:00 10/03/16 13:59 09/17/16 18:29 Metoclopramide HCl (Reglan) 10 mg Q8H PRN IVP Nausea & Vomiting 09/08/16 14:45 10/08/16 14:44 09/09/16 09:47 Morphine Sulfate (Morphine Sulfate) 1 mg Q6H PRN IVP Severe Pain (Pain Scale 7-10) 09/14/16 18:00 09/21/16 17:59 09/17/16 12:03 Ondansetron HCl (Zofran) 4 mg Q6H PRN IVP Nausea & Vomiting 08/31/16 18:00 09/30/16 17:59 09/08/16 09:14 Sevelamer Carbonate (Renvela) 800 mg THREE TIMES A DAY ORAL 08/31/16 13:30 09/30/16 13:29 09/17/16 18:29 Triamcinolone Acetonide (Kenalog) 1 applic THREE TIMES A DAY TOPIC 09/04/16 10:30 10/04/16 10:29 09/17/16 18:28 Vancomycin HCl (Vancomycin) 250 mg QID ORAL 09/14/16 18:00 09/21/16 23:59 09/17/16 18:29 MAGDALENO JIMÉNEZ Sep 17, 2016 20:28
--- NOTE | 2016-09-17 22:07 | Nephrology Progress Note ---
Assessment/Plan Problem List: (1) Orthostatic hypotension (2) C. difficile colitis (3) End stage renal disease on dialysis (4) Epilepsy (5) Anemia in chronic kidney disease (6) Hypopotassemia Plan less diarrhea. history of low bp and amlodipine stopped as prior syncope. Stop lisinopril and florinef 09/02. Gabapentin dose reduced in eskd. Dialysis 09/16 stable on hd--, 4 K bath as K low increase epogen, next HD 09/18, tolerates anemia which should improve with epogen, blood tubing not compatible with dialysis and no peripheral vein access for transfusion Subjective Constitutional: Reports: weakness HEENT: Reports: no symptoms Genitourinary: Reports: no symptoms Neurologic/Psychiatric: Reports: no symptoms Subjective no diarrhea so far, no sob or angina , eating no emesis Objective Objective Last 24 Hour Vital Signs Date Time Temp Pulse Resp B/P Pulse Ox O2 Delivery O2 Flow Rate FiO2 09/17/16 20:20 97.7 83 19 90/50 95 Room Air 09/17/16 16:28 98.1 82 18 113/64 95 Room Air 09/17/16 16:07 97.5 09/17/16 12:00 97.5 83 19 113/67 100 Room Air 09/17/16 07:58 98.1 89 20 101/64 99 Room Air 09/17/16 04:00 97.9 76 18 109/58 98 Room Air 09/17/16 00:00 98.1 78 18 107/56 98 Room Air Intake and Output 09/16/16 09/17/16 19:00 07:00 Intake Total 600 ml 1270 ml Output Total 700 ml Balance -100 ml 1270 ml Intake Oral 600 ml 930 ml IV Total 340 ml Output Hemodialysis UF 700 ml Laboratory Tests 09/17/16 05:20: White Blood Count 8.6, Red Blood Count 2.73L, Hemoglobin 8.6L, Hematocrit 27.2L , Mean Corpuscular Volume 100H, Mean Corpuscular Hemoglobin 31.7H, Mean Corpuscular Hemoglobin Concent 31.8L, Red Cell Distribution Width 20.6H, Platelet Count 350, Mean Platelet Volume 6.0L, Neutrophils (%) (Auto) 58.9, Lymphocytes (%) (Auto) 27.4, Monocytes (%) (Auto) 8.8, Eosinophils (%) (Auto) 3.7H, Basophils (%) (Auto) 1.2, Sodium Level 140, Potassium Level 4.5, Chloride Level 98, Carbon Dioxide Level 25, Anion Gap 17H, Blood Urea Nitrogen 40H, Creatinine 5.6H, Estimat Glomerular Filtration Rate 9.5, Glucose Level 73L, Calcium Level 7.9L Height (Feet): 5 Height (Inches): 5.00 Weight (Pounds): 173 General Appearance: WD/WN, no apparent distress EENT: PERRL/EOMI, normal ENT inspection Cardiovascular: normal rate, regular rhythm Respiratory/Chest: lungs clear Abdomen: non tender, soft, no organomegaly Extremities: trace edema 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
[2016-09-18] VITALS (7 sets, daily range): BP systolic 98–123; BP diastolic 50–68
--- NOTE | 2016-09-18 04:18 | Progress Note ---
DATE: 09/15/2016 CARDIOLOGY PROGRESS NOTE Late entry for 09/15/2016. SUBJECTIVE: The patient continues to have episodes of diarrhea and abdominal pain. Biopsy results from the colonoscopy are pending. The patient remains with low range blood pressure at times. OBJECTIVE: VITAL SIGNS: Blood pressure 101/54, pulse 98, and respirations 18. LUNGS: Clear. CARDIAC: Regular. ABDOMEN: Soft. Slight diffuse tenderness. No guarding. EXTREMITIES: Without edema. LABORATORY DATA: White count 9.6, hemoglobin 7.1. Potassium 3, BUN 38, and creatinine 6.2. IMPRESSION: 1. Clostridium difficile colitis. 2. Persistent diarrhea. 3. Hypokalemia. 4. End-stage renal disease. 5. Dehydration and hypernatremia. 6. Severe anemia. 7. Severe protein-calorie malnutrition. PLAN: 1. Volume support cautious. 2. Hemodialysis without ultrafiltration. 3. Adjust potassium bath. 4. Free water replacement. 5. Follow up biopsy results. 6. Holding all antihypertensives. 7. Glucose monitoring. Martín Walker M.D. DR: DANIELLE JOB#: [id number] CC:
--- NOTE | 2016-09-18 05:08 | Progress Note ---
DATE: 09/17/2016 CARDIOLOGY PROGRESS NOTE: SUBJECTIVE: Condition largely unchanged. Diarrhea remains an issue slightly improving however blood pressure more stable 101/64, pulse 89, respiration 20. The patient received a packed red blood cell transfusion two days ago. OBJECTIVE: NECK: Supple. LUNGS: Clear. CARDIAC: Regular. Normal S1, S2 with a fourth heart sound. ABDOMEN: Soft. EXTREMITIES: No edema. IMPRESSION: 1. Blood pressure parameters improving, but remain on low range. 2. Diarrhea decreasing due to Clostridium difficile. 3. Intravascular hypovolemia recovering. 4. Anemia multifactorial requiring transfusions periodically. PLAN: Rehabilitation, transfuse as needed. Hemodialysis without ultrafiltration. Glucose monitoring with insulin by sliding scale only holding antihypertensives. Martín Walker M.D. DR: BENJI JOB#: [id number] CC:
--- NOTE | 2016-09-18 05:18 | Progress Note ---
DATE: 09/16/2016 CARDIOLOGY PROGRESS NOTE SUBJECTIVE: The patient received packed red blood cell transfusion yesterday for severe hemoglobin level of only 7.2. She denies chest pain or shortness of breath. Diarrhea persists, but is improving. OBJECTIVE: VITAL SIGNS: Blood pressure 116/68, pulse 96, and respiratory rate 18. NECK: Supple. LUNGS: Clear. CARDIAC: Regular. ABDOMEN: Soft. EXTREMITIES: No edema. IMPRESSION: 1. Slow progress. 2. Severe functional decline. 3. Stabilizing clinical parameters. PLAN: 1. Continue to hold cardiac medications. 2. Insulin by sliding scale coverage only. 3. Hemodialysis with limited ultrafiltration based on clinical parameters. 4. Transfuse for hemoglobin less than 8 g. 5. Continue Epogen and and iron. 6. Followup biopsies of the colon. 7. Rehab evaluation is pending. Martín Walker M.D. DR: LORRI JOB#: [id number] CC:
[2016-09-18] MEDS: NovoLOG Insulin Flexpen SUBQ SCH ×4 (06:30→21:00)
[2016-09-18] MEDS ORDERED: RENVELA800 MG ORAL (07:50)
[2016-09-18] MEDS ORDERED: PANCREASE1 EA ORAL (07:50)
[2016-09-18] MEDS ORDERED: PLAVIX75 MG ORAL (07:50)
[2016-09-18] MEDS ORDERED: VANCOMYCIN250 MG/5 M ORAL (07:50)
[2016-09-18] MEDS ORDERED: BENADRYL CRE1 APPLIC TOPIC (07:50)
[2016-09-18] MEDS ORDERED: PROCRIT20000 UNI2 SUBQ (07:50)
[2016-09-18] MEDS ORDERED: BENADRYL25 MG ORAL (07:50)
[2016-09-18] MEDS ORDERED: CULTURELLE1 EACH ORAL (07:50)
[2016-09-18] MEDS ORDERED: NOVOLOG100 UNITS1 SUBQ (07:50)
[2016-09-18] MEDS ORDERED: NEURONTIN300 MG ORAL (07:50)
[2016-09-18] MEDS ORDERED: BENADRYL50 MG ORAL (07:50)
[2016-09-18] MEDS ORDERED: KENALOG 0.1% CR15 GM TOPIC (07:50)
[2016-09-18] MEDS ORDERED: ASPIRIN EC81 MG ORAL (07:50)
[2016-09-18] MEDS: Pancrease Cap ORAL SCH ×3 (09:34→18:57)
[2016-09-18] MEDS: Lactobacillus-GG tablet ORAL SCH ×3 (09:34→18:57)
[2016-09-18] MEDS: Aspirin EC 81mg tab ORAL SCH (09:34)
[2016-09-18] MEDS: Morphine Sulfate 2mg/ml Inj IVP PRN (09:34)
[2016-09-18] MEDS: Triamcinolone 0.1% 15gm Cr TOPIC SCH ×3 (09:35→19:43)
[2016-09-18] MEDS: DiphenhydrAMINE & Zinc 28g Cream TOPIC SCH ×3 (09:35→18:59)
[2016-09-18] MEDS: Vancomycin oral 125mg/2.5ml ORAL SCH ×4 (09:57→20:58)
[2016-09-18] MEDS: Norco 5mg/325mg tab ORAL PRN (09:57)
--- NOTE | 2016-09-18 13:06 | Infectious Diseases Prog Note ---
Assessment/Plan Assessment/Plan A) 1) c.diff. colitis - + pcr - clinically improving, much less diarrhea - s/p colonoscopy, await biopsies/path 2) esrd, hd, anemia 3) sz, dm, htn, hhd, cva, ca, obesity 4) allergies - negative, fh-nc, sh-negative 5) mar noted, notes and records reviewed 6) d/w RN about colonoscopy 7) vre colonization P) 1) vancomycin po for 6 days more for 3 week total course c.diff. tx 2) check colonoscopy results/biopsies/path, gi f/u 3) left foot with blister - consider podiatry evaluation, local skin care, ? wound evaluation 4) continue treatment per primary and consultants 5) orders entered and noted 6) d/w patient 7) vre isolation 8) watch labs Subjective Constitutional: Denies: fever HEENT: Denies: congestion Respiratory: Denies: shortness of breath Cardiovascular: Denies: chest pain Gastrointestinal/Abdominal: Reports: diarrhea - diarrhea much less, Denies: nausea, vomiting Genitourinary: Reports: other - no blood, Denies: dysuria, hematuria Neurologic: Denies: headache Psychiatric: Denies: depression Skin: Denies: rash Hematologic: Denies: bleeding Musculoskeletal: Denies: pain Allergies: Coded Allergies: No Known Allergies (Unverified , 11/13/12) Objective Vital Signs Last 24 Hour Vital Signs Date Time Temp Pulse Resp B/P Pulse Ox O2 Delivery O2 Flow Rate FiO2 09/18/16 10:04 97.0 09/18/16 09:23 Room Air 09/18/16 09:22 97.0 89 20 123/68 98 Room Air 09/18/16 08:00 97.2 88 20 110/60 97 Room Air 09/18/16 05:30 Room Air 09/18/16 05:00 97.7 81 20 110/66 100 Room Air 09/18/16 00:00 97.9 87 21 98/59 97 Room Air 09/17/16 20:20 97.7 83 19 90/50 95 Room Air 09/17/16 16:28 98.1 82 18 113/64 95 Room Air Height (Feet): 5 Height (Inches): 5.00 Weight (Pounds): 173 General Appearance: no acute distress HEENT: normocephalic, atraumatic, anicteric, mucous membranes moist, PERRL, EOMI, pharynx normal, supple, no JVD Respiratory/Chest: lungs clear, normal breath sounds, no respiratory distress, no accessory muscle use Cardiovascular: normal rate, regular rhythm, no gallop/murmur, no JVD Abdomen: normal bowel sounds, soft, non tender, no organomegaly, non distended Genitourinary: other - no blood Extremities: no cyanosis, other - left foot with blister but no cellulitis or pus Skin: no rash 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 Complete 08/29/16 12:30 Stool Clostridium difficile Toxin Assay - Final Complete 08/28/16 08:06 Rectum VRE Culture - Final Enterococcus Faecium - Vre Complete Labs Test 09/17/16 05:20 White Blood Count 8.6 K/UL (4.8-10.8) Red Blood Count 2.73 M/UL (4.20-5.40) Hemoglobin 8.6 G/DL (12.0-16.0) Hematocrit 27.2 % (37.0-47.0) Mean Corpuscular Volume 100 FL (80-99) Mean Corpuscular Hemoglobin 31.7 PG (27.0-31.0) Mean Corpuscular Hemoglobin Concent 31.8 G/DL (32.0-36.0) Red Cell Distribution Width 20.6 % (11.6-14.8) Platelet Count 350 K/UL (150-450) Mean Platelet Volume 6.0 FL (6.5-10.1) Neutrophils (%) (Auto) 58.9 % (45.0-75.0) Lymphocytes (%) (Auto) 27.4 % (20.0-45.0) Monocytes (%) (Auto) 8.8 % (1.0-10.0) Eosinophils (%) (Auto) 3.7 % (0.0-3.0) Basophils (%) (Auto) 1.2 % (0.0-2.0) Sodium Level 140 mEQ/L (135-145) Potassium Level 4.5 mEQ/L (3.4-4.9) Chloride Level 98 mEQ/L (98-107) Carbon Dioxide Level 25 mEQ/L (20-30) Anion Gap 17 (5-15) Blood Urea Nitrogen 40 mg/dL (7-23) Creatinine 5.6 mg/dL (0.5-0.9) Estimat Glomerular Filtration Rate 9.5 mL/min (>60) Glucose Level 73 mg/dL (74-106) Calcium Level 7.9 mg/dL (8.6-10.2) Current Medications Medications (Trade) Dose Ordered Sig/Nakul Route PRN Reason Start Time Stop Time Status Last Admin Dose Admin Acetaminophen (Tylenol) 650 mg Q4H PRN ORAL Mild Pain/Temp > 100.5 08/31/16 13:00 09/30/16 12:59 09/12/16 21:17 Acetaminophen/ Hydrocodone Bitart ([place] 5/325) 1 tab Q12H PRN ORAL Moderate Pain (Pain Scale 4-6) 09/14/16 17:38 09/21/16 15:59 09/18/16 09:57 Amylase/Lipase/ Protease (Pancrease) 2 ea THREE TIMES A DAY ORAL 08/31/16 13:30 09/30/16 13:29 09/18/16 09:34 Aspirin (Ecotrin) 81 mg DAILY ORAL 09/01/16 09:00 10/01/16 08:59 09/18/16 09:34 Cholestyramine Resin (Questran) 4 gm THREE TIMES A DAY PRN ORAL Diarrhea 08/31/16 13:00 09/30/16 12:59 09/17/16 12:10 Clopidogrel Bisulfate (Plavix) 75 mg DAILY ORAL 09/01/16 09:00 10/01/16 08:59 09/18/16 09:34 Dextrose (Dextrose 50%) STAT PRN IV Hypoglycemia 08/31/16 17:00 09/30/16 16:59 Diphenhydramine HCl (Benadryl Cream) 1 applic THREE TIMES A DAY TOPIC 09/01/16 09:00 10/01/16 08:59 09/18/16 09:35 Diphenhydramine HCl (Benadryl) 50 mg Q4H PRN IVP Itching 09/10/16 11:45 10/10/16 11:44 09/17/16 08:27 Diphenhydramine HCl (Benadryl) 50 mg Q6H PRN ORAL Itching 09/05/16 08:00 10/05/16 07:59 09/18/16 09:57 Diphenhydramine HCl (Benadryl) 75 mg HSPRN PRN ORAL Insomnia 08/31/16 19:15 09/30/16 19:14 09/17/16 21:48 Epoetin Alfonso (Procrit (for ESRD on dialysis)) 10,000 units FRI-FRI-FRI SUBQ 09/09/16 21:00 10/09/16 20:59 09/16/16 21:00 Gabapentin (Neurontin) 300 mg ORAL 09/11/16 21:00 10/11/16 20:59 09/13/16 21:34 Heparin Sodium (Porcine) (Heparin Sod 1000 units/ml 10ml) 500 unit ONCE ONCE IV 09/18/16 22:15 09/18/16 22:16 Insulin Aspart (NovoLOG) BEFORE MEALS AND HS SUBQ 08/31/16 16:30 09/30/16 16:29 09/18/16 12:01 Lactobacillus Acidophilus (Culturelle) 1 tab THREE TIMES A DAY ORAL 09/03/16 14:00 10/03/16 13:59 09/18/16 09:34 Metoclopramide HCl (Reglan) 10 mg Q8H PRN IVP Nausea & Vomiting 09/08/16 14:45 10/08/16 14:44 09/09/16 09:47 Morphine Sulfate 1 mg 1 mg Q6H PRN IVP Severe Pain (Pain Scale 7-10) 09/14/16 18:00 09/21/16 17:59 09/17/16 12:03 Ondansetron HCl (Zofran) 4 mg Q6H PRN IVP Nausea & Vomiting 08/31/16 18:00 09/30/16 17:59 09/08/16 09:14 Sevelamer Carbonate (Renvela) 800 mg THREE TIMES A DAY ORAL 08/31/16 13:30 09/30/16 13:29 09/18/16 09:34 Sodium Chloride (Sodium Chloride 1000ml bag) 1,000 ml @ 500 mls/hr Q2H PRN IVLG sbp<90 during hd 09/18/16 22:07 10/18/16 22:06 Triamcinolone Acetonide (Kenalog) 1 applic THREE TIMES A DAY TOPIC 09/04/16 10:30 10/04/16 10:29 09/18/16 09:35 Vancomycin HCl (Vancomycin) 250 mg QID ORAL 09/14/16 18:00 09/21/16 23:59 09/18/16 09:57 MAGDALENO JIMÉNEZ Sep 18, 2016 13:06
[2016-09-18] MEDS ORDERED: Norco 5mg/325mg tab ORAL PRN (14:30)
--- NOTE | 2016-09-18 18:35 | General Progress Note ---
Assessment/Plan Assessment/Plan Assessment - Chronic diarrhea - C Diff (+) - Rx'd - Anemia - Renal failure - Epilepsy - s/p gastric bypass surgery Recommendation - Finish course of vanco and flagyl - follow symptoms - Outpatient GI f/u for IBS - D treatment - patient has my office info Subjective Allergies: Coded Allergies: No Known Allergies (Unverified , 11/13/12) Subjective Feels OK tolerating PO Path reviewed - normal BM 2 x /d - loose and at baseline d/w DTR Objective Last 24 Hour Vital Signs Date Time Temp Pulse Resp B/P Pulse Ox O2 Delivery O2 Flow Rate FiO2 09/18/16 16:00 98.2 101 17 109/64 95 Room Air 09/18/16 12:00 98.2 80 20 100/50 90 Room Air 09/18/16 10:04 97.0 09/18/16 09:23 Room Air 09/18/16 09:22 97.0 89 20 123/68 98 Room Air 09/18/16 08:00 97.2 88 20 110/60 97 Room Air 09/18/16 05:30 Room Air 09/18/16 05:00 97.7 81 20 110/66 100 Room Air 09/18/16 00:00 97.9 87 21 98/59 97 Room Air 09/17/16 20:20 97.7 83 19 90/50 95 Room Air Intake and Output 09/17/16 09/18/16 19:00 07:00 Intake Total 700 ml 480 ml Balance 700 ml 480 ml Intake Oral 700 ml 480 ml # Voids 3 # Bowel Movements 3 Height (Feet): 5 Height (Inches): 5.00 Weight (Pounds): 173 Objective WDWN NCAT supple CTA RRR soft NT ND No edema NILTON MERINO Sep 18, 2016 18:35
[2016-09-18] MEDS: Epogen (for ESRD on dialysis) SUBQ SCH (20:59)
--- NOTE | 2016-09-18 21:23 | Nephrology Progress Note ---
Assessment/Plan Problem List: (1) Orthostatic hypotension (2) C. difficile colitis (3) End stage renal disease on dialysis (4) Epilepsy (5) Anemia in chronic kidney disease (6) Hypopotassemia Plan less diarrhea. history of low bp and amlodipine stopped as prior syncope. Stop lisinopril and florinef 09/02. Gabapentin dose reduced in eskd. Dialysis 09/18 stable on hd--, increase epogen, next HD 09/18, tolerates anemia which should improve with epogen, blood tubing not compatible with dialysis and no peripheral vein access for transfusion Subjective Constitutional: Reports: weakness HEENT: Reports: no symptoms Genitourinary: Reports: no symptoms Neurologic/Psychiatric: Reports: no symptoms Subjective no diarrhea so far, no sob or angina , eating no emesis Objective Objective Last 24 Hour Vital Signs Date Time Temp Pulse Resp B/P Pulse Ox O2 Delivery O2 Flow Rate FiO2 09/18/16 20:00 98.1 89 17 108/62 97 Room Air 09/18/16 16:00 98.2 101 17 109/64 95 Room Air 09/18/16 12:00 98.2 80 20 100/50 90 Room Air 09/18/16 10:04 97.0 09/18/16 09:23 Room Air 09/18/16 09:22 97.0 89 20 123/68 98 Room Air 09/18/16 08:00 97.2 88 20 110/60 97 Room Air 09/18/16 05:30 Room Air 09/18/16 05:00 97.7 81 20 110/66 100 Room Air 09/18/16 00:00 97.9 87 21 98/59 97 Room Air Intake and Output 09/17/16 09/18/16 19:00 07:00 Intake Total 700 ml 480 ml Balance 700 ml 480 ml Intake Oral 700 ml 480 ml # Voids 3 # Bowel Movements 3 Height (Feet): 5 Height (Inches): 5.00 Weight (Pounds): 173 General Appearance: no apparent distress, alert, overweight EENT: normal ENT inspection Neck: normal alignment Cardiovascular: normal rate, regular rhythm Respiratory/Chest: lungs clear Abdomen: non tender, soft Extremities: normal capillary refill, trace edema 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
[2016-09-18] MEDS ORDERED: Heparin Sod 1000 units/ml 10ml IV ONE (22:15)
--- NOTE | 2016-09-19 02:28 | Progress Note ---
DATE: 09/18/2016 CARDIOLOGY PROGRESS NOTE: SUBJECTIVE: The patient is comfortable, tolerating oral intake. Diarrhea seems much better controlled. OBJECTIVE: VITAL SIGNS: She is afebrile, blood pressure 109/64, respiratory 17, and heart rate 80 to 101. NECK: Supple. LUNGS: Clear. CARDIAC: Regular. Normal S1, S2. ABDOMEN: Soft. No edema. DIAGNOSTIC DATA: Colon biopsies are negative. IMPRESSION: Improved. PLAN: Stable for rehabilitation at [facility] facility. We will need to continue on hold with regard to antihypertensive and anti failure drugs due to persistently low blood pressure. Hemodialysis and ultrafiltration will be continued and titration of diabetic therapy as intake improves. Martín Walker M.D. DR: Maricel JOB#: [id number] CC:
--- NOTE | 2016-09-20 20:44 | Discharge Summary ---
Discharge Summary Hospital Course Date of Admission Aug 28, 2016 at 06:52 Date of Discharge Sep 18, 2016 at 21:45 Admitting Diagnosis esrd,hypoglycemia HPI Karishma Puri is a 61 year old female who was admitted on Aug 28, 2016 at 06 :52 for End Stage Renail Failure,Hypoglycemia Hospital Course [id number] Discharge Discharge Disposition Patient was discharged to SNF/Subacute Facility(03) Discharge Diagnoses: Shannan Dunham NP Sep 20, 2016 20:44
--- NOTE | 2016-09-21 02:58 | Discharge Summary 2 SIG ---
DATE OF ADMISSION: 08/28/2016 DATE OF DISCHARGE: 09/18/2016 CONSULTANTS: 1. Silvano Hatfield M.D. 2. Stewart Nolen M.D. 3. Stefanie Eckert M.D. 4. Carlos Enrique Gonzalez M.D. BRIEF HOSPITAL COURSE: The patient is a very pleasant 61-year-old female with history of end-stage renal disease, hypertension, diabetes, hypertensive heart disease, stroke, seizure disorder, and prior history of gastric bypass. She was admitted after family found her confused and altered and was noted to be hypoglycemic at that time. She has been ill for the past two weeks with some type of gastrointestinal illness and was noted to have diarrhea, nausea, and vomiting. She was admitted for further management. She was given cautious hydration. Blood glucose was monitored and she was followed up by Dr. Gonzalez for inpatient hemodialysis. She continued to have diarrhea despite being on Flagyl. The patient was given p.o. vancomycin and has been on Questran and probiotic. She underwent upper gastrointestinal endoscopy with biopsy as well as colonoscopy with biopsy on 09/12/[address] Eckert. EGD showed status post Edgar-en-Y gastric bypass anatomy with 7 cm gastric pouch and 2 cm gastrojejunal anastomosis. Colonoscopy was normal, status post biopsy of the right colon and left colon, and rectosigmoid colon. She had an episode of anemia and was given two units of packed RBC transfusion during hospital stay and was given Epogen and iron. She was eventually discharged to senior living facility and need to continue to hold antihypertensive and anti-failure drugs due to persistently low blood pressure. Hemodialysis and ultrafiltration will be continued as well as titration of diabetic therapy as p.o. intake improves. She was eventually discharged to SNF. FINAL DIAGNOSES: 1. Diarrhea due to Clostridium difficile colitis. 2. Intravascular hypovolemia. 3. Acute anemia multifactorial requiring transfusions. 4. Severe protein-calorie malnutrition. 5. Severe acute anemia. 6. End-stage renal disease. 7. Hypernatremia and dehydration. 8. Hypokalemia. 9. Status post esophagogastroduodenoscopy and colonoscopy. 10. Dry scabs on the foot, present on admission. Martín Walker M.D. I have been assigned to dictate discharge summary on this account and I was not involved in the patient's management. Shannan Dunham N.P. DR: JOSE JOB#: [id number] CC: ADIEL
== END 2016-09-18 21:45 | DRG 371 ==
LOC: EDBD 06:04 → EMR 06:28 → 2W 06:52 → EDBEDREQ 07:24 → 2W 15:37 → 4W 08-31 12:38
PROC: 30233N1 Transfusion of Nonautologous Red Blood Cells into Peripheral Vein, Percutaneous Approach (ICD-10-PCS; 2016-09-09)
PROC: 0DB88ZX Excision of Small Intestine, Via Natural or Artificial Opening Endoscopic, Diagnostic (ICD-10-PCS; principal; 2016-09-12 07:56)
PROC: 0DBE8ZX Excision of Large Intestine, Via Natural or Artificial Opening Endoscopic, Diagnostic (ICD-10-PCS; principal; 2016-09-12 07:56)
DX: A04.7 Enterocolitis due to Clostridium difficile (principal); E43 Unspecified severe protein-calorie malnutrition; G92 Toxic encephalopathy; I50.33 Acute on chronic diastolic (congestive) heart failure; E87.0 Hyperosmolality and hypernatremia; K91.2 Postsurgical malabsorption, not elsewhere classified; N18.6 End stage renal disease; E86.0 Dehydration; I13.2 Hypertensive heart and chronic kidney disease with heart failure and with stage 5 chronic kidney disease, or end stage renal disease; E11.649 Type 2 diabetes mellitus with hypoglycemia without coma; E86.1 Hypovolemia; Z99.2 Dependence on renal dialysis; I69.919 Unspecified symptoms and signs involving cognitive functions following unspecified cerebrovascular disease; F01.50 Vascular dementia, unspecified severity, without behavioral disturbance, psychotic disturbance, mood disturbance, and anxiety; E16.2 Hypoglycemia, unspecified; Z98.84 Bariatric surgery status; Z79.02 Long term (current) use of antithrombotics/antiplatelets; Z85.9 Personal history of malignant neoplasm, unspecified; I95.1 Orthostatic hypotension; G40.909 Epilepsy, unspecified, not intractable, without status epilepticus; D63.1 Anemia in chronic kidney disease; Z16.22 Resistance to vancomycin related antibiotics; K52.9 Noninfective gastroenteritis and colitis, unspecified; R00.0 Tachycardia, unspecified; E87.6 Hypokalemia
CPT/HCPCS: 36415; 71010; 80048; 80053; 82270; 82550; 82553; 82962; 83735; 83880; 84100; 84484; 85007; 85025; 85610; 85730; 86850; 86900; 86901; 86920; 87040; 87081; 87493; 93005; 94003; 94150; J1815; J2405; J2765; J8499

== ENCOUNTER 2017-08-19 22:08 | Inpatient (IN) | payer MEDICARE, OTHER ==
[~2017-08-19] VITALS: Ht 162.6 cm; Wt 82.6 kg
[~2017-08-19 22:08] MED LIST changes: +ASPIRIN EC81 MG ORAL; +BACTRIM DS TAB1 EAC1 ORAL; +BENADRYL CRE1 APPLIC TOPIC; +BENADRYL25 MG ORAL; +BENADRYL50 MG ORAL; +CLOPIDOGREL75 MG ORAL; +CREON DR 36,001 EACH PO; +CULTURELLE1 EACH ORAL; +FLUDROCORTISON0.1 MG PO; +KENALOG 0.1% CR15 GM TOPIC; +LOMOTIL TABLET1 EACH ORAL; +NEURONTIN300 MG ORAL; +NOVOLOG100 UNITS1 SUBQ; +PANCREASE1 EA ORAL; +PANTOPRAZOLE SO40 MG ORAL; +PLAVIX75 MG ORAL; +PROCRIT20000 UNI2 SUBQ; +RENVELA0.8 GM ORAL; +RENVELA800 MG ORAL; +VANCOMYCIN250 MG/5 M ORAL; +VELPHORO500 MG PO
--- NOTE | 2017-08-19 23:02 | Emergency Room Report ---
History of Present Illness General Chief Complaint: Seizure Source: Patient, EMS Present Illness HPI 62-year-old female, history of end-stage renal disease on dialysis Friday, last dialysis was today, on aspirin and Plavix, history of seizures on Keppra, presenting with seizure. EMS states patient had a witnessed generalized tonic-clonic seizure, but onto floor, lasted less than 5 minutes. Patient does not recall event. No tongue biting or incontinence. States her last seizure was more than a month ago. States that she only gets them once in a while. Has been compliant with her medications. No current fever chills headache chest pain nausea vomiting diarrhea Daughter states that the patient's seizure lasted about 2-3 minutes. She fell onto floor as she was trying to walk with a walker prior to that. Also states that patient has been feeling very weak, not eating for the last week Allergies: Coded Allergies: No Known Allergies (Unverified , 11/13/12) Patient History Past Medical History: see triage record Past Surgical History: none Pertinent Family History: none Reviewed Nursing Documentation: PMH: Agreed, PSxH: Agreed Nursing Documentation-PMH Hx Cardiac Problems: Yes Hx Hypertension: Yes Hx Diabetes: Yes Hx Cancer: Yes Hx Gastrointestinal Problems: Yes - ckd, esrd Hx Dialysis: Yes - ESRD Hx Neurological Problems: Yes Hx Cerebrovascular Accident: Yes Hx Seizures: Yes Review of Systems All Other Systems: negative except mentioned in HPI Physical Exam Vital Signs Date Time Temp Pulse Resp B/P (MAP) Pulse Ox O2 Delivery O2 Flow Rate FiO2 08/19/17 22:15 98.4 80 18 172/120 98 Room Air Sp02 EP Interpretation: reviewed, normal General Appearance: alert, GCS 15, non-toxic, mild distress, lethargic Head: normocephalic, atraumatic - no hematoma ecchymosis Eyes: bilateral eye normal inspection, bilateral eye PERRL, bilateral eye EOMI ENT: normal ENT inspection, normal pharynx, normal voice, moist mucus membranes Neck: normal inspection, full range of motion, supple Respiratory: normal inspection, lungs clear, normal breath sounds, no respiratory distress, no retraction, no wheezing, speaking full sentences, chest symmetrical Cardiovascular #1: normal inspection, regular rate, rhythm, normal capillary refill Cardiovascular #2: 2+ radial (R), 2+ radial (L) Gastrointestinal: normal inspection, non tender, soft, non-distended, no guarding Musculoskeletal: back normal, normal range of motion, non-tender, other - R arm with AV fistula Neurologic: normal inspection, alert, oriented x3, responsive, reproduction machine 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 dehydration vs. medication non compliance Electrolyte disturbance: hypoglycemia vs. hyponatremia vs. hypocalcemia vs. hypomagnesemia Cardiac: Arrythmia/acs Intracranial pathology: intracranial bleed, stroke also with generalized weakness: dehydration/electrolyte disturbance, uti/pna Plan: BGM EKG Labs Consider CT ER course: No further seizures in the emergency room, remains awake and alert. CT head neg Daughter saying that she is not eating or drinking at home Will admit to med surg Disposition: Patient will be admitted to med surg. JARED Hatfield EKG Diagnostic Results EP Interpretation: Yes Rate: normal Rhythm: NSR ST Segments: No acute changes ASA given to patient: No Rhythm Strip EP Interpretation: Yes Rate: 70 Rhythm: NSR, no PVCs, no ectopy Chest X-ray CXR: Ordered: Yes 1 view Indication: ams EP interpretation: Yes Interpretation: No consolidation, no effusion, no PTX, no acute cardiopulmonary disease Impression: No acute disease Electronically signed by Criselda Palafox MD Laboratory Tests Test 08/19/17 23:50 White Blood Count 12.6 K/UL (4.8-10.8) H Red Blood Count 3.33 M/UL (4.20-5.40) L Hemoglobin 9.9 G/DL (12.0-16.0) L Hematocrit 31.8 % (37.0-47.0) L Mean Corpuscular Volume 96 FL (80-99) Mean Corpuscular Hemoglobin 29.6 PG (27.0-31.0) Mean Corpuscular Hemoglobin Concent 31.0 G/DL (32.0-36.0) L Red Cell Distribution Width 15.9 % (11.6-14.8) H Platelet Count 251 K/UL (150-450) Mean Platelet Volume 5.7 FL (6.5-10.1) L Neutrophils (%) (Auto) 69.8 % (45.0-75.0) Lymphocytes (%) (Auto) 17.0 % (20.0-45.0) L Monocytes (%) (Auto) 10.7 % (1.0-10.0) H Eosinophils (%) (Auto) 1.7 % (0.0-3.0) Basophils (%) (Auto) 0.8 % (0.0-2.0) Sodium Level 139 MMOL/L (136-145) Potassium Level 3.4 MMOL/L (3.5-5.1) L Chloride Level 102 MMOL/L (98-107) Carbon Dioxide Level 32 MMOL/L (21-32) Anion Gap 5 mmol/L (5-15) Blood Urea Nitrogen 10 mg/dL (7-18) Creatinine 3.6 MG/DL (0.55-1.30) H Estimate Glomerular Filtration Rate 15.6 mL/min (>60) Glucose Level 106 MG/DL (74-106) Calcium Level 9.0 MG/DL (8.5-10.1) Total Bilirubin 0.3 MG/DL (0.2-1.0) Aspartate Amino Transferase (AST) 34 U/L (15-37) Alanine Aminotransferase (ALT) 11 U/L (12-78) L Alkaline Phosphatase 135 U/L (46-116) H Troponin I 0.023 ng/mL (0.000-0.056) Total Protein 6.5 G/DL (6.4-8.2) Albumin 2.5 G/DL (3.4-5.0) L Globulin 4.0 g/dL Albumin/Globulin Ratio 0.6 (1.0-2.7) L Salicylates Level 1.7 ug/mL (2.8-20) L Acetaminophen Level < 2 MCG/ML (10-30) L Serum Alcohol < 3 mg/dL CT/MRI/US Diagnostic Results CT/MRI/US Diagnostic Results : Imaging Test Ordered: CT Head Impression CT HEAD: Comparison: November 13, 2012. No acute intracranial hemorrhage. No acute skull fractures. No CT evidence of acute infarct. No mass effect or midline shift. There is mild ventriculomegaly, new since prior. Age-related changes. Fluid in bilateral mastoid air cells. Bilateral sphenoid sinusitis. Last Vital Signs Date Time Temp Pulse Resp B/P (MAP) Pulse Ox O2 Delivery O2 Flow Rate FiO2 08/19/17 22:15 98.4 80 18 172/120 98 Room Air Disposition: ADMITTED INPATIENT Condition: Serious Criselda Palafox M.D. Aug 19, 2017 23:02
[2017-08-20 00:16] LABS: BASOPHILS % (AUTO) 0.8 % (0.0-2.0); EOSINOPHILS % (AUTO) 1.7 % (0.0-3.0); HEMATOCRIT 31.8 % (37.0-47.0); HEMOGLOBIN 9.9 G/DL (12.0-16.0); MEAN CORPUSCULAR VOLUME 96 FL (80-99); MONOCYTES % (AUTO) 10.7 % (1.0-10.0); NEUTROPHILS % (AUTO) 69.8 % (45.0-75.0); PLATELET COUNT 251 K/UL (150-450); RED BLOOD COUNT 3.33 M/UL (4.20-5.40); RED CELL DISTRIBUTION WIDTH 15.9 % (11.6-14.8); WHITE BLOOD COUNT 12.6 K/UL (4.8-10.8)
[2017-08-20 00:26] LABS: ANION GAP 5 mmol/L (5-15); BLOOD UREA NITROGEN 10 mg/dL (7-18); CARBON DIOXIDE 32 MMOL/L (21-32); CHLORIDE 102 MMOL/L (98-107); CREATININE 3.6 MG/DL (0.55-1.30); POTASSIUM 3.4 MMOL/L (3.5-5.1); SODIUM 139 MMOL/L (136-145)
[2017-08-20 00:31] LABS: ALANINE AMINOTRANSFERASE 11 U/L (12-78); ALBUMIN 2.5 G/DL (3.4-5.0); ALBUMIN/GLOBULIN RATIO 0.6 (1.0-2.7); ALKALINE PHOSPHATASE 135 U/L (46-116); ASPARTATE AMINO TRANSFERASE 34 U/L (15-37); BILIRUBIN,TOTAL 0.3 MG/DL (0.2-1.0)
[2017-08-20 01:15] VITALS: BP 92/58
[2017-08-20 04:00] VITALS: BP 101/65
[2017-08-20] MEDS ORDERED: NovoLOG Insulin Flexpen SUBQ SCH (06:30)
[2017-08-20] MEDS: Glimepiride 4mg tab ORAL SCH (06:30)
[2017-08-20 08:00] VITALS: BP 97/57
[2017-08-20] MEDS ORDERED: Bactrim-DS 1 tab ORAL SCH (09:00)
--- NOTE | 2017-08-20 09:24 | Diagnostic Imaging Report ---
Indication: Shortness of breath Technique: One view of the chest Comparison: To 03/09/2017 Findings: The heart is borderline enlarged. The lungs and pleural spaces are clear. Right subclavian and innominate venous stents again demonstrated. No significant interim change Impression: No acute process Borderline cardiomegaly
--- NOTE | 2017-08-20 09:34 | Diagnostic Imaging Report ---
Indications: Pain, status post fall Technique: Spiral acquisitions obtained through the brain. Angled axial and coronal 5 x 5 mm slices were reconstructed. Total dose length product 1330.34 mGycm. CTDI vol(s) 70.38 mGy. Dose reduction achieved using automated exposure control Comparison: None. Findings: There is mild age-related enlargement of the ventricles and extra-axial CSF spaces and mild periventricular deep white matter low-attenuation which has progressed since the prior exam. No acute intracranial hemorrhage or edema. No mass effect or midline shift. Otherwise normal mckeon-white differentiation. Visualized orbits are unremarkable. There is sphenoid sinus mucosal thickening There is evidence of chronic appearing mastoid disease on the right and a slight degree of mastoid opacification on the left. There is calvarial hyperostosis Impression: Chronic and age-related changes, as described, progressive since 11/13/2012 Negative for acute intracranial bleed or mass effect Mastoid disease Sphenoid sinus disease This agrees with the preliminary interpretation provided overnight by [facility]erad[facility] service. The CT scanner at [facility] is accredited by the [place] [employer] and the scans are performed using protocols designed to limit radiation exposure to as low as reasonably achievable to attain images of sufficient resolution adequate for diagnostic evaluation.
[2017-08-20] MEDS: Renvela 800mg Pkt ORAL SCH ×3 (09:45→18:40)
[2017-08-20] MEDS: Aspirin EC 81mg tab ORAL SCH (09:46)
[2017-08-20] MEDS: Vancomycin oral 125mg/2.5ml ORAL SCH ×4 (09:47→21:00)
[2017-08-20] MEDS: Heparin 5000 units/ml inj SUBQ SCH ×2 (09:50→18:52)
[2017-08-20 12:00] VITALS: BP 91/53
[2017-08-20 16:00] VITALS: BP 95/58
[2017-08-20] MEDS: Midodrine 10mg tab ORAL SCH (18:40)
--- NOTE | 2017-08-20 18:53 | Cardiology Report ---
APPROVED REPORT EKG Measurement Heart [id number] Normal sinus rhythm Low voltage QRS Septal infarct, age undetermined Lateral infarct, age undetermined Abnormal ECG
[2017-08-20 20:00] VITALS: BP 98/56
[2017-08-20] MEDS: Epogen (for ESRD on dialysis) SUBQ SCH (21:25)
[2017-08-21] VITALS: BP 94/50
[2017-08-21 04:00] VITALS: BP 96/49
[2017-08-21] MEDS ORDERED: Heparin Sod 1000 units/ml 10ml IV SCH (06:00)
[2017-08-21] MEDS: Glimepiride 4mg tab ORAL SCH (06:16)
[2017-08-21 07:06] LABS: BASOPHILS % (AUTO) 1.3 % (0.0-2.0); EOSINOPHILS % (AUTO) 2.2 % (0.0-3.0); HEMATOCRIT 32.9 % (37.0-47.0); HEMOGLOBIN 10.4 G/DL (12.0-16.0); LYMPHOCYTES % (AUTO) 22.4 % (20.0-45.0); MEAN CORPUSCULAR VOLUME 97 FL (80-99); MONOCYTES % (AUTO) 15.3 % (1.0-10.0); NEUTROPHILS % (AUTO) 58.8 % (45.0-75.0); PLATELET COUNT 212 K/UL (150-450); RED CELL DISTRIBUTION WIDTH 16.2 % (11.6-14.8); WHITE BLOOD COUNT 9.5 K/UL (4.8-10.8)
[2017-08-21 07:21] LABS: ANION GAP 7 mmol/L (5-15); BLOOD UREA NITROGEN 21 mg/dL (7-18); CALCIUM 9.2 MG/DL (8.5-10.1); CARBON DIOXIDE 29 MMOL/L (21-32); CHLORIDE 103 MMOL/L (98-107); CREATININE 5.8 MG/DL (0.55-1.30); PHOSPHORUS 4.5 MG/DL (2.5-4.9); POTASSIUM 4.2 MMOL/L (3.5-5.1); SODIUM 139 MMOL/L (136-145)
[2017-08-21 08:00] VITALS: BP 97/51
--- NOTE | 2017-08-21 08:49 | General Progress Note ---
Assessment/Plan Problem List: (1) Orthostatic hypotension ICD Codes: I95.1 - Orthostatic hypotension SNOMED: 51053293 (2) Epilepsy ICD Codes: G40.909 - Epilepsy, unspecified, not intractable, without status epilepticus SNOMED: 48617003 (3) Seizure disorder ICD Codes: G40.909 - Epilepsy, unspecified, not intractable, without status epilepticus SNOMED: 040149249 (4) End stage renal disease on dialysis ICD Codes: N18.6 - End stage renal disease; Z99.2 - Dependence on renal dialysis SNOMED: 029787929 Status: stable, progressing Assessment/Plan cont current rx hd pt/ot eval will need snf Subjective ROS Limited/Unobtainable: No Constitutional: Reports: malaise, weakness HEENT: Reports: no symptoms Cardiovascular: Reports: no symptoms Respiratory: Reports: no symptoms Gastrointestinal/Abdominal: Reports: no symptoms Genitourinary: Reports: no symptoms Neurologic/Psychiatric: Reports: pre-existing deficit, seizure Endocrine: Reports: no symptoms Hematologic/Lymphatic: Reports: no symptoms Allergies: Coded Allergies: No Known Allergies (Unverified , 11/13/12) All Systems: reviewed and negative except above Subjective no events. no szs. c/o headaches. Objective Last 24 Hour Vital Signs Date Time Temp Pulse Resp B/P (MAP) Pulse Ox O2 Delivery O2 Flow Rate FiO2 08/21/17 04:00 97.7 75 20 96/49 95 08/21/17 00:00 97.0 69 18 94/50 93 08/20/17 20:00 96 Room Air 08/20/17 20:00 97.7 73 18 98/56 96 08/20/17 16:00 97.7 74 20 95/58 95 08/20/17 12:00 97.2 71 19 91/53 98 08/20/17 09:00 74 97/57 Intake and Output 08/20/17 08/21/17 19:00 07:00 Intake Total 360 ml 150 ml Balance 360 ml 150 ml Intake Oral 360 ml 150 ml # Bowel Movements 3 Laboratory Tests 08/21/17 05:05: White Blood Count 9.5, Red Blood Count 3.40L, Hemoglobin 10.4L, Hematocrit 32.9L , Mean Corpuscular Volume 97, Mean Corpuscular Hemoglobin 30.6, Mean Corpuscular Hemoglobin Concent 31.6L, Red Cell Distribution Width 16.2H, Platelet Count 212, Mean Platelet Volume 6.3L, Neutrophils (%) (Auto) 58.8, Lymphocytes (%) (Auto) 22.4, Monocytes (%) (Auto) 15.3H, Eosinophils (%) (Auto) 2.2, Basophils (%) (Auto) 1.3, Sodium Level 139, Potassium Level 4.2, Chloride Level 103, Carbon Dioxide Level 29, Anion Gap 7, Blood Urea Nitrogen 21H, Creatinine 5.8#H, Estimat Glomerular Filtration Rate 9.0, Glucose Level 70L, Calcium Level 9.2, Phosphorus Level 4.5 Height (Feet): 5 Height (Inches): 4.00 Weight (Pounds): 182 General Appearance: WD/WN, alert Neck: supple Cardiovascular: normal rate, regular rhythm Respiratory/Chest: chest wall non-tender, lungs clear, normal breath sounds Abdomen: normal bowel sounds, non tender, soft, no organomegaly Edema: no edema noted Arm (L), no edema noted Arm (R), no edema noted Leg (L), no edema noted Leg (R), no edema noted Pedal (L), no edema noted Pedal (R), no edema noted Generalized REYNALDO MURDOCK Aug 21, 2017 08:49
[2017-08-21] MEDS: Heparin 5000 units/ml inj SUBQ SCH ×2 (09:00→18:07)
[2017-08-21] MEDS: Vancomycin oral 125mg/2.5ml ORAL SCH ×4 (09:00→20:22)
[2017-08-21] MEDS: Aspirin EC 81mg tab ORAL SCH (09:00)
[2017-08-21] MEDS: Renvela 800mg Pkt ORAL SCH ×3 (09:23→18:07)
[2017-08-21] MEDS: Midodrine 10mg tab ORAL SCH ×3 (09:23→18:08)
[2017-08-21 12:00] VITALS: BP 85/44
--- NOTE | 2017-08-21 15:09 | Nephrology Progress Note ---
Assessment/Plan Problem List: (1) Anemia in chronic kidney disease (2) Orthostatic hypotension (3) Epilepsy (4) End stage renal disease on dialysis Plan dialysis 08/21 bp 90-110sys, uf-500 stable, meds reviewed for eskd, gabapentin needs low dose in eskd Subjective Constitutional: Reports: weakness HEENT: Reports: no symptoms Genitourinary: Reports: no symptoms Neurologic/Psychiatric: Reports: pre-existing deficit Objective Objective Last 24 Hour Vital Signs Date Time Temp Pulse Resp B/P (MAP) Pulse Ox O2 Delivery O2 Flow Rate FiO2 08/21/17 12:00 97.0 81 19 85/44 97 08/21/17 11:58 Room Air 08/21/17 08:00 97.0 83 19 97/51 96 08/21/17 08:00 Room Air 08/21/17 04:00 97.7 75 20 96/49 95 08/21/17 00:00 97.0 69 18 94/50 93 08/20/17 20:00 96 Room Air 08/20/17 20:00 97.7 73 18 98/56 96 08/20/17 16:00 97.7 74 20 95/58 95 Intake and Output 08/20/17 08/21/17 19:00 07:00 Intake Total 360 ml 150 ml Balance 360 ml 150 ml Intake Oral 360 ml 150 ml # Bowel Movements 3 Laboratory Tests 08/21/17 05:05: White Blood Count 9.5, Red Blood Count 3.40L, Hemoglobin 10.4L, Hematocrit 32.9L , Mean Corpuscular Volume 97, Mean Corpuscular Hemoglobin 30.6, Mean Corpuscular Hemoglobin Concent 31.6L, Red Cell Distribution Width 16.2H, Platelet Count 212, Mean Platelet Volume 6.3L, Neutrophils (%) (Auto) 58.8, Lymphocytes (%) (Auto) 22.4, Monocytes (%) (Auto) 15.3H, Eosinophils (%) (Auto) 2.2, Basophils (%) (Auto) 1.3, Sodium Level 139, Potassium Level 4.2, Chloride Level 103, Carbon Dioxide Level 29, Anion Gap 7, Blood Urea Nitrogen 21H, Creatinine 5.8#H, Estimat Glomerular Filtration Rate 9.0, Glucose Level 70L, Calcium Level 9.2, Phosphorus Level 4.5 Height (Feet): 5 Height (Inches): 4.00 Weight (Pounds): 182 General Appearance: no apparent distress, alert EENT: normal ENT inspection Neck: normal alignment Cardiovascular: normal rate, regular rhythm Respiratory/Chest: lungs clear, normal breath sounds Abdomen: non tender, soft Extremities: pitting, other - no edema Neurologic: 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
[2017-08-21 16:00] VITALS: BP 118/62
--- NOTE | 2017-08-21 16:15 | History and Physical Report ---
DATE OF ADMISSION: 08/19/2017 CHIEF COMPLAINT: Seizures. HISTORY OF PRESENT ILLNESS: The patient is a pleasant 62-year-old female. She has history of end-stage renal disease, hypoglycemia, hypertension, and seizure disorder. She was transferred from home after she was noted to have a tonic-clonic seizure lasting 4-5 minutes. The patient is unclear of what happened although she did state that she knew she had a seizure and apparently fell and hit her head. She was brought to the emergency room. There, she was noted to be confused. She was hypertensive. Laboratories were significant for white count of 13,000. The patient's potassium was 3.4. According to family members, the patient has been unable to care for herself. She is now admitted for further evaluation and care. PAST MEDICAL HISTORY: As above. PAST SURGICAL HISTORY: Includes history of an AV fistula. CURRENT MEDICATIONS: Reconciled and reviewed. ALLERGIES: None. FAMILY HISTORY: None. SOCIAL HISTORY: Negative for tobacco, ethanol, or drugs. REVIEW OF SYSTEMS: GENERAL: No fever or chills. HEENT: No headaches or visual changes. CARDIOPULMONARY: No chest pain or shortness of breath. GASTROINTESTINAL: No nausea or vomiting. GENITOURINARY: No urgency or frequency. MUSCULOSKELETAL: No joint pain or swelling. NEUROLOGIC: Positive history of seizures. PHYSICAL EXAMINATION: VITAL SIGNS: Temperature 97.2, pulse 70, respirations 18, and blood pressure 101/65. GENERAL: The patient is a well-developed female, in no apparent distress. HEENT: She has an abrasion to her forehead. NECK: Supple. HEART: Regular rate and rhythm. LUNGS: Clear. ABDOMEN: Soft, nontender, nondistended. EXTREMITIES: Without clubbing, cyanosis, or edema. LABORATORY DATA: White count 13, hemoglobin 10, hematocrit 31, and platelet count of 251,000. Sodium 139 and potassium 3.4. ASSESSMENT: This is a pleasant female admitted with complaints of seizures. 1. Seizure disorder, uncontrolled. 2. History of end-stage renal disease. 3. History of hypertension. 4. History of hypoglycemia. PLAN: Neurological consultation. CT scan of the head. Monitor for seizures. Renal consultation for hemodialysis. Cardiology followup. Silvano Hatfield M.D. DR: ANUM JOB#: [id number] CC:
[2017-08-21 20:00] VITALS: BP 98/52
[2017-08-22] VITALS: BP 94/55
[2017-08-22 04:26] VITALS: BP 101/56
[2017-08-22] MEDS: Glimepiride 4mg tab ORAL SCH (06:22)
[2017-08-22] MEDS: Aspirin EC 81mg tab ORAL SCH (09:17)
[2017-08-22] MEDS: Renvela 800mg Pkt ORAL SCH ×3 (09:17→17:23)
[2017-08-22] MEDS: Midodrine 10mg tab ORAL SCH ×3 (09:17→17:23)
[2017-08-22] MEDS: Heparin 5000 units/ml inj SUBQ SCH ×2 (09:19→17:27)
--- NOTE | 2017-08-22 10:25 | General Progress Note ---
Assessment/Plan Problem List: (1) Orthostatic hypotension ICD Codes: I95.1 - Orthostatic hypotension SNOMED: 60754221 (2) Epilepsy ICD Codes: G40.909 - Epilepsy, unspecified, not intractable, without status epilepticus SNOMED: 91920267 (3) Seizure disorder ICD Codes: G40.909 - Epilepsy, unspecified, not intractable, without status epilepticus SNOMED: 972950269 (4) End stage renal disease on dialysis ICD Codes: N18.6 - End stage renal disease; Z99.2 - Dependence on renal dialysis SNOMED: 245307236 Status: stable, progressing Assessment/Plan cont current rx hd pt/ot eval will need snf Subjective ROS Limited/Unobtainable: No Constitutional: Reports: malaise, weakness HEENT: Reports: no symptoms Cardiovascular: Reports: no symptoms Respiratory: Reports: cough Gastrointestinal/Abdominal: Reports: no symptoms Genitourinary: Reports: no symptoms Neurologic/Psychiatric: Reports: pre-existing deficit, seizure Endocrine: Reports: no symptoms Hematologic/Lymphatic: Reports: no symptoms Allergies: Coded Allergies: No Known Allergies (Unverified , 11/13/12) All Systems: reviewed and negative except above Subjective no events. no szs. no headaches. Objective Last 24 Hour Vital Signs Date Time Temp Pulse Resp B/P (MAP) Pulse Ox O2 Delivery O2 Flow Rate FiO2 08/22/17 04:26 97.9 73 18 101/56 99 08/22/17 00:00 97.9 72 18 94/55 94 08/21/17 20:00 98.1 73 18 98/52 98 08/21/17 16:00 97.7 76 20 118/62 94 08/21/17 12:00 97.0 81 19 85/44 97 08/21/17 11:58 Room Air Intake and Output 08/21/17 08/22/17 19:00 07:00 Intake Total 120 ml Balance 120 ml Intake Oral 120 ml # Voids 2 Laboratory Tests 08/21/17 18:00: Hepatitis A IgM Antibody [Pending], Hepatitis B Surface Antigen [Pending], Hepatitis B Core IgM Antibody [Pending], Hepatitis C Antibody [Pending] Height (Feet): 5 Height (Inches): 4.00 Weight (Pounds): 182 REYNALDO MURDOCK Aug 22, 2017 10:25
[2017-08-22] MEDS: Vancomycin oral 125mg/2.5ml ORAL SCH ×4 (10:58→19:59)
[2017-08-22 12:00] VITALS: BP 96/50
--- NOTE | 2017-08-22 12:55 | Consultation ---
DATE OF CONSULTATION: 08/20/2017 NEPHROLOGY CONSULTATION REFERRING PHYSICIAN: Silvano Hatfeild M.D. REASON FOR CONSULTATION: I am asked to evaluate this 62-year-old lady with end-stage renal disease, who presents with a seizure. HISTORY OF PRESENT ILLNESS: The patient has end-stage renal disease, likely secondary to diabetes and hypertension and has a history of seizure disorder and apparently had a seizure at home witnessed by family and this was despite taking her routine doses of Keppra. She presented with the above. A CT scanning showed senescent changes, but no acute findings. She is admitted now for evaluation of the above. She had recurrent hospitalization and recently was in [facility] for rehabilitation with generalized decline in condition. She has had a history of chronic low blood pressure and takes midodrine prior to dialysis. She has a history of morbid obesity and a prior gastric bypass surgery and she lost 400 pounds and is now 82.5 kilos currently. She has had recurrent hospitalizations for altered mental status, generalized weakness, asthma, seizures, and complications of hypotension. She has had a prior stroke. PAST SURGICAL HISTORY: Prior surgeries include dialysis access surgery and gastric bypass. MEDICATIONS: She cannot give an adequate list. Home medication list in the computer includes [place] p.r.n.; amlodipine, which I do not believe she is taking; Creon; aspirin; Plavix; cyclobenzaprine; Benadryl; Lomotil; enalapril, which I do not believe she is taking; Epogen; fludrocortisone, which I do not think she is taking; gabapentin; glimepiride; insulin; lactobacillus; Protonix; sevelamer; Velphoro; tramadol; triamcinolone; Bactrim; vancomycin; and accurate. HABITS: She is a nondrinker and nonsmoker. No use of illicit drugs. REVIEW OF SYSTEMS: HEENT: The patient's hearing and vision are good. ENDOCRINE: History of diabetes with some autonomic insufficiency and orthostatic hypotension and no definite thyroid disease. PULMONARY: History of asthma. No recent wheezing. CARDIAC: History of chronic low blood pressure. She has prior hypotension, history of cardiomyopathy, and diastolic dysfunction. GASTROINTESTINAL: No current nausea or vomiting, hematochezia, or melena. She has had gastritis in the past. GENITOURINARY: No dysuria. NEUROLOGIC: See above. MUSCULOSKELETAL: History of generalized arthritis. PHYSICAL EXAMINATION: GENERAL: The patient is alert lady, chronically ill appearing. VITAL SIGNS: Temperature 97.7 degrees, pulse 74, respirations 20, and blood pressure 95/58. HEENT: Sclerae are nonicteric. Ocular motions intact in all directions. Oral mucosa moist. NECK: No adenopathy. LUNGS: Clear. HEART: Rhythm is regular. I hear no murmur. ABDOMEN: Soft. No organomegaly or masses. EXTREMITIES: No edema, cyanosis or clubbing. There is a well fistula in the right upper arm. NEUROLOGIC: She is alert and responsive. Ocular motions intact in all directions. Smile symmetric. Tongue is midline. She moves all extremities. There is mild dysmetria with [id number] testing and a mild tremor. PERTINENT LABORATORY DATA: White count 12.6 and hemoglobin 9.9. Sodium 139, potassium 3.4, BUN 10, and creatinine 3.6 post dialysis yesterday. Calcium is 9. Troponin 0.023. IMPRESSION: 1. End-stage renal disease. 2. History of seizures with breakthrough seizure. 3. History of chronic low blood pressure. 4. Diabetes with autonomic neuropathy. 5. History of prior gastric bypass. 6. Questionable history of Parkinson's. 7. Failure to thrive with recurrent hospitalizations. 8. Prior cerebrovascular accident. PLAN: Medications reviewed for end-stage renal disease. Dialysis will be ordered. We will watch her closely in view of her comorbidities. Carlos Enrique Gonzalez M.D. DR: JA JOB#: [id number] CC:
[2017-08-22 16:33] VITALS: BP 109/68
--- NOTE | 2017-08-22 17:16 | Nephrology Progress Note ---
Assessment/Plan Problem List: (1) Anemia in chronic kidney disease (2) Orthostatic hypotension (3) Epilepsy (4) End stage renal disease on dialysis Plan dialysis 08/21 bp 90-110sys, uf-500 stable, meds reviewed for eskd, gabapentin needs low dose in eskd, hd 08/23 Subjective Constitutional: Reports: weakness HEENT: Reports: no symptoms Neurologic/Psychiatric: Reports: no symptoms, pre-existing deficit Objective Objective Last 24 Hour Vital Signs Date Time Temp Pulse Resp B/P (MAP) Pulse Ox O2 Delivery O2 Flow Rate FiO2 08/22/17 16:33 98.2 75 20 109/68 95 08/22/17 12:00 98.1 61 19 96/50 93 08/22/17 08:00 97.5 61 19 95 08/22/17 04:26 97.9 73 18 101/56 99 08/22/17 00:00 97.9 72 18 94/55 94 08/21/17 20:00 98.1 73 18 98/52 98 Intake and Output 08/21/17 08/22/17 19:00 07:00 Intake Total 120 ml Balance 120 ml Intake Oral 120 ml # Voids 2 Laboratory Tests 08/21/17 18:00: Hepatitis A IgM Antibody Negative, Hepatitis B Surface Antigen Negative, Hepatitis B Core IgM Antibody Negative, Hepatitis C Antibody <0.1 Height (Feet): 5 Height (Inches): 4.00 Weight (Pounds): 182 General Appearance: no apparent distress, alert EENT: normal ENT inspection Neck: supple Cardiovascular: normal rate, regular rhythm Respiratory/Chest: lungs clear Abdomen: non tender, soft Neurologic: mill tender warm up II-XII grossly normal VERN ABBASI Aug 22, 2017 17:16
[2017-08-22 20:15] VITALS: BP 103/59
--- NOTE | 2017-08-22 20:28 | Wound Care Consultation ---
Wound Assessment Wound Assessment : Wound Number: 1 Wound Present on Admission: Yes New Wound: No Status Change of Wound: No Wound Location Body Site: head - forehead Wound Type: traumatic injury Paula Test: Does not Paula Wound Thickness: Partial Thickness Wound Drainage Amount: None Wound Drainage Odor: None/Absent Tissue Surrounding Wound: Intact Wound General Appearance: Open to air Wound Comment #1 S/p fall traumatic wounds on forehead. Appears to drying at this time. Recommendation -Leave area open to air -Assess and f/u accordingly for any changes VU MURO RN Aug 22, 2017 20:28
[2017-08-22] MEDS: Epogen (for ESRD on dialysis) SUBQ SCH (21:13)
[2017-08-23 00:20] VITALS: BP 81/46
[2017-08-23 04:13] VITALS: BP 82/47
[2017-08-23] MEDS ORDERED: Heparin Sod 1000 units/ml 10ml IV SCH (06:00)
[2017-08-23] MEDS: Glimepiride 4mg tab ORAL SCH (06:04)
[2017-08-23 08:00] VITALS: BP 111/58
[2017-08-23] MEDS: Midodrine 10mg tab ORAL SCH ×3 (09:05→17:24)
[2017-08-23] MEDS: Aspirin EC 81mg tab ORAL SCH (09:06)
[2017-08-23] MEDS: Renvela 800mg Pkt ORAL SCH ×3 (09:06→17:24)
[2017-08-23] MEDS: Vancomycin oral 125mg/2.5ml ORAL SCH ×4 (09:07→22:33)
[2017-08-23] MEDS: Heparin 5000 units/ml inj SUBQ SCH ×2 (09:08→17:26)
[2017-08-23 12:00] VITALS: BP 105/64
--- NOTE | 2017-08-23 13:04 | Nephrology Progress Note ---
Assessment/Plan Problem List: (1) Anemia in chronic kidney disease (2) Orthostatic hypotension (3) Epilepsy (4) End stage renal disease on dialysis Plan dialysis 08/21 bp 90-110sys, uf-500 stable, meds reviewed for eskd, gabapentin needs low dose in eskd, hd 08/23 Subjective Constitutional: Reports: weakness HEENT: Reports: no symptoms Genitourinary: Reports: no symptoms Neurologic/Psychiatric: Reports: no symptoms, pre-existing deficit Objective Objective Last 24 Hour Vital Signs Date Time Temp Pulse Resp B/P (MAP) Pulse Ox O2 Delivery O2 Flow Rate FiO2 08/23/17 12:00 97.9 80 20 105/64 94 08/23/17 08:00 96.1 91 19 111/58 100 08/23/17 04:13 96.8 69 20 82/47 100 Room Air 08/23/17 00:20 97.7 77 20 81/46 99 Room Air 08/22/17 20:15 96.8 72 20 103/59 97 Room Air 08/22/17 16:33 98.2 75 20 109/68 95 Intake and Output 08/22/17 08/23/17 19:00 07:00 Intake Total 600 ml Balance 600 ml Intake Oral 600 ml # Voids 2 # Bowel Movements 2 Height (Feet): 5 Height (Inches): 4.00 Weight (Pounds): 182 General Appearance: no apparent distress, alert EENT: normal ENT inspection Neck: non-tender Cardiovascular: normal rate Respiratory/Chest: lungs clear Abdomen: non tender, soft Extremities: non-tender Neurologic: supervisor core drilling II-XII grossly normal VERN ABBASI Aug 23, 2017 13:04
[2017-08-23 16:00] VITALS: BP 103/59
[2017-08-23 20:00] VITALS: BP 104/51
[2017-08-24] VITALS: BP 103/50
[2017-08-24 04:00] VITALS: BP 94/56
[2017-08-24] MEDS: Glimepiride 4mg tab ORAL SCH (06:20)
[2017-08-24 08:00] VITALS: BP 106/58
[2017-08-24] MEDS: Aspirin EC 81mg tab ORAL SCH (08:59)
[2017-08-24] MEDS: Midodrine 10mg tab ORAL SCH ×2 (08:59→12:01)
[2017-08-24] MEDS: Vancomycin oral 125mg/2.5ml ORAL SCH ×2 (08:59→12:02)
[2017-08-24] MEDS: Renvela 800mg Pkt ORAL SCH ×2 (08:59→12:01)
[2017-08-24] MEDS: Heparin 5000 units/ml inj SUBQ SCH (09:00)
[2017-08-24 12:00] VITALS: BP 112/69
--- NOTE | 2017-08-24 15:13 | Nephrology Progress Note ---
Assessment/Plan Problem List: (1) Anemia in chronic kidney disease (2) Orthostatic hypotension (3) Epilepsy (4) End stage renal disease on dialysis Plan dialysis 2/3 bp 90-110sys, uf-1000 stable, meds reviewed for eskd, gabapentin needs low dose in eskd, hd / Subjective Constitutional: Reports: weakness HEENT: Reports: no symptoms Genitourinary: Reports: no symptoms Neurologic/Psychiatric: Reports: no symptoms Objective Objective Last 24 Hour Vital Signs Date Time Temp Pulse Resp B/P (MAP) Pulse Ox O2 Delivery O2 Flow Rate FiO2 08/24/17 12:00 97.9 102 19 112/69 100 08/24/17 08:00 97.5 111 20 106/58 100 08/24/17 04:00 98.1 73 18 94/56 100 08/24/17 00:00 97.9 63 20 103/50 98 Room Air 08/23/17 20:00 98.4 91 22 104/51 100 Room Air 08/23/17 16:30 Room Air 08/23/17 16:00 98.4 85 20 103/59 97 Intake and Output 08/23/17 08/24/17 19:00 07:00 Intake Total 240 ml 360 ml Output Total 3 ml Balance 240 ml 357 ml Intake Oral 240 ml 360 ml Stool Total 3 ml Height (Feet): 5 Height (Inches): 4.00 Weight (Pounds): 182 General Appearance: no apparent distress EENT: normal ENT inspection Neck: normal alignment Cardiovascular: regular rhythm Respiratory/Chest: lungs clear Abdomen: non tender Extremities: no calf tenderness Neurologic: steel sampler II-XII grossly normal VERN ABBASI Aug 24, 2017 15:13
[2017-08-24 16:00] VITALS: BP 92/53
--- NOTE | 2017-08-24 23:05 | Discharge Summary ---
DATE OF ADMISSION: 08/19/2017 DATE OF DISCHARGE: 08/23/2017 ADMISSION DIAGNOSES: 1. Mechanical fall. 2. Seizures. 3. End-stage renal disease. 4. Hypoglycemia. DISCHARGE DIAGNOSES: 1. Mechanical fall. 2. Seizures. 3. End-stage renal disease. 4. Hypoglycemia. BRIEF HISTORY AND HOSPITAL COURSE: The patient is a pleasant female. She has history of seizure disorder, gait instability, multiple falls, end-stage renal disease. She was admitted after an apparent seizure. She was seizure-free while here in the hospital. The patient's course complicated by hypoglycemia. She requested placement in [facility] facility for rehab. She will be discharged there for rehab. DIET: Renal diet. ACTIVITY: Ad-ruddy. DISCHARGE FOLLOWUP: The patient to follow up in 1-2 days at the [facility] facility. Silvano Hatfield M.D. DR: Marvin JOB#: [id number] CC:
--- NOTE | 2017-08-25 04:15 | Discharge Summary ---
DATE OF ADMISSION: 08/19/2017 DATE OF DISCHARGE: 08/24/2017 ADMISSION DIAGNOSES: 1. Seizure disorder. 2. Syncope. 3. Hypertension. 4. History of hypoglycemia. 5. Encephalopathy. 6. End-stage renal disease. DISCHARGE DIAGNOSES: 1. Seizure disorder. 2. Syncope. 3. Hypertension. 4. History of hypoglycemia. 5. Encephalopathy. 6. End-stage renal disease. HOSPITAL COURSE: The patient is a 62-year-old female who presented with seizure. She was admitted. She has continued outpatient seizure regimen. She had no further seizures while in house. The patient was continued on hemodialysis. Hospital course was complicated by hypoglycemia. The patient on discharge was doing well. She requested placement in a long-term facility because of inability to take care of herself at home. The patient will be discharged to a long-term facility. DISCHARGE MEDICATIONS: Please see discharge medication list for discharge medications. DIET: Renal diet. ACTIVITY: Ad ruddy. FOLLOWUP: The patient will follow up in one to two days at long-term facility. Silvano Hatfield M.D. DR: Gualberto JOB#: [id number] CC:
--- NOTE | 2017-08-27 22:01 | Consultation ---
DATE OF CONSULTATION: NEPHROLOGY CONSULTATION CONSULTING PHYSICIAN: Carlos Enrique Gonzalez M.D. REFERRING PHYSICIAN: Silvano Hatfield M.D. REASON FOR CONSULTATION: I am asked to evaluate this patient, a 38-year-old lady, with end-stage renal disease. HISTORY OF PRESENT ILLNESS: The patient had multiple hospitalizations and was recently admitted to [place] [id number] with a seizure and stabilized on Keppra. Today, she apparently had a change in condition and is found to have hypoglycemia with a glucose less than 30 in the emergency room. PAST MEDICAL HISTORY: The patient has a history of diabetes, asthma, seizure disorder, generalized weakness, chronic low blood pressure, on midodrine, and end-stage renal disease. She has had a history of morbid obesity and a prior gastric bypass surgery and lost apparently 400 pounds. There is a history of prior stroke. PAST SURGICAL HISTORY: Include dialysis access surgery right arm and gastric bypass. MEDICATIONS: Reviewed from the [facility]CF on the computer ALLERGIES: None known. HABITS: She is a nonsmoker and nondrinker. No use of illicit drugs. SYSTEM REVIEW: HEAD, EYES, EARS, NOSE, AND THROAT: The patient's hearing is good. ENDOCRINE: History of diabetes with autonomic insufficiency and orthostatic hypotension. No definite thyroid disease. PULMONARY: History of asthma. No recent wheezing. CARDIAC: History of chronic low blood pressure. In the past, she has had hypertension. There is a history of cardiomyopathy and diastolic dysfunction. GASTROINTESTINAL: No current gastrointestinal bleeding or ulcers. GENITOURINARY: No dysuria. She has had UTIs in the past. NEUROLOGIC: She has had seizures. She has been treated in the past for Parkinson's, but it is not clear if this was beneficial. MUSCULOSKELETAL: History of generalized weakness and gait disorder. PHYSICAL EXAMINATION: GENERAL: The patient is alert, seen in the emergency department, in no acute distress. VITAL SIGNS: Reviewed as follows. Blood pressure is 102/56, temperature 97.6, pulse 76, respirations 19, and O2 saturation 99%. HEAD, EYES, EARS, NOSE, AND THROAT: Sclerae are nonicteric. Ocular motions intact in all directions. Oral mucosa moist. NECK: No adenopathy or thyroid enlargement. LUNGS: Clear. HEART: Regular rhythm. I hear no murmur. ABDOMEN: Soft without organomegaly. EXTREMITIES: No edema. There is an AV fistula in the right arm. NEUROLOGIC: She is alert and responsive. Ocular motions intact in all directions. Smile is symmetric. She moves all extremities. PERTINENT LABORATORIES: White count 10,000 and hemoglobin 8.8. Glucose 28. Sodium 140, potassium 3.6, BUN 31, and creatinine 5.1. IMPRESSION: 1. End-stage renal disease. 2. Hypoglycemia and diabetic. 3. Failure to thrive with multiple hospitalizations. 4. Chronic low blood pressure. 5. Anemia of chronic kidney disease. 6. Epilepsy. 7. History of prior stroke. 8. History of prior bariatric surgery. PLAN: The patient had dialysis arranged without access to ultrafiltration to mitigate hypotension. We will monitor her glucose and multiple medical problems and . Medications will be adjusted for end-stage renal disease. Carlos Enrique Gonzalez M.D. DR: GRACEILA JOB#: [id number] CC:
== END 2017-08-24 16:45 | DRG 100 ==
LOC: EDBD 22:08 → EDUNIT# 22:08 → EMR 22:24 → EDBEDREQ 23:19 → 4W 23:28 → EDBEDREQ 08-20 00:20
PROC: 5A1D70Z Performance of Urinary Filtration, Intermittent, Less than 6 Hours Per Day (ICD-10-PCS; principal; 2017-08-21)
PROC: 5A1D70Z Performance of Urinary Filtration, Intermittent, Less than 6 Hours Per Day (ICD-10-PCS; 2017-08-23)
DX: G40.909 Epilepsy, unspecified, not intractable, without status epilepticus (principal); N18.6 End stage renal disease; E11.22 Type 2 diabetes mellitus with diabetic chronic kidney disease; I12.0 Hypertensive chronic kidney disease with stage 5 chronic kidney disease or end stage renal disease; Z99.2 Dependence on renal dialysis; I95.1 Orthostatic hypotension; D63.1 Anemia in chronic kidney disease; E11.649 Type 2 diabetes mellitus with hypoglycemia without coma; Z98.84 Bariatric surgery status; Z86.73 Personal history of transient ischemic attack (TIA), and cerebral infarction without residual deficits; Z79.02 Long term (current) use of antithrombotics/antiplatelets; E11.43 Type 2 diabetes mellitus with diabetic autonomic (poly)neuropathy; S00.81XA Abrasion of other part of head, initial encounter; W19.XXXA Unspecified fall, initial encounter; Y92.009 Unspecified place in unspecified non-institutional (private) residence as the place of occurrence of the external cause; R26.9 Unspecified abnormalities of gait and mobility; Z79.4 Long term (current) use of insulin
CPT/HCPCS: 36415; 70450; 71045; 80048; 80053; 80299; 80329; 82962; 84100; 84484; 85025; 86705; 86709; 86803; 87081; 87340; 93005; 99285; J1815

== ENCOUNTER 2017-08-27 12:54 | Inpatient (IN) | payer MEDICARE, OTHER ==
[~2017-08-27] VITALS: Ht 167.6 cm; Wt 81.6 kg
[2017-08-27 13:05] VITALS: BP 92/48
--- NOTE | 2017-08-27 14:19 | Emergency Room Report ---
History of Present Illness General Chief Complaint: Abnormal Labs Source: EMS Present Illness HPI Patient brought in because of ALOC. This was associated with low blood sugar in field D10W was given with improved mentation. No NVD, no fevers. Unknown if produces urine. No observed seizures. Patient with ESRD on dialysis. H/O encephalopathy - not answering questions. From xray, has had subclavian stent placed on R. On gabapentin. Last admit 08/19 - 08/24/17 with d/c dx: 1. Seizure disorder. 2. Syncope. 3. Hypertension. 4. History of hypoglycemia. 5. Encephalopathy. 6. End-stage renal disease. Allergies: Coded Allergies: No Known Allergies (Unverified , 11/13/12) Patient History Limited by: medical condition Past Medical History: see triage record, old chart reviewed Past Surgical History: other - fistula R and stent Social History Narrative SNF Reviewed Nursing Documentation: PMH: Agreed, PSxH: Agreed Nursing Documentation-PMH Hx Cardiac Problems: Yes Hx Hypertension: Yes Hx Diabetes: Yes Hx Cancer: Yes Hx Gastrointestinal Problems: Yes Hx Dialysis: Yes Hx Neurological Problems: Yes Hx Cerebrovascular Accident: Yes Hx Seizures: Yes Review of Systems All Other Systems: limited Physical Exam Vital Signs Date Time Temp Pulse Resp B/P (MAP) Pulse Ox O2 Delivery O2 Flow Rate FiO2 08/27/17 12:55 106 20 92/54 100 Room Air Sp02 EP Interpretation: reviewed, normal General Appearance: no apparent distress, non-toxic, lethargic, Chronically Ill Head: normocephalic Eyes: bilateral eye conjunctivae pale ENT: moist mucus membranes Neck: supple Respiratory: lungs clear, normal breath sounds Cardiovascular #1: regular rate, rhythm Cardiovascular #2: 2+ radial (R) - fistula RUE Gastrointestinal: normal inspection, non tender, no mass, non-distended, decreased bowel sounds Genitourinary: normal inspection Musculoskeletal: back normal Neurologic: other - when sugar corrected, resp to voice and moves all 4, ebulic Psychiatric: other - stupor Skin: warm/dry Procedures Critical Care Time Critical Care Time Total Critical Care Time: 30 min bedside evaluation and treatment excludes procedures (EKG). Reason for critical care: hypoglycemia - recurrent, hypotension Possible complications: hypotension, hypertension, TX, shock, arrhythmias, metabolic acidosis, end organ damage, respiratory failure, AMI and neurologic damage Interventions: D50W, D10 W, repeat evaluations Course: Patient with hypoglycemia and treated in field. Repeat glucose low. Treated. Multiple re-evaluations. Repeat glucose and discussion with RN and repeat evaluations. Transient hypotension treated with bolus with improved BP. Discussed with admitting MD. Improved mentation with treatment. Consultations: nursing staff, EMS Performed by: Dr. Jean Tolerated well condition = serious Medical Decision Making Diagnostic Impression: Primary Impression: Hypoglycemia Additional Impressions: ESRD (end stage renal disease) on dialysis Anemia in chronic kidney disease Qualified Codes: N18.6 - End stage renal disease; D63.1 - Anemia in chronic kidney disease; Z99.2 - Dependence on renal dialysis ER Course Patient on dialysis and DM presents with hypoglycemia. DDx: AMI, occult infection, insulin excess, lack of caloric intake amongst others. Emergent evaluation with EKG, CXR, labs. Pateint became unresponsive and glucose was Low. D50W given EKG without injury. CXR with prior stent, no CHF. Labs with low glucose and CRF. Anemia has been at this level in past. Another accucheck done = 51. D50 repeated and D10W begun. Transient hypotension, treated with NS. Accucheck still low (67) another D50 given and increased D10W. Moving arms with purpose when glucose higher. No evidence of infection or TX. Source of hypoglycemia unclear. Admit tele Dr. Hatfield. Laboratory Tests Test 08/27/17 15:40 White Blood Count 10.0 K/UL (4.8-10.8) Red Blood Count 2.82 M/UL (4.20-5.40) L Hemoglobin 8.8 G/DL (12.0-16.0) L Hematocrit 26.9 % (37.0-47.0) L Mean Corpuscular Volume 95 FL (80-99) Mean Corpuscular Hemoglobin 31.2 PG (27.0-31.0) H Mean Corpuscular Hemoglobin Concent 32.8 G/DL (32.0-36.0) Red Cell Distribution Width 16.1 % (11.6-14.8) H Platelet Count 214 K/UL (150-450) Mean Platelet Volume 6.1 FL (6.5-10.1) L Neutrophils (%) (Auto) 79.3 % (45.0-75.0) H Lymphocytes (%) (Auto) 9.7 % (20.0-45.0) L Monocytes (%) (Auto) 8.0 % (1.0-10.0) Eosinophils (%) (Auto) 2.2 % (0.0-3.0) Basophils (%) (Auto) 0.8 % (0.0-2.0) Prothrombin Time 9.3 SEC (9.30-11.50) Prothrombin Time INR 0.9 (0.9-1.1) PTT 25 SEC (23-33) Sodium Level 140 MMOL/L (136-145) Potassium Level 3.6 MMOL/L (3.5-5.1) Chloride Level 107 MMOL/L (98-107) Carbon Dioxide Level 23 MMOL/L (21-32) Anion Gap 10 mmol/L (5-15) Blood Urea Nitrogen 31 mg/dL (7-18) H Creatinine 5.1 MG/DL (0.55-1.30) H Estimate Glomerular Filtration Rate 10.4 mL/min (>60) Glucose Level 28 MG/DL (74-106) *L Lactic Acid Level 0.90 mmol/L (0.66-2.22) Calcium Level 8.6 MG/DL (8.5-10.1) Total Bilirubin 0.3 MG/DL (0.2-1.0) Aspartate Amino Transferase (AST) 35 U/L (15-37) Alanine Aminotransferase (ALT) 28 U/L (12-78) Alkaline Phosphatase 96 U/L (46-116) Total Creatine Kinase 38 U/L (26-308) Troponin I 0.005 ng/mL (0.000-0.056) Pro-B-Type Natriuretic Peptide 1773 pg/mL (0-125) H Total Protein 5.7 G/DL (6.4-8.2) L Albumin 2.2 G/DL (3.4-5.0) L Globulin 3.5 g/dL Albumin/Globulin Ratio 0.6 (1.0-2.7) L Microbiology Date/Time Source Procedure Growth Status 08/27/17 15:50 Nasal Nares Influenza Types A,B Antigen (MATTHEW) - Final Complete EKG Diagnostic Results Rate: normal Rhythm: NSR ST Segments: no acute changes Rhythm Strip Diag. Results EP Interpretation: yes Rhythm: NSR, no PVC's, no ectopy Chest X-Ray Diagnostic Results Chest X-Ray Diagnostic Results : Chest X-Ray Ordered: Yes # of Views/Limited/Complete: 1 View Indication: Other EP Interpretation: Yes Interpretation: no effusion, no pneumothorax, other - Stent, increased Hilar nodes Impression: Other Electronically Signed by: Martín Jean MD Last Vital Signs Date Time Temp Pulse Resp B/P (MAP) Pulse Ox O2 Delivery O2 Flow Rate FiO2 08/27/17 12:55 106 20 92/54 100 Room Air Disposition: ADMITTED INPATIENT Condition: Serious Martín Jean M.D. Aug 27, 2017 14:19
[2017-08-27] MEDS ORDERED: Sodium Chloride 500ML 500 ML IV ONE (14:30)
[2017-08-27 15:00] VITALS: BP 102/56
[2017-08-27] MEDS ORDERED: Dextrose 10% 1,000 ML IV SCH ×2 (15:15→16:30)
[2017-08-27 16:03] LABS: BASOPHILS % (AUTO) 0.8 % (0.0-2.0); EOSINOPHILS % (AUTO) 2.2 % (0.0-3.0); HEMATOCRIT 26.9 % (37.0-47.0); HEMOGLOBIN 8.8 G/DL (12.0-16.0); LYMPHOCYTES % (AUTO) 9.7 % (20.0-45.0); MEAN CORPUSCULAR VOLUME 95 FL (80-99); NEUTROPHILS % (AUTO) 79.3 % (45.0-75.0); PLATELET COUNT 214 K/UL (150-450); RED BLOOD COUNT 2.82 M/UL (4.20-5.40); RED CELL DISTRIBUTION WIDTH 16.1 % (11.6-14.8)
[2017-08-27 16:11] LABS: INR 0.9 (0.9-1.1)
[2017-08-27 16:13] VITALS: BP 92/48
[2017-08-27 16:22] LABS: ALANINE AMINOTRANSFERASE 28 U/L (12-78); ALBUMIN 2.2 G/DL (3.4-5.0); ALBUMIN/GLOBULIN RATIO 0.6 (1.0-2.7); ALKALINE PHOSPHATASE 96 U/L (46-116); ANION GAP 10 mmol/L (5-15); ASPARTATE AMINO TRANSFERASE 35 U/L (15-37); BILIRUBIN,TOTAL 0.3 MG/DL (0.2-1.0); BLOOD UREA NITROGEN 31 mg/dL (7-18); CALCIUM 8.6 MG/DL (8.5-10.1); CARBON DIOXIDE 23 MMOL/L (21-32); CHLORIDE 107 MMOL/L (98-107); CREATINE KINASE 38 U/L (26-308); CREATININE 5.1 MG/DL (0.55-1.30); POTASSIUM 3.6 MMOL/L (3.5-5.1); SODIUM 140 MMOL/L (136-145)
--- NOTE | 2017-08-27 16:24 | Diagnostic Imaging Report ---
Indication: Dyspnea Technique: One view of the chest Comparison: 08/19/2017 Findings: Lungs and pleural spaces remain clear. The heart is enlarged. Right hilar fullness is again demonstrated. Right subclavian and brachiocephalic venous stents are again demonstrated. No significant interim change Impression: No acute process
[2017-08-27 17:51] VITALS: BP 98/52
[2017-08-27 19:30] VITALS: BP 110/70
[2017-08-27] MEDS ORDERED: Epogen (for ESRD on dialysis) SUBQ SCH (21:00)
--- NOTE | 2017-08-27 22:22 | Emergency Room Report ---
History of Present Illness General Chief Complaint: Abnormal Labs Source: Medical Record Present Illness Allergies: Coded Allergies: No Known Allergies (Unverified , 11/13/12) Nursing Documentation-PMH Hx Cardiac Problems: Yes Hx Hypertension: Yes Hx Cancer: Yes Hx Gastrointestinal Problems: Yes Hx Dialysis: Yes - ESRD Hx Neurological Problems: Yes Hx Cerebrovascular Accident: Yes Hx Seizures: Yes Physical Exam Vital Signs Date Time Temp Pulse Resp B/P (MAP) Pulse Ox O2 Delivery O2 Flow Rate FiO2 08/27/17 12:55 106 20 92/54 100 Room Air 08/27/17 13:05 97.4 Procedures Critical Care Time Critical Care Time CC time 45min Critical care time endorsed for this patient for hypoglycemia and unresponsiveness Critical care time includes review of laboratory tests, imaging, review of EMR, review of paperwork from SNF (if available), discussion with patient and family (if available), review of code status/POLS (if available). Critical care time also likely includes assessment of fluid status, stabilization of vital signs, selection and dosing of appropriate antibiotics, selection and dosing of d10 gtt. Critical care time does not include any procedures which are documented elsewhere in this EMR. Central Line Central Line : Consent: Emergent Central Line Lumen: triple Maximal Sterile Barrier Tech: yes cap, yes mask, yes sterile gown, yes sterile gloves, yes large sterile sheet, yes hand hygiene, yes chlorhexidine prep No Max Barrier Tech Because: emergency insertion Central Line Postion: internal jugular (R) Anesthesia: Lidocaine Complications: Per bump grader operator, central line crossed to left subclavian. I removed it without issue. Central Line Post Position: sutured, good blood return Attempts: One Patient Tolerated: Well Complications: None Medical Decision Making Diagnostic Impression: Primary Impression: Hypoglycemia Additional Impression: ESRD (end stage renal disease) on dialysis ER Course Informed by RN that left breast peripheral access line not functioning Attempted to place right EJ 3x without success During this time, patient became unresponsive STAT glucose accucheck was "critically low." RNs able to reposition left breast peripheral access and push 2x 25g amps of glucose with immediate improvement in patient's status During this time I attempted to place right IJ central line however on CXR line was seen passing to left subclavian I removed this line - there were no complications suffered RN placed peripheral left arm line and continued D10 gtt Last Vital Signs Date Time Temp Pulse Resp B/P (MAP) Pulse Ox O2 Delivery O2 Flow Rate FiO2 08/27/17 17:51 79 18 98/52 100 Room Air 08/27/17 15:00 97.6 Status: improved Disposition: ADMITTED INPATIENT Condition: Critical Referrals: REYNALDO MURDOCK (PCP) ZAMZAM GOMEZ M.D. Aug 27, 2017 22:22
[2017-08-27 23:00] VITALS: BP 105/66
[2017-08-27] MEDS ORDERED: TRAMADOL HCL50 MG ORAL (23:34)
[2017-08-28] MEDS ORDERED: traMADol 50mg tab ORAL PRN (00:30)
[2017-08-28] MEDS ORDERED: Norco 5mg/325mg tab ORAL PRN (00:30)
[2017-08-28] MEDS ORDERED: Lomotil 2.5mg tab ORAL PRN (00:30)
[2017-08-28] MEDS ORDERED: Dextrose 10% 1,000 ML IV SCH (01:30)
[2017-08-28 04:00] VITALS: BP 80/36
[2017-08-28] MEDS ORDERED: Sodium Chloride 500ML 500 ML IV ONE (04:30)
[2017-08-28] MEDS ORDERED: Naloxone 0.4mg/ml Inj IVP ONE (05:00)
[2017-08-28 05:06] VITALS: BP 119/63
[2017-08-28] MEDS ORDERED: NS 275ml ONE (05:54)
[2017-08-28] MEDS ORDERED: Tubing IV Secondary IV ONE (05:54)
--- NOTE | 2017-08-28 05:57 | Emergency Room Report ---
History of Present Illness General Chief Complaint: Abnormal Labs Source: EMS Present Illness HPI This is a 62-year-old female who was admitted for persistent hypoglycemia and possible seizure. A CODE BLUE was called and I responded. Per nursing staff around 4 AM her blood sugar was 72. She had eaten normally around 2 or 3:00. She became unresponsive and was given Narcan without response. Shortly afterward her monitor showed that she was in V. fib/V. tach. ANIL BLUE was called. CPR was started. She proceeded to be in asystole rapidly. On my arrival, CPR was in progress. She R. he received 1 mg of epinephrine. She remained in asystole on the monitor. Accu-Chek showed low blood sugar. She received a total of 2 amp of D50. I also gave her total of 3 epinephrine, bicarbonate, and calcium. She was intubated. She remained in asystole so I called the code at 5:35 AM and pronounced her at that time. I notified Dr. Murdock who will contact daughter. Allergies: Coded Allergies: No Known Allergies (Unverified , 11/13/12) Nursing Documentation-[facility] Past Medical History: No History, Except For Hx Cardiac Problems: Yes Hx Hypertension: Yes Hx Diabetes: Yes - hypoglycemia Hx Cancer: Yes Hx Gastrointestinal Problems: No Hx Dialysis: Yes - ESRD (M,W,F) Hx Neurological Problems: Yes Hx Cerebrovascular Accident: Yes Hx Seizures: Yes Physical Exam Vital Signs Date Time Temp Pulse Resp B/P (MAP) Pulse Ox O2 Delivery O2 Flow Rate FiO2 08/27/17 12:55 106 20 92/54 100 Room Air 08/27/17 13:05 97.4 Procedures CPR/Code Blue CPR/Code Blue Narrative please see code sheet for information on meds and time given. Intubation Intubation : Consent: Emergent Intubation Method: orotracheal Tube Size (cm): 7.5 Medications: Other - None Intubation Complications: no complications Post Intubation Xray: No Attempts: One Patient Tolerated: Well Complications: None Medical Decision Making Diagnostic Impression: Primary Impression: Hypoglycemia Additional Impressions: Anemia in chronic kidney disease Qualified Codes: N18.6 - End stage renal disease; D63.1 - Anemia in chronic kidney disease; Z99.2 - Dependence on renal dialysis ESRD (end stage renal disease) on dialysis Cardiac arrest Last Vital Signs Date Time Temp Pulse Resp B/P (MAP) Pulse Ox O2 Delivery O2 Flow Rate FiO2 08/28/17 05:06 119/63 08/28/17 04:00 97.3 85 21 92 Room Air Disposition: ADMITTED INPATIENT Condition: Referrals: REYNALDO MURDOCK (PCP) FIDENCIO MORSE M.D. Aug 28, 2017 05:57
[2017-08-28] MEDS ORDERED: Vancomycin oral 125mg/2.5ml ORAL SCH (06:00)
[2017-08-28] MEDS ORDERED: Glimepiride 4mg tab ORAL SCH (06:30)
[2017-08-28] MEDS ORDERED: Lactobacillus-GG tablet ORAL SCH (09:00)
[2017-08-28] MEDS ORDERED: Cyclobenzaprine 10mg Tab ORAL SCH (09:00)
[2017-08-28] MEDS ORDERED: Aspirin EC 81mg tab ORAL SCH (09:00)
[2017-08-28] MEDS ORDERED: Pancrease Cap ORAL SCH (09:00)
[2017-08-28] MEDS ORDERED: Renvela 800mg Pkt ORAL SCH (09:00)
[2017-08-28] MEDS ORDERED: Heparin 5000 units/ml inj SUBQ SCH (09:00)
--- NOTE | 2017-08-28 15:55 | Diagnostic Imaging Report ---
Indication: Reason For Exam: PAIN Technique: One view of the chest Comparison: 08/27/2017 Findings: Interval placement of right IJ approach central line. The catheter crosses the midline and is noted with its tip in the left internal jugular vein. Removal or repositioning recommended. Heart size and mediastinal contours are stable. Multiple vascular stents again noted. There is no focal airspace consolidation, pleural effusion or pneumothorax. Impression: Malpositioned right internal jugular vein. Central line, with the tip in the region of the left internal jugular vein. Removal or repositioning recommended. This corresponds with the preliminary interpretation by the treating physician as documented in the electronic record.
--- NOTE | 2017-08-28 17:00 | History and Physical Report ---
DATE OF ADMISSION: 08/27/2017 CHIEF COMPLAINT: Hypoglycemia. HISTORY OF PRESENT ILLNESS: The patient is a 62-year-old female with a history of seizure disorder, hypertension, and end-stage renal disease. She was transferred from a correction facility with complaints of hypoglycemia. The patient has had prior episodes of hypoglycemia. She was evaluated by the college recruiter, who felt that the hypoglycemia was likely due to poor p.o. intake. At the correction facility, the patient had recurrent hypoglycemia. She received glucose tablets. Her diet was liberalized. She was given IV fluids, but she continued to have recurrent bouts of hypoglycemia with blood sugars into the 60s. She was transferred to the emergency room. On evaluation there, her glucose was only 28. She was started on D10, IV fluids, and is now admitted. She is currently awake. Denies any chest pain or shortness of breath. According to half-way staff, the patient has had fair p.o. intake. PAST MEDICAL HISTORY: As above. PAST SURGICAL HISTORY: Includes an AV fistula. CURRENT MEDICATIONS: Reconciled and reviewed. ALLERGIES: None. FAMILY HISTORY: None. SOCIAL HISTORY: The patient is a prior smoker. No alcohol. No drugs. REVIEW OF SYSTEMS: GENERAL: No fever or chills. HEENT: No headaches or visual changes. CARDIOPULMONARY: No chest pain or shortness of breath. GASTROINTESTINAL: No nausea or vomiting. Positive poor p.o. intake at times. GENITOURINARY: No urgency or frequency. MUSCULOSKELETAL: No joint pain or swelling. NEUROLOGIC: No evidence of stroke. Positive history of seizures. PHYSICAL EXAMINATION: VITAL SIGNS: Temperature 97.3, pulse 89, and blood pressure 110/70. GENERAL: The patient is well developed, in no apparent distress. She is awake, alert, in no distress. Alert and oriented to person, place, and time. NECK: Supple. There is no jugular venous distention. Mucous membranes are moist. HEART: Regular rate and rhythm. No murmurs, rubs, or gallops. LUNGS: Clear to auscultation bilaterally. ABDOMEN: Soft, slightly obese, but nontender. There is no rebound or guarding. EXTREMITIES: No clubbing, cyanosis, or edema. LABORATORY DATA: White count was 10, hemoglobin 9, hematocrit 27, and platelet count of 214,000. ABG showed pH of 7.37, pCO2 of 42, pO2 of 88, bicarbonate of 24, and O2 saturation 94%. Coags are normal. Sodium 140, potassium 3.6, chloride 107, bicarbonate 23, BUN 31, creatinine 5, and glucose was 28. The troponin was 0.9. ASSESSMENT: This is a pleasant female, admitted with complaints of hypoglycemia, now with recurrent episodes, unclear etiology. Endocrine has already been consulted and this patient was felt to be hypoglycemic due to poor p.o. intake. With the concerns about possible insulinoma, she did have a normal cortical level during the outpatient workup. PLAN: Continue D10 and D5. Encourage p.o. Renal consultation for hemodialysis. Continue the patient's seizure medications. Silvano Hatfield M.D. DR: ANUM JOB#: [id number] CC:
--- NOTE | 2017-08-28 17:57 | Cardiology Report ---
APPROVED REPORT EKG Measurement Heart [id number] Normal sinus rhythm Low voltage QRS Left anterior fascicular block Possible Anterolateral infarct, age undetermined Abnormal ECG
--- NOTE | 2017-08-29 11:00 | Discharge Summary ---
Discharge Summary Hospital Course Date of Admission Aug 27, 2017 at 15:14 Date of Discharge Aug 28, 2017 at 05:55 Admitting Diagnosis hypoglycemia HPI Karishma Puri is a 62 year old female who was admitted on Aug 27, 2017 at 15 :14 for Hypoglycemia Hospital Course [id number] Discharge Discharge Disposition Patient Discharge Diagnoses: Shannan Dunham NP Aug 29, 2017 11:00
--- NOTE | 2017-08-30 03:45 | Discharge Summary 2 SIG ---
DATE OF ADMISSION: 08/27/2017 DATE OF DISCHARGE: 08/28/2017 SUMMARY BRIEF SUMMARY: The patient is an unfortunate 62-year-old female with history of seizure disorder, hypertension, and end-stage renal disease, was transferred from [facility] facility for complaints of hypoglycemia. She had prior episodes of hypoglycemia and was evaluated by grommet worker before, who felt hypoglycemia was likely due to poor p.o. intake. At the [facility] facility, she had recurrent hypoglycemia. She received glucose tablets and diet was liberalized. She was given IV fluids, but she continued to have recurrent bouts of hypoglycemia with blood sugars in the 60s. She was then transferred to emergency room, where on evaluation, glucose was only 28. She was started on D10 IV fluid and was admitted for further evaluation. She had a problem with IV access and was attempted central line insertion, however was unsuccessful. RN's were able to finally insert a peripheral left arm line and was continued on D10 drip. Following day, the patient was noted to be unresponsive. Code Blue was called. She was given total of 3 epinephrine, bicarbonate calcium and 2 amps of D 50. She was orally intubated, however resuscitative efforts failed and the patient remained in asystole. The patient . FINAL DIAGNOSES: 1. Persistent hypoglycemia. 2. End-stage renal disease, on hemodialysis. 3. Seizure disorder. 4. Encephalopathy. Silvano Hatfield M.D. I have been assigned to dictate discharge summary on this account and I was not involved in the patient's management. Shannan Dunham N.P. DR: CAESAR JOB#: [id number] CC:
== END 2017-08-28 05:55 | disposition expired | DRG 637 ==
LOC: EDUNIT# 12:54 → EDBD 12:54 → EMR 13:25 → 2E 15:14 → EDBEDREQSVC 15:41 → EDBEDREQ 17:27 → 2E 08-28 05:55
PROC: 05HY33Z Insertion of Infusion Device into Upper Vein, Percutaneous Approach (ICD-10-PCS; principal; 2017-08-28)
PROC: 5A12012 Performance of Cardiac Output, Single, Manual (ICD-10-PCS; principal; 2017-08-28)
PROC: 0BH17EZ Insertion of Endotracheal Airway into Trachea, Via Natural or Artificial Opening (ICD-10-PCS; principal; 2017-08-28)
DX: E11.649 Type 2 diabetes mellitus with hypoglycemia without coma (principal); G93.40 Encephalopathy, unspecified; I12.0 Hypertensive chronic kidney disease with stage 5 chronic kidney disease or end stage renal disease; N18.6 End stage renal disease; E11.22 Type 2 diabetes mellitus with diabetic chronic kidney disease; R56.9 Unspecified convulsions; Z99.2 Dependence on renal dialysis; Z86.73 Personal history of transient ischemic attack (TIA), and cerebral infarction without residual deficits; D63.8 Anemia in other chronic diseases classified elsewhere; Z87.891 Personal history of nicotine dependence
CPT/HCPCS: 36415; 36600; 71045; 80053; 82550; 82803; 82962; 83605; 83880; 84484; 85025; 85610; 85730; 86710; 87081; 93005